=== PATIENT | male | born 1935 | race Caucasian/White ===

== ENCOUNTER → 2017-04-24 12:20 | Outpatient (CLI) | payer MEDICARE, OTHER, SELFPAY ==
[2016-09-25 13:26] VITALS: BMI 40.1
[2017-04-24 12:44] VITALS: PULSE 65; PULSE 66; PULSE 75; PULSE 78; PULSE 83; PULSE 86; PULSE 89; PULSE 90; O2SAT 89; O2SAT 90; O2SAT 91; O2SAT 93; O2SAT 95; O2SAT 97
--- NOTE | 2017-04-24 15:10 | WT_ITS ---
PSN 6 Minute Walk Test - 6 Minute Walk Test 6 Minute Walk Test: 6 Minute Walk Test PSN:6-Minute Walk Test Start: 04/24/17 12: 44 Freq: Status: Active Protocol: [id number] Document 04/24/17 12:44 GIOVANNA (Rec: 04/24/17 12:46 GIOVANNA [id number]) 6 Minute Walk Test Date Performed 04/24/17 Time Performed 12:30 Height 5 ft 11 in Weight: 124.738 kg Weight in Pounds 275.[address]: Wyatt Prakash Assistive device used: None Pre-test Oxygen Delivery Method Room Air Pulse Ox (%) 97 Pulse Rate (60-100 beats/min) 66 Dyspnea Jeanette Scale (0-10) 0 Exertion Jeanette Scale (6-20) 6 1st minute Oxygen Delivery Method Room Air Pulse Ox (%) 95 Pulse Rate (60-100 beats/min) 78 2nd minute Oxygen Delivery Method Room Air Pulse Ox (%) 93 Pulse Rate (60-100 beats/min) 90 Number of Rests Taken 1 3rd minute Oxygen Delivery Method Room Air Pulse Ox (%) 90 Pulse Rate (60-100 beats/min) 75 Number of Rests Taken 1 4th minute Oxygen Delivery Method Room Air Pulse Ox (%) 91 Pulse Rate (60-100 beats/min) 86 5th minute Oxygen Delivery Method Room Air Pulse Ox (%) 89 Pulse Rate (60-100 beats/min) 89 Number of Rests Taken 1 6th minute Oxygen Delivery Method Room Air Pulse Ox (%) 91 Pulse Rate (60-100 beats/min) 83 Dyspnea Jeanette Scale (0-10) 3 Exertion Jeanette Scale (6-20) 14 Post-test Oxygen Delivery Method Room Air Pulse Ox (%) 95 Pulse Rate (60-100 beats/min) 65 Full Laps Walked 4 Partial Lap, Number of Tiles Walked 45 Total Distance Walked (ft) 281 - Interpretation Interpretation: The patient was able to ambulate only 281 feet over the course of 6 minutes on room air with no assistive devices, but did require 3 breaks. The patient did have significant desaturation from a baseline of 97%, to as low as 89% throughout the testing. No significant tachycardia was noted. These findings are consistent with a respiratory limitation exercise tolerance. - Recommendations Recommendations: No supplemental oxygen is indicated at this time. However, sensitivity is greatly reduced secondary to minimal distance traveled.
== END ==
PROVIDERS: Family Provider Family Medicine; PCP Family Medicine; Visit Provider Internal Medicine Critical Care Medicine
DX: R93.8 Abnormal findings on diagnostic imaging of other specified body structures (principal)
CPT/HCPCS: 94618

== ENCOUNTER → 2017-06-10 09:40 | Outpatient (CLI) | payer MEDICARE, OTHER, SELFPAY ==
[2016-09-25 13:26] VITALS: BMI 40.1
--- NOTE | 2017-06-10 09:44 | RAD_ITS ---
STUDY: X-RAY CHEST REASON FOR EXAM: Male, 81 years old. CHF TECHNIQUE: PA and lateral views of the chest. COMPARISON: 03/28/2017 FINDINGS: There is mild interstitial edema. No focal consolidation. There is no demonstrated pleural abnormality. Sternal cerclage wires and vascular clips are present from a prior sternotomy and coronary artery bypass graft procedure (CABG). The heart is slightly enlarged. Normal mediastinum and nakia. Normal visualized pulmonary arteries. There is atherosclerotic calcification of the aortic arch with tortuosity. There are diffuse degenerative changes of the visualized thoracic spine. Normal visualized ribs, clavicles, and shoulders. There is no demonstrated abnormality of the visualized soft tissue structures of the upper abdomen. RAD/Chest PA and Lateral IMPRESSION: Mild interstitial edema. No focal pneumonia. Cardiomegaly, with postoperative changes of coronary artery bypass graft. Electronically Signed: Kingsley Mccollum DO at 10:15 EST Tel , Service support ,
== END ==
PROVIDERS: Family Provider Family Medicine; PCP Family Medicine; Visit Provider Family Medicine
DX: I50.9 Heart failure, unspecified (principal)
CPT/HCPCS: 71046

== ENCOUNTER 2017-06-14 15:10 | Inpatient (IN) | payer MEDICARE, OTHER, SELFPAY ==
[2016-09-25 13:26] VITALS: BMI 40.1
[2017-06-14] VITALS (11 sets, daily range): BP systolic 121–143; BP diastolic 58–72; PULSE 60–72; RESP 16–27; TEMP 36.6–37; O2SAT 89–93; BMI 38.3; BMI 37.3
--- NOTE | 2017-06-14 15:28 | EKG12_ITS ---
Test Reason : SOB Blood Pressure : / mmHG Vent. Rate : 064 BPM Atrial Rate : 064 BPM P-R Int : 178 ms QRS Dur : 118 ms QT Int : 434 ms P-R-T Axes : 022 034 -17 degrees QTc Int : 447 ms Normal sinus rhythm ST & T wave abnormality, consider anterior ischemia Abnormal ECG Confirmed by ZAIRA BENZ, JIMMIE ([id number]), sports editor VASHTI BARRAGAN ([id number]) on 06/17/2017 3:56:22 PM Referred By: ABHI Confirmed By:JIMMIE MENESES MD
--- NOTE | 2017-06-14 15:30 | ED.DCSUM_ITS ---
- ER Visit Summary Date of Service: 06/14/17 Chief Complaint: Shortness of breath History of Present Illness: The patient is a 81 M who has been short of breath for the past week. It is worse with exertion. He denies chest pain. He has a history of CHF and was admitted 3 months ago for the same. He saw his PCP on Friday who increased his Lasix to 80 mg in the morning and 40 mg in the evening. Later in the week he was not getting any better so they added another diuretic at noon. Chest x-ray on Friday did show fluid in the lungs. His legs have increased with swelling. Physical Examination: Vital signs reviewed. HEENT exam unremarkable. Heart is regular rate and rhythm without murmurs. Lungs have crackles in the bases bilaterally. Abdomen is soft and nontender. Extremities reveal 2 symmetric edema. Skin exam normal. Neurologic exam normal. Test Results: EKG is sinus rhythm with a rate of 64. There is nonspecific ST and T-wave changes. Chest x-ray per my dictation reveals CHF. There is also a left upper lobe infiltrate. Laboratory studies are normal except for chloride of 95. BNP 70 Emergency Department Course and Treatment: Patient was treated with IV Lasix and topical nitroglycerin. Due to the pneumonia we will treat with vancomycin 3 Nam due to a recent admission less than 3 months ago. I feel he requires admission due to the failure of his outpatient therapy for his CHF. I spoke with the hospitalist for admission Treatment Plan: [] Disposition: Admit Impression: CHF exacerbation, healthcare acquired pneumonia This note was generated with [employer] dictation software. It may contain incorrect words, spelling, and punctuation that were not noted in review of the chart prior to signing ED Disposition - Plan for ED Patient: Chief Complaint: Shortness of Breath Referrals: Joseph Tran MD [Primary Care Provider] -
--- NOTE | 2017-06-14 15:40 | RAD_ITS ---
STUDY: X-RAY CHEST REASON FOR EXAM: Male, 81 years old. Short of breath and cough. TECHNIQUE: Single AP portable view of the chest. COMPARISON: 06/10/2017. FINDINGS: Mild hyperexpansion. Diffuse bilateral pulmonary density, stable on the right and worsened on the left. Findings are probably combination of fibrosis, patchy atelectasis, and or inflammatory infiltrates. Cannot exclude small left pleural effusion. Mild cardiomegaly. Previous CABG. No acute abnormality of the bones or soft tissues. RAD/Chest 1 View (Portable) IMPRESSION: Probable combination of chronic pulmonary disease with fibrosis, and possible patchy atelectasis or infiltrates which have worsened on the left. Electronically Signed: Sreedhar Daniels MD at 16:17 EST , Service support ,
[2017-06-14 15:57] LABS: Absolute Lymphocyte Count 0.65 X10^3/ul (0.83-4.51); Absolute Neutrophil Count 7.2 X10^3/uL (2.0-7.7); Basophil# 0.03 X10^3/uL; Basophil% 0.3 % (0-1); Eosinophil# 0.31 X10^3/uL; Eosinophils% 3.5 % (0-5); Hemoglobin 13.4 g/dl (13.0-16.5); Lymphocyte # 0.65 X10^3/ul (4.0); Lymphocyte % 7.4 % (19-41); Mean Corp Hgb Conc 33.5 g/gl (32-36); Mean Corpuscular Hgb 29.8 pg (27.0-32.0); Mean Corpuscular Volume 88.9 fL (80-94); Mean Platelet Vol. 8.7 fl (6.2-12.0); Monocyte# 0.63 X10^3/uL; Monocyte% 7.1 % (0-10); Neutrophil % 81.5 % (47-70); POSITIVE COUNT NO; POSITIVE DIFFERENTIAL NO; POSITIVE MORPHOLOGY NO; Platelet Count 245 K/mm3 (150-450); RBC Distribution Width CV 12.9 % (11.6-14.6); RBC Distribution Width SD 41.2 fl (35.1-43.9); White Blood Count 8.8 K/mm3 (4.4-11.0)
[2017-06-14 16:11] LABS: Anion Gap 9 (5-15); BUN 18 mg/dL (7-18); BUN/Creat Ratio 15.9 RATIO (10-20); Calcium,Total 8.5 mg/dL (8.5-10.1); Chloride 95 mmol/L (98-107); Creatinine, Serum 1.13 mg/dL (0.70-1.30); EST Glomerular Filtration Rate 66 mL/min (>60); Est Glom Filt Rate - Afr Amer 80 mL/min (>60); Estimated Creatinine Clearance 54.61 ml/min; Glucose 241 mg/dL (74-106); Potassium 3.5 mmol/L (3.5-5.1); Sodium Level 139 mmol/L (136-145)
[2017-06-14 16:24] LABS: BNP,B-Type NATRIURETIC PEPTIDE 70.5 pg/mL (0-100)
--- NOTE | 2017-06-14 17:02 | HP.PCM_ITS ---
Problem List (1) Diastolic CHF, acute Status: Acute (2) Abnormal PFTs (pulmonary function tests) Status: Chronic (3) Abnormal chest CT Status: Chronic (4) Atherosclerotic heart disease of [place] coronary artery without angina pectoris Status: Chronic Qualifiers: Comment: PTCA of the RCA intracoronary stent November 1997; PTCA/TIN to prox Ramus, FFR neg of distal RCA 09/25/2016; CABG TUCKER to LAD; SVG to PDA (5) Atrial fibrillation and flutter Status: Chronic (6) Atrial flutter with rapid ventricular response Status: Chronic (7) CAD (coronary artery disease) Status: Chronic (8) CHF (congestive heart failure) Status: Chronic Qualifiers: Comment: Echocardiogram from March 2017 showed ejection fraction of 55% (9) Cardiomyopathy, secondary Status: Chronic (10) Cataract Status: Chronic (11) Coronary atherosclerosis of [place] coronary vessel Status: Chronic (12) Edema Status: Chronic (13) HLD (hyperlipidemia) Status: Chronic Qualifiers: (14) HTN (hypertension) Status: Chronic Qualifiers: Hypertension type: essential hypertension Qualified Code(s): I10 - Essential (primary) hypertension (15) Obesity Status: Chronic Qualifiers: Obesity classification: adult class 2 (BMI 35 - 39.9) (16) Paroxysmal atrial flutter Status: Chronic (17) Postsurgical aortocoronary bypass status Status: Chronic (18) Restrictive airway disease Status: Chronic (19) S/P CABG x 2 Status: Chronic Comment: TUCKER to LAD; SVG to PDA (20) S/P PTCA (percutaneous transluminal coronary angioplasty) Status: Chronic Comment: PTCA of the RCA inreacoronary stent November 1997; PTCA/TIN to prox Ramus, FFR neg of gistal RCA 09/25/2016 History of Present Illness Date of Admission: 06/14/17 Chief Complaint: Shortness of breath The patient is a 81 year old M with past medical history is enough for paroxysmal A. fib, chronic diastolic congestive heart failure morbid obesity with BMI greater than 35 who presented with shortness of breath. Patient symptoms have been ongoing for the past couple of weeks. He reports shortness of breath with minimal exertion. Patient has also experienced significant swelling involving both lower extremities as well as weight gain. His only Lasix dose what of which was recently adjusted however his condition continued to worsen. He did experience a productive cough but denied any fever no chills. He elected to present to the emergency department subsequently. Patient assessment was consistent with acute on chronic diastolic congestive heart failure. Patient checks x-ray was questionable for possible pneumonia however with the patient remained afebrile without leukocytosis was felt this was small bronchitis related. Patient was admitted to a monitored bed for further management Past Medical History Past Medical History (Chronic Problems): Chronic Problems (Last Updated 04/16/17 @ 09:02 by Christi Gonzalez) CHF (congestive heart failure) (Chronic) Echocardiogram from March 2017 showed ejection fraction of 55% Coronary atherosclerosis of [place] coronary vessel (Chronic) Edema (Chronic) 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, secondary (Chronic) Paroxysmal atrial flutter (Chronic) Atherosclerotic heart disease of [place] coronary artery without angina pectoris (Chronic) PTCA of the RCA intracoronary stent November 1997; PTCA/TIN to prox Ramus, FFR neg of distal RCA 09/25/2016; CABG TUCKER to LAD; SVG to PDA Obesity (Chronic) Abnormal chest CT (Chronic) Restrictive airway disease (Chronic) Abnormal PFTs (pulmonary function tests) (Chronic) S/P PTCA (percutaneous transluminal coronary angioplasty) (Chronic) PTCA of the RCA inreacoronary stent November 1997; PTCA/TIN to prox Ramus, FFR neg of gistal RCA 09/25/2016 Atrial fibrillation and flutter (Chronic) HLD (hyperlipidemia) (Chronic) S/P CABG x 2 (Chronic) TUCKER to LAD; SVG to PDA CAD (coronary artery disease) (Chronic) Cataract (Chronic) HTN (hypertension) (Chronic) Atrial flutter with rapid ventricular response (Chronic) Allergies amoxicillin trihydrate [From Augmentin] Allergy (Verified 06/14/17 15:10) Mucosal lesions lisinopril [From Prinivil] Allergy (Verified 06/14/17 15:10) Unknown meperidine HCl [From Demerol] Allergy (Verified 06/14/17 15:10) Other orlistat [From Xenical] Allergy (Verified 06/14/17 15:10) Unknown Penicillins Allergy (Verified 06/14/17 15:10) Unknown potassium clavulanate [From Augmentin] Allergy (Verified 06/14/17 15:10) Mucosal lesions rofecoxib [From Vioxx] Allergy (Verified 06/14/17 15:10) Unknown adhesive tape Adverse Reaction (Uncoded 06/14/17 15:10) Rash Home Medications: Ambulatory Orders Medication Instructions Recorded Finasteride [Proscar] 5 mg PO DAILY 01/21/13 Gabapentin [Neurontin] 300 mg PO BID 01/21/13 Multivitamins,Ther W-Minerals 1 tab PO DAILY 01/21/13 [Multivitamin With Minerals] Ascorbic Acid [Vitamin C] 500 mg PO DAILY@0800 05/29/15 Vitamin E 400 units PO DAILY 05/29/15 Calcium Carbonate 600 mg PO DAILY 09/02/16 Cholecalciferol (VIT D3) [Vitamin 1,000 unit PO DAILY 09/02/16 D3] Metoprolol Tartrate [Lopressor 25 mg PO BID 09/02/16 (beta stefani)] Tamsulosin HCl [Flomax] 0.4 mg PO QHS 09/02/16 Aspirin [Adult Low Dose Aspirin EC] 81 mg PO DAILY 09/24/16 Clopidogrel Bisulfate [Plavix] 75 mg PO DAILY 09/24/16 Amiodarone HCl [Cordarone] 200 mg PO DAILY 12/13/16 Potassium Chloride [K-Dur] 20 meq PO BID #60 tab 03/31/17 furosemide 80 mg tablet 40 mg PO BID@1000,1800 tab 04/16/17 pravastatin 40 mg tablet 40 mg PO QHS #90 tab 05/14/17 rivaroxaban 20 mg tablet 20 mg PO QDAY #90 tab 05/19/17 Spironolactone [Aldactone] 25 mg PO DAILY 06/14/17 Surgical History: angioplasty, coronary bypass surgery Smoking Status: Former smoker Review of Systems Constitutional: Reports: Weakness, Fatigue HEENT: Denies: Head Aches, Sinus Congestion, Sinus Drainage Cardiovascular: Reports: Orthopnea Respiratory: Reports: Cough, Shortness of Breath, Shortness of breath upon exertion VTE Information - Inpt Only VTE Present on Admission: No VTE Mechan Device Prophylaxis: None VTE Pharm Prophylaxis ordered?: Yes Objective: GENERAL: cooperative HEENT: Clear conjunctiva, NECK; supple, normal thyroid, CHEST: Diminished to auscultation bilaterally, HEART: Irregular S1 S2, no audible murmurs ABDOMEN: soft, non-tender, normoactive bowel sounds, RECTAL: deferred MUSCULOSKELETAL:No joint swelling EXTREMITIES: Bilateral stasis dermatitis with 2+ edema E BUSINESS PROJECT MANAGER: Awake, alert and oriented to time, place and person, SKIN: As described above - Physical Exam Vital Signs Temp Pulse Resp BP Pulse Ox 98.3 F 71 27 H 143/72 H 90 06/14/17 15:11 06/14/17 15:11 06/14/17 15:11 06/14/17 15:11 06/14/17 15:36 Oxygen Flow Rate 2 Oxygen Delivery Method Nasal Cannula Weight: 124.738 kg Body Mass Index (BMI) 38.3 Laboratory Tests Past 24 Hrs 06/14/17 06/14/17 06/14/17 15:40 15:40 15:40 WBC 8.8 RBC 4.50 L Hgb 13.4 Hct 40.0 MCV 88.9 MCH 29.8 MCHC 33.5 RDW 12.9 RDW Differential 41.2 Plt Count 245 MPV 8.7 Immature Gran % (Auto) 0.200 Neut % (Auto) 81.5 H Lymph % (Auto) 7.4 L [place] % (Auto) 7.1 Eos % (Auto) 3.5 Baso % (Auto) 0.3 Absolute Neuts (auto) 7.2 Absolute Lymphs (auto) 0.65 L Total Counted Not Reportable Sodium 139 Potassium 3.5 Chloride 95 L Carbon Dioxide 35.0 H Anion Gap 9 BUN 18 Creatinine 1.13 Estim Creat Clear Calc 54.61 Est GFR (MDRD) Af Amer 80 Est GFR (MDRD) Non-Af 66 BUN/Creatinine Ratio 15.9 Glucose 241 H Calcium 8.5 Troponin I < 0.02 B-Natriuretic Peptide 70.5 Assessment/Plan Patient is an 81-year-old gentleman admitted with progressive shortness of breath as an assessment of acute congestive heart failure made admitted to a monitored nursing floor for further management 1. Acute diastolic congestive heart failure. 2D echo obtained in March demonstrated ejection fraction of 55%. Patient has been admitted to monitored bed as stated above started on diuretics strict input and output daily weights as well as supplemental oxygen 2. Infectious bronchitis (patient clinical presentation not consistent with pneumonia~ruled out) 3. Paroxysmal A. fib patient rate controlled on amiodarone and Lopressor well or systemic anticoagulation with on Xarelto 4. Hypertension-blood pressure controlled, home medications continued with dose adjustment as needed 5. Dyslipidemia-patient is on statin therapy, continued at home dose 6. BPH patient is on both Proscar and Flomax did continue 7. Morbid obesity with BMI of 38.4 weight loss advised 8. DVT prophylaxis patient was on Xarelto Advanced planning had a discussion with patient and the regarding patient CODE STATUS in view of his multiple comorbidities. Patient elected to have this CODE STATUS to be DNR CCA. Time spent on discussion 17 minutes Code Visit Inpatient E&M: 29984 Subs Hosp L3 Procedures: 82134 Advncd Care Plan 30 Min
[2017-06-14] MEDS: Nitroglycerin Oint 1 INCH PACKET 0.5 INCH TRANSDERM. (17:09)
[2017-06-14] MEDS: Furosemide 40 MG/4 ML Vial IV ×2 (17:09→21:21)
[2017-06-14] MEDS: Ipratropium/Albuterol Sulfate 3 ML AMPUL.NEB INHALATION (19:56)
[2017-06-14] MEDS: Doxycycline 100 MG CAPSULE PO (21:21)
[2017-06-14] MEDS: Metoprolol Tartrate 25 MG Tablet PO (21:21)
[2017-06-14] MEDS: Tamsulosin HCl 0.4 MG Capsule PO (21:21)
[2017-06-14] MEDS: Pravastatin 40 MG Tablet PO (21:21)
[2017-06-15] VITALS (19 sets, daily range): BP systolic 112–127; BP diastolic 53–64; PULSE 60–76; RESP 18–20; TEMP 36.5–37.4; O2SAT 90–95
[2017-06-15] MEDS: Albuterol 2.5 MG/3 ML VIAL.NEB. INHALATION (04:10)
[2017-06-15] MEDS: Furosemide 40 MG/4 ML Vial IV ×3 (05:21→22:09)
[2017-06-15 07:04] LABS: Hematocrit 39.2 % (40-54); Hemoglobin 12.9 g/dl (13.0-16.5); Mean Corp Hgb Conc 32.9 g/gl (32-36); Mean Corpuscular Hgb 29.3 pg (27.0-32.0); Mean Corpuscular Volume 88.9 fL (80-94); Mean Platelet Vol. 9.1 fl (6.2-12.0); Platelet Count 237 K/mm3 (150-450); RBC Distribution Width CV 13.1 % (11.6-14.6); RBC Distribution Width SD 42.8 fl (35.1-43.9); Red Blood Count 4.41 M/mm3 (4.6-6.2)
[2017-06-15] MEDS: Ipratropium/Albuterol Sulfate 3 ML AMPUL.NEB INHALATION ×3 (07:13→22:55)
[2017-06-15 07:30] LABS: Scan Indicated on CBC? Y/N NO
[2017-06-15 08:38] LABS: Anion Gap 10 (5-15); BUN 17 mg/dL (7-18); BUN/Creat Ratio 17.7 RATIO (10-20); Calcium,Total 8.4 mg/dL (8.5-10.1); Chloride 96 mmol/L (98-107); Creatinine, Serum 0.96 mg/dL (0.70-1.30); EST Glomerular Filtration Rate 80 mL/min (>60); Est Glom Filt Rate - Afr Amer 96 mL/min (>60); Estimated Creatinine Clearance 64.28 ml/min; Glucose 175 mg/dL (74-106); Potassium 3.2 mmol/L (3.5-5.1); Sodium Level 138 mmol/L (136-145)
[2017-06-15] MEDS: Calcium Carbonate 500 MG Tablet PO (09:13)
[2017-06-15] MEDS: Finasteride 5 MG Tablet PO (09:13)
[2017-06-15] MEDS: Clopidogrel Bisulfate 75 MG Tablet PO (09:14)
[2017-06-15] MEDS: Amiodarone 200 MG Tablet PO (09:14)
[2017-06-15] MEDS: Ascorbic Acid 500 MG Tablet PO (09:14)
[2017-06-15] MEDS: Vitamin E 400 UNITS Capsule PO (09:14)
[2017-06-15] MEDS: Spironolactone 25 MG Tablet PO (09:14)
[2017-06-15] MEDS: Metoprolol Tartrate 25 MG Tablet PO ×2 (09:14→22:08)
[2017-06-15] MEDS: Gabapentin 300 MG Capsule PO ×2 (09:14→16:38)
[2017-06-15] MEDS: Doxycycline 100 MG CAPSULE PO ×2 (09:14→22:08)
[2017-06-15] MEDS: Rivaroxaban 20 MG Tablet PO (09:14)
[2017-06-15] MEDS: Aspirin E.C. 81 MG Tablet PO (09:15)
[2017-06-15] MEDS: Multivitamins,Ther W-Minerals Tablet 1 TABLET PO (09:15)
--- NOTE | 2017-06-15 11:17 | PCM.PN.HOSP ---
Subjective: Patient seen breathing still remains significantly dyspneic at rest and appears depressed. . Potassium 3.3 initiated correction Objective: GENERAL: cooperative HEENT: Clear conjunctiva, NECK; supple, normal thyroid, CHEST: Diminished to auscultation bilaterally, HEART: Irregular S1 S2, ABDOMEN: soft, non-tender, normoactive bowel sounds, RECTAL: deferred MUSCULOSKELETAL:No joint swelling EXTREMITIES: Bilateral stasis dermatitis with 2+ edema SUPERVISOR TESTING: Awake, alert and oriented to time, place and person, SKIN: As described above Vitals/I&O's: Vital Signs Temp Pulse Resp BP Pulse Ox 97.7 F L 68 20 H 112/53 L 92 06/15/17 09:06 06/15/17 09:14 06/15/17 09:06 06/15/17 09:14 06/15/17 09:06 Oxygen Flow Rate 4 Oxygen Delivery Method Nasal Cannula Weight: 120.9 kg Body Mass Index (BMI) 37.3 Intake and Output for Last 24 Hours 06/13/17 06/14/17 06/15/17 23:59 23:59 23:59 Intake Total 240 / 240 472 / 472 Output Total 125 / 125 725 / 725 Balance 115 / 115 -253 / -253 Laboratory Results 06/14/17 19:45: Troponin I < 0.02 06/14/17 23:56: Troponin I < 0.02 06/15/17 06:19: WBC 9.0, RBC 4.41 L, Hgb 12.9 L, Hct 39.2 L, MCV 88.9, MCH 29.3, MCHC 32.9, RDW 13.1, RDW Differential 42.8, Plt Count 237, MPV 9.1 06/15/17 06:19: Sodium Cancelled, Potassium Cancelled, Chloride Cancelled, Carbon Dioxide Cancelled, Anion Gap Cancelled, BUN Cancelled, Creatinine Cancelled, Estim Creat Clear Calc Cancelled, Est GFR (MDRD) Af Amer Cancelled, Est GFR (MDRD) Non-Af Cancelled, BUN/Creatinine Ratio Cancelled, Glucose Cancelled, Calcium Cancelled 06/15/17 06:19: Sodium 138, Potassium 3.2 L, Chloride 96 L, Carbon Dioxide 32.0, Anion Gap 10, BUN 17, Creatinine 0.96, Estim Creat Clear Calc 64.28, Est GFR (MDRD) Af Amer 96, Est GFR (MDRD) Non-Af 80, BUN/Creatinine Ratio 17.7, Glucose 175 H, Calcium 8.4 L, Troponin I < 0.02 Current Medications Acetaminophen (Tylenol) 650 mg PO Q6H PRN PRN PRN Reason: Mild Pain (scale 0-3)/T>100.7 Al Hydroxide/Mg Hydroxide (Mylanta Ii) 30 ml PO Q6H PRN PRN PRN Reason: Gastric burning Albuterol Sulfate (Ventolin Aerosols) 2.5 mg INHALATION Q2H PRN PRN PRN Reason: DYSPNEA/WHEEZING/SOB Last Admin: 06/15/17 04:10 Dose: 2.5 mg Albuterol/Ipratropium (Duoneb) 3 ml INHALATION Q6HWA.RT [facility] [place] Last Admin: 06/15/17 07:13 Dose: 3 ml Amiodarone HCl (Cordarone) 200 mg PO DAILY [facility] [place] Last Admin: 06/15/17 09:14 Dose: 200 mg Ascorbic Acid (Vitamin C) 500 mg PO DAILY@0800 [facility] [place] Last Admin: 06/15/17 09:14 Dose: 500 mg Aspirin (Ecotrin) 81 mg PO DAILY@0800 [facility] [place] Last Admin: 06/15/17 09:15 Dose: 81 mg [facility]cium [facility]) [facility] Admin: 06/15/17 09:13 Dose: 500 mg Cholecalciferol (Vitamin D) [facility] Last Admin: 06/15/17 09:14 Dose: 1,000 unit Clopidogrel Bisulfate (Plavix) 75 mg PO DAILY [facility] [place] Last Admin: 06/15/17 09:14 Dose: 75 mg Doxycycline Monohydrate (Doxycycline) 100 mg PO BID [facility] [place] Last Admin: 06/15/17 09:14 Dose: 100 mg Finasteride (Proscar) 5 mg PO DAILY [facility] [place] Last Admin: 06/15/17 09:13 Dose: 5 mg Furosemide (Lasix) 40 mg IV Q8 [facility] [place] Last Admin: 06/15/17 05:21 Dose: 40 mg Gabapentin ([facility]ontin) [facility] Last Admin: 06/15/17 09:14 Dose: 300 mg Magnesium Hydroxide (Milk Of Magnesia) 30 ml PO DAILY PRN PRN Reason: Constipation Metoprolol Tartrate (Lopressor (Beta Yelena)) 25 mg PO BID [facility] [place] Last Admin: 06/15/17 09:14 Dose: 25 mg Multivitamins/Minerals (Multivitamin With Minerals) [facility] Last Admin: 06/15/17 09:15 Dose: 1 tablet Nutritional Formula (Lactose Free) (Ensure Enlive) 120 ml PO 4X/DAY [facility] [place] Last Admin: 06/15/17 09:16 Dose: 120 ml Oxycodone HCl (Oxyir) 5 mg PO Q4H PRN PRN PRN Reason: Moderate Pain (pain scale 4-5) Potassium Chloride (K-Dur) [facility] Last Admin: 06/15/17 09:15 Dose: 20 meq Pravastatin Sodium (Pravachol) 40 mg PO QHS [facility] [place] Last Admin: 06/14/17 21:21 Dose: 40 mg Promethazine HCl (Phenergan (Ll)) 12.5 mg IV Q6H PRN PRN PRN Reason: NAUSEA/VOMITING Rivaroxaban (Xarelto) 20 mg PO DAILY [facility] [place] Last Admin: 06/15/17 09:14 Dose: 20 mg Spironolactone (Aldactone) 25 mg PO DAILY [facility] [place] Last Admin: 06/15/17 09:14 Dose: 25 mg Tamsulosin HCl (Flomax) 0.4 mg PO QHS [facility] [place] Last Admin: 06/14/17 21:21 Dose: 0.4 mg Vitamin E (Vitamin E) [facility] Last Admin: 06/15/17 09:14 Dose: 400 units Zolpidem Tartrate (Ambien (Generic)) 5 mg PO QHS PRN PRN PRN Reason: INSOMNIA Assessment/Plan Patient is an 81-year-old gentleman admitted with progressive shortness of breath as an assessment of acute congestive heart failure made admitted to a monitored nursing floor for further management 1. Acute diastolic congestive heart failure. 2D echo obtained in March demonstrated ejection fraction of 55%. Patient has been admitted to monitored bed as stated above started on diuretics strict input and output daily weights as well as supplemental oxygen 2. Infectious bronchitis (patient clinical presentation not consistent with pneumonia~ruled out) 3. Paroxysmal A. fib patient rate controlled on amiodarone and Lopressor well or systemic anticoagulation with on Xarelto 4. Hypertension-blood pressure controlled, home medications continued with dose adjustment as needed 5. Dyslipidemia-patient is on statin therapy, continued at home dose 6. BPH patient is on both Proscar and Flomax did continue 7. Morbid obesity with BMI of 38.4 weight loss advised 8. DVT prophylaxis patient was on Xarelto 9. Hypokalemia corrected per protocol Advanced planning had a discussion with patient and the regarding patient CODE STATUS in view of his multiple comorbidities. Patient elected to have this CODE STATUS to be DNR CCA. Time spent on discussion 17 minutes Code Visit Inpatient E&M: 82697 Subs Hosp L3
--- NOTE | 2017-06-15 11:20 | PN_ITS ---
Subjective: Patient seen breathing still remains significantly dyspneic at rest and appears depressed. . Potassium 3.3 initiated correction Objective: GENERAL: cooperative HEENT: Clear conjunctiva, NECK; supple, normal thyroid, CHEST: Diminished to auscultation bilaterally, HEART: Irregular S1 S2, ABDOMEN: soft, non-tender, normoactive bowel sounds, RECTAL: deferred MUSCULOSKELETAL:No joint swelling EXTREMITIES: Bilateral stasis dermatitis with 2+ edema NATIONAL SECRETARY: Awake, alert and oriented to time, place and person, SKIN: As described above Vitals/I&O's: Vital Signs Temp Pulse Resp BP Pulse Ox 97.7 F L 68 20 H 112/53 L 92 06/15/17 09:06 06/15/17 09:14 06/15/17 09:06 06/15/17 09:14 06/15/17 09:06 Oxygen Flow Rate 4 Oxygen Delivery Method Nasal Cannula Weight: 120.9 kg Body Mass Index (BMI) 37.3 Intake and Output for Last 24 Hours 06/13/17 06/14/17 06/15/17 23:59 23:59 23:59 Intake Total 240 / 240 472 / 472 Output Total 125 / 125 725 / 725 Balance 115 / 115 -253 / -253 Laboratory Results 06/14/17 19:45: Troponin I < 0.02 06/14/17 23:56: Troponin I < 0.02 06/15/17 06:19: WBC 9.0, RBC 4.41 L, Hgb 12.9 L, Hct 39.2 L, MCV 88.9, MCH 29.3 , MCHC 32.9, RDW 13.1, RDW Differential 42.8, Plt Count 237, MPV 9.1 06/15/17 06:19: Sodium Cancelled, Potassium Cancelled, Chloride Cancelled, Carbon Dioxide Cancelled, Anion Gap Cancelled, BUN Cancelled, Creatinine Cancelled, Estim Creat Clear Calc Cancelled, Est GFR (MDRD) Af Amer Cancelled, Est GFR (MDRD) Non-Af Cancelled, BUN/Creatinine Ratio Cancelled, Glucose Cancelled, Calcium Cancelled 06/15/17 06:19: Sodium 138, Potassium 3.2 L, Chloride 96 L, Carbon Dioxide 32.0 , Anion Gap 10, BUN 17, Creatinine 0.96, Estim Creat Clear Calc 64.28, Est GFR ( MDRD) Af Amer 96, Est GFR (MDRD) Non-Af 80, BUN/Creatinine Ratio 17.7, Glucose 175 H, Calcium 8.4 L, Troponin I < 0.02 Current Medications Acetaminophen (Tylenol) 650 mg PO Q6H PRN PRN PRN Reason: Mild Pain (scale 0-3)/T>100.7 Al Hydroxide/Mg Hydroxide (Mylanta Ii) 30 ml PO Q6H PRN PRN PRN Reason: Gastric burning Albuterol Sulfate (Ventolin Aerosols) 2.5 mg INHALATION Q2H PRN PRN PRN Reason: DYSPNEA/WHEEZING/SOB Last Admin: 06/15/17 04:10 Dose: 2.5 mg Albuterol/Ipratropium (Duoneb) 3 ml INHALATION Q6HWA.RT [facility] Last Admin: 06/15/17 07:13 Dose: 3 ml Amiodarone HCl (Cordarone) 200 mg PO DAILY [facility] Last Admin: 06/15/17 09:14 Dose: 200 mg Ascorbic Acid (Vitamin C) 500 mg PO DAILY@0800 [facility] Last Admin: 06/15/17 09:14 Dose: 500 mg Aspirin (Ecotrin) 81 mg PO DAILY@0800 [facility] Last Admin: 06/15/17 09:15 Dose: 81 mg [facility] Last Admin: 06/15/17 09:13 Dose: 500 mg Cholecalciferol (Vitamin D) [facility] Last Admin: 06/15/17 09:14 Dose: 1,000 unit Clopidogrel Bisulfate (Plavix) 75 mg PO DAILY [facility] Last Admin: 06/15/17 09:14 Dose: 75 mg Doxycycline Monohydrate (Doxycycline) 100 mg PO BID [facility] Last Admin: 06/15/17 09:14 Dose: 100 mg Finasteride (Proscar) 5 mg PO DAILY [facility] Last Admin: 06/15/17 09:13 Dose: 5 mg Furosemide (Lasix) 40 mg IV Q8 [facility] Last Admin: 06/15/17 05:21 Dose: 40 mg Gabapentin (Neurontin) [facility] Last Admin: 06/15/17 09:14 Dose: 300 mg Magnesium Hydroxide (Milk Of Magnesia) 30 ml PO DAILY PRN PRN Reason: Constipation Metoprolol Tartrate (Lopressor (Beta Yelena)) 25 mg PO BID [facility] Last Admin: 06/15/17 09:14 Dose: 25 mg Multivitamins/Minerals (Multivitamin With Minerals) [facility] Last Admin: 06/15/17 09:15 Dose: 1 tablet Nutritional Formula (Lactose Free) (Ensure Enlive) 120 ml PO 4X/DAY [facility] Last Admin: 06/15/17 09:16 Dose: 120 ml Oxycodone HCl (Oxyir) 5 mg PO Q4H PRN PRN PRN Reason: Moderate Pain (pain scale 4-5) Potassium Chloride (K-Dur) [facility]q [facility] Last Admin: 06/15/17 09:15 Dose: 20 meq Pravastatin Sodium (Pravachol) 40 mg PO QHS [facility] Last Admin: 06/14/17 21:21 Dose: 40 mg Promethazine HCl (Phenergan (Ll)) 12.5 mg IV Q6H PRN PRN PRN Reason: NAUSEA/VOMITING Rivaroxaban (Xarelto) 20 mg PO DAILY [facility] Last Admin: 06/15/17 09:14 Dose: 20 mg Spironolactone (Aldactone) 25 mg PO DAILY [facility] Last Admin: 06/15/17 09:14 Dose: 25 mg Tamsulosin HCl (Flomax) 0.4 mg PO QHS [facility] Last Admin: 06/14/17 21:21 Dose: 0.4 mg Vitamin E (Vitamin E) [facility] Last Admin: 06/15/17 09:14 Dose: 400 units Zolpidem Tartrate (Ambien (Generic)) 5 mg PO QHS PRN PRN PRN Reason: INSOMNIA Assessment/Plan Patient is an 81-year-old gentleman admitted with progressive shortness of breath as an assessment of acute congestive heart failure made admitted to a monitored nursing floor for further management 1. Acute diastolic congestive heart failure. 2D echo obtained in March demonstrated ejection fraction of 55%. Patient has been admitted to monitored bed as stated above started on diuretics strict input and output daily weights as well as supplemental oxygen 2. Infectious bronchitis (patient clinical presentation not consistent with pneumonia~ruled out) 3. Paroxysmal A. fib patient rate controlled on amiodarone and Lopressor well or systemic anticoagulation with on Xarelto 4. Hypertension-blood pressure controlled, home medications continued with dose adjustment as needed 5. Dyslipidemia-patient is on statin therapy, continued at home dose 6. BPH patient is on both Proscar and Flomax did continue 7. Morbid obesity with BMI of 38.4 weight loss advised 8. DVT prophylaxis patient was on Xarelto 9. Hypokalemia corrected per protocol Advanced planning had a discussion with patient and the regarding patient CODE STATUS in view of his multiple comorbidities. Patient elected to have this CODE STATUS to be DNR CCA. Time spent on discussion 17 minutes Code Visit Inpatient E&M: 28510 Subs Hosp L3
[2017-06-15] MEDS: Pravastatin 40 MG Tablet PO (22:09)
[2017-06-15] MEDS: Tamsulosin HCl 0.4 MG Capsule PO (22:09)
[2017-06-16] VITALS (17 sets, daily range): BP systolic 116–126; BP diastolic 59–64; PULSE 63–88; RESP 16–24; TEMP 36.6–37.1; O2SAT 87–97
[2017-06-16] MEDS: Furosemide 40 MG/4 ML Vial IV ×3 (05:34→22:02)
[2017-06-16 06:52] LABS: Hematocrit 40.4 % (40-54); Hemoglobin 13.4 g/dl (13.0-16.5); Mean Corp Hgb Conc 33.2 g/gl (32-36); Mean Corpuscular Hgb 29.8 pg (27.0-32.0); Mean Platelet Vol. 8.8 fl (6.2-12.0); Platelet Count 288 K/mm3 (150-450); RBC Distribution Width SD 42.5 fl (35.1-43.9); Red Blood Count 4.49 M/mm3 (4.6-6.2); White Blood Count 9.1 K/mm3 (4.4-11.0)
[2017-06-16 07:19] LABS: Anion Gap 9 (5-15); BUN 19 mg/dL (7-18); BUN/Creat Ratio 20.9 RATIO (10-20); Chloride 96 mmol/L (98-107); Creatinine, Serum 0.91 mg/dL (0.70-1.30); EST Glomerular Filtration Rate 85 mL/min (>60); Est Glom Filt Rate - Afr Amer 103 mL/min (>60); Estimated Creatinine Clearance 67.81 ml/min; Glucose 170 mg/dL (74-106); Potassium 3.8 mmol/L (3.5-5.1); Sodium Level 140 mmol/L (136-145)
[2017-06-16 07:35] LABS: Scan Indicated on CBC? Y/N NO
[2017-06-16] MEDS: Ipratropium/Albuterol Sulfate 3 ML AMPUL.NEB INHALATION ×3 (07:41→21:53)
[2017-06-16] MEDS: Calcium Carbonate 500 MG Tablet PO (08:33)
[2017-06-16] MEDS: Aspirin E.C. 81 MG Tablet PO (08:33)
[2017-06-16] MEDS: Gabapentin 300 MG Capsule PO ×2 (08:33→17:14)
[2017-06-16] MEDS: Doxycycline 100 MG CAPSULE PO ×2 (08:33→22:01)
[2017-06-16] MEDS: Ascorbic Acid 500 MG Tablet PO (08:33)
[2017-06-16] MEDS: Multivitamins,Ther W-Minerals Tablet 1 TABLET PO (08:33)
[2017-06-16] MEDS: Clopidogrel Bisulfate 75 MG Tablet PO (08:34)
[2017-06-16] MEDS: Metoprolol Tartrate 25 MG Tablet PO ×2 (08:34→22:01)
[2017-06-16] MEDS: Finasteride 5 MG Tablet PO (08:35)
[2017-06-16] MEDS: Amiodarone 200 MG Tablet PO (08:35)
[2017-06-16] MEDS: Spironolactone 25 MG Tablet PO (08:35)
[2017-06-16] MEDS: Vitamin E 400 UNITS Capsule PO (08:35)
[2017-06-16] MEDS: Rivaroxaban 20 MG Tablet PO (08:35)
[2017-06-16] MEDS: Acetaminophen 325 MG Tablet 650 MG PO (09:57)
--- NOTE | 2017-06-16 13:11 | PCM.PN.HOSP ---
Subjective: Shortness of breath. Still with dyspnea on exertion. Vitals/I&O's: Vital Signs Temp Pulse Resp BP Pulse Ox 36.6 C 65 20 H 126/59 H 87 06/16/17 09:58 06/16/17 11:29 06/16/17 09:58 06/16/17 09:58 06/16/17 10:02 Oxygen Flow Rate 4 Oxygen Delivery Method Nasal Cannula Weight: 119.4 kg Body Mass Index (BMI) 37.3 Intake and Output for Last 24 Hours 06/14/17 06/15/17 06/16/17 23:59 23:59 23:59 Intake Total 240 / 240 1172 / 1172 460 / 460 Output Total 125 / 125 1250 / 1250 1050 / 1050 Balance 115 / 115 -78 / -78 -590 / -590 General: Alert, Cooperative, No apparent distress HEENT: Atraumatic, Normocephalic Neck: No Nodes, Thyroid Normal Size and Texture Lungs: Clear to auscultation, Normal air movement, No rhonchi, No wheeze Cardiovascular: Regular rate, Regular Rhythm, Normal S1, Normal S2, No murmurs Abdomen: Bowel Sounds Present, Soft, Non Tender, Non-Distended, No Hepato-splenomegaly, Passing Flatus Extremities: No edema, No Calf Tenderness Psych/Mental Status: Normal Affect, Appropriate Laboratory Results 06/16/17 06:30: WBC 9.1, RBC 4.49 L, Hgb 13.4, Hct 40.4, MCV 90.0, MCH 29.8, MCHC 33.2, RDW 13.0, RDW Differential 42.5, Plt Count 288, MPV 8.8 06/16/17 06:30: Sodium 140, Potassium 3.8, Chloride 96 L, Carbon Dioxide 35.0 H, Anion Gap 9, BUN 19 H, Creatinine 0.91, Estim Creat Clear Calc 67.81, Est GFR (MDRD) Af Amer 103, Est GFR (MDRD) Non-Af 85, BUN/Creatinine Ratio 20.9 H, Glucose 170 H, Calcium 9.0 Current Medications Acetaminophen (Tylenol) 650 mg PO Q6H PRN PRN PRN Reason: Mild Pain (scale 0-3)/T>100.7 Last Admin: 06/16/17 09:57 Dose: 650 mg Al Hydroxide/Mg Hydroxide (Mylanta Ii) 30 ml PO Q6H PRN PRN PRN Reason: Gastric burning Albuterol Sulfate (Ventolin Aerosols) 2.5 mg INHALATION Q2H PRN PRN PRN Reason: DYSPNEA/WHEEZING/SOB Last Admin: 06/15/17 04:10 Dose: 2.5 mg Albuterol/Ipratropium (Duoneb) 3 ml INHALATION Q6HWA.RT [facility] Last Admin: 06/16/17 07:41 Dose: 3 ml Amiodarone HCl (Cordarone) 200 mg PO DAILY [facility] Last Admin: 06/16/17 08:35 Dose: 200 mg Ascorbic Acid (Vitamin C) 500 mg PO DAILY@0800 [facility] Last Admin: 06/16/17 08:33 Dose: 500 mg Aspirin (Ecotrin) 81 mg PO DAILY@0800 [facility] Last Admin: 06/16/17 08:33 Dose: 81 mg [facility] Last Admin: 06/16/17 08:33 Dose: 500 mg Cholecalciferol (Vitamin D) [facility] Last Admin: 06/16/17 08:34 Dose: 1,000 unit Clopidogrel Bisulfate (Plavix) 75 mg PO DAILY [facility] Last Admin: 06/16/17 08:34 Dose: 75 mg Doxycycline Monohydrate (Doxycycline) 100 mg PO BID [facility] Last Admin: 06/16/17 08:33 Dose: 100 mg Finasteride (Proscar) 5 mg PO DAILY [facility] Last Admin: 06/16/17 08:35 Dose: 5 mg Furosemide (Lasix) 40 mg IV Q8 [facility] Last Admin: 06/16/17 05:34 Dose: 40 mg [facility]apentin ([facility]urontin) [facility] Last Admin: 06/16/17 08:33 Dose: 300 mg Magnesium Hydroxide (Milk Of Magnesia) 30 ml PO DAILY PRN PRN Reason: Constipation Metoprolol Tartrate (Lopressor (Beta Yelena)) 25 mg PO BID [facility] Last Admin: 06/16/17 08:34 Dose: 25 mg Multivitamins/Minerals (Multivitamin With Minerals) [facility] Last Admin: 06/16/17 08:33 Dose: 1 tablet Nutritional Formula (Lactose Free) (Ensure Enlive) 60 ml PO 4X/DAY [facility] Oxycodone HCl (Oxyir) 5 mg PO Q4H PRN PRN PRN Reason: Moderate Pain (pain scale 4-5) Potassium Chloride (K-Dur) [facility] Last Admin: 06/16/17 08:32 Dose: 20 meq Pravastatin Sodium (Pravachol) 40 mg PO QHS [facility] Last Admin: 06/15/17 22:09 Dose: 40 mg Promethazine HCl (Phenergan (Ll)) 12.5 mg IV Q6H PRN PRN PRN Reason: NAUSEA/VOMITING Rivaroxaban (Xarelto) 20 mg PO DAILY [facility] Last Admin: 06/16/17 08:35 Dose: 20 mg Spironolactone (Aldactone) 25 mg PO DAILY [facility] Last Admin: 06/16/17 08:35 Dose: 25 mg Tamsulosin HCl (Flomax) 0.4 mg PO QHS [facility] Last Admin: 06/15/17 22:09 Dose: 0.4 mg Vitamin E (Vitamin E) [facility] Last Admin: 06/16/17 08:35 Dose: 400 units Zolpidem Tartrate (Ambien (Generic)) 5 mg PO QHS PRN PRN PRN Reason: INSOMNIA Assessment/Plan 1. Acute heart failure with preserved ejection fraction Ejection fraction of 50% from echocardiogram from May 2015. Continue with IV Lasix On metoprolol tartrate Noted allergy to lisinopril. Though consider angiotensin receptor yelena. 2. Coronary artery disease Stable Continue with medical management 3. Paroxysmal atrial fibrillation Continue amiodarone, metoprolol and Xarelto 4. DVT prophylaxis: Patient is currently anticoagulated. 5. CODE STATUS: Patient had expressed to the admitting physician that he wanted DNR Comfort Care arrest. Portion order was not placed so I asked the patient again what he would want to and patient stated that he would be okay with couple pounds on the chest. When I went in the detail asked as to what CPR actually entails, he was noncommittal to full code and all were DNR Comfort Care status at this time. I told him to think it over to talk it over with his family as well and to let us know at a later point. Therefore the meantime, patient will be full CODE STATUS. Code Visit Inpatient E&M: [id number] [facility] Hosp L2
--- NOTE | 2017-06-16 13:19 | PN_ITS ---
Subjective: Shortness of breath. Still with dyspnea on exertion. Vitals/I&O's: Vital Signs Temp Pulse Resp BP Pulse Ox 36.6 C 65 20 H 126/59 H 87 06/16/17 09:58 06/16/17 11:29 06/16/17 09:58 06/16/17 09:58 06/16/17 10:02 Oxygen Flow Rate 4 Oxygen Delivery Method Nasal Cannula Weight: 119.4 kg Body Mass Index (BMI) 37.3 Intake and Output for Last 24 Hours 06/14/17 06/15/17 06/16/17 23:59 23:59 23:59 Intake Total 240 / 240 1172 / 1172 460 / 460 Output Total 125 / 125 1250 / 1250 1050 / 1050 Balance 115 / 115 -78 / -78 -590 / -590 General: Alert, Cooperative, No apparent distress HEENT: Atraumatic, Normocephalic Neck: No Nodes, Thyroid Normal Size and Texture Lungs: Clear to auscultation, Normal air movement, No rhonchi, No wheeze Cardiovascular: Regular rate, Regular Rhythm, Normal S1, Normal S2, No murmurs Abdomen: Bowel Sounds Present, Soft, Non Tender, Non-Distended, No Hepato- splenomegaly, Passing Flatus Extremities: No edema, No Calf Tenderness Psych/Mental Status: Normal Affect, Appropriate Laboratory Results 06/16/17 06:30: WBC 9.1, RBC 4.49 L, Hgb 13.4, Hct 40.4, MCV 90.0, MCH 29.8, MCHC 33.2, RDW 13.0, RDW Differential 42.5, Plt Count 288, MPV 8.8 06/16/17 06:30: Sodium 140, Potassium 3.8, Chloride 96 L, Carbon Dioxide 35.0 H , Anion Gap 9, BUN 19 H, Creatinine 0.91, Estim Creat Clear Calc 67.81, Est GFR (MDRD) Af Amer 103, Est GFR (MDRD) Non-Af 85, BUN/Creatinine Ratio 20.9 H, Glucose 170 H, Calcium 9.0 Current Medications Acetaminophen (Tylenol) 650 mg PO Q6H PRN PRN PRN Reason: Mild Pain (scale 0-3)/T>100.7 Last Admin: 06/16/17 09:57 Dose: 650 mg Al Hydroxide/Mg Hydroxide (Mylanta Ii) 30 ml PO Q6H PRN PRN PRN Reason: Gastric burning Albuterol Sulfate (Ventolin Aerosols) 2.5 mg INHALATION Q2H PRN PRN PRN Reason: DYSPNEA/WHEEZING/SOB Last Admin: 06/15/17 04:10 Dose: 2.5 mg Albuterol/Ipratropium (Duoneb) 3 ml INHALATION Q6HWA.RT [facility] Last Admin: 06/16/17 07:41 Dose: 3 ml Amiodarone HCl (Cordarone) 200 mg PO DAILY [facility] Last Admin: 06/16/17 08:35 Dose: 200 mg Ascorbic Acid (Vitamin C) 500 mg PO DAILY@0800 [facility] Last Admin: 06/16/17 08:33 Dose: 500 mg Aspirin (Ecotrin) 81 mg PO DAILY@0800 [facility] Last Admin: 06/16/17 08:33 Dose: 81 mg [facility]cium Carbonate (T[facility]) [facility] Last Admin: 06/16/17 08:33 Dose: 500 mg Cholecalciferol (Vitamin D) 1,[facility] Last Admin: 06/16/17 08:34 Dose: 1,000 unit Clopidogrel Bisulfate (Plavix) 75 mg PO DAILY [facility] Last Admin: 06/16/17 08:34 Dose: 75 mg Doxycycline Monohydrate (Doxycycline) 100 mg PO BID [facility] Last Admin: 06/16/17 08:33 Dose: 100 mg Finasteride (Proscar) 5 mg PO DAILY [facility] Last Admin: 06/16/17 08:35 Dose: 5 mg Furosemide (Lasix) 40 mg IV Q8 [facility] Last Admin: 06/16/17 05:34 Dose: 40 mg Gabapentin (Neurontin) [facility] Last Admin: 06/16/17 08:33 Dose: 300 mg Magnesium Hydroxide (Milk Of Magnesia) 30 ml PO DAILY PRN PRN Reason: Constipation Metoprolol Tartrate (Lopressor (Beta Yelena)) 25 mg PO BID [facility] Last Admin: 06/16/17 08:34 Dose: 25 mg Multivitamins/Minerals (Multivitamin With Minerals) [facility] Last Admin: 06/16/17 08:33 Dose: 1 tablet Nutritional Formula (Lactose Free) (Ensure Enlive) 60 ml PO 4X/DAY [facility] Oxycodone HCl (Oxyir) 5 mg PO Q4H PRN PRN PRN Reason: Moderate Pain (pain scale 4-5) Potassium Chloride (K-Dur) 20 meq PO BIDCM [facility] Last Admin: 06/16/17 08:32 Dose: 20 meq Pravastatin Sodium (Pravachol) 40 mg PO QHS [facility] Last Admin: 06/15/17 22:09 Dose: 40 mg Promethazine HCl (Phenergan (Ll)) 12.5 mg IV Q6H PRN PRN PRN Reason: NAUSEA/VOMITING Rivaroxaban (Xarelto) 20 mg PO DAILY [facility] Last Admin: 06/16/17 08:35 Dose: 20 mg Spironolactone (Aldactone) 25 mg PO DAILY [facility] Last Admin: 06/16/17 08:35 Dose: 25 mg Tamsulosin HCl (Flomax) 0.4 mg PO QHS [facility] Last Admin: 06/15/17 22:09 Dose: 0.4 mg Vitamin E (Vitamin E) [facility] Last Admin: 06/16/17 08:35 Dose: 400 units Zolpidem Tartrate (Ambien (Generic)) 5 mg PO QHS PRN PRN PRN Reason: INSOMNIA Assessment/Plan 1. Acute heart failure with preserved ejection fraction * Ejection fraction of 50% from echocardiogram from May 2015. * Continue with IV Lasix * On metoprolol tartrate * Noted allergy to lisinopril. Though consider angiotensin receptor yelena. 2. Coronary artery disease * Stable * Continue with medical management 3. Paroxysmal atrial fibrillation * Continue amiodarone, metoprolol and Xarelto 4. DVT prophylaxis: Patient is currently anticoagulated. 5. CODE STATUS: Patient had expressed to the admitting physician that he wanted DNR Comfort Care arrest. Portion order was not placed so I asked the patient again what he would want to and patient stated that he would be okay with couple pounds on the chest. When I went in the detail asked as to what CPR actually entails, he was noncommittal to full code and all were DNR Comfort Care status at this time. I told him to think it over to talk it over with his family as well and to let us know at a later point. Therefore the meantime, patient will be full CODE STATUS. Code Visit Inpatient E&M: 35631 [facility] Hosp L2
[2017-06-16] MEDS: Pravastatin 40 MG Tablet PO (22:01)
[2017-06-16] MEDS: Tamsulosin HCl 0.4 MG Capsule PO (22:01)
[2017-06-17] VITALS (18 sets, daily range): BP systolic 114–150; BP diastolic 60–89; PULSE 65–87; RESP 16–20; TEMP 36.6–37.2; O2SAT 74–94
[2017-06-17] MEDS: Furosemide 40 MG/4 ML Vial IV ×3 (06:07→21:14)
[2017-06-17 06:13] LABS: Hematocrit 40.2 % (40-54); Hemoglobin 13.2 g/dl (13.0-16.5); Mean Corp Hgb Conc 32.8 g/gl (32-36); Mean Corpuscular Hgb 29.7 pg (27.0-32.0); Mean Corpuscular Volume 90.3 fL (80-94); Mean Platelet Vol. 8.7 fl (6.2-12.0); Platelet Count 307 K/mm3 (150-450); RBC Distribution Width SD 42.9 fl (35.1-43.9); Red Blood Count 4.45 M/mm3 (4.6-6.2); White Blood Count 9.1 K/mm3 (4.4-11.0)
[2017-06-17 06:21] LABS: Scan Indicated on CBC? Y/N NO
[2017-06-17 06:36] LABS: Anion Gap 4 (5-15); BUN 22 mg/dL (7-18); BUN/Creat Ratio 23.1 RATIO (10-20); Chloride 96 mmol/L (98-107); Creatinine, Serum 0.95 mg/dL (0.70-1.30); EST Glomerular Filtration Rate 80 mL/min (>60); Est Glom Filt Rate - Afr Amer 97 mL/min (>60); Estimated Creatinine Clearance 64.95 ml/min; Glucose 175 mg/dL (74-106); Potassium 4.2 mmol/L (3.5-5.1); Sodium Level 137 mmol/L (136-145)
[2017-06-17] MEDS: Ipratropium/Albuterol Sulfate 3 ML AMPUL.NEB INHALATION ×2 (07:18→15:25)
--- NOTE | 2017-06-17 09:17 | CASEMGMT ---
Face to Face with patient for initial transition planning/care coordination assessment. BOY SMITH introduced self and role at [facility], pt voices understanding and consents to assessment at this time. Pt is lying in bed in no distress at this time. Pt A/O x4 at this time and answers all questions appropriately at this time. Care providers, pharmacy, and demographics verified. See attached link. Pt voices no further concerns/needs at this time. Advised pt to ask for CM if any further questions/concerns/needs arise, voices understanding. PLAN: [place] BOY SM[place]
[2017-06-17] MEDS: Aspirin E.C. 81 MG Tablet PO (09:24)
[2017-06-17] MEDS: Multivitamins,Ther W-Minerals Tablet 1 TABLET PO (09:25)
[2017-06-17] MEDS: Calcium Carbonate 500 MG Tablet PO (09:26)
[2017-06-17] MEDS: Vitamin E 400 UNITS Capsule PO (09:26)
[2017-06-17] MEDS: Gabapentin 300 MG Capsule PO ×2 (09:26→17:53)
[2017-06-17] MEDS: Amiodarone 200 MG Tablet PO (09:27)
[2017-06-17] MEDS: Spironolactone 25 MG Tablet PO (09:27)
[2017-06-17] MEDS: Ascorbic Acid 500 MG Tablet PO (09:28)
[2017-06-17] MEDS: Doxycycline 100 MG CAPSULE PO (09:28)
[2017-06-17] MEDS: Metoprolol Tartrate 25 MG Tablet PO ×2 (09:28→21:16)
[2017-06-17] MEDS: Clopidogrel Bisulfate 75 MG Tablet PO (09:29)
[2017-06-17] MEDS: Rivaroxaban 20 MG Tablet PO (09:29)
[2017-06-17] MEDS: Finasteride 5 MG Tablet PO (09:29)
--- NOTE | 2017-06-17 12:10 | PCM.PN.HOSP ---
Patient Problems: Active and Suspected Problems (Last Updated 04/16/17 @ 09:02 by Christi Gonzalez) Diastolic CHF, acute (Acute) Subjective: Breathing better. Decreased dyspnea on exertion. No lower extremity edema. Vitals/I&O's: Vital Signs Temp Pulse Resp BP Pulse Ox 36.8 C 87 18 114/60 93 06/17/17 09:23 06/17/17 11:00 06/17/17 09:23 06/17/17 09:23 06/17/17 09:23 Oxygen Flow Rate (L/min) 4 Oxygen Delivery Method Nasal Cannula Weight: 119 kg Body Mass Index (BMI) 37.3 Intake and Output for Last 24 Hours 06/15/17 06/16/17 06/17/17 23:59 23:59 23:59 Intake Total 1172 / 1172 1120 / 1120 750 / 750 Output Total 1250 / 1250 2125 / 2125 825 / 825 Balance -78 / -78 -1005 / -1005 -75 / -75 General: Alert, Cooperative, No apparent distress HEENT: Atraumatic, Normocephalic Neck: No Nodes, Thyroid Normal Size and Texture, - - +JVD Lungs: Normal air movement, Wheezes Cardiovascular: Regular rate, Regular Rhythm, Normal S1, Normal S2, No murmurs Abdomen: Bowel Sounds Present, Soft, Non Tender, Non-Distended Extremities: No edema, No Calf Tenderness Skin: No rashes, No breakdown Psych/Mental Status: Normal Affect, Appropriate Laboratory Results 06/17/17 05:55: WBC 9.1, RBC 4.45 L, Hgb 13.2, Hct 40.2, MCV 90.3, MCH 29.7, MCHC 32.8, RDW 13.0, RDW Differential 42.9, Plt Count 307, MPV 8.7 06/17/17 05:55: Sodium 137, Potassium 4.2, Chloride 96 L, Carbon Dioxide 37.0 H, Anion Gap 4 L, BUN 22 H, Creatinine 0.95, Estim Creat Clear Calc 64.95, Est GFR (MDRD) Af Amer 97, Est GFR (MDRD) Non-Af 80, BUN/Creatinine Ratio 23.1 H, Glucose 175 H, Calcium 9.0 Current Medications Acetaminophen (Tylenol) 650 mg PO Q6H PRN PRN PRN Reason: Mild Pain (scale 0-3)/T>100.7 Last Admin: 06/16/17 09:57 Dose: 650 mg Al Hydroxide/Mg Hydroxide (Mylanta Ii) 30 ml PO Q6H PRN PRN PRN Reason: Gastric burning Albuterol Sulfate (Ventolin Aerosols) 2.5 mg INHALATION Q2H PRN PRN PRN Reason: DYSPNEA/WHEEZING/SOB Last Admin: 06/15/17 04:10 Dose: 2.5 mg Albuterol/Ipratropium (Duoneb) 3 ml INHALATION Q6HWA.RT [facility] Last Admin: 06/17/17 07:18 Dose: 3 ml Amiodarone HCl (Cordarone) 200 mg PO DAILY [facility] Last Admin: 06/17/17 09:27 Dose: 200 mg Ascorbic Acid (Vitamin C) 500 mg PO DAILY@0800 [facility] Last Admin: 06/17/17 09:28 Dose: 500 mg Aspirin (Ecotrin) 81 mg PO DAILY@0800 [facility] Last Admin: 06/17/17 09:24 Dose: 81 mg [facility] Last Admin: 06/17/17 09:26 Dose: 500 mg Cholecalciferol (Vitamin D) [facility] Last Admin: 06/17/17 09:32 Dose: 1,000 unit Clopidogrel Bisulfate (Plavix) 75 mg PO DAILY [facility] Last Admin: 06/17/17 09:29 Dose: 75 mg Doxycycline Monohydrate (Doxycycline) 100 mg PO BID [facility] Last Admin: 06/17/17 09:28 Dose: 100 mg Finasteride (Proscar) 5 mg PO DAILY [facility] Last Admin: 06/17/17 09:29 Dose: 5 mg Furosemide (Lasix) 40 mg IV Q8 [facility] Last Admin: 06/17/17 06:07 Dose: 40 mg Gabapentin (Neurontin) [facility] Last Admin: 06/17/17 09:26 Dose: 300 mg Magnesium Hydroxide (Milk Of Magnesia) 30 ml PO DAILY PRN PRN Reason: Constipation Metoprolol Tartrate (Lopressor (Beta Yelena)) 25 mg PO BID [facility] Last Admin: 06/17/17 09:28 Dose: 25 mg Multivitamins/Minerals (Multivitamin With Minerals) [facility] Last Admin: 06/17/17 09:25 Dose: 1 tablet Nutritional Formula (Lactose Free) (Ensure Enlive) 60 ml PO 4X/DAY [facility] Last Admin: 06/17/17 09:28 Dose: Not Given Oxycodone HCl (Oxyir) 5 mg PO Q4H PRN PRN PRN Reason: Moderate Pain (pain scale 4-5) Potassium Chloride (K-Dur) [facility] Last Admin: 06/17/17 09:25 Dose: 20 meq Pravastatin Sodium (Pravachol) 40 mg PO QHS [facility] Last Admin: 06/16/17 22:01 Dose: 40 mg Promethazine HCl (Phenergan (Ll)) 12.5 mg IV Q6H PRN PRN PRN Reason: NAUSEA/VOMITING Rivaroxaban (Xarelto) 20 mg PO DAILY [facility] Last Admin: 06/17/17 09:29 Dose: 20 mg Sodium Chloride ([place] Nasal [place]) 2 spray NASAL TID PRN PRN PRN Reason: NASAL DRYNESS Spironolactone (Aldactone) 25 mg PO DAILY [facility] Last Admin: 06/17/17 09:27 Dose: 25 mg Tamsulosin HCl (Flomax) 0.4 mg PO QHS [facility] Last Admin: 06/16/17 22:01 Dose: 0.4 mg Vitamin E (Vitamin E) [facility] Last Admin: 06/17/17 09:26 Dose: 400 units Zolpidem Tartrate (Ambien (Generic)) 5 mg PO QHS PRN PRN PRN Reason: INSOMNIA Assessment/Plan Active and Suspected Problems (Last Updated 04/16/17 @ 09:02 by Christi Gonzalez) Diastolic CHF, acute (Acute) 1. Acute heart failure with preserved ejection fraction Ejection fraction of 50% from echocardiogram from May 2015. Continue with IV Lasix On metoprolol tartrate Noted allergy to lisinopril. Though consider angiotensin receptor yelena. 2. Coronary artery disease Stable Continue with medical management 3. Paroxysmal atrial fibrillation Continue amiodarone, metoprolol and Xarelto 4. DVT prophylaxis: Patient is currently anticoagulated. 5. Chronic respiratory failure: multifactorial: OHS, ILD, CHF, PH pt requesting pulmonary consultation given his upcoming appointment Code Visit Inpatient E&M: 36414 Subs Hosp L2
--- NOTE | 2017-06-17 12:17 | PN_ITS ---
Patient Problems: Active and Suspected Problems (Last Updated 04/16/17 @ 09:02 by Christi Gonzalez) Diastolic CHF, acute (Acute) Subjective: Breathing better. Decreased dyspnea on exertion. No lower extremity edema. Vitals/I&O's: Vital Signs Temp Pulse Resp BP Pulse Ox 36.8 C 87 18 114/60 93 06/17/17 09:23 06/17/17 11:00 06/17/17 09:23 06/17/17 09:23 06/17/17 09:23 Oxygen Flow Rate (L/min) 4 Oxygen Delivery Method Nasal Cannula Weight: 119 kg Body Mass Index (BMI) 37.3 Intake and Output for Last 24 Hours 06/15/17 06/16/17 06/17/17 23:59 23:59 23:59 Intake Total 1172 / 1172 1120 / 1120 750 / 750 Output Total 1250 / 1250 2125 / 2125 825 / 825 Balance -78 / -78 -1005 / -1005 -75 / -75 General: Alert, Cooperative, No apparent distress HEENT: Atraumatic, Normocephalic Neck: No Nodes, Thyroid Normal Size and Texture, - - +JVD Lungs: Normal air movement, Wheezes Cardiovascular: Regular rate, Regular Rhythm, Normal S1, Normal S2, No murmurs Abdomen: Bowel Sounds Present, Soft, Non Tender, Non-Distended Extremities: No edema, No Calf Tenderness Skin: No rashes, No breakdown Psych/Mental Status: Normal Affect, Appropriate Laboratory Results 06/17/17 05:55: WBC 9.1, RBC 4.45 L, Hgb 13.2, Hct 40.2, MCV 90.3, MCH 29.7, MCHC 32.8, RDW 13.0, RDW Differential 42.9, Plt Count 307, MPV 8.7 06/17/17 05:55: Sodium 137, Potassium 4.2, Chloride 96 L, Carbon Dioxide 37.0 H , Anion Gap 4 L, BUN 22 H, Creatinine 0.95, Estim Creat Clear Calc 64.95, Est GFR (MDRD) Af Amer 97, Est GFR (MDRD) Non-Af 80, BUN/Creatinine Ratio 23.1 H, Glucose 175 H, Calcium 9.0 Current Medications Acetaminophen (Tylenol) 650 mg PO Q6H PRN PRN PRN Reason: Mild Pain (scale 0-3)/T>100.7 Last Admin: 06/16/17 09:57 Dose: 650 mg Al Hydroxide/Mg Hydroxide (Mylanta Ii) 30 ml PO Q6H PRN PRN PRN Reason: Gastric burning Albuterol Sulfate (Ventolin Aerosols) 2.5 mg INHALATION Q2H PRN PRN PRN Reason: DYSPNEA/WHEEZING/SOB Last Admin: 06/15/17 04:10 Dose: 2.5 mg Albuterol/Ipratropium (Duoneb) 3 ml INHALATION Q6HWA.RT [facility] Last Admin: 06/17/17 07:18 Dose: 3 ml Amiodarone HCl (Cordarone) 200 mg PO DAILY [facility] Last Admin: 06/17/17 09:27 Dose: 200 mg Ascorbic Acid (Vitamin C) 500 mg PO DAILY@0800 [facility] Last Admin: 06/17/17 09:28 Dose: 500 mg Aspirin (Ecotrin) 81 mg PO DAILY@0800 [facility] Last Admin: 06/17/17 09:24 Dose: 81 mg [facility] Admin: 06/17/17 09:26 Dose: 500 mg Cholecalciferol (Vitamin D) [facility] Last Admin: 06/17/17 09:32 Dose: 1,000 unit Clopidogrel Bisulfate (Plavix) 75 mg PO DAILY [facility] Last Admin: 06/17/17 09:29 Dose: 75 mg Doxycycline Monohydrate (Doxycycline) 100 mg PO BID [facility] Last Admin: 06/17/17 09:28 Dose: 100 mg Finasteride (Proscar) 5 mg PO DAILY [facility] Last Admin: 06/17/17 09:29 Dose: 5 mg Furosemide (Lasix) 40 mg IV Q8 [facility] Last Admin: 06/17/17 06:07 Dose: 40 mg Gabapentin ([facility]urontin) [facility] Last Admin: 06/17/17 09:26 Dose: 300 mg Magnesium Hydroxide (Milk Of Magnesia) 30 ml PO DAILY PRN PRN Reason: Constipation Metoprolol Tartrate (Lopressor (Beta Yelena)) 25 mg PO BID [facility] Last Admin: 06/17/17 09:28 Dose: 25 mg Multivitamins/Minerals (Multivitamin With Minerals) [facility] Last Admin: 06/17/17 09:25 Dose: 1 tablet Nutritional Formula (Lactose Free) (Ensure Enlive) 60 ml PO 4X/DAY [facility] Last Admin: 06/17/17 09:28 Dose: Not Given Oxycodone HCl (Oxyir) 5 mg PO Q4H PRN PRN PRN Reason: Moderate Pain (pain scale 4-5) Potassium Chloride (K-Dur) [facility] Last Admin: 06/17/17 09:25 Dose: 20 meq Pravastatin Sodium (Pravachol) 40 mg PO QHS [facility] Last Admin: 06/16/17 22:01 Dose: 40 mg Promethazine HCl (Phenergan (Ll)) 12.5 mg IV Q6H PRN PRN PRN Reason: NAUSEA/VOMITING Rivaroxaban (Xarelto) 20 mg PO DAILY [facility] Last Admin: 06/17/17 09:29 Dose: 20 mg Sodium Chloride (Culpeper Nasal [place]) 2 spray NASAL TID PRN PRN PRN Reason: NASAL DRYNESS Spironolactone (Aldactone) 25 mg PO DAILY [facility] Last Admin: 06/17/17 09:27 Dose: 25 mg Tamsulosin HCl (Flomax) 0.4 mg PO QHS [facility] Last Admin: 06/16/17 22:01 Dose: 0.4 mg Vitamin E (Vitamin E) [facility] Last Admin: 06/17/17 09:26 Dose: 400 units Zolpidem Tartrate (Ambien (Generic)) 5 mg PO QHS PRN PRN PRN Reason: INSOMNIA Assessment/Plan Active and Suspected Problems (Last Updated 04/16/17 @ 09:02 by Christi Gonzalez) Diastolic CHF, acute (Acute) 1. Acute heart failure with preserved ejection fraction * Ejection fraction of 50% from echocardiogram from May 2015. * Continue with IV Lasix * On metoprolol tartrate * Noted allergy to lisinopril. Though consider angiotensin receptor yelena. 2. Coronary artery disease * Stable * Continue with medical management 3. Paroxysmal atrial fibrillation * Continue amiodarone, metoprolol and Xarelto 4. DVT prophylaxis: Patient is currently anticoagulated. 5. Chronic respiratory failure: * multifactorial: OHS, ILD, CHF, PH * pt requesting pulmonary consultation given his upcoming appointment Code Visit Inpatient E&M: [id number] [facility] Hosp L2
--- NOTE | 2017-06-17 12:33 | PCM.CONS.GEN ---
Problem List (1) Acute on chronic respiratory failure with hypoxia and hypercapnia Status: Acute (2) Diastolic CHF, acute Status: Acute (3) Paroxysmal atrial flutter Status: Chronic (4) Atherosclerotic heart disease of hoopa coronary artery without angina pectoris Status: Chronic Qualifiers: Comment: PTCA of the RCA intracoronary stent November 1997; PTCA/TIN to prox Ramus, FFR neg of distal RCA 09/25/2016; CABG TUCKER to LAD; SVG to PDA (5) Obesity Status: Chronic Qualifiers: Obesity classification: adult class 2 (BMI 35 - 39.9) (6) Abnormal chest CT Status: Chronic (7) Restrictive airway disease Status: Chronic (8) Atrial fibrillation and flutter Status: Chronic (9) HLD (hyperlipidemia) Status: Chronic Qualifiers: (10) CAD (coronary artery disease) Status: Chronic (11) HTN (hypertension) Status: Chronic Qualifiers: Hypertension type: essential hypertension Qualified Code(s): I10 - Essential (primary) hypertension Reason for Consult Date of Consultation: 06/17/17 Reason for Consultation: chronic respiratory failure History of Present Illness: The patient is a 81 year old M who is known to the pulmonary clinic and follows with Dr. Prakash, presented to the ER 06/14/17 secondary to complaints of increased shortness of breath with worsening on exertion and increased lower extremity edema. Patient reports he cannot walk 5 steps without becoming significantly short of breath. The patient was admitted in March 2017 with similar complaints and has been wearing 2 L throughout the day and night for the last couple of weeks. Patient reports he has been compliant with his diet, except the preceding couple of days prior to his admission. He has not been weighing himself at all. Patient reports he has a pulse oximeter at home and notably drops into the 70s-80s routinely. Chest x-ray on 06/14/17 showed probable combination of chronic pulmonary disease with fibrosis, and possible patchy atelectasis or infiltrates which have worsened on the left. Lab work has revealed no leukocytosis. Chloride level has been low and glucose elevated. Cardiac enzymes were negative. BNP was 70. The patient was started on doxycycline and scheduled DuoNeb aerosols with PRN albuterol. He remains anticoagulated on Xarelto for chronic atrial fibrillation. The patient initially required 2 L and is currently requiring 3-4 L of oxygen supplementation. His dyspnea on exertion has somewhat improved. He had a low-grade temp of 99.4?F on 06/15, no further temps. Patient denies any fever or chills. States he had heaviness in his chest at home, this has resolved. Denies hemoptysis. He has remained hemodynamically stable. He has been diuresed and remains on IV Lasix. Renal function has remained stable. Serum bicarb has steadily increased and is now 37.0. Urine strep/Legionella antigens were negative as well as influenza screening. The patient requested a pulmonary consultation given his upcoming appointment with Christen Bernabe NP on 07/03/17. Patient voices concern that he is becoming depressed, he is no longer able to golf or participate in activities he once enjoyed. Pulmonary function tests were obtained on 02/11/17 and demonstrated a moderate restrictive ventilatory defect with symmetric reduction in diffusing capacity. There was concern for interstitial lung disease versus pleural effusion, given the patient's cardiac history. The patient was admitted 03/28/17 through 03/31/17 for CHF exacerbation and atrial fibrillation, and discharged on 2 L of supplemental oxygen. A chest CTA during that admission showed no PE, aneurysm, or atrial dissection, enlarged pulmonary arteries, mediastinal lymphadenopathy. There was evidence of nonspecific basilar fibrosis. A preliminary autoimmune/rheumatologic workup was sent. Serial longitudinal high resolution chest CT was recommended to monitor for progression. He had a follow-up visit with Dr. Prakash on 04/10/17 at which time testing was ordered. A 6 minute walking oximetry on 04/24/17 showed desaturations from 97% to 89, patient was able to walk a minimal distance of 281 feet requiring 3 breaks, consistent with exercise intolerance. No supplemental oxygen was ordered at that time. Echocardiogram from August 2016 revealed evidence of diastolic dysfunction with an estimated ejection fraction of 55%. RVSP was estimated at 37 mmHg. 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, secondary (Chronic) Paroxysmal atrial flutter (Chronic) Atherosclerotic heart disease of hoopa coronary artery without angina pectoris (Chronic) PTCA of the RCA intracoronary stent November 1997; PTCA/TIN to prox Ramus, FFR neg of distal RCA 09/25/2016; CABG TUCKER to LAD; SVG to PDA Obesity (Chronic) Abnormal chest CT (Chronic) Restrictive airway disease (Chronic) Abnormal PFTs (pulmonary function tests) (Chronic) S/P PTCA (percutaneous transluminal coronary angioplasty) (Chronic) PTCA of the RCA inreacoronary stent November 1997; PTCA/TIN to prox Ramus, FFR neg of gistal RCA 09/25/2016 Atrial fibrillation and flutter (Chronic) HLD (hyperlipidemia) (Chronic) S/P CABG x 2 (Chronic) TUCKER to LAD; SVG to PDA CAD (coronary artery disease) (Chronic) Cataract (Chronic) HTN (hypertension) (Chronic) Atrial flutter with rapid ventricular response (Chronic) Allergies amoxicillin trihydrate [From Augmentin] Allergy (Verified 06/14/17 15:10) Mucosal lesions lisinopril [From Prinivil] Allergy (Verified 06/14/17 15:10) Unknown meperidine HCl [From Demerol] Allergy (Verified 06/14/17 15:10) Other orlistat [From Xenical] Allergy (Verified 06/14/17 15:10) Unknown Penicillins Allergy (Verified 06/14/17 15:10) Unknown potassium clavulanate [From Augmentin] Allergy (Verified 06/14/17 15:10) Mucosal lesions rofecoxib [From Vioxx] Allergy (Verified 06/14/17 15:10) Unknown adhesive tape Adverse Reaction (Uncoded 06/14/17 15:10) Rash Home Medications: Ambulatory Orders Medication Instructions Recorded Finasteride [Proscar] 5 mg PO DAILY 01/21/13 Gabapentin [Neurontin] 300 mg PO BID 01/21/13 Multivitamins,Ther W-Minerals 1 tab PO DAILY 01/21/13 [Multivitamin With Minerals] Ascorbic Acid [Vitamin C] 500 mg PO DAILY@0800 05/29/15 Vitamin E 400 units PO DAILY 05/29/15 Calcium Carbonate 600 mg PO DAILY 09/02/16 Cholecalciferol (VIT D3) [Vitamin 1,000 unit PO DAILY 09/02/16 D3] Metoprolol Tartrate [Lopressor 25 mg PO BID 09/02/16 (beta stefani)] Tamsulosin HCl [Flomax] 0.4 mg PO QHS 09/02/16 Aspirin [Adult Low Dose Aspirin EC] 81 mg PO DAILY 09/24/16 Clopidogrel Bisulfate [Plavix] 75 mg PO DAILY 09/24/16 Amiodarone HCl [Cordarone] 200 mg PO DAILY 12/13/16 Potassium Chloride [K-Dur] 20 meq PO BID #60 tab 03/31/17 pravastatin 40 mg tablet 40 mg PO QHS #90 tab 05/14/17 rivaroxaban 20 mg tablet 20 mg PO QDAY #90 tab 05/19/17 Furosemide [Furosemide] 40 mg PO DINNER 06/14/17 Furosemide [Lasix] 80 mg PO BREAKFAST 06/14/17 Spironolactone [Aldactone] 25 mg PO DAILY 06/14/17 Surgical History: angioplasty, coronary bypass surgery Psychiatric History: Depression Lives: Spouse/ Significant Other Smoking Status: Former smoker Tobacco Use: Non-smoker Alcohol: None Drugs: None Review of Systems Constitutional: Reports: Weakness, Fatigue. Denies: Anorexia, Chills, Fever, Night Sweats, Weight Change Eyes: Denies: Vision Change HEENT: Reports: Hard of Hearing, Nasal bleeding - With oxygen use, minimal. Denies: Difficulty Swallowing, Post Nasal Drip, Sinus Drainage Cardiovascular: Reports: Chest Pressure, Edema - Improved, Light Headedness - Resolved, Orthopnea. Denies: Palpitations, Paroxysmal Noc. Dyspnea, Syncope Respiratory: Reports: Cough - Nonproductive, Shortness of breath upon exertion, Wheezing. Denies: Hemoptysis, Shortness of breath at rest, Sputum production Gastrointestinal: Denies: Abdominal Pain, Constipation, Diarrhea, Dyspepsia, Hematemesis, Hematochezia, Nausea, Melena, Vomiting Genitourinary: Reports: Frequency, Nocturia. Denies: Dysuria, Hematuria, Retention Musculoskeletal: Denies: Back Pain Skin: Reports: Dryness. Denies: Rash, Wounds Neurological: Denies: Balance problems, Change in Speech, Confusion, Difficulty swallowing, Focal weakness, Numbness, Tingling, Tremor, Seizures Psychiatric: Reports: Depression. Denies: Anxiety, Suicidal Ideations Endocrine: Denies: Change in Body Habitus, Polydipsia, Polyuria Hematologic/ Lymphatic: Reports: Easy Bruising, Easy Bleeding. Denies: Adenopathy, Anemia, Hx of blood clot Patient Problems: Active and Suspected Problems (Last Updated 06/17/17 @ 12:11 by Trenton Landin DO) Acute on chronic respiratory failure with hypoxia and hypercapnia (Acute) Diastolic CHF, acute (Acute) Subjective: Patient was seen and examined. He is sitting in the chair with legs elevated. His is at the bedside. Reports he is very depressed that his health has been declining. Patient states he is nearing his baseline activity level, which is poor. Objective: Clinical Impression(s) from Imaging Studies Chest X-Ray 06/14/17 15:40 IMPRESSION: Probable combination of chronic pulmonary disease with fibrosis, and possible patchy atelectasis or infiltrates which have worsened on the left. Electronically Signed: Sreedhar Daniels MD at 16:17 EST , Service support , - Physical Exam General: Alert, Oriented x3, Cooperative, No apparent distress, - - Depressed. Obese. HEENT: Atraumatic, PERRLA, Normocephalic Oral: Moist Mucosa, No Gingival or Mucosal Lesions/ Ulcerations Neck: Supple, No Nodes, Trachea Midline Lungs: Diminished, - - Bibasilar Rales, scattered rhonchi on the left. Minimal wheezing. Symmetric expansion, no accessory muscle use. Cardiovascular: Regular rate, Regular Rhythm, Normal S1, Normal S2, Murmur - KAVITA, No rub noted, No Gallop Abdomen: Bowel Sounds Present, Soft, Non Tender, Obese Extremities: No clubbing, No cyanosis, Edema - Trace LE, - - vascular changes to LEs Skin: No rashes, No breakdown Musculoskeletal: No Tenderness to Palpation of Joints or Extremities Lymphatic: No Cervical, Supraclavicular, or Inguinal Adenopathy Neurological: Cranial nerves II-XII grossly intact, Neuro grossly intact, Motor Exam 5/5 strength throughout Psych/Mental Status: Depressed, - - pleasant and cooperative. cognitively intact Vital Signs Temp Pulse Resp BP Pulse Ox 98.2 F 87 18 114/60 93 06/17/17 09:23 06/17/17 11:00 06/17/17 09:23 06/17/17 09:23 06/17/17 09:23 Oxygen Flow Rate (L/min) 4 Oxygen Delivery Method Nasal Cannula Weight: 262 lb 5.601 oz Body Mass Index (BMI) 37.3 Intake and Output for Last 24 Hours 06/15/17 06/16/17 06/17/17 23:59 23:59 23:59 Intake Total 1172 / 1172 1120 / 1120 750 / 750 Output Total 1250 / 1250 2125 / 2125 825 / 825 Balance -78 / -78 -1005 / -1005 -75 / -75 Laboratory Tests Past 24 Hrs 06/17/17 06/17/17 05:55 05:55 WBC 9.1 RBC 4.45 L Hgb 13.2 Hct 40.2 MCV 90.3 MCH 29.7 MCHC 32.8 RDW 13.0 RDW Differential 42.9 Plt Count 307 MPV 8.7 Sodium 137 Potassium 4.2 Chloride 96 L Carbon Dioxide 37.0 H Anion Gap 4 L BUN 22 H Creatinine 0.95 Estim Creat Clear Calc 64.95 Est GFR (MDRD) Af Amer 97 Est GFR (MDRD) Non-Af 80 BUN/Creatinine Ratio 23.1 H Glucose 175 H Calcium 9.0 Assessment/Plan Active and Suspected Problems (Last Updated 06/17/17 @ 12:11 by Trenton Landin DO) Acute on chronic respiratory failure with hypoxia and hypercapnia (Acute) Diastolic CHF, acute (Acute) RECOMMENDATIONS 1. Wean oxygen supplementation to keep saturations greater than 89% 2. Encourage incentive spirometer 3. Increase activity as tolerated, continue PT/OT 4. Continue aerosols as ordered 5. Likely okay to de-escalate Lasix therapy to oral in the next 24-48 hours 6. May discontinue antibiotics 7. Reinforce CHF teaching, fluid restriction 8. Ambulatory pulse ox prior to discharge 9. Follow-up as scheduled in the pulmonary clinic on July 03 with Christen Bernabe NP IMPRESSIONS 1. Acute on chronic respiratory failure with hypoxia and hypercarbia Likely secondary to CHF exacerbation. Has improved with diuresis. Has a negative fluid balance of 1043 mL. However, patient remains on higher oxygen requirement of 4L than he normally has at home (2L). Patient had 6 minute walking oximetry in April with no recommendations for oxygen supplementation, however was wearing 2 L at night and now 2L throughout the day for the last few weeks secondary to exercise intolerance and dyspnea at the recommendation of Dr. Tran. Compliant with oxygen at home, does have mild pulmonary hypertension per last echocardiogram. Remains afebrile with no leukocytosis. Influenza negative, urine strep/Legionella negative. Likely not infectious process. Likely okay to discontinue antibiotics. Patient should have ambulatory pulse ox prior to discharge to assess for increased oxygen requirements with exertion. He can follow-up as scheduled on July 03 in the pulmonary clinic. 2. Acute on chronic congestive heart failure Improved. Being managed with IV Lasix, beta blockers. PCP had increased his Lasix at home to 80 mg in the morning and 40 mg at night, then added spironolactone 2 days prior to presentation to the ER. Likely can be converted to oral Lasix in the next 24-48 hours. Continue I&O and fluid restriction, patient will need education with present for management of CHF as an outpatient. Education provided by myself during assessment. He can follow up with Dr. Kimball as an outpatient. 3. History of A. fib on Xarelto/hypertension/CAD s/p CABG/hyperlipidemia/restrictive airway disease/abnormal chest CT/obesity Complicates care, management, recovery, and prognosis. EKG showed sinus rhythm with a rate of 64 bpm, nonspecific ST and T-wave changes but nothing acute. Patient remains on antiarrhythmics. Thank you for the opportunity to participate in this patient's care, please not hesitate contact us with any further questions or concerns. This note was generated with [employer] software. It may contain incorrect words, spelling, and punctuation that were not noted in checking the note before signing.
--- NOTE | 2017-06-17 12:47 | CON.PCM_ITS ---
Problem List (1) Acute on chronic respiratory failure with hypoxia and hypercapnia Status: Acute (2) Diastolic CHF, acute Status: Acute (3) Paroxysmal atrial flutter Status: Chronic (4) Atherosclerotic heart disease of campo coronary artery without angina pectoris Status: Chronic Qualifiers: Comment: PTCA of the RCA intracoronary stent November 1997; PTCA/TIN to prox Ramus, FFR neg of distal RCA 09/25/2016; CABG TUCKER to LAD; SVG to PDA (5) Obesity Status: Chronic Qualifiers: Obesity classification: adult class 2 (BMI 35 - 39.9) (6) Abnormal chest CT Status: Chronic (7) Restrictive airway disease Status: Chronic (8) Atrial fibrillation and flutter Status: Chronic (9) HLD (hyperlipidemia) Status: Chronic Qualifiers: (10) CAD (coronary artery disease) Status: Chronic (11) HTN (hypertension) Status: Chronic Qualifiers: Hypertension type: essential hypertension Qualified Code(s): I10 - Essential (primary) hypertension Reason for Consult Date of Consultation: 06/17/17 Reason for Consultation: chronic respiratory failure History of Present Illness: The patient is a 81 year old M who is known to the pulmonary clinic and follows with Dr. Prakash, presented to the ER 06/14/17 secondary to complaints of increased shortness of breath with worsening on exertion and increased lower extremity edema. Patient reports he cannot walk 5 steps without becoming significantly short of breath. The patient was admitted in March 2017 with similar complaints and has been wearing 2 L throughout the day and night for the last couple of weeks. Patient reports he has been compliant with his diet, except the preceding couple of days prior to his admission. He has not been weighing himself at all. Patient reports he has a pulse oximeter at home and notably drops into the 70s-80s routinely. Chest x-ray on 06/14/17 showed probable combination of chronic pulmonary disease with fibrosis, and possible patchy atelectasis or infiltrates which have worsened on the left. Lab work has revealed no leukocytosis. Chloride level has been low and glucose elevated. Cardiac enzymes were negative. BNP was 70. The patient was started on doxycycline and scheduled DuoNeb aerosols with PRN albuterol. He remains anticoagulated on Xarelto for chronic atrial fibrillation. The patient initially required 2 L and is currently requiring 3-4 L of oxygen supplementation. His dyspnea on exertion has somewhat improved. He had a low- grade temp of 99.4?F on 06/15, no further temps. Patient denies any fever or chills. States he had heaviness in his chest at home, this has resolved. Denies hemoptysis. He has remained hemodynamically stable. He has been diuresed and remains on IV Lasix. Renal function has remained stable. Serum bicarb has steadily increased and is now 37.0. Urine strep/Legionella antigens were negative as well as influenza screening. The patient requested a pulmonary consultation given his upcoming appointment with Christen Bernabe NP on 07/03/17. Patient voices concern that he is becoming depressed, he is no longer able to golf or participate in activities he once enjoyed. Pulmonary function tests were obtained on 02/11/17 and demonstrated a moderate restrictive ventilatory defect with symmetric reduction in diffusing capacity. There was concern for interstitial lung disease versus pleural effusion, given the patient's cardiac history. The patient was admitted 03/28/17 through for CHF exacerbation and atrial fibrillation, and discharged on 2 L of supplemental oxygen. A chest CTA during that admission showed no PE, aneurysm, or atrial dissection, enlarged pulmonary arteries, mediastinal lymphadenopathy. There was evidence of nonspecific basilar fibrosis. A preliminary autoimmune/ rheumatologic workup was sent. Serial longitudinal high resolution chest CT was recommended to monitor for progression. He had a follow-up visit with Dr. Prakash on 04/10/17 at which time testing was ordered. A 6 minute walking oximetry on 04/24/17 showed desaturations from 97% to 89, patient was able to walk a minimal distance of 281 feet requiring 3 breaks, consistent with exercise intolerance. No supplemental oxygen was ordered at that time. Echocardiogram from August 2016 revealed evidence of diastolic dysfunction with an estimated ejection fraction of 55%. RVSP was estimated at 37 mmHg. Past Medical History Past Medical History (Chronic Problems): Chronic Problems (Last Updated 06/17/17 @ 12:11 by Trenton Landin DO) CHF (congestive heart failure) (Chronic) Echocardiogram from March 2017 showed ejection fraction of 55% Coronary atherosclerosis of campo coronary vessel (Chronic) Edema (Chronic) 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, secondary (Chronic) Paroxysmal atrial flutter (Chronic) Atherosclerotic heart disease of campo coronary artery without angina pectoris (Chronic) PTCA of the RCA intracoronary stent November 1997; PTCA/TIN to prox Ramus, FFR neg of distal RCA 09/25/2016; CABG TUCKER to LAD; SVG to PDA Obesity (Chronic) Abnormal chest CT (Chronic) Restrictive airway disease (Chronic) Abnormal PFTs (pulmonary function tests) (Chronic) S/P PTCA (percutaneous transluminal coronary angioplasty) (Chronic) PTCA of the RCA inreacoronary stent November 1997; PTCA/TIN to prox Ramus, FFR neg of gistal RCA 09/25/2016 Atrial fibrillation and flutter (Chronic) HLD (hyperlipidemia) (Chronic) S/P CABG x 2 (Chronic) TUCKER to LAD; SVG to PDA CAD (coronary artery disease) (Chronic) Cataract (Chronic) HTN (hypertension) (Chronic) Atrial flutter with rapid ventricular response (Chronic) Allergies amoxicillin trihydrate [From Augmentin] Allergy (Verified 06/14/17 15:10) Mucosal lesions lisinopril [From Prinivil] Allergy (Verified 06/14/17 15:10) Unknown meperidine HCl [From Demerol] Allergy (Verified 06/14/17 15:10) Other orlistat [From Xenical] Allergy (Verified 06/14/17 15:10) Unknown Penicillins Allergy (Verified 06/14/17 15:10) Unknown potassium clavulanate [From Augmentin] Allergy (Verified 06/14/17 15:10) Mucosal lesions rofecoxib [From Vioxx] Allergy (Verified 06/14/17 15:10) Unknown adhesive tape Adverse Reaction (Uncoded 06/14/17 15:10) Rash Home Medications: Ambulatory Orders Medication Instructions Recorded Finasteride [Proscar] 5 mg PO DAILY 01/21/13 Gabapentin [Neurontin] 300 mg PO BID 01/21/13 Multivitamins,Ther W-Minerals 1 tab PO DAILY 01/21/13 [Multivitamin With Minerals] Ascorbic Acid [Vitamin C] 500 mg PO DAILY@0800 05/29/15 Vitamin E 400 units PO DAILY 05/29/15 Calcium Carbonate 600 mg PO DAILY 09/02/16 Cholecalciferol (VIT D3) [Vitamin 1,000 unit PO DAILY 09/02/16 D3] Metoprolol Tartrate [Lopressor 25 mg PO BID 09/02/16 (beta stefani)] Tamsulosin HCl [Flomax] 0.4 mg PO QHS 09/02/16 Aspirin [Adult Low Dose Aspirin EC] 81 mg PO DAILY 09/24/16 Clopidogrel Bisulfate [Plavix] 75 mg PO DAILY 09/24/16 Amiodarone HCl [Cordarone] 200 mg PO DAILY 12/13/16 Potassium Chloride [K-Dur] 20 meq PO BID #60 tab 03/31/17 pravastatin 40 mg tablet 40 mg PO QHS #90 tab 05/14/17 rivaroxaban 20 mg tablet 20 mg PO QDAY #90 tab 05/19/17 Furosemide [Furosemide] 40 mg PO DINNER 06/14/17 Furosemide [Lasix] 80 mg PO BREAKFAST 06/14/17 Spironolactone [Aldactone] 25 mg PO DAILY 06/14/17 Surgical History: angioplasty, coronary bypass surgery Psychiatric History: Depression Lives: Spouse/ Significant Other Smoking Status: Former smoker Tobacco Use: Non-smoker Alcohol: None Drugs: None Review of Systems Constitutional: Reports: Weakness, Fatigue. Denies: Anorexia, Chills, Fever, Night Sweats, Weight Change Eyes: Denies: Vision Change HEENT: Reports: Hard of Hearing, Nasal bleeding - With oxygen use, minimal. Denies: Difficulty Swallowing, Post Nasal Drip, Sinus Drainage Cardiovascular: Reports: Chest Pressure, Edema - Improved, Light Headedness - Resolved, Orthopnea. Denies: Palpitations, Paroxysmal Noc. Dyspnea, Syncope Respiratory: Reports: Cough - Nonproductive, Shortness of breath upon exertion, Wheezing. Denies: Hemoptysis, Shortness of breath at rest, Sputum production Gastrointestinal: Denies: Abdominal Pain, Constipation, Diarrhea, Dyspepsia, Hematemesis, Hematochezia, Nausea, Melena, Vomiting Genitourinary: Reports: Frequency, Nocturia. Denies: Dysuria, Hematuria, Retention Musculoskeletal: Denies: Back Pain Skin: Reports: Dryness. Denies: Rash, Wounds Neurological: Denies: Balance problems, Change in Speech, Confusion, Difficulty swallowing, Focal weakness, Numbness, Tingling, Tremor, Seizures Psychiatric: Reports: Depression. Denies: Anxiety, Suicidal Ideations Endocrine: Denies: Change in Body Habitus, Polydipsia, Polyuria Hematologic/ Lymphatic: Reports: Easy Bruising, Easy Bleeding. Denies: Adenopathy, Anemia, Hx of blood clot Patient Problems: Active and Suspected Problems (Last Updated 06/17/17 @ 12:11 by Trenton Landin DO ) Acute on chronic respiratory failure with hypoxia and hypercapnia (Acute) Diastolic CHF, acute (Acute) Subjective: Patient was seen and examined. He is sitting in the chair with legs elevated. His is at the bedside. Reports he is very depressed that his health has been declining. Patient states he is nearing his baseline activity level, which is poor. Objective: Clinical Impression(s) from Imaging Studies Chest X-Ray 06/14/17 15:40 IMPRESSION: Probable combination of chronic pulmonary disease with fibrosis, and possible patchy atelectasis or infiltrates which have worsened on the left. Electronically Signed: Sreedhar Daniels MD at 16:17 EST , Service support , - Physical Exam General: Alert, Oriented x3, Cooperative, No apparent distress, - - Depressed. Obese. HEENT: Atraumatic, PERRLA, Normocephalic Oral: Moist Mucosa, No Gingival or Mucosal Lesions/ Ulcerations Neck: Supple, No Nodes, Trachea Midline Lungs: Diminished, - - Bibasilar Rales, scattered rhonchi on the left. Minimal wheezing. Symmetric expansion, no accessory muscle use. Cardiovascular: Regular rate, Regular Rhythm, Normal S1, Normal S2, Murmur - KAVITA , No rub noted, No Gallop Abdomen: Bowel Sounds Present, Soft, Non Tender, Obese Extremities: No clubbing, No cyanosis, Edema - Trace LE, - - vascular changes to LEs Skin: No rashes, No breakdown Musculoskeletal: No Tenderness to Palpation of Joints or Extremities Lymphatic: No Cervical, Supraclavicular, or Inguinal Adenopathy Neurological: Cranial nerves II-XII grossly intact, Neuro grossly intact, Motor Exam 5/5 strength throughout Psych/Mental Status: Depressed, - - pleasant and cooperative. cognitively intact Vital Signs Temp Pulse Resp BP Pulse Ox 98.2 F 87 18 114/60 93 06/17/17 09:23 06/17/17 11:00 06/17/17 09:23 06/17/17 09:23 06/17/17 09:23 Oxygen Flow Rate (L/min) 4 Oxygen Delivery Method Nasal Cannula Weight: 262 lb 5.601 oz Body Mass Index (BMI) 37.3 Intake and Output for Last 24 Hours 06/15/17 06/16/17 06/17/17 23:59 23:59 23:59 Intake Total 1172 / 1172 1120 / 1120 750 / 750 Output Total 1250 / 1250 2125 / 2125 825 / 825 Balance -78 / -78 -1005 / -1005 -75 / -75 Laboratory Tests Past 24 Hrs 06/17/17 06/17/17 05:55 05:55 WBC 9.1 RBC 4.45 L Hgb 13.2 Hct 40.2 MCV 90.3 MCH 29.7 MCHC 32.8 RDW 13.0 RDW Differential 42.9 Plt Count 307 MPV 8.7 Sodium 137 Potassium 4.2 Chloride 96 L Carbon Dioxide 37.0 H Anion Gap 4 L BUN 22 H Creatinine 0.95 Estim Creat Clear Calc 64.95 Est GFR (MDRD) Af Amer 97 Est GFR (MDRD) Non-Af 80 BUN/Creatinine Ratio 23.1 H Glucose 175 H Calcium 9.0 Assessment/Plan Active and Suspected Problems (Last Updated 06/17/17 @ 12:11 by Trenton Landin DO ) Acute on chronic respiratory failure with hypoxia and hypercapnia (Acute) Diastolic CHF, acute (Acute) RECOMMENDATIONS 1. Wean oxygen supplementation to keep saturations greater than 89% 2. Encourage incentive spirometer 3. Increase activity as tolerated, continue PT/OT 4. Continue aerosols as ordered 5. Likely okay to de-escalate Lasix therapy to oral in the next 24-48 hours 6. May discontinue antibiotics 7. Reinforce CHF teaching, fluid restriction 8. Ambulatory pulse ox prior to discharge 9. Follow-up as scheduled in the pulmonary clinic on July 03 with Christen Bernabe NP IMPRESSIONS 1. Acute on chronic respiratory failure with hypoxia and hypercarbia Likely secondary to CHF exacerbation. Has improved with diuresis. Has a negative fluid balance of 1043 mL. However, patient remains on higher oxygen requirement of 4L than he normally has at home (2L). Patient had 6 minute walking oximetry in April with no recommendations for oxygen supplementation, however was wearing 2 L at night and now 2L throughout the day for the last few weeks secondary to exercise intolerance and dyspnea at the recommendation of Dr. Tran. Compliant with oxygen at home, does have mild pulmonary hypertension per last echocardiogram. Remains afebrile with no leukocytosis. Influenza negative, urine strep/Legionella negative. Likely not infectious process. Likely okay to discontinue antibiotics. Patient should have ambulatory pulse ox prior to discharge to assess for increased oxygen requirements with exertion. He can follow-up as scheduled on July 03 in the pulmonary clinic. 2. Acute on chronic congestive heart failure Improved. Being managed with IV Lasix, beta blockers. PCP had increased his Lasix at home to 80 mg in the morning and 40 mg at night, then added spironolactone 2 days prior to presentation to the ER. Likely can be converted to oral Lasix in the next 24-48 hours. Continue I&O and fluid restriction, patient will need education with present for management of CHF as an outpatient. Education provided by myself during assessment. He can follow up with Dr. Kimball as an outpatient. 3. History of A. fib on Xarelto/hypertension/CAD s/p CABG/hyperlipidemia/ restrictive airway disease/abnormal chest CT/obesity Complicates care, management, recovery, and prognosis. EKG showed sinus rhythm with a rate of 64 bpm, nonspecific ST and T-wave changes but nothing acute. Patient remains on antiarrhythmics. Thank you for the opportunity to participate in this patient's care, please not hesitate contact us with any further questions or concerns. This note was generated with [employer] software. It may contain incorrect words, spelling, and punctuation that were not noted in checking the note before signing.
--- NOTE | 2017-06-17 14:19 | CASEMGMT ---
Per therapy notes, they are recommending C for pt at discharge. This RN CM to bedside to discuss with pt and he agrees to [facility] at this time and states would like [facility]. Referral to Melania at [facility] at this time, voices understanding. Karis BRUNSON CM
[2017-06-17] MEDS: Albuterol 2.5 MG/3 ML VIAL.NEB. INHALATION (20:36)
[2017-06-17] MEDS: Tamsulosin HCl 0.4 MG Capsule PO (21:15)
[2017-06-17] MEDS: Pravastatin 40 MG Tablet PO (21:15)
[2017-06-18] VITALS (18 sets, daily range): BP systolic 118–158; BP diastolic 58–83; PULSE 67–92; RESP 18–20; TEMP 36.4–37.3; O2SAT 90–96
[2017-06-18] MEDS: 0.9% NaCl Peripheral Flush Adult/Peds IV ×2 (05:04→17:49)
[2017-06-18] MEDS: Furosemide 40 MG/4 ML Vial IV (05:05)
[2017-06-18 06:59] LABS: Anion Gap 7 (5-15); BUN 27 mg/dL (7-18); BUN/Creat Ratio 24.1 RATIO (10-20); Chloride 95 mmol/L (98-107); Creatinine, Serum 1.12 mg/dL (0.70-1.30); EST Glomerular Filtration Rate 67 mL/min (>60); Est Glom Filt Rate - Afr Amer 81 mL/min (>60); Estimated Creatinine Clearance 55.09 ml/min; Glucose 200 mg/dL (74-106); Potassium 4.3 mmol/L (3.5-5.1); Sodium Level 138 mmol/L (136-145)
[2017-06-18] MEDS: Ipratropium/Albuterol Sulfate 3 ML AMPUL.NEB INHALATION ×3 (07:11→19:17)
--- NOTE | 2017-06-18 08:22 | PCM.PROGNOTE ---
Patient Problems: Active and Suspected Problems (Last Updated 06/17/17 @ 12:11 by Trenton Landin DO) Acute on chronic respiratory failure with hypoxia and hypercapnia (Acute) Subjective: Patient did well overnight. No acute issues were reported. Patient feels subjectively improved compared to yesterday, but is still requiring increased nasal cannula oxygen to maintain saturations. Patient feels his lower extremities are back to their baseline. Patient denies any chest pain, productive cough, nausea or vomiting. - Physical Exam General: Alert, Oriented x3, Cooperative, No apparent distress, - - Obese. Speaking in full sentences. HEENT: Atraumatic, PERRLA, EOMI, Normocephalic, - - No scleral icterus or injection noted. Oral: Moist Mucosa, No Gingival or Mucosal Lesions/ Ulcerations Neck: Supple, No JVD, No Nodes, Trachea Midline Lungs: Diminished, Rales - Bilateral, Wheezes - Improves with cough, - - Symmetric expansion. No dullness to percussion. Cardiovascular: Regular rate, Regular Rhythm, Normal S1, Normal S2, Murmur - Grade 3 out of 6 systolic ejection murmur, No rub noted, No Gallop Abdomen: Bowel Sounds Present, Soft, Non Tender, Non-Distended, Obese Extremities: No cyanosis, Capillary Refill Less than 3 Seconds, Clubbing, Edema - Trace lower extremity Skin: - - Venous stasis changes of bilateral lower extremities. Bilateral, well-healed knee scars Musculoskeletal: No Tenderness to Palpation of Joints or Extremities Lymphatic: No Cervical, Supraclavicular, or Inguinal Adenopathy Neurological: Cranial nerves II-XII grossly intact, Neuro grossly intact, Motor Exam 5/5 strength throughout Psych/Mental Status: Alert and oriented to time, place, person, mood and affect Vital Signs Temp Pulse Resp BP Pulse Ox 37.1 C 73 18 118/58 L 92 06/18/17 08:11 06/18/17 08:11 06/18/17 08:11 06/18/17 08:11 06/18/17 08:16 Oxygen Flow Rate (L/min) 4 Oxygen Delivery Method Nasal Cannula Weight: 118.2 kg Body Mass Index (BMI) 37.3 Intake and Output for Last 24 Hours 06/16/17 06/17/17 06/18/17 23:59 23:59 23:59 Intake Total 1120 / 1120 950 / 950 300 / 300 Output Total 2125 / 2125 1200 / 1200 850 / 850 Balance -1005 / -1005 -250 / -250 -550 / -550 Laboratory Tests Past 24 Hrs 06/18/17 06:20 Sodium 138 Potassium 4.3 Chloride 95 L Carbon Dioxide 36.0 H Anion Gap 7 BUN 27 H Creatinine 1.12 Estim Creat Clear Calc 55.09 Est GFR (MDRD) Af Amer 81 Est GFR (MDRD) Non-Af 67 BUN/Creatinine Ratio 24.1 H Glucose 200 H Calcium 9.0 Assessment/Plan Active and Suspected Problems (Last Updated 06/17/17 @ 12:11 by Trenton Landin DO) Acute on chronic respiratory failure with hypoxia and hypercapnia (Acute) RECOMMENDATIONS 1. Wean oxygen supplementation to keep saturations greater than 89% 2. Walking oximetry prior to discharge 3. Increase activity as tolerated, continue PT/OT 4. Continue aerosols as ordered 5. Likely okay to transition to baseline Lasix therapy 6. Reinforce CHF teaching, fluid restriction 7. Follow-up as scheduled in the pulmonary clinic on July 03 with Christen Bernabe NP IMPRESSIONS 1. Acute on chronic respiratory failure with hypoxia and hypercarbia Patient appears to have responded to diuretic therapy. Patient does have a baseline of pulmonary fibrosis in the bases that is being worked up as an outpatient. Initial workup with autoimmune evaluation was negative to this point. Did stress to the patient that this increases his risk of decompensation moving forward, but given the scarring nature, this is a more insidious process. Did stress the importance of keeping saturations greater than 89% at all times. Patient voiced understanding. Patient does already have a follow-up at the end of the month with nurse practitioner and this can likely be kept following discharge from the hospital. 2. Acute on chronic congestive heart failure Patient is typically followed by Dr. Kimball as an outpatient. Patient does appear to be improved compared to previous. Patient is on optimal medical therapy. Patient's lower extremity edema is much improved compared to previous. 3. History of A. fib on Xarelto/hypertension/CAD s/p CABG/hyperlipidemia/restrictive airway disease/abnormal chest CT/obesity Complicates care, management, recovery, and prognosis. EKG showed sinus rhythm with a rate of 64 bpm, nonspecific ST and T-wave changes but nothing acute. Patient remains on antiarrhythmics. Thank you for the opportunity to participate in this patient's care, please not hesitate contact us with any further questions or concerns. This note was generated with [employer] software. It may contain incorrect words, spelling, and punctuation that were not noted in checking the note before signing. Code Visit Inpatient E&M: 96353 Subs Hosp L2
[2017-06-18] MEDS: Multivitamins,Ther W-Minerals Tablet 1 TABLET PO (08:24)
[2017-06-18] MEDS: Vitamin E 400 UNITS Capsule PO (08:24)
[2017-06-18] MEDS: Gabapentin 300 MG Capsule PO ×2 (08:24→17:49)
[2017-06-18] MEDS: Aspirin E.C. 81 MG Tablet PO (08:24)
[2017-06-18] MEDS: Calcium Carbonate 500 MG Tablet PO (08:25)
[2017-06-18] MEDS: Ascorbic Acid 500 MG Tablet PO (08:25)
[2017-06-18] MEDS: Sodium Chloride 0.65% 1 SPRAY SPRAY.BTL 2 SPRAY NASAL (08:27)
--- NOTE | 2017-06-18 08:33 | PN_ITS ---
Patient Problems: Active and Suspected Problems (Last Updated 06/17/17 @ 12:11 by Trenton Landin DO ) Acute on chronic respiratory failure with hypoxia and hypercapnia (Acute) Subjective: Patient did well overnight. No acute issues were reported. Patient feels subjectively improved compared to yesterday, but is still requiring increased nasal cannula oxygen to maintain saturations. Patient feels his lower extremities are back to their baseline. Patient denies any chest pain, productive cough, nausea or vomiting. - Physical Exam General: Alert, Oriented x3, Cooperative, No apparent distress, - - Obese. Speaking in full sentences. HEENT: Atraumatic, PERRLA, EOMI, Normocephalic, - - No scleral icterus or injection noted. Oral: Moist Mucosa, No Gingival or Mucosal Lesions/ Ulcerations Neck: Supple, No JVD, No Nodes, Trachea Midline Lungs: Diminished, Rales - Bilateral, Wheezes - Improves with cough, - - Symmetric expansion. No dullness to percussion. Cardiovascular: Regular rate, Regular Rhythm, Normal S1, Normal S2, Murmur - Grade 3 out of 6 systolic ejection murmur, No rub noted, No Gallop Abdomen: Bowel Sounds Present, Soft, Non Tender, Non-Distended, Obese Extremities: No cyanosis, Capillary Refill Less than 3 Seconds, Clubbing, Edema - Trace lower extremity Skin: - - Venous stasis changes of bilateral lower extremities. Bilateral, well -healed knee scars Musculoskeletal: No Tenderness to Palpation of Joints or Extremities Lymphatic: No Cervical, Supraclavicular, or Inguinal Adenopathy Neurological: Cranial nerves II-XII grossly intact, Neuro grossly intact, Motor Exam 5/5 strength throughout Psych/Mental Status: Alert and oriented to time, place, person, mood and affect Vital Signs Temp Pulse Resp BP Pulse Ox 37.1 C 73 18 118/58 L 92 06/18/17 08:11 06/18/17 08:11 06/18/17 08:11 06/18/17 08:11 06/18/17 08:16 Oxygen Flow Rate (L/min) 4 Oxygen Delivery Method Nasal Cannula Weight: 118.2 kg Body Mass Index (BMI) 37.3 Intake and Output for Last 24 Hours 06/16/17 06/17/17 06/18/17 23:59 23:59 23:59 Intake Total 1120 / 1120 950 / 950 300 / 300 Output Total 2125 / 2125 1200 / 1200 850 / 850 Balance -1005 / -1005 -250 / -250 -550 / -550 Laboratory Tests Past 24 Hrs 06/18/17 06:20 Sodium 138 Potassium 4.3 Chloride 95 L Carbon Dioxide 36.0 H Anion Gap 7 BUN 27 H Creatinine 1.12 Estim Creat Clear Calc 55.09 Est GFR (MDRD) Af Amer 81 Est GFR (MDRD) Non-Af 67 BUN/Creatinine Ratio 24.1 H Glucose 200 H Calcium 9.0 Assessment/Plan Active and Suspected Problems (Last Updated 06/17/17 @ 12:11 by Trenton Landin DO ) Acute on chronic respiratory failure with hypoxia and hypercapnia (Acute) RECOMMENDATIONS 1. Wean oxygen supplementation to keep saturations greater than 89% 2. Walking oximetry prior to discharge 3. Increase activity as tolerated, continue PT/OT 4. Continue aerosols as ordered 5. Likely okay to transition to baseline Lasix therapy 6. Reinforce CHF teaching, fluid restriction 7. Follow-up as scheduled in the pulmonary clinic on July 03 with Christen Bernabe NP IMPRESSIONS 1. Acute on chronic respiratory failure with hypoxia and hypercarbia Patient appears to have responded to diuretic therapy. Patient does have a baseline of pulmonary fibrosis in the bases that is being worked up as an outpatient. Initial workup with autoimmune evaluation was negative to this point. Did stress to the patient that this increases his risk of decompensation moving forward, but given the scarring nature, this is a more insidious process. Did stress the importance of keeping saturations greater than 89% at all times. Patient voiced understanding. Patient does already have a follow-up at the end of the month with nurse practitioner and this can likely be kept following discharge from the hospital. 2. Acute on chronic congestive heart failure Patient is typically followed by Dr. Kimball as an outpatient. Patient does appear to be improved compared to previous. Patient is on optimal medical therapy. Patient's lower extremity edema is much improved compared to previous. 3. History of A. fib on Xarelto/hypertension/CAD s/p CABG/hyperlipidemia/ restrictive airway disease/abnormal chest CT/obesity Complicates care, management, recovery, and prognosis. EKG showed sinus rhythm with a rate of 64 bpm, nonspecific ST and T-wave changes but nothing acute. Patient remains on antiarrhythmics. Thank you for the opportunity to participate in this patient's care, please not hesitate contact us with any further questions or concerns. This note was generated with [employer]ation software. It may contain incorrect words, spelling, and punctuation that were not noted in checking the note before signing. Code Visit Inpatient E&M: 05870 Subs Hosp L2
[2017-06-18] MEDS: Finasteride 5 MG Tablet PO (09:31)
[2017-06-18] MEDS: Spironolactone 25 MG Tablet PO (09:31)
[2017-06-18] MEDS: Clopidogrel Bisulfate 75 MG Tablet PO (09:31)
[2017-06-18] MEDS: Amiodarone 200 MG Tablet PO (09:31)
[2017-06-18] MEDS: Metoprolol Tartrate 25 MG Tablet PO ×2 (09:31→21:22)
[2017-06-18] MEDS: Rivaroxaban 20 MG Tablet PO (09:32)
--- NOTE | 2017-06-18 16:33 | PCM.PN.HOSP ---
Patient Problems: Active and Suspected Problems (Last Updated 06/17/17 @ 12:11 by Trenton Landin DO) Acute on chronic respiratory failure with hypoxia and hypercapnia (Acute) Subjective: still with CELIS, but improving. Vitals/I&O's: Vital Signs Temp Pulse Resp BP Pulse Ox 36.6 C 74 18 154/77 H 92 06/18/17 13:00 06/18/17 16:15 06/18/17 13:08 06/18/17 13:00 06/18/17 13:46 Oxygen Flow Rate (L/min) 4 Oxygen Delivery Method Nasal Cannula Weight: 118.2 kg Body Mass Index (BMI) 37.3 Intake and Output for Last 24 Hours 06/16/17 06/17/17 06/18/17 23:59 23:59 23:59 Intake Total 1120 / 1120 950 / 950 1100 / 1100 Output Total 2125 / 2125 1200 / 1200 1300 / 1300 Balance -1005 / -1005 -250 / -250 -200 / -200 General: Alert, Cooperative, No apparent distress HEENT: Atraumatic, Normocephalic Neck: No Nodes, Thyroid Normal Size and Texture Lungs: Diminished, - - bilateral crackles Cardiovascular: Regular rate, Regular Rhythm, Normal S1, Normal S2, No murmurs Abdomen: Bowel Sounds Present, Soft, Non Tender, Non-Distended, No Hepato-splenomegaly Extremities: No edema, No Calf Tenderness Musculoskeletal: No Tenderness to Palpation of Joints or Extremities, No Muscle Wasting Psych/Mental Status: Normal Affect, Appropriate Laboratory Results 06/18/17 06:20: Sodium 138, Potassium 4.3, Chloride 95 L, Carbon Dioxide 36.0 H, Anion Gap 7, BUN 27 H, Creatinine 1.12, Estim Creat Clear Calc 55.09, Est GFR (MDRD) Af Amer 81, Est GFR (MDRD) Non-Af 67, BUN/Creatinine Ratio 24.1 H, Glucose 200 H, Calcium 9.0 Current Medications Acetaminophen (Tylenol) 650 mg PO Q6H PRN PRN PRN Reason: Mild Pain (scale 0-3)/T>100.7 Last Admin: 06/16/17 09:57 Dose: 650 mg Al Hydroxide/Mg Hydroxide (Mylanta Ii) 30 ml PO Q6H PRN PRN PRN Reason: Gastric burning Albuterol Sulfate (Ventolin Aerosols) 2.5 mg INHALATION Q2H PRN PRN PRN Reason: DYSPNEA/WHEEZING/SOB Last Admin: 06/17/17 20:36 Dose: 2.5 mg Albuterol/Ipratropium (Duoneb) 3 ml INHALATION Q6HWA.RT [facility] Last Admin: 06/18/17 13:08 Dose: 3 ml Amiodarone HCl (Cordarone) 200 mg PO DAILY [facility] Last Admin: 06/18/17 09:31 Dose: 200 mg Ascorbic Acid (Vitamin C) 500 mg PO DAILY@0800 [facility] Last Admin: 06/18/17 08:25 Dose: 500 mg Aspirin (Ecotrin) 81 mg PO DAILY@0800 [facility] Last Admin: 06/18/17 08:24 Dose: 81 mg [facility] Last Admin: 06/18/17 08:25 Dose: 500 mg Cholecalciferol (Vitamin D) [facility] Last Admin: 06/18/17 08:24 Dose: 1,000 unit Clopidogrel Bisulfate (Plavix) 75 mg PO DAILY [facility] Last Admin: 06/18/17 09:31 Dose: 75 mg Finasteride (Proscar) 5 mg PO DAILY [facility] Last Admin: 06/18/17 09:31 Dose: 5 mg Furosemide (Lasix) 40 mg PO DINNER [facility] Furosemide (Lasix) 80 mg PO BREAKFAST [facility] Gabap[facility] ([facility]ontin) [facility] Last Admin: 06/18/17 08:24 Dose: 300 mg Magnesium Hydroxide (Milk Of Magnesia) 30 ml PO DAILY PRN PRN Reason: Constipation Metoprolol Tartrate (Lopressor (Beta Yelena)) 25 mg PO BID [facility] Last Admin: 06/18/17 09:31 Dose: 25 mg Multivitamins/Minerals (Multivitamin With Minerals) [facility] Last Admin: 06/18/17 08:24 Dose: 1 tablet Nutritional Formula (Lactose Free) (Ensure Enlive) 60 ml PO 4X/DAY [facility] Last Admin: 06/18/17 13:50 Dose: 60 ml Oxycodone HCl (Oxyir) 5 mg PO Q4H PRN PRN PRN Reason: Moderate Pain (pain scale 4-5) Potassium Chloride (K-Dur) [facility] Last Admin: 06/18/17 08:24 Dose: 20 meq Pravastatin Sodium (Pravachol) 40 mg PO QHS [facility] Last Admin: 06/17/17 21:15 Dose: 40 mg Promethazine HCl (Phenergan (Ll)) 12.5 mg IV Q6H PRN PRN PRN Reason: NAUSEA/VOMITING Rivaroxaban (Xarelto) 20 mg PO DAILY [facility] Last Admin: 06/18/17 09:32 Dose: 20 mg Sodium Chloride ([place] Nasal [place]) 2 spray NASAL TID PRN PRN PRN Reason: NASAL DRYNESS Last Admin: 06/18/17 08:27 Dose: 2 spray Sodium Chloride () 5 - 30 ml IV UD PRN PRN Reason: SALINE FLUSH Last Admin: 06/18/17 05:04 Dose: 10 ml Spironolactone (Aldactone) 25 mg PO DAILY [facility] Last Admin: 06/18/17 09:31 Dose: 25 mg Tamsulosin HCl (Flomax) 0.4 mg PO QHS [facility] Last Admin: 06/17/17 21:15 Dose: 0.4 mg Vitamin E (Vitamin E) [facility] Last Admin: 06/18/17 08:24 Dose: 400 units Zolpidem Tartrate (Ambien (Generic)) 5 mg PO QHS PRN PRN PRN Reason: INSOMNIA Assessment/Plan Active and Suspected Problems (Last Updated 06/17/17 @ 12:11 by Trenton Landin DO) Acute on chronic respiratory failure with hypoxia and hypercapnia (Acute) 1. Acute heart failure with preserved ejection fraction Ejection fraction of 50% from echocardiogram from May 2015. converted back to home dose of lasix. On metoprolol tartrate Noted allergy to lisinopril. Though consider angiotensin receptor yelena. 2. Coronary artery disease Stable Continue with medical management 3. Paroxysmal atrial fibrillation Continue amiodarone, metoprolol and Xarelto 4. DVT prophylaxis: Patient is currently anticoagulated. 5. Chronic respiratory failure: multifactorial: OHS, ILD, CHF, PH pt stable discussed with patient and family that his condition could deteriorate more easily given his chronic resp failure 6. Disposition: plan to watch pt overnight, if stable or improved then he will be discharged to home with HHC Greater than 35 minutes, of which greater than 50% time counseling patient about CHF, chronic resp failure, possible IPF. Code Visit Inpatient E&M: 43596 Subs Hosp L3
--- NOTE | 2017-06-18 16:37 | PN_ITS ---
Patient Problems: Active and Suspected Problems (Last Updated 06/17/17 @ 12:11 by Trenton Landin DO ) Acute on chronic respiratory failure with hypoxia and hypercapnia (Acute) Subjective: still with CELIS, but improving. Vitals/I&O's: Vital Signs Temp Pulse Resp BP Pulse Ox 36.6 C 74 18 154/77 H 92 06/18/17 13:00 06/18/17 16:15 06/18/17 13:08 06/18/17 13:00 06/18/17 13:46 Oxygen Flow Rate (L/min) 4 Oxygen Delivery Method Nasal Cannula Weight: 118.2 kg Body Mass Index (BMI) 37.3 Intake and Output for Last 24 Hours 06/16/17 06/17/17 06/18/17 23:59 23:59 23:59 Intake Total 1120 / 1120 950 / 950 1100 / 1100 Output Total 2125 / 2125 1200 / 1200 1300 / 1300 Balance -1005 / -1005 -250 / -250 -200 / -200 General: Alert, Cooperative, No apparent distress HEENT: Atraumatic, Normocephalic Neck: No Nodes, Thyroid Normal Size and Texture Lungs: Diminished, - - bilateral crackles Cardiovascular: Regular rate, Regular Rhythm, Normal S1, Normal S2, No murmurs Abdomen: Bowel Sounds Present, Soft, Non Tender, Non-Distended, No Hepato- splenomegaly Extremities: No edema, No Calf Tenderness Musculoskeletal: No Tenderness to Palpation of Joints or Extremities, No Muscle Wasting Psych/Mental Status: Normal Affect, Appropriate Laboratory Results 06/18/17 06:20: Sodium 138, Potassium 4.3, Chloride 95 L, Carbon Dioxide 36.0 H , Anion Gap 7, BUN 27 H, Creatinine 1.12, Estim Creat Clear Calc 55.09, Est GFR (MDRD) Af Amer 81, Est GFR (MDRD) Non-Af 67, BUN/Creatinine Ratio 24.1 H, Glucose 200 H, Calcium 9.0 Current Medications Acetaminophen (Tylenol) 650 mg PO Q6H PRN PRN PRN Reason: Mild Pain (scale 0-3)/T>100.7 Last Admin: 06/16/17 09:57 Dose: 650 mg Al Hydroxide/Mg Hydroxide (Mylanta Ii) 30 ml PO Q6H PRN PRN PRN Reason: Gastric burning Albuterol Sulfate (Ventolin Aerosols) 2.5 mg INHALATION Q2H PRN PRN PRN Reason: DYSPNEA/WHEEZING/SOB Last Admin: 06/17/17 20:36 Dose: 2.5 mg Albuterol/Ipratropium (Duoneb) 3 ml INHALATION Q6HWA.RT [facility] Last Admin: 06/18/17 13:08 Dose: 3 ml Amiodarone HCl (Cordarone) 200 mg PO DAILY [facility] Last Admin: 06/18/17 09:31 Dose: 200 mg Ascorbic Acid (Vitamin C) 500 mg PO DAILY@0800 [facility] Last Admin: 06/18/17 08:25 Dose: 500 mg Aspirin (Ecotrin) 81 mg PO DAILY@0800 [facility] Last Admin: 06/18/17 08:24 Dose: 81 mg Calcium Carbonate (Tums) [facility] Last Admin: 06/18/17 08:25 Dose: 500 mg Cholecalciferol (Vitamin D) 1,000 unit [facility] Last Admin: 06/18/17 08:24 Dose: 1,000 unit Clopidogrel Bisulfate (Plavix) 75 mg PO DAILY [facility] Last Admin: 06/18/17 09:31 Dose: 75 mg Finasteride (Proscar) 5 mg PO DAILY [facility] Last Admin: 06/18/17 09:31 Dose: 5 mg Furosemide (Lasix) 40 mg PO DINNER [facility] Furosemide (Lasix) 80 mg PO BREAKFAST [facility] Gabapentin (Neurontin) [facility] Last Admin: 06/18/17 08:24 Dose: 300 mg Magnesium Hydroxide (Milk Of Magnesia) 30 ml PO DAILY PRN PRN Reason: Constipation Metoprolol Tartrate (Lopressor (Beta Yelena)) 25 mg PO BID [facility] Last Admin: 06/18/17 09:31 Dose: 25 mg Multivitamins/Minerals (Multivitamin With Minerals) 1 tablet [facility] Last Admin: 06/18/17 08:24 Dose: 1 tablet Nutritional Formula (Lactose Free) (Ensure Enlive) 60 ml PO 4X/DAY [facility] Last Admin: 06/18/17 13:50 Dose: 60 ml Oxycodone HCl (Oxyir) 5 mg PO Q4H PRN PRN PRN Reason: Moderate Pain (pain scale 4-5) Potassium Chloride (K-Dur) [facility] Last Admin: 06/18/17 08:24 Dose: 20 meq Pravastatin Sodium (Pravachol) 40 mg PO QHS [facility] Last Admin: 06/17/17 21:15 Dose: 40 mg Promethazine HCl (Phenergan (Ll)) 12.5 mg IV Q6H PRN PRN PRN Reason: NAUSEA/VOMITING Rivaroxaban (Xarelto) 20 mg PO DAILY [facility] Last Admin: 06/18/17 09:32 Dose: 20 mg Sodium Chloride ([place] Nasal [place]) 2 spray NASAL TID PRN PRN PRN Reason: NASAL DRYNESS Last Admin: 06/18/17 08:27 Dose: 2 spray Sodium Chloride () 5 - 30 ml IV UD PRN PRN Reason: SALINE FLUSH Last Admin: 06/18/17 05:04 Dose: 10 ml Spironolactone (Aldactone) 25 mg PO DAILY [facility] Last Admin: 06/18/17 09:31 Dose: 25 mg Tamsulosin HCl (Flomax) 0.4 mg PO QHS [facility] Last Admin: 06/17/17 21:15 Dose: 0.4 mg Vitamin E (Vitamin E) [facility] Last Admin: 06/18/17 08:24 Dose: 400 units Zolpidem Tartrate (Ambien (Generic)) 5 mg PO QHS PRN PRN PRN Reason: INSOMNIA Assessment/Plan Active and Suspected Problems (Last Updated 06/17/17 @ 12:11 by Trenton Landin DO ) Acute on chronic respiratory failure with hypoxia and hypercapnia (Acute) 1. Acute heart failure with preserved ejection fraction * Ejection fraction of 50% from echocardiogram from May 2015. * converted back to home dose of lasix. * On metoprolol tartrate * Noted allergy to lisinopril. Though consider angiotensin receptor yelena. 2. Coronary artery disease * Stable * Continue with medical management 3. Paroxysmal atrial fibrillation * Continue amiodarone, metoprolol and Xarelto 4. DVT prophylaxis: Patient is currently anticoagulated. 5. Chronic respiratory failure: * multifactorial: OHS, ILD, CHF, PH * pt stable * discussed with patient and family that his condition could deteriorate more easily given his chronic resp failure 6. Disposition: * plan to watch pt overnight, if stable or improved then he will be discharged to home with HHC Greater than 35 minutes, of which greater than 50% time counseling patient about CHF, chronic resp failure, possible IPF. Code Visit Inpatient E&M: 89119 Subs Hosp L3
[2017-06-18] MEDS: Furosemide 40 MG Tablet PO (17:49)
[2017-06-18] MEDS: Tamsulosin HCl 0.4 MG Capsule PO (21:22)
[2017-06-18] MEDS: Pravastatin 40 MG Tablet PO (21:22)
[2017-06-19] VITALS (11 sets, daily range): BP systolic 120–154; BP diastolic 59–79; PULSE 66–76; RESP 16–22; TEMP 36.6–36.8; O2SAT 82–95
[2017-06-19 06:56] LABS: Anion Gap 6 (5-15); BUN 31 mg/dL (7-18); BUN/Creat Ratio 29.8 RATIO (10-20); Calcium,Total 9.3 mg/dL (8.5-10.1); Chloride 97 mmol/L (98-107); Creatinine, Serum 1.04 mg/dL (0.70-1.30); EST Glomerular Filtration Rate 73 mL/min (>60); Est Glom Filt Rate - Afr Amer 88 mL/min (>60); Estimated Creatinine Clearance 59.33 ml/min; Glucose 190 mg/dL (74-106); Potassium 4.6 mmol/L (3.5-5.1); Sodium Level 140 mmol/L (136-145)
[2017-06-19] MEDS: Ipratropium/Albuterol Sulfate 3 ML AMPUL.NEB INHALATION ×2 (07:27→13:26)
--- NOTE | 2017-06-19 08:06 | PCM.PROGNOTE ---
Patient Problems: Active and Suspected Problems (Last Updated 06/17/17 @ 12:11 by Trenton Landin DO) Acute on chronic respiratory failure with hypoxia and hypercapnia (Acute) Subjective: Patient did well overnight. No acute issues were reported. Patient feels subjectively improved compared to previous. Patient denies any complications with supplemental oxygen therapy. Patient has been working with nursing and therapy to increase ambulation. - Physical Exam General: Alert, Oriented x3, Cooperative, No apparent distress, - - Speaking in full sentences. HEENT: Atraumatic, PERRLA, EOMI, Normocephalic, - - Scleral icterus or injection noted. Glasses in place. Oral: Moist Mucosa, No Gingival or Mucosal Lesions/ Ulcerations Neck: Supple, No JVD, No Nodes, Trachea Midline Lungs: No rhonchi, No wheeze, Diminished, Rales, - - Symmetric expansion. No dullness to percussion. Cardiovascular: Regular rate, Regular Rhythm, Normal S1, Normal S2, Murmur, No rub noted, No Gallop Abdomen: Bowel Sounds Present, Soft, Non Tender, Non-Distended, Obese Extremities: No cyanosis, No edema, Capillary Refill Less than 3 Seconds, Clubbing Skin: - - No significant change compared to previous. Still with venous stasis changes of lower extremities. Musculoskeletal: No Tenderness to Palpation of Joints or Extremities, No Muscle Wasting Lymphatic: No Cervical, Supraclavicular, or Inguinal Adenopathy Neurological: Cranial nerves II-XII grossly intact, Neuro grossly intact, Motor Exam 5/5 strength throughout Psych/Mental Status: Alert and oriented to time, place, person, mood and affect Vital Signs Temp Pulse Resp BP Pulse Ox 36.8 C 67 16 154/79 H 95 06/19/17 03:00 06/19/17 07:27 06/19/17 07:27 06/19/17 03:00 06/19/17 07:27 Oxygen Flow Rate (L/min) 4 Oxygen Delivery Method Nasal Cannula Weight: 117.6 kg Body Mass Index (BMI) 37.3 Intake and Output for Last 24 Hours 06/17/17 06/18/17 06/19/17 23:59 23:59 23:59 Intake Total 950 / 950 1300 / 1300 140 / 140 Output Total 1200 / 1200 1400 / 1400 525 / 525 Balance -250 / -250 -100 / -100 -385 / -385 Laboratory Tests Past 24 Hrs 06/19/17 06:20 Sodium 140 Potassium 4.6 Chloride 97 L Carbon Dioxide 37.0 H Anion Gap 6 BUN 31 H Creatinine 1.04 Estim Creat Clear Calc 59.33 Est GFR (MDRD) Af Amer 88 Est GFR (MDRD) Non-Af 73 BUN/Creatinine Ratio 29.8 H Glucose 190 H Calcium 9.3 Assessment/Plan Active and Suspected Problems (Last Updated 06/17/17 @ 12:11 by Trenton Landin DO) Acute on chronic respiratory failure with hypoxia and hypercapnia (Acute) RECOMMENDATIONS 1. Wean oxygen supplementation to keep saturations greater than 89% 2. Will order walking oximetry 3. Increase activity as tolerated, continue PT/OT 4. Continue aerosols as ordered 5. If patient is able to ambulate on 6 L/min or less, okay to discharge from a pulmonary perspective 6. Reinforce CHF teaching, fluid restriction 7. Follow-up as scheduled in the pulmonary clinic on July 03 with Christen Bernabe NP IMPRESSIONS 1. Acute on chronic respiratory failure with hypoxia and hypercarbia Patient appears to have responded to diuretic therapy. Patient does have a baseline of pulmonary fibrosis in the bases that is being worked up as an outpatient. Initial workup with autoimmune evaluation was negative to this point. Did stress to the patient that this increases his risk of decompensation moving forward, but given the scarring nature, this is a more insidious process. Did stress the importance of keeping saturations greater than 89% at all times. Patient voiced understanding. Patient does already have a follow-up at the end of the month with nurse practitioner and this can likely be kept following discharge from the hospital. 2. Acute on chronic congestive heart failure Patient is typically followed by Dr. Kimball as an outpatient. Patient does appear to be improved compared to previous. Patient is on optimal medical therapy. Patient's lower extremity edema is much improved compared to previous. She is reported to have only 2 L negative over the course of the hospitalization. However, patient's weight is down 7 kg indicating further diuresis. 3. History of A. fib on Xarelto/hypertension/CAD s/p CABG/hyperlipidemia/restrictive airway disease/abnormal chest CT/obesity Complicates care, management, recovery, and prognosis. EKG showed sinus rhythm with a rate of 64 bpm, nonspecific ST and T-wave changes but nothing acute. Patient remains on antiarrhythmics. Thank you for the opportunity to participate in this patient's care, please not hesitate contact us with any further questions or concerns. This note was generated with [employer] software. It may contain incorrect words, spelling, and punctuation that were not noted in checking the note before signing. Code Visit Inpatient E&M: 94809 Subs Hosp L2
[2017-06-19] MEDS: Spironolactone 25 MG Tablet PO (09:27)
[2017-06-19] MEDS: Vitamin E 400 UNITS Capsule PO (09:27)
[2017-06-19] MEDS: Metoprolol Tartrate 25 MG Tablet PO (09:27)
[2017-06-19] MEDS: Amiodarone 200 MG Tablet PO (09:27)
[2017-06-19] MEDS: Furosemide 80 MG Tablet PO (09:27)
[2017-06-19] MEDS: Finasteride 5 MG Tablet PO (09:27)
[2017-06-19] MEDS: Rivaroxaban 20 MG Tablet PO (09:27)
[2017-06-19] MEDS: Clopidogrel Bisulfate 75 MG Tablet PO (09:27)
[2017-06-19] MEDS: Gabapentin 300 MG Capsule PO (09:27)
[2017-06-19] MEDS: Aspirin E.C. 81 MG Tablet PO (09:27)
[2017-06-19] MEDS: Ascorbic Acid 500 MG Tablet PO (09:27)
[2017-06-19] MEDS: Calcium Carbonate 500 MG Tablet PO (09:28)
[2017-06-19] MEDS: Multivitamins,Ther W-Minerals Tablet 1 TABLET PO (09:28)
--- NOTE | 2017-06-19 09:48 | NURSING ---
unable to check pulse ox on RA with ambulation. Patient desats to 82% when turned down to 2L at rest.
[2017-06-19] MEDS: Albuterol 2.5 MG/3 ML VIAL.NEB. INHALATION (09:50)
--- NOTE | 2017-06-19 10:00 | CPS ---
PRN RX GIVEN FOR S.O.B. PT INCREASED TO 5 LPM SATURATION UP TO 94% ON 5 LPM. NURSE AWARE
--- NOTE | 2017-06-19 12:55 | PCM.PN.HOSP ---
Patient Problems: Active and Suspected Problems (Last Updated 06/17/17 @ 12:11 by Trenton Landin DO) Acute on chronic respiratory failure with hypoxia and hypercapnia (Acute) Subjective: No worsening shortness of breath. No new events. Sets of ventured into 82-87%. Patient endorses that his oxygen his gait is occasionally out of his nares at times. Unclear if the action not being in his the appropriate spot is contributing to his noted hypoxia or not. Vitals/I&O's: Vital Signs Temp Pulse Resp BP Pulse Ox 36.6 C 74 18 125/59 H 87 06/19/17 09:36 06/19/17 11:33 06/19/17 09:50 06/19/17 09:36 06/19/17 09:50 Oxygen Flow Rate (L/min) 5 Oxygen Delivery Method Nasal Cannula Weight: 117.6 kg Body Mass Index (BMI) 37.3 Intake and Output for Last 24 Hours 06/17/17 06/18/17 06/19/17 23:59 23:59 23:59 Intake Total 950 / 950 1300 / 1300 750 / 750 Output Total 1200 / 1200 1400 / 1400 625 / 625 Balance -250 / -250 -100 / -100 125 / 125 General: Alert, Cooperative, No apparent distress HEENT: Atraumatic, Normocephalic Neck: No Nodes, Thyroid Normal Size and Texture Lungs: - - Bibasilar crackles Cardiovascular: Regular rate, Regular Rhythm, Normal S1, Normal S2 Abdomen: Bowel Sounds Present, Soft, Non Tender, Non-Distended Extremities: No edema, No Calf Tenderness Skin: No rashes, No breakdown Laboratory Results 06/19/17 06:20: Sodium 140, Potassium 4.6, Chloride 97 L, Carbon Dioxide 37.0 H, Anion Gap 6, BUN 31 H, Creatinine 1.04, Estim Creat Clear Calc 59.33, Est GFR (MDRD) Af Amer 88, Est GFR (MDRD) Non-Af 73, BUN/Creatinine Ratio 29.8 H, Glucose 190 H, Calcium 9.3 Current Medications Acetaminophen (Tylenol) 650 mg PO Q6H PRN PRN PRN Reason: Mild Pain (scale 0-3)/T>100.7 Last Admin: 06/16/17 09:57 Dose: 650 mg Al Hydroxide/Mg Hydroxide (Mylanta Ii) 30 ml PO Q6H PRN PRN PRN Reason: Gastric burning Albuterol Sulfate (Ventolin Aerosols) 2.5 mg INHALATION Q2H PRN PRN PRN Reason: DYSPNEA/WHEEZING/SOB Last Admin: 06/19/17 09:50 Dose: 2.5 mg Albuterol/Ipratropium (Duoneb) 3 ml INHALATION Q6HWA.RT [facility] Last Admin: 06/19/17 07:27 Dose: 3 ml Amiodarone HCl (Cordarone) 200 mg PO DAILY [facility] Last Admin: 06/19/17 09:27 Dose: 200 mg Ascorbic Acid (Vitamin C) 500 mg PO DAILY@0800 [facility] Last Admin: 06/19/17 09:27 Dose: 500 mg Aspirin (Ecotrin) 81 mg PO DAILY@0800 [facility] Last Admin: 06/19/17 09:27 Dose: 81 mg [facility]cium Carbonate (Tums) [facility] Last Admin: 06/19/17 09:28 Dose: 500 mg Cholecalciferol (Vitamin D) 1,000 unit [facility] Last Admin: 06/19/17 09:27 Dose: 1,000 unit Clopidogrel Bisulfate (Plavix) 75 mg PO DAILY [facility] Last Admin: 06/19/17 09:27 Dose: 75 mg Finasteride (Proscar) 5 mg PO DAILY [facility] Last Admin: 06/19/17 09:27 Dose: 5 mg Furosemide (Lasix) 40 mg PO DINNER [facility] Last Admin: 06/18/17 17:49 Dose: 40 mg Furosemide (Lasix) 80 mg PO BREAKFAST [facility] Last Admin: 06/19/17 09:27 Dose: 80 mg Gabapentin (Neurontin) 300 [facility] Last Admin: 06/19/17 09:27 Dose: 300 mg Magnesium Hydroxide (Milk Of Magnesia) 30 ml PO DAILY PRN PRN Reason: Constipation Metoprolol Tartrate (Lopressor (Beta Yelena)) 25 mg PO BID [facility] Last Admin: 06/19/17 09:27 Dose: 25 mg Multivitamins/Minerals (Multivitamin With Minerals) 1 tablet [facility] Last Admin: 06/19/17 09:28 Dose: 1 tablet Nutritional Formula (Lactose Free) (Ensure Enlive) 60 ml PO 4X/DAY [facility] Last Admin: 06/19/17 09:28 Dose: 60 ml Oxycodone HCl (Oxyir) 5 mg PO Q4H PRN PRN PRN Reason: Moderate Pain (pain scale 4-5) Potassium Chloride (K-Dur) 20 meq [facility] Last Admin: 06/19/17 09:27 Dose: 20 meq Pravastatin Sodium (Pravachol) 40 mg PO QHS [facility] Last Admin: 06/18/17 21:22 Dose: 40 mg Promethazine HCl (Phenergan (Ll)) 12.5 mg IV Q6H PRN PRN PRN Reason: NAUSEA/VOMITING Rivaroxaban (Xarelto) 20 mg PO DAILY [facility] Last Admin: 06/19/17 09:27 Dose: 20 mg Sodium Chloride (Waller Nasal [place]) 2 spray NASAL TID PRN PRN PRN Reason: NASAL DRYNESS Last Admin: 06/18/17 08:27 Dose: 2 spray Sodium Chloride () 5 - 30 ml IV UD PRN PRN Reason: SALINE FLUSH Last Admin: 06/18/17 17:49 Dose: 10 ml Spironolactone (Aldactone) 25 mg PO DAILY [facility] Last Admin: 06/19/17 09:27 Dose: 25 mg Tamsulosin HCl (Flomax) 0.4 mg PO QHS [facility] Last Admin: 06/18/17 21:22 Dose: 0.4 mg Vitamin E (Vitamin E) 400 units [facility] Last Admin: 06/19/17 09:27 Dose: 400 units Zolpidem Tartrate (Ambien (Generic)) 5 mg PO QHS PRN PRN PRN Reason: INSOMNIA Assessment/Plan Active and Suspected Problems (Last Updated 06/17/17 @ 12:11 by Trenton Landin DO) Acute on chronic respiratory failure with hypoxia and hypercapnia (Acute) 1. Acute heart failure with preserved ejection fraction Ejection fraction of 50% from echocardiogram from May 2015. converted back to home dose of lasix. On metoprolol tartrate Noted allergy to lisinopril. Though consider angiotensin receptor yelena. 2. Coronary artery disease Stable Continue with medical management 3. Paroxysmal atrial fibrillation Continue amiodarone, metoprolol and Xarelto 4. DVT prophylaxis: Patient is currently anticoagulated. 5. Chronic respiratory failure: multifactorial: OHS, ILD, CHF, PH pt stable discussed with patient and family that his condition could deteriorate more easily given his chronic resp failure Had some hypoxia today but is unclear if the patient's oxygen was out of his nares at that time. If patient's oxygenation remains above 89% patient can be discharged with the home with home care. 6. Disposition: plan to watch pt overnight, if stable or improved then he will be discharged to home with HHC Discussed with the patient's who entered when I was in the room. When she entered the smell of smoke waft in with her. I asked her if she smoked and she says she does. She states that she smokes outside. I recommend that she quit smoking.
--- NOTE | 2017-06-19 13:06 | PCM.DC ---
- Discharge Diagnoses Current Active Problems: Current Active and Chronic Problems (Last Updated 06/17/17 @ 12:11 by Trenton Landin DO) Acute on chronic respiratory failure with hypoxia and hypercapnia (Acute) You will use the following diet at home:: Cardiac, Fluid restricted (specify 2000 mls, 1500 mls) - 1500 cc/day Your food should be the consistency of: Regular Your liquids should be the consistency of: Regular/Thin Discharge Activity: Return to Normal Activity Instructions: What Is Heart Failure?, Taking Medication to Control Heart Failure, Heart Failure: Tracking Your Weight Allergies/Adverse Reactions: Allergies amoxicillin trihydrate [From Augmentin] Allergy (Verified 06/14/17 15:10) Mucosal lesions lisinopril [From Prinivil] Allergy (Verified 06/14/17 15:10) Unknown meperidine HCl [From Demerol] Allergy (Verified 06/14/17 15:10) Other orlistat [From Xenical] Allergy (Verified 06/14/17 15:10) Unknown Penicillins Allergy (Verified 06/14/17 15:10) Unknown potassium clavulanate [From Augmentin] Allergy (Verified 06/14/17 15:10) Mucosal lesions rofecoxib [From Vioxx] Allergy (Verified 06/14/17 15:10) Unknown adhesive tape Adverse Reaction (Uncoded 06/14/17 15:10) Rash Medications to take at Discharge Finasteride [Proscar] 5 mg PO DAILY 01/21/13 Gabapentin [Neurontin] 300 mg PO BID 01/21/13 Multivitamins,Ther W-Minerals [Multivitamin With Minerals] 1 tab PO DAILY 01/21/13 Ascorbic Acid [Vitamin C] 500 mg PO DAILY@0800 05/29/15 Vitamin E 400 units PO DAILY 05/29/15 Calcium Carbonate [Calcium] 600 mg PO DAILY 09/02/16 Cholecalciferol (VIT D3) [Vitamin D3] 1,000 unit PO DAILY 09/02/16 Metoprolol Tartrate [Lopressor (beta stefani)] 25 mg PO BID 09/02/16 Tamsulosin HCl [Flomax] 0.4 mg PO QHS 09/02/16 Aspirin [Adult Low Dose Aspirin EC] 81 mg PO DAILY 09/24/16 Clopidogrel Bisulfate [Plavix] 75 mg PO DAILY 09/24/16 Amiodarone HCl [Cordarone] 200 mg PO DAILY 12/13/16 Potassium Chloride [K-Dur] 20 meq PO BID #60 tab 03/31/17 pravastatin 40 mg tablet 40 mg PO QHS #90 tab 05/14/17 rivaroxaban 20 mg tablet 20 mg PO QDAY #90 tab 05/19/17 Furosemide 40 mg PO DINNER 06/14/17 Furosemide [Lasix] 80 mg PO BREAKFAST 06/14/17 Spironolactone [Aldactone] 25 mg PO DAILY 06/14/17 Primary Care Physician: Joseph Tran MD [Primary Care Provider] - In 1 Week Please Follow Up With: Wyatt Prakash DO When: 2-4 weeks Proposed Discharge Date: 06/19/17
--- NOTE | 2017-06-19 13:13 | PCM.DC.SUM ---
Discharge Date and Diagnosis - Problem List Patient Problems: Active and Suspected Problems (Last Updated 06/17/17 @ 12:11 by Trenton Landin DO) Acute on chronic respiratory failure with hypoxia and hypercapnia (Acute) Date of Admission: 06/14/17 Date of Discharge: 06/19/17 - Primary Discharge Diagnosis Active and Suspected Problems (Last Updated 06/17/17 @ 12:11 by Trenton Landin DO) Acute on chronic respiratory failure with hypoxia and hypercapnia (Acute) - Secondary Discharge Diagnosis Chronic Problems (Last Updated 06/17/17 @ 12:11 by Trenton Landin DO) CHF (congestive heart failure) (Chronic) Echocardiogram from March 2017 showed ejection fraction of 55% Coronary atherosclerosis of [place] coronary vessel (Chronic) Edema (Chronic) 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, secondary (Chronic) Paroxysmal atrial flutter (Chronic) Atherosclerotic heart disease of [place] coronary artery without angina pectoris (Chronic) PTCA of the RCA intracoronary stent November 1997; PTCA/TIN to prox Ramus, FFR neg of distal RCA 09/25/2016; CABG TUCKER to LAD; SVG to PDA Obesity (Chronic) Abnormal chest CT (Chronic) Restrictive airway disease (Chronic) Abnormal PFTs (pulmonary function tests) (Chronic) S/P PTCA (percutaneous transluminal coronary angioplasty) (Chronic) PTCA of the RCA inreacoronary stent November 1997; PTCA/TIN to prox Ramus, FFR neg of gistal RCA 09/25/2016 Atrial fibrillation and flutter (Chronic) HLD (hyperlipidemia) (Chronic) S/P CABG x 2 (Chronic) TUCKER to LAD; SVG to PDA CAD (coronary artery disease) (Chronic) Cataract (Chronic) HTN (hypertension) (Chronic) Atrial flutter with rapid ventricular response (Chronic) Hospital Course and Treatment Imaging Results: Clinical Impression(s) from Imaging Studies Chest X-Ray 06/14/17 15:40 IMPRESSION: Probable combination of chronic pulmonary disease with fibrosis, and possible patchy atelectasis or infiltrates which have worsened on the left. Electronically Signed: Sreedhar Daniels MD at 16:17 EST , Service support , [place] Operations: None Procedures: None Summary of Care Provided: The patient is a 81 year old M with chronic respiratory failure presents with increasing hypoxia. Patient appear to be in acute CHF exacerbation. Patient was started on diuretics and improved from that standpoint. Patient's weight is down overall. Comp getting his respiratory failure is suspected pulmonary fibrosis. Patient today saturations of dropped into the 80s but overall he feels well. Patient be monitored today to see twice daily further defervesced since if not then plan is for the patient to be discharged to home with home care. Explained to the patient and his family on several occasions that his situation is dire a chronic basis given his chronic lung disease and that it certainly would not take much to get him worse. 1. Acute heart failure with preserved ejection fraction Ejection fraction of 50% from echocardiogram from May 2015. converted back to home dose of lasix. On metoprolol tartrate Noted allergy to lisinopril. Though consider angiotensin receptor stefani. 2. Coronary artery disease Stable Continue with medical management 3. Paroxysmal atrial fibrillation Continue amiodarone, metoprolol and Xarelto 4. Chronic respiratory failure: multifactorial: OHS, ILD, CHF, PH pt stable discussed with patient and family that his condition could deteriorate more easily given his chronic resp failure Had some hypoxia today but is unclear if the patient's oxygen was out of his nares at that time. If patient's oxygenation remains above 89% patient can be discharged with the home with home care. [] Discharge Diet: Low fat/ Low Cholesterol, 6 Cup Fluid Restriction, 2000 mg Sodium Diet, - Discharge Activity: Return to Normal Activity Call your doctor if you observe: Fever of 101 or Higher Home Medications: Medications to take at Discharge Finasteride [Proscar] 5 mg PO DAILY 01/21/13 Gabapentin [Neurontin] 300 mg PO BID 01/21/13 Multivitamins,Ther W-Minerals [Multivitamin With Minerals] 1 tab PO DAILY 01/21/13 Ascorbic Acid [Vitamin C] 500 mg PO DAILY@0800 05/29/15 Vitamin E 400 units PO DAILY 05/29/15 Calcium Carbonate [Calcium] 600 mg PO DAILY 09/02/16 Cholecalciferol (VIT D3) [Vitamin D3] 1,000 unit PO DAILY 09/02/16 Metoprolol Tartrate [Lopressor (beta stefani)] 25 mg PO BID 09/02/16 Tamsulosin HCl [Flomax] 0.4 mg PO QHS 09/02/16 Aspirin [Adult Low Dose Aspirin EC] 81 mg PO DAILY 09/24/16 Clopidogrel Bisulfate [Plavix] 75 mg PO DAILY 09/24/16 Amiodarone HCl [Cordarone] 200 mg PO DAILY 12/13/16 Potassium Chloride [K-Dur] 20 meq PO BID #60 tab 03/31/17 pravastatin 40 mg tablet 40 mg PO QHS #90 tab 05/14/17 rivaroxaban 20 mg tablet 20 mg PO QDAY #90 tab 05/19/17 Furosemide 40 mg PO DINNER 06/14/17 Furosemide [Lasix] 80 mg PO BREAKFAST 06/14/17 Spironolactone [Aldactone] 25 mg PO DAILY 06/14/17 Primary Care Physician: Joseph Tran MD [Primary Care Provider] - In 1 Week Please Follow Up With: Wyatt Prakash, When: 2-4 weeks Patient Instructions: Taking Medication to Control Heart Failure, What Is Heart Failure?, Heart Failure: Tracking Your Weight Disposition: Home with Home Health Minutes spent on discharge:: 35 Patient Condition:: Stable Meaningful Use Info Meaningful Use Diagnoses (Choose all that apply): CHF - CHF BRANDI/ARB ordered at discharge?: No Reason BRANDI/ARB not ordered?: Allergy Documented LVEF (%): 50 Code Visit Inpatient E&M: 99753 Disch Hosp - if not discharged 06/19, [place] [id number]
--- NOTE | 2017-06-19 13:17 | DS.PCM_ITS ---
Discharge Date and Diagnosis - Problem List Patient Problems: Active and Suspected Problems (Last Updated 06/17/17 @ 12:11 by Trenton Landin DO ) Acute on chronic respiratory failure with hypoxia and hypercapnia (Acute) Date of Admission: 06/14/17 Date of Discharge: 06/19/17 - Primary Discharge Diagnosis Active and Suspected Problems (Last Updated 06/17/17 @ 12:11 by Trenton Landin DO ) Acute on chronic respiratory failure with hypoxia and hypercapnia (Acute) - Secondary Discharge Diagnosis Chronic Problems (Last Updated 06/17/17 @ 12:11 by Trenton Landin DO) CHF (congestive heart failure) (Chronic) Echocardiogram from March 2017 showed ejection fraction of 55% Coronary atherosclerosis of [place] coronary vessel (Chronic) Edema (Chronic) 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, secondary (Chronic) Paroxysmal atrial flutter (Chronic) Atherosclerotic heart disease of [place] coronary artery without angina pectoris (Chronic) PTCA of the RCA intracoronary stent November 1997; PTCA/TIN to prox Ramus, FFR neg of distal RCA 09/25/2016; CABG TUCKER to LAD; SVG to PDA Obesity (Chronic) Abnormal chest CT (Chronic) Restrictive airway disease (Chronic) Abnormal PFTs (pulmonary function tests) (Chronic) S/P PTCA (percutaneous transluminal coronary angioplasty) (Chronic) PTCA of the RCA inreacoronary stent November 1997; PTCA/TIN to prox Ramus, FFR neg of gistal RCA 09/25/2016 Atrial fibrillation and flutter (Chronic) HLD (hyperlipidemia) (Chronic) S/P CABG x 2 (Chronic) TUCKER to LAD; SVG to PDA CAD (coronary artery disease) (Chronic) Cataract (Chronic) HTN (hypertension) (Chronic) Atrial flutter with rapid ventricular response (Chronic) Hospital Course and Treatment Imaging Results: Clinical Impression(s) from Imaging Studies Chest X-Ray 06/14/17 15:40 IMPRESSION: Probable combination of chronic pulmonary disease with fibrosis, and possible patchy atelectasis or infiltrates which have worsened on the left. Electronically Signed: Sreedhar Daniels MD at 16:17 EST , Service support , [place] Operations: None Procedures: None Summary of Care Provided: The patient is a 81 year old M with chronic respiratory failure presents with increasing hypoxia. Patient appear to be in acute CHF exacerbation. Patient was started on diuretics and improved from that standpoint. Patient's weight is down overall. Comp getting his respiratory failure is suspected pulmonary fibrosis. Patient today saturations of dropped into the 80s but overall he feels well. Patient be monitored today to see twice daily further defervesced since if not then plan is for the patient to be discharged to home with home care. Explained to the patient and his family on several occasions that his situation is dire a chronic basis given his chronic lung disease and that it certainly would not take much to get him worse. 1. Acute heart failure with preserved ejection fraction * Ejection fraction of 50% from echocardiogram from May 2015. * converted back to home dose of lasix. * On metoprolol tartrate * Noted allergy to lisinopril. Though consider angiotensin receptor stefani. 2. Coronary artery disease * Stable * Continue with medical management 3. Paroxysmal atrial fibrillation * Continue amiodarone, metoprolol and Xarelto 4. Chronic respiratory failure: * multifactorial: OHS, ILD, CHF, PH * pt stable * discussed with patient and family that his condition could deteriorate more easily given his chronic resp failure * Had some hypoxia today but is unclear if the patient's oxygen was out of his nares at that time. * If patient's oxygenation remains above 89% patient can be discharged with the home with home care. [] Discharge Diet: Low fat/ Low Cholesterol, 6 Cup Fluid Restriction, 2000 mg Sodium Diet, - Discharge Activity: Return to Normal Activity Call your doctor if you observe: Fever of 101 or Higher Home Medications: Medications to take at Discharge Finasteride [Proscar] 5 mg PO DAILY 01/21/13 Gabapentin [Neurontin] 300 mg PO BID 01/21/13 Multivitamins,Ther W-Minerals [Multivitamin With Minerals] 1 tab PO DAILY Ascorbic Acid [Vitamin C] 500 mg PO DAILY@0800 05/29/15 Vitamin E 400 units PO DAILY 05/29/15 Calcium Carbonate [Calcium] 600 mg PO DAILY 09/02/16 Cholecalciferol (VIT D3) [Vitamin D3] 1,000 unit PO DAILY 09/02/16 Metoprolol Tartrate [Lopressor (beta stefani)] 25 mg PO BID 09/02/16 Tamsulosin HCl [Flomax] 0.4 mg PO QHS 09/02/16 Aspirin [Adult Low Dose Aspirin EC] 81 mg PO DAILY 09/24/16 Clopidogrel Bisulfate [Plavix] 75 mg PO DAILY 09/24/16 Amiodarone HCl [Cordarone] 200 mg PO DAILY 12/13/16 Potassium Chloride [K-Dur] 20 meq PO BID #60 tab 03/31/17 pravastatin 40 mg tablet 40 mg PO QHS #90 tab 05/14/17 rivaroxaban 20 mg tablet 20 mg PO QDAY #90 tab 05/19/17 Furosemide 40 mg PO DINNER 06/14/17 Furosemide [Lasix] 80 mg PO BREAKFAST 06/14/17 Spironolactone [Aldactone] 25 mg PO DAILY 06/14/17 Primary Care Physician: Joseph Tran MD [Primary Care Provider] - In 1 Week Please Follow Up With: Wyatt Prakash, DO When: 2-4 weeks Patient Instructions: Taking Medication to Control Heart Failure, What Is Heart Failure?, Heart Failure: Tracking Your Weight Disposition: Home with Home Health Minutes spent on discharge:: 35 Patient Condition:: Stable Meaningful Use Info Meaningful Use Diagnoses (Choose all that apply): CHF - CHF BRANDI/ARB ordered at discharge?: No Reason BRANDI/ARB not ordered?: Allergy Documented LVEF (%): 50 Code Visit Inpatient E&M: 05968 Disch Hosp - if not discharged 06/19[place] [id number]
== END 2017-06-19 15:27 | disposition home health service (06) | DRG 291 ==
LOC: ED 15:51 → PCU 17:01
PROVIDERS: Admitting Provider Internal Medicine; Emergency Provider Emergency Medicine; Family Provider Family Medicine; PCP Family Medicine
DX: I11.0 Hypertensive heart disease with heart failure (principal); J96.21 Acute and chronic respiratory failure with hypoxia; I42.9 Cardiomyopathy, unspecified; J96.22 Acute and chronic respiratory failure with hypercapnia; I48.0 Paroxysmal atrial fibrillation; E66.01 Morbid (severe) obesity due to excess calories; I50.33 Acute on chronic diastolic (congestive) heart failure; E78.5 Hyperlipidemia, unspecified; N40.0 Benign prostatic hyperplasia without lower urinary tract symptoms; Z68.37 Body mass index [BMI] 37.0-37.9, adult; I25.10 Atherosclerotic heart disease of native coronary artery without angina pectoris; Z95.1 Presence of aortocoronary bypass graft; Z95.5 Presence of coronary angioplasty implant and graft; Z99.81 Dependence on supplemental oxygen; Z79.899 Other long term (current) drug therapy; Z79.02 Long term (current) use of antithrombotics/antiplatelets; F17.200 Nicotine dependence, unspecified, uncomplicated; J40 Bronchitis, not specified as acute or chronic; Z66 Do not resuscitate
CPT/HCPCS: 36415; 71045; 80048; 83880; 84484; 85025; 85027; 93005; 94640; 97110; 97116; 97162; 97166; 97530; 97802; 99285; J7040; J7050; A4216; J1940

== ENCOUNTER 2017-06-21 15:01 | Inpatient (IN) | payer MEDICARE, OTHER, SELFPAY ==
[2016-09-25 13:26] VITALS: BMI 40.1
[2017-06-21] VITALS (23 sets, daily range): BP systolic 104–149; BP diastolic 61–81; PULSE 63–76; RESP 14–33; TEMP 35.9–36.9; O2SAT 83–98; BMI 36.9; BMI 36.1; BMI 36.2
--- NOTE | 2017-06-21 15:15 | RAD_ITS ---
STUDY: X-RAY CHEST REASON FOR EXAM: Male, 81 years old. Shortness of breath TECHNIQUE: Single view of the chest was obtained COMPARISON: June 14, 2017 FINDINGS: Increased reticular markings are again noted bilaterally. Small left-sided pleural effusion is not excluded. Midline sternotomy wires. Subsegmental atelectasis in the lung bases. Overall appearance is not significant change since previous study. Small lung nodule cannot be excluded from this exam. Cardiac size appears prominent. IMPRESSION: Redemonstration of increased reticular bilaterally similar to previous examination with patchy atelectasis and/or infiltrates in the left lower lobe retrocardiac region similar to previous examination. Superimposed pneumonia is not excluded. Please note small nodules cannot be excluded from this examination Electronically Signed: Mynor Almanzar, at 15:49 EST Tel , Service support , RAD/Chest 1 View (Portable)
--- NOTE | 2017-06-21 15:15 | EKG12_ITS ---
Test Reason : SOB Blood Pressure : / mmHG Vent. Rate : 065 BPM Atrial Rate : 065 BPM P-R Int : 172 ms QRS Dur : 108 ms QT Int : 424 ms P-R-T Axes : 013 033 -45 degrees QTc Int : 440 ms Normal sinus rhythm ST & T wave abnormality, consider anterior ischemia Abnormal ECG Confirmed by ZAIRA BENZ, JIMMIE ([id number]), news copy editor VASHTI BARRAGAN ([id number]) on 06/23/2017 3:05:45 PM Referred By: Confirmed By:JIMMIE MENESES MD
--- NOTE | 2017-06-21 15:15 | NURSING ---
NO LW OR POA
--- NOTE | 2017-06-21 15:23 | ED.DCSUM_ITS ---
- ER Visit Summary Date of Service: 06/21/17 Chief Complaint: Shortness of breath History of Present Illness: The patient is a 81 M presenting with shortness of breath. He was discharged from the hospital on for same complaint. Patient was sent home with home health. states the home health nurse advised them to come to the ED today. His home oxygen saturations have been in the low 80s. He has been increased from his normal 2 L to 5 L at home. They are unable to get his pulse oxygenations above the low 80s. Patient denies chest pain. He has not had a fever. He complains of chronic cough. Physical Examination: Blood pressure 134/81, temperature 96.6, heart rate 69, respiratory rate 30. Pulse ox 83% on 4 L, 98% on nonrebreather mask. HEENT exam is unremarkable. Neck is supple. Lungs are diminished bilaterally. Heart is regular rate and rhythm. Abdomen is soft nontender nondistended. Extremities are unremarkable. Skin is warm and dry. No focal neurologic deficit. Remainder of exam is unremarkable. Emergency Department Course and Treatment: Patient had increased work of breathing and was started on noninvasive ventilation on arrival. EKG is sinus rate of 65 unchanged from previous EKG. ABG shows pH 7.5, PCO2 53.7, PO2 75. CBC unremarkable. Chemistries unremarkable other than glucose 171, BUN 33. INR 2.6. Troponin is negative. BNP is 41.5. Chest x-ray was read by radiology as increased reticular markings, left pleural effusion, similar to previous, unable to rule out underlying pneumonia. Family states during his previous admission antibiotics were discussed and it was decided not to start him on antibiotics. Discussed with Dr. Severino who will evaluate the patient in the ED. Patient was given Lasix IV. Patient will be admitted. Disposition: Admission Impression: Acute on chronic respiratory failure, CHF exacerbation This note was generated with [employer] dictation software. It may contain incorrect words, spelling, and punctuation that were not noted in review of the chart prior to signing ED Disposition - Plan for ED Patient: Chief Complaint: Shortness of Breath Referrals: Joseph Tran MD [Primary Care Provider] -
[2017-06-21 15:34] LABS: Absolute Lymphocyte Count 1.06 X10^3/ul (0.83-4.51); Basophil# 0.03 X10^3/uL; Basophil% 0.3 % (0-1); Eosinophil# 0.33 X10^3/uL; Eosinophils% 3.2 % (0-5); Hemoglobin 14.7 g/dl (13.0-16.5); Lymphocyte # 1.06 X10^3/ul (4.0); Lymphocyte % 10.4 % (19-41); Mean Corp Hgb Conc 32.7 g/gl (32-36); Mean Corpuscular Hgb 29.6 pg (27.0-32.0); Mean Corpuscular Volume 90.7 fL (80-94); Mean Platelet Vol. 9.1 fl (6.2-12.0); Monocyte# 0.66 X10^3/uL; Monocyte% 6.5 % (0-10); Neutrophil # 8.04 X10^3/uL (2.7-7.7); Platelet Count 374 K/mm3 (150-450); RBC Distribution Width SD 42.8 fl (35.1-43.9); Red Blood Count 4.96 M/mm3 (4.6-6.2); White Blood Count 10.2 K/mm3 (4.4-11.0)
[2017-06-21 15:39] LABS: POSITIVE COUNT NO; POSITIVE DIFFERENTIAL NO; POSITIVE MORPHOLOGY NO
[2017-06-21 15:47] LABS: International Normalized Ratio 2.6; Prothrombin Time (Protime)PT. 27.7 SECONDS (11.7-14.9)
[2017-06-21 15:51] LABS: Allen Test POS; Base Excess 19 mmol/L (-2 to +2); Bicarbonate 41.9 mmol/L (22-26); Blood Gas Specimen Type ART; EPAP 6; FI02 35; IPAP 12; PO2 75 mmHG (75-100); RR 14; SITE L Radial; SO2 96 % (95-99); Time Given 1542; Total Carbon Dioxide 44 mmol/L; pCO2 53.7 mmHg (35-45)
[2017-06-21 15:51] LABS: Anion Gap 3 (5-15); BUN 33 mg/dL (7-18); BUN/Creat Ratio 28.2 RATIO (10-20); Calcium,Total 9.1 mg/dL (8.5-10.1); Chloride 95 mmol/L (98-107); Creatinine, Serum 1.17 mg/dL (0.70-1.30); EST Glomerular Filtration Rate 64 mL/min (>60); Est Glom Filt Rate - Afr Amer 77 mL/min (>60); Estimated Creatinine Clearance 52.74 ml/min; Glucose 171 mg/dL (74-106); Potassium 4.2 mmol/L (3.5-5.1); Sodium Level 137 mmol/L (136-145)
[2017-06-21 16:01] LABS: BNP,B-Type NATRIURETIC PEPTIDE 41.5 pg/mL (0-100)
[2017-06-21] MEDS: Furosemide 40 MG/4 ML Vial IV ×2 (16:49→21:43)
--- NOTE | 2017-06-21 17:07 | NURSING ---
DR ALLAN IN ER
--- NOTE | 2017-06-21 17:29 | PCM.HP.STD ---
Problem List (1) Heart failure with preserved ejection fraction Status: Acute (2) Acute on chronic respiratory failure with hypoxia and hypercapnia Status: Acute (3) CHF (congestive heart failure) Status: Chronic Qualifiers: Comment: Echocardiogram from March 2017 showed ejection fraction of 55% (4) Paroxysmal atrial flutter Status: Chronic (5) Obesity Status: Chronic (6) Restrictive airway disease Status: Chronic (7) Atrial fibrillation and flutter Status: Chronic (8) HLD (hyperlipidemia) Status: Chronic Qualifiers: (9) CAD (coronary artery disease) Status: Chronic (10) Cataract Status: Chronic (11) HTN (hypertension) Status: Chronic Qualifiers: History of Present Illness Date of Admission: 06/21/17 Chief Complaint: shortness of breath. The patient is a 81 year old M who was discharge 06/19 with acute hypoxic resp failure on chronic resp failure and CHF exacerbation. Was at home and had CELIS. Today, felt worse, sats dropped into low 80s with oxygen that was increased to 5l/min. Pt presented to ED with hypoxic resp failure. Put on BiPAP. Received IV lasix. Currently, feeling better. Similiar to prior episodes of CHF. No fever/chills. + cough w minimal production. At home, patient has been watching his fluid intake and not exceeding 1500cc/day. 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, secondary (Chronic) Paroxysmal atrial flutter (Chronic) Atherosclerotic heart disease of [place] coronary artery without angina pectoris (Chronic) PTCA of the RCA intracoronary stent November 1997; PTCA/TIN to prox Ramus, FFR neg of distal RCA 09/25/2016; CABG TUCKER to LAD; SVG to PDA Obesity (Chronic) Abnormal chest CT (Chronic) Restrictive airway disease (Chronic) Abnormal PFTs (pulmonary function tests) (Chronic) S/P PTCA (percutaneous transluminal coronary angioplasty) (Chronic) PTCA of the RCA inreacoronary stent November 1997; PTCA/TIN to prox Ramus, FFR neg of gistal RCA 09/25/2016 Atrial fibrillation and flutter (Chronic) HLD (hyperlipidemia) (Chronic) S/P CABG x 2 (Chronic) TUCKER to LAD; SVG to PDA CAD (coronary artery disease) (Chronic) Cataract (Chronic) HTN (hypertension) (Chronic) Atrial flutter with rapid ventricular response (Chronic) Allergies amoxicillin trihydrate [From Augmentin] Allergy (Verified 06/14/17 15:10) Mucosal lesions lisinopril [From Prinivil] Allergy (Verified 06/14/17 15:10) Unknown meperidine HCl [From Demerol] Allergy (Verified 06/14/17 15:10) Other orlistat [From Xenical] Allergy (Verified 06/14/17 15:10) Unknown Penicillins Allergy (Verified 06/14/17 15:10) Unknown potassium clavulanate [From Augmentin] Allergy (Verified 06/14/17 15:10) Mucosal lesions rofecoxib [From Vioxx] Allergy (Verified 06/14/17 15:10) Unknown adhesive tape Adverse Reaction (Uncoded 06/14/17 15:10) Rash Home Medications: Ambulatory Orders Medication Instructions Recorded Finasteride [Proscar] 5 mg PO DAILY 01/21/13 Gabapentin [Neurontin] 300 mg PO BID 01/21/13 Multivitamins,Ther W-Minerals 1 tab PO DAILY 01/21/13 [Multivitamin With Minerals] Ascorbic Acid [Vitamin C] 500 mg PO DAILY@0800 05/29/15 Vitamin E 400 units PO DAILY 05/29/15 Calcium Carbonate [Calcium] 600 mg PO DAILY 09/02/16 Cholecalciferol (VIT D3) [Vitamin 1,000 unit PO DAILY 09/02/16 D3] Metoprolol Tartrate [Lopressor 25 mg PO BID 09/02/16 (beta stefani)] Tamsulosin HCl [Flomax] 0.4 mg PO QHS 09/02/16 Aspirin [Adult Low Dose Aspirin EC] 81 mg PO DAILY 09/24/16 Clopidogrel Bisulfate [Plavix] 75 mg PO DAILY 09/24/16 Amiodarone HCl [Cordarone] 200 mg PO DAILY 12/13/16 Potassium Chloride [K-Dur] 20 meq PO BID #60 tab 03/31/17 pravastatin 40 mg tablet 40 mg PO QHS #90 tab 05/14/17 rivaroxaban 20 mg tablet 20 mg PO QDAY #90 tab 05/19/17 Furosemide 40 mg PO DINNER 06/14/17 Furosemide [Lasix] 80 mg PO BREAKFAST 06/14/17 Spironolactone [Aldactone] 25 mg PO DAILY 06/14/17 Surgical History: angioplasty, coronary bypass surgery Psychiatric History: Depression Lives: Spouse/ Significant Other Smoking Status: Former smoker Tobacco Use: Non-smoker Alcohol: None Drugs: None - *Family History Maternal History Items: - - no pulmonary fibrosis. Review of Systems Constitutional: Denies: Chills, Fever Eyes: Denies: Blurred vision, Double vision HEENT: Reports: Difficulty Hearing. Denies: Nasal Congestion, Post Nasal Drip Cardiovascular: Denies: Chest Pain, Edema, Palpitations Respiratory: Reports: Cough, Shortness of Breath, Shortness of breath upon exertion, Sputum production Gastrointestinal: Denies: Abdominal Pain, Nausea, Vomiting Genitourinary: Denies: Dysuria, Frequency Musculoskeletal: Denies: Joint Pain, Joint Tenderness Skin: Denies: Rash, Wounds Neurological: Denies: Numbness, Tingling, Focal weakness Psychiatric: Denies: Anxiety, Depression Endocrine: Denies: Change in Body Habitus, Heat/ Cold Intolerance Hematologic/ Lymphatic: Denies: Easy Bruising, Easy Bleeding, Hx of blood clot VTE Information - Inpt Only VTE Present on Admission: No VTE Pharm Prophylaxis ordered?: Yes Patient Problems: Active and Suspected Problems (Last Updated 06/17/17 @ 12:11 by Trenton Landin DO) Heart failure with preserved ejection fraction (Acute) - Physical Exam General: Alert, Cooperative, No apparent distress, - - on BiPAP HEENT: Atraumatic, Normocephalic Neck: No Nodes, Thyroid Normal Size and Texture Lungs: Diminished, - - crackles more prominent on left. Cardiovascular: Regular rate, Regular Rhythm, Normal S1, Normal S2, - - distant heart sounds Abdomen: Bowel Sounds Present, Soft, Non Tender, Non-Distended, No Hepato-splenomegaly, Obese Extremities: No Calf Tenderness, - - trace LE edema Skin: No rashes, No breakdown Musculoskeletal: No Tenderness to Palpation of Joints or Extremities, No Muscle Wasting Neurological: Neuro grossly intact, Motor Exam 5/5 strength throughout, Sensory exam intact to light touch and pain Psych/Mental Status: Normal Affect, Appropriate Vital Signs Temp Pulse Resp BP Pulse Ox 36.9 C 64 32 H 131/75 H 93 06/21/17 16:47 06/21/17 16:51 06/21/17 16:51 06/21/17 16:51 06/21/17 16:51 Oxygen Flow Rate (L/min) 15 Oxygen Delivery Method Bi-pap Weight: 120.1 kg Body Mass Index (BMI) 36.9 Laboratory Tests Past 24 Hrs 06/21/17 06/21/17 06/21/17 15:15 15:15 15:15 WBC 10.2 RBC 4.96 Hgb 14.7 Hct 45.0 MCV 90.7 MCH 29.6 MCHC 32.7 RDW 13.0 RDW Differential 42.8 Plt Count 374 MPV 9.1 Immature Gran % (Auto) 0.600 Neut % (Auto) 79.0 H Lymph % (Auto) 10.4 L Robertson % (Auto) 6.5 Eos % (Auto) 3.2 Baso % (Auto) 0.3 Absolute Neuts (auto) 8.0 H Absolute Lymphs (auto) 1.06 Total Counted Not Reportable PT 27.7 H INR 2.6 Specimen Type Sample Site pH Bicarbonate Actual POC Total CO2 Base Excess O2 Saturation O2 % ABG pCO2 ABG pO2 Srinivasa Test Respiration Rate O2 Delivery Device EPAP IPAP Blood Gas Notified Whom Blood Gas Notified Time Sodium 137 Potassium 4.2 Chloride 95 L Carbon Dioxide 39.0 H Anion Gap 3 L BUN 33 H Creatinine 1.17 Estim Creat Clear Calc 52.74 Est GFR (MDRD) Af Amer 77 Est GFR (MDRD) Non-Af 64 BUN/Creatinine Ratio 28.2 H Glucose 171 H Calcium 9.1 Troponin I < 0.02 B-Natriuretic Peptide 06/21/17 06/21/17 15:15 15:43 WBC RBC Hgb Hct MCV MCH MCHC RDW RDW Differential Plt Count MPV Immature Gran % (Auto) Neut % (Auto) Lymph % (Auto) Robertson % (Auto) Eos % (Auto) Baso % (Auto) Absolute Neuts (auto) Absolute Lymphs (auto) Total Counted PT INR Specimen Type ART Sample Site L Radial pH 7.50 H Bicarbonate Actual 41.9 H POC Total CO2 44 Base Excess 19 H O2 Saturation 96 O2 % 35 ABG pCO2 53.7 H ABG pO2 75 Srinivasa Test POS Respiration Rate 14 O2 Delivery Device Bi / C PAP EPAP 6 IPAP 12 Blood Gas Notified Whom ED MD Blood Gas Notified Time 1542 Sodium Potassium Chloride Carbon Dioxide Anion Gap BUN Creatinine Estim Creat Clear Calc Est GFR (MDRD) Af Amer Est GFR (MDRD) Non-Af BUN/Creatinine Ratio Glucose Calcium Troponin I B-Natriuretic Peptide 41.5 CXR reviewed and shows chronic changes, actually improved from 06/14, but worse from 06/10. EKG reviewed and shows NSR w incomplete RBBB. No new changes. Assessment/Plan Active and Suspected Problems (Last Updated 06/17/17 @ 12:11 by Trenton Landin DO) Heart failure with preserved ejection fraction (Acute) 1. Acute on chronic hypoxic resp failure secondary to CHF + OSH, ILD, PH BDs BiPAP, wean as tolerated CCM consult 2. Acute HFpEF EF 55% from echo on 03/28/17 IV lasix 40 TID start losartan 25 daily, known allergy to BRANDI-inhibitor 3. pAfib currently NSR on metop tartrate, amiodarone on xarelto 4. CAD stable 5. DVT proph: anticoagulated 6. Advanced Care Planning: asked pt is he wanted CPR in event of CPA, intubation for worsening resp failure, and PEG tube if he couldn't swallow properly Pt stated he did not want any of that, therefore, pt is DNRCCA, no intubation, no PEG tube. Code Visit Inpatient E&M: 84214 Init Hosp L3
--- NOTE | 2017-06-21 17:30 | NURSING ---
ICU RESPFAILURE, CHF JERRELL
--- NOTE | 2017-06-21 17:37 | NURSING ---
ICU 4
--- NOTE | 2017-06-21 17:43 | HP.PCM_ITS ---
Problem List (1) Heart failure with preserved ejection fraction Status: Acute (2) Acute on chronic respiratory failure with hypoxia and hypercapnia Status: Acute (3) CHF (congestive heart failure) Status: Chronic Qualifiers: Comment: Echocardiogram from March 2017 showed ejection fraction of 55% (4) Paroxysmal atrial flutter Status: Chronic (5) Obesity Status: Chronic (6) Restrictive airway disease Status: Chronic (7) Atrial fibrillation and flutter Status: Chronic (8) HLD (hyperlipidemia) Status: Chronic Qualifiers: (9) CAD (coronary artery disease) Status: Chronic (10) Cataract Status: Chronic (11) HTN (hypertension) Status: Chronic Qualifiers: History of Present Illness Date of Admission: 06/21/17 Chief Complaint: shortness of breath. The patient is a 81 year old M who was discharge 06/19 with acute hypoxic resp failure on chronic resp failure and CHF exacerbation. Was at home and had CELIS. Today, felt worse, sats dropped into low 80s with oxygen that was increased to 5l/min. Pt presented to ED with hypoxic resp failure. Put on BiPAP. Received IV lasix. Currently, feeling better. Similiar to prior episodes of CHF. No fever/ chills. + cough w minimal production. At home, patient has been watching his fluid intake and not exceeding 1500cc/ day. 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, secondary (Chronic) Paroxysmal atrial flutter (Chronic) Atherosclerotic heart disease of [place] coronary artery without angina pectoris (Chronic) PTCA of the RCA intracoronary stent November 1997; PTCA/TIN to prox Ramus, FFR neg of distal RCA 09/25/2016; CABG TUCKER to LAD; SVG to PDA Obesity (Chronic) Abnormal chest CT (Chronic) Restrictive airway disease (Chronic) Abnormal PFTs (pulmonary function tests) (Chronic) S/P PTCA (percutaneous transluminal coronary angioplasty) (Chronic) PTCA of the RCA inreacoronary stent November 1997; PTCA/TIN to prox Ramus, FFR neg of gistal RCA 09/25/2016 Atrial fibrillation and flutter (Chronic) HLD (hyperlipidemia) (Chronic) S/P CABG x 2 (Chronic) TUCKER to LAD; SVG to PDA CAD (coronary artery disease) (Chronic) Cataract (Chronic) HTN (hypertension) (Chronic) Atrial flutter with rapid ventricular response (Chronic) Allergies amoxicillin trihydrate [From Augmentin] Allergy (Verified 06/14/17 15:10) Mucosal lesions lisinopril [From Prinivil] Allergy (Verified 06/14/17 15:10) Unknown meperidine HCl [From Demerol] Allergy (Verified 06/14/17 15:10) Other orlistat [From Xenical] Allergy (Verified 06/14/17 15:10) Unknown Penicillins Allergy (Verified 06/14/17 15:10) Unknown potassium clavulanate [From Augmentin] Allergy (Verified 06/14/17 15:10) Mucosal lesions rofecoxib [From Vioxx] Allergy (Verified 06/14/17 15:10) Unknown adhesive tape Adverse Reaction (Uncoded 06/14/17 15:10) Rash Home Medications: Ambulatory Orders Medication Instructions Recorded Finasteride [Proscar] 5 mg PO DAILY 01/21/13 Gabapentin [Neurontin] 300 mg PO BID 01/21/13 Multivitamins,Ther W-Minerals 1 tab PO DAILY 01/21/13 [Multivitamin With Minerals] Ascorbic Acid [Vitamin C] 500 mg PO DAILY@0800 05/29/15 Vitamin E 400 units PO DAILY 05/29/15 Calcium Carbonate [Calcium] 600 mg PO DAILY 09/02/16 Cholecalciferol (VIT D3) [Vitamin 1,000 unit PO DAILY 09/02/16 D3] Metoprolol Tartrate [Lopressor 25 mg PO BID 09/02/16 (beta stefani)] Tamsulosin HCl [Flomax] 0.4 mg PO QHS 09/02/16 Aspirin [Adult Low Dose Aspirin EC] 81 mg PO DAILY 09/24/16 Clopidogrel Bisulfate [Plavix] 75 mg PO DAILY 09/24/16 Amiodarone HCl [Cordarone] 200 mg PO DAILY 12/13/16 Potassium Chloride [K-Dur] 20 meq PO BID #60 tab 03/31/17 pravastatin 40 mg tablet 40 mg PO QHS #90 tab 05/14/17 rivaroxaban 20 mg tablet 20 mg PO QDAY #90 tab 05/19/17 Furosemide 40 mg PO DINNER 06/14/17 Furosemide [Lasix] 80 mg PO BREAKFAST 06/14/17 Spironolactone [Aldactone] 25 mg PO DAILY 06/14/17 Surgical History: angioplasty, coronary bypass surgery Psychiatric History: Depression Lives: Spouse/ Significant Other Smoking Status: Former smoker Tobacco Use: Non-smoker Alcohol: None Drugs: None - *Family History Maternal History Items: - - no pulmonary fibrosis. Review of Systems Constitutional: Denies: Chills, Fever Eyes: Denies: Blurred vision, Double vision HEENT: Reports: Difficulty Hearing. Denies: Nasal Congestion, Post Nasal Drip Cardiovascular: Denies: Chest Pain, Edema, Palpitations Respiratory: Reports: Cough, Shortness of Breath, Shortness of breath upon exertion, Sputum production Gastrointestinal: Denies: Abdominal Pain, Nausea, Vomiting Genitourinary: Denies: Dysuria, Frequency Musculoskeletal: Denies: Joint Pain, Joint Tenderness Skin: Denies: Rash, Wounds Neurological: Denies: Numbness, Tingling, Focal weakness Psychiatric: Denies: Anxiety, Depression Endocrine: Denies: Change in Body Habitus, Heat/ Cold Intolerance Hematologic/ Lymphatic: Denies: Easy Bruising, Easy Bleeding, Hx of blood clot VTE Information - Inpt Only VTE Present on Admission: No VTE Pharm Prophylaxis ordered?: Yes Patient Problems: Active and Suspected Problems (Last Updated 06/17/17 @ 12:11 by Trenton Landin DO ) Heart failure with preserved ejection fraction (Acute) - Physical Exam General: Alert, Cooperative, No apparent distress, - - on BiPAP HEENT: Atraumatic, Normocephalic Neck: No Nodes, Thyroid Normal Size and Texture Lungs: Diminished, - - crackles more prominent on left. Cardiovascular: Regular rate, Regular Rhythm, Normal S1, Normal S2, - - distant heart sounds Abdomen: Bowel Sounds Present, Soft, Non Tender, Non-Distended, No Hepato- splenomegaly, Obese Extremities: No Calf Tenderness, - - trace LE edema Skin: No rashes, No breakdown Musculoskeletal: No Tenderness to Palpation of Joints or Extremities, No Muscle Wasting Neurological: Neuro grossly intact, Motor Exam 5/5 strength throughout, Sensory exam intact to light touch and pain Psych/Mental Status: Normal Affect, Appropriate Vital Signs Temp Pulse Resp BP Pulse Ox 36.9 C 64 32 H 131/75 H 93 06/21/17 16:47 06/21/17 16:51 06/21/17 16:51 06/21/17 16:51 06/21/17 16:51 Oxygen Flow Rate (L/min) 15 Oxygen Delivery Method Bi-pap Weight: 120.1 kg Body Mass Index (BMI) 36.9 Laboratory Tests Past 24 Hrs 06/21/17 06/21/17 06/21/17 15:15 15:15 15:15 WBC 10.2 RBC 4.96 Hgb 14.7 Hct 45.0 MCV 90.7 MCH 29.6 MCHC 32.7 RDW 13.0 RDW Differential 42.8 Plt Count 374 MPV 9.1 Immature Gran % (Auto) 0.600 Neut % (Auto) 79.0 H Lymph % (Auto) 10.4 L Hartley % (Auto) 6.5 Eos % (Auto) 3.2 Baso % (Auto) 0.3 Absolute Neuts (auto) 8.0 H Absolute Lymphs (auto) 1.06 Total Counted Not Reportable PT 27.7 H INR 2.6 Specimen Type Sample Site pH Bicarbonate Actual POC Total CO2 Base Excess O2 Saturation O2 % ABG pCO2 ABG pO2 Srinivasa Test Respiration Rate O2 Delivery Device EPAP IPAP Blood Gas Notified Whom Blood Gas Notified Time Sodium 137 Potassium 4.2 Chloride 95 L Carbon Dioxide 39.0 H Anion Gap 3 L BUN 33 H Creatinine 1.17 Estim Creat Clear Calc 52.74 Est GFR (MDRD) Af Amer 77 Est GFR (MDRD) Non-Af 64 BUN/Creatinine Ratio 28.2 H Glucose 171 H Calcium 9.1 Troponin I < 0.02 B-Natriuretic Peptide 06/21/17 06/21/17 15:15 15:43 WBC RBC Hgb Hct MCV MCH MCHC RDW RDW Differential Plt Count MPV Immature Gran % (Auto) Neut % (Auto) Lymph % (Auto) Hartley % (Auto) Eos % (Auto) Baso % (Auto) Absolute Neuts (auto) Absolute Lymphs (auto) Total Counted PT INR Specimen Type ART Sample Site L Radial pH 7.50 H Bicarbonate Actual 41.9 H POC Total CO2 44 Base Excess 19 H O2 Saturation 96 O2 % 35 ABG pCO2 53.7 H ABG pO2 75 Srinivasa Test POS Respiration Rate 14 O2 Delivery Device Bi / C PAP EPAP 6 IPAP 12 Blood Gas Notified Whom ED MD Blood Gas Notified Time 1542 Sodium Potassium Chloride Carbon Dioxide Anion Gap BUN Creatinine Estim Creat Clear Calc Est GFR (MDRD) Af Amer Est GFR (MDRD) Non-Af BUN/Creatinine Ratio Glucose Calcium Troponin I B-Natriuretic Peptide 41.5 CXR reviewed and shows chronic changes, actually improved from 06/14, but worse from 06/10. EKG reviewed and shows NSR w incomplete RBBB. No new changes. Assessment/Plan Active and Suspected Problems (Last Updated 06/17/17 @ 12:11 by Trenton Landin DO ) Heart failure with preserved ejection fraction (Acute) 1. Acute on chronic hypoxic resp failure * secondary to CHF + OSH, ILD, PH * BDs * BiPAP, wean as tolerated * CCM consult 2. Acute HFpEF * EF 55% from echo on 03/28/17 * IV lasix 40 TID * start losartan 25 daily, known allergy to BRANDI-inhibitor 3. pAfib * currently NSR * on metop tartrate, amiodarone * on xarelto 4. CAD stable 5. DVT proph: anticoagulated 6. Advanced Care Planning: * asked pt is he wanted CPR in event of CPA, intubation for worsening resp failure, and PEG tube if he couldn't swallow properly * Pt stated he did not want any of that, therefore, pt is DNRCCA, no intubation , no PEG tube. Code Visit Inpatient E&M: 58286 Init Hosp L3
[2017-06-21] MEDS: Ipratropium/Albuterol Sulfate 3 ML AMPUL.NEB INHALATION ×2 (19:58→23:18)
[2017-06-21 20:14] LABS: M R Staph aureus DNA By PCR Negative (Negative); Probe Check PASS; Specimen Processing Control PASS
[2017-06-21] MEDS: Metoprolol Tartrate 25 MG Tablet PO (21:43)
[2017-06-21] MEDS: Tamsulosin HCl 0.4 MG Capsule PO (21:43)
[2017-06-21] MEDS: 0.9% NaCl Peripheral Flush Adult/Peds IV (21:43)
[2017-06-21] MEDS: Pravastatin 40 MG Tablet PO (21:43)
[2017-06-22] VITALS (30 sets, daily range): BP systolic 110–131; BP diastolic 54–94; PULSE 57–73; RESP 14–37; TEMP 36.2–36.6; O2SAT 81–98
[2017-06-22 04:39] LABS: Hematocrit 43.1 % (40-54); Hemoglobin 14.2 g/dl (13.0-16.5); Mean Corp Hgb Conc 32.9 g/gl (32-36); Mean Corpuscular Hgb 29.6 pg (27.0-32.0); Mean Corpuscular Volume 89.8 fL (80-94); Mean Platelet Vol. 8.6 fl (6.2-12.0); Platelet Count 417 K/mm3 (150-450); RBC Distribution Width SD 42.6 fl (35.1-43.9); White Blood Count 9.8 K/mm3 (4.4-11.0)
[2017-06-22 04:40] LABS: Scan Indicated on CBC? Y/N NO
[2017-06-22 04:54] LABS: Anion Gap 6 (5-15); BUN 34 mg/dL (7-18); BUN/Creat Ratio 29.1 RATIO (10-20); Chloride 93 mmol/L (98-107); Creatinine, Serum 1.17 mg/dL (0.70-1.30); EST Glomerular Filtration Rate 64 mL/min (>60); Est Glom Filt Rate - Afr Amer 77 mL/min (>60); Estimated Creatinine Clearance 52.74 ml/min; Glucose 194 mg/dL (74-106); Potassium 4.3 mmol/L (3.5-5.1); Sodium Level 139 mmol/L (136-145)
[2017-06-22] MEDS: Furosemide 40 MG/4 ML Vial IV ×3 (05:10→21:19)
[2017-06-22] MEDS: 0.9% NaCl Peripheral Flush Adult/Peds IV ×2 (05:10→21:18)
--- NOTE | 2017-06-22 06:23 | PCM.CON.CC ---
Reason for Consult Date of Consultation: 06/22/17 Reason for Consultation: Acute on chronic respiratory failure History of Present Illness: The patient is an 81-year-old male, with a history as outlined below, who presented to the emergency department on June 21 with complaints of shortness of breath. The patient was recently admitted to the hospital June 14- with acute on chronic respiratory failure felt to be secondary to underlying pulmonary fibrosis and acute on chronic CHF. The patient reports that upon discharge from the hospital, he did not feel that his breathing quality had returned back to baseline. He states that despite being discharged, he remained short of breath in his home environment. He states that he is currently utilizing 2-4 L of supplemental oxygen at his baseline. He denies the presence of a cough, chest tightness or wheezing. The patient is known to me from the pulmonary medicine clinic. I last saw him in March 2017. He has a history of restrictive airway disease felt to be secondary to his body habitus in conjunction with basilar pulmonary fibrosis and traction bronchiectasis. The patient currently follows with Dr. Kimball on an outpatient basis. The patient underwent pulmonary function testing in January 2017, which showed evidence of a moderate restrictive ventilatory defect with a symmetric reduction in diffusing capacity. The patient does have a known history of coronary artery disease for which he is status post CABG in 1989 and PCI with TIN in 2016. CTA chest from March 2017 revealed borderline paratracheal and mediastinal lymphadenopathy and basilar predominant pulmonary fibrosis. Surface echocardiogram from August 2016 revealed evidence of diastolic dysfunction function with an ejection fraction is 55%. Right ventricular systolic pressure was estimated to be 37 mmHg. The patient does have a smoking history of one pack per day ?15 years, having quit completely 40 years ago. 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 On presentation to the emergency department, the patient was noted to be afebrile and hemodynamically stable. He was tachypneic and initially saturating 83% on 4 L by nasal cannula. Initial laboratory evaluation revealed no evidence of a leukocytosis. INR was 2.6. Chemistry profile revealed an elevated serum bicarbonate to 39. Troponin and BNP were both negative. Past Medical History Past Medical History (Chronic Problems): Chronic Problems (Last Updated 06/17/17 @ 12:11 by Trenton Landin DO) CHF (congestive heart failure) (Chronic) Echocardiogram from March 2017 showed ejection fraction of 55% Coronary atherosclerosis of [place] coronary vessel (Chronic) Edema (Chronic) 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, secondary (Chronic) Paroxysmal atrial flutter (Chronic) Atherosclerotic heart disease of [place] coronary artery without angina pectoris (Chronic) PTCA of the RCA intracoronary stent November 1997; PTCA/TIN to prox Ramus, FFR neg of distal RCA 09/25/2016; CABG TUCKER to LAD; SVG to PDA Obesity (Chronic) Abnormal chest CT (Chronic) Restrictive airway disease (Chronic) Abnormal PFTs (pulmonary function tests) (Chronic) S/P PTCA (percutaneous transluminal coronary angioplasty) (Chronic) PTCA of the RCA inreacoronary stent November 1997; PTCA/TIN to prox Ramus, FFR neg of gistal RCA 09/25/2016 Atrial fibrillation and flutter (Chronic) HLD (hyperlipidemia) (Chronic) S/P CABG x 2 (Chronic) TUCKER to LAD; SVG to PDA CAD (coronary artery disease) (Chronic) Cataract (Chronic) HTN (hypertension) (Chronic) Atrial flutter with rapid ventricular response (Chronic) Allergies amoxicillin trihydrate [From Augmentin] Allergy (Verified 06/14/17 15:10) Mucosal lesions lisinopril [From Prinivil] Allergy (Verified 06/14/17 15:10) Unknown meperidine HCl [From Demerol] Allergy (Verified 06/14/17 15:10) Other orlistat [From Xenical] Allergy (Verified 06/14/17 15:10) Unknown Penicillins Allergy (Verified 06/14/17 15:10) Unknown potassium clavulanate [From Augmentin] Allergy (Verified 06/14/17 15:10) Mucosal lesions rofecoxib [From Vioxx] Allergy (Verified 06/14/17 15:10) Unknown adhesive tape Adverse Reaction (Uncoded 06/14/17 15:10) Rash Home Medications: Ambulatory Orders Medication Instructions Recorded Finasteride [Proscar] 5 mg PO DAILY 01/21/13 Gabapentin [Neurontin] 300 mg PO BID 01/21/13 Multivitamins,Ther W-Minerals 1 tab PO DAILY 01/21/13 [Multivitamin With Minerals] Ascorbic Acid [Vitamin C] 500 mg PO DAILY@0800 05/29/15 Vitamin E 400 units PO DAILY 05/29/15 Calcium Carbonate [Calcium] 600 mg PO DAILY 09/02/16 Cholecalciferol (VIT D3) [Vitamin 1,000 unit PO DAILY 09/02/16 D3] Metoprolol Tartrate [Lopressor 25 mg PO BID 09/02/16 (beta stefani)] Tamsulosin HCl [Flomax] 0.4 mg PO QHS 09/02/16 Aspirin [Adult Low Dose Aspirin EC] 81 mg PO DAILY 09/24/16 Clopidogrel Bisulfate [Plavix] 75 mg PO DAILY 09/24/16 Amiodarone HCl [Cordarone] 200 mg PO DAILY 12/13/16 Potassium Chloride [K-Dur] 20 meq PO BID #60 tab 03/31/17 pravastatin 40 mg tablet 40 mg PO QHS #90 tab 05/14/17 rivaroxaban 20 mg tablet 20 mg PO QDAY #90 tab 05/19/17 Furosemide 40 mg PO DINNER 06/14/17 Furosemide [Lasix] 80 mg PO BREAKFAST 06/14/17 Spironolactone [Aldactone] 25 mg PO DAILY 06/14/17 Surgical History: angioplasty, coronary bypass surgery Psychiatric History: Depression Lives: Spouse/ Significant Other Smoking Status: Former smoker Tobacco Use: Non-smoker Alcohol: None Drugs: None - *Family History Maternal History Items: - - no pulmonary fibrosis. Review of Systems Constitutional: Denies: Chills, Fever, Night Sweats Eyes: Denies: Blurred vision, Double vision HEENT: Denies: Head Aches, Sinus Congestion, Sinus Drainage Cardiovascular: Denies: Chest Pain, Palpitations Respiratory: Reports: Shortness of Breath. Denies: Pleuritic Pain, Sputum production, Wheezing Gastrointestinal: Denies: Abdominal Pain, Nausea, Vomiting Genitourinary: Denies: Dysuria Musculoskeletal: Denies: Joint Pain, Joint Tenderness Skin: Denies: Rash, Wounds Neurological: Denies: Numbness, Tingling, Focal weakness Psychiatric: Denies: Anxiety, Depression, Homicidal Ideations, Suicidal Ideations Hematologic/ Lymphatic: Denies: Easy Bruising, Easy Bleeding Patient Problems: Active and Suspected Problems (Last Updated 06/17/17 @ 12:11 by Trenton Landin DO) Heart failure with preserved ejection fraction (Acute) Objective: The patient's most recent lab work, culture data and imaging studies have all been personally reviewed. - Physical Exam General: Alert, Oriented x3, Cooperative, No apparent distress, - - Currently resting in bed with nasal cannula in place. HEENT: Atraumatic, PERRLA, Normocephalic Oral: Moist Mucosa, No Gingival or Mucosal Lesions/ Ulcerations Neck: Supple, No Nodes, Trachea Midline Lungs: No rhonchi, No wheeze, No rales, Diminished, Tachypneic Cardiovascular: Regular rate, Regular Rhythm, Normal S1, Normal S2, No murmurs Abdomen: Bowel Sounds Present, Soft, Non Tender, Non-Distended, Obese Extremities: No clubbing, No cyanosis, No edema Skin: No rashes, No breakdown Musculoskeletal: No Muscle Wasting Lymphatic: No Cervical, Supraclavicular, or Inguinal Adenopathy Neurological: Neuro grossly intact Psych/Mental Status: Normal Affect, Appropriate Vital Signs Temp Pulse Resp BP Pulse Ox 97.9 F 61 23 H 119/64 97 06/22/17 00:00 06/22/17 06:00 06/22/17 06:00 06/22/17 06:00 06/22/17 06:00 Oxygen Flow Rate (L/min) 4 Oxygen Delivery Method Nasal Cannula Weight: 259 lb 7.745 oz Body Mass Index (BMI) 36.1 Intake and Output for Last 24 Hours 06/20/17 06/21/17 06/23/17 23:59 23:59 00:59 Intake Total 340 / 340 Output Total 550 / 550 200 / 200 Balance -210 / -210 -200 / -200 Laboratory Tests Past 24 Hrs 06/21/17 06/22/17 06/22/17 18:15 04:35 04:35 WBC 9.8 RBC 4.80 Hgb 14.2 Hct 43.1 MCV 89.8 MCH 29.6 MCHC 32.9 RDW 13.0 RDW Differential 42.6 Plt Count 417 MPV 8.6 Sodium 139 Potassium 4.3 Chloride 93 L Carbon Dioxide 40.0 H Anion Gap 6 BUN 34 H Creatinine 1.17 Estim Creat Clear Calc 52.74 Est GFR (MDRD) Af Amer 77 Est GFR (MDRD) Non-Af 64 BUN/Creatinine Ratio 29.1 H Glucose 194 H Calcium 9.0 MRSA (PCR) Negative Clinical Impression(s) from Imaging Studies Chest X-Ray 06/21/17 15:15 Assessment/Plan Active and Suspected Problems (Last Updated 06/17/17 @ 12:11 by Trenton Landin DO) Heart failure with preserved ejection fraction (Acute) RECOMMENDATIONS: 1. Obtain high resolution chest CT 2. Repeat surface echocardiogram 3. Continue empiric BiPAP therapy 12/6 cm of water with naps and nightly 4. Complete overnight trending pulse oximetry, ideally on room air x 1. 5. Discontinue aerosol treatments, as the patient has a restrictive ventilatory defect. 6. Continue Xarelto IMPRESSIONS: 1. Acute on chronic hypoxemic and hypercarbic respiratory failure/baseline restrictive lung disease The patient initially presented to the hospital with shortness of breath, for which she was started empirically on BiPAP. Recommend repeating arterial blood gas with the patient resting on nasal cannula. The patient does not appear to be in an acute exacerbation of his underlying diastolic heart failure. However, will obtain repeat echocardiogram. In addition, given the fibrotic changes noted on CT previously, will obtain high resolution chest CT this morning. The patient is on amiodarone therapy and per report has been so for quite some time. Would need to consider the possibility of amiodarone related lung toxicity. However, would first need to clarify how long he has been on the medication and if he was previously on a higher dose. At the current time, he is only prescribed 200 mg daily. The patient does appear to have CO2 retention and a climbing serum bicarbonate, with concern for overdiuresis. I recommended that the patient obtain an outpatient polysomnogram, as he would likely benefit from the initiation of BiPAP therapy in his home environment. 2. Pulmonary fibrosis We will obtain repeat high resolution chest CT to evaluate for progressive lung disease. Outpatient workup was initiated in March for interstitial lung disease. The patient's autoimmune workup was negative. Further recommendations will be forthcoming, depending on the results of his CT chest. 3. Heart failure with preserved ejection fraction/paroxysmal atrial fibrillation/coronary artery disease status post CABG and PCI The patient does not appear to be clinically in heart failure. Would recommend continuing baseline diuretic regimen. Concerned that he may develop contraction alkalosis with scheduled IV Lasix every 8 hours. 4. Morbid obesity/hypertension/hyperlipidemia Complicates care, management, recovery and prognosis. Continue home medications as indicated. Weight loss is recommended. Recommend physical therapy evaluation. This note was generated with [employer] software. It may contain incorrect words, spelling, and punctuation that were not noted in checking the note before signing. Code Visit Inpatient E&M: 19765 Init Hosp L3
--- NOTE | 2017-06-22 07:07 | CT_ITS ---
STUDY: CT CHEST WITHOUT CONTRAST REASON FOR EXAM: Male, 81 years old. Pulmonary fibrosis, CHF RADIATION DOSAGE (If Supplied By Facility): CTDIvol = ( 23.89 ) mGy, DLP = ( 736.10 ) mGycm TECHNIQUE: Transaxial imaging was performed without the administration of intravenous contrast material. Individualized dose optimization techniques were used for this CT. COMPARISON: None. FINDINGS: No supraclavicular adenopathy seen. Scattered borderline enlarged mediastinal lymph nodes Cardiomegaly Coronary vascular calcifications Prior CABG is noted. Midline sternotomy wires. Bilateral patchy airspace and groundglass opacities noted. Increased reticular markings also seen bilaterally predominant in the upper lobe. Differential considerations include infectious or inflammatory process or pulmonary edema. Underlying interstitial lung disease is a diagnostic consideration. No evidence for honeycombing or traction bronchiectasis seen. Degenerative changes in the lumbar spine. Osteopenia noted Vascular calcifications of the thoracic aorta. Coronary vascular calcifications also seen. IMPRESSION:Bilateral patchy airspace and groundglass opacities noted. Increased reticular markings also seen bilaterally predominant in the upper lobe. Differential considerations include infectious or inflammatory process or pulmonary edema. Underlying interstitial lung disease is a diagnostic consideration. No evidence for honeycombing or traction bronchiectasis seen, however. Electronically Signed: Mynor Almanzar, at 11:14 EDT Tel , Service support , CT/Chest without Contrast
--- NOTE | 2017-06-22 07:13 | ECHOCS_ITS ---
Version 2 Reason For Study: dysnpnea, SOB Procedure This was a 2D Doppler, Color Flow transthoracic echocardiogram. The study was technically difficult. PT unable to lie in left lateral decubitus position. Contrast injection was performed. Exam performed portable in ICU/CCU. Left Ventricle Normal LV size. Left ventricular systolic function is normal. The estimated ejection fraction is 60 %. No evidence for diastolic dysfunction. No regional wall motion abnormalities noted. Right Ventricle Normal RV size. Normal systolic function. Atria Normal left atrium. Normal right atrium. Mitral Valve Normal mitral valve. Tricuspid Valve Normal tricuspid valve. Mild to moderate (1-2+) tricuspid valve insufficiency. Pulmonary artery systolic pressure is 45 mmHg. Mild pulmonary hypertension. Aortic Valve Trisinus/trileaflet aortic valve. Mild focal aortic valve calcification. Pulmonic Valve The pulmonic valve is not well visualized. Great Vessels Normal aortic root. The pulmonary artery is normal size. Normal inferior vena cava. Pericardium/Pleural No pericardial effusion. Medication Diluted definity 2.0ml given slow IV push to enhance endocardial definition. MMode/2D Measurements & Calculations LVIDd: 4.9 cm IVSd: 1.1 cm Ao root diam: 3.1 cm LVIDs: 3.2 cm LVPWd: 1.0 cm LA dimension: 4.0 cm FS: 35.2 % LAV(MOD-bp): 63.1 ml LAV(MOD-bp) Indexed: 26.8 ml/m2 LA A4 area: 19.9 cm2 RA A4 area: 14.4 cm2 LAV(MOD-sp2): 63.4 ml LAV(MOD-sp4): 50.9 ml Doppler Measurements & Calculations MV E max laith: 50.2 cm/sec Lat Peak E' Laith: 8.9 cm/sec Med Peak E' Laith: 6.2 cm/sec MV A max laith: 69.5 cm/sec E/E' lat: 5.6 E/E' med: 8.1 MV E/A: 0.72 Ao V2 max: 131.9 cm/sec LV V1 max: 91.1 cm/sec PA V2 max: 198.6 cm/sec Ao max P.0 mmHg LV V1 max P.3 mmHg PA V2 mean: 129.8 cm/sec PA V2 VTI: 36.2 cm TR max laith: 319.3 cm/sec TR max P.8 mmHg Interpretation Summary Normal LV size. Left ventricular systolic function is normal. The estimated ejection fraction is 60 %. No evidence for diastolic dysfunction. Pulmonary artery systolic pressure is 45 mmHg. Mild pulmonary hypertension. Contrast injection was performed. Ordering Physician: Wyatt Prakash D.O. Referring Physician: Joseph Tran Performed By: Randi Hernández RDCS, RVT
[2017-06-22] MEDS: Ipratropium/Albuterol Sulfate 3 ML AMPUL.NEB INHALATION (07:21)
[2017-06-22] MEDS: Aspirin E.C. 81 MG Tablet PO (08:04)
[2017-06-22] MEDS: Multivitamins,Ther W-Minerals Tablet 1 TABLET PO (08:05)
[2017-06-22] MEDS: Calcium (Elemental) 500 MG Tablet PO (08:05)
[2017-06-22] MEDS: Gabapentin 300 MG Capsule PO ×2 (08:05→17:35)
[2017-06-22] MEDS: Ascorbic Acid 500 MG Tablet PO (08:06)
[2017-06-22] MEDS: Rivaroxaban 20 MG Tablet PO (08:06)
--- NOTE | 2017-06-22 09:03 | PCM.PN.HOSP ---
Patient Problems: Active and Suspected Problems (Last Updated 06/17/17 @ 12:11 by Trenton Landin DO) Acute on chronic respiratory failure with hypoxia and hypercapnia (Acute) Heart failure with preserved ejection fraction (Acute) Subjective: Breathing better. Taking off of BiPAP and doing well on nasal cannula though still tachypneic. Vitals/I&O's: Vital Signs Temp Pulse Resp BP Pulse Ox 36.6 C 61 23 H 119/64 97 06/22/17 00:00 06/22/17 06:00 06/22/17 06:00 06/22/17 06:00 06/22/17 06:00 Oxygen Flow Rate (L/min) 5 Oxygen Delivery Method Nasal Cannula Weight: 117 kg Body Mass Index (BMI) 36.1 Intake and Output for Last 24 Hours 06/20/17 06/21/17 06/23/17 23:59 23:59 00:59 Intake Total 340 / 340 Output Total 550 / 550 200 / 200 Balance -210 / -210 -200 / -200 General: Alert, Cooperative, No apparent distress HEENT: Atraumatic, Normocephalic Neck: No Nodes, Thyroid Normal Size and Texture Lungs: Diminished, Tachypneic, Wheezes, - - conversational dyspnea Cardiovascular: Regular rate, Regular Rhythm, Normal S1, Normal S2, No murmurs Abdomen: Bowel Sounds Present, Soft, Non Tender, Non-Distended, No Hepato-splenomegaly, Obese Extremities: No edema, No Calf Tenderness Skin: No rashes, No breakdown Musculoskeletal: No Tenderness to Palpation of Joints or Extremities, No Muscle Wasting Psych/Mental Status: Normal Affect, Appropriate Laboratory Results 06/21/17 18:15: MRSA (PCR) Negative 06/22/17 04:35: WBC 9.8, RBC 4.80, Hgb 14.2, Hct 43.1, MCV 89.8, MCH 29.6, MCHC 32.9, RDW 13.0, RDW Differential 42.6, Plt Count 417, MPV 8.6 06/22/17 04:35: Sodium 139, Potassium 4.3, Chloride 93 L, Carbon Dioxide 40.0 H, Anion Gap 6, BUN 34 H, Creatinine 1.17, Estim Creat Clear Calc 52.74, Est GFR (MDRD) Af Amer 77, Est GFR (MDRD) Non-Af 64, BUN/Creatinine Ratio 29.1 H, Glucose 194 H, Calcium 9.0 Current Medications Acetaminophen (Tylenol) 650 mg PO Q6H PRN PRN PRN Reason: Mild Pain (scale 0-3)/T>100.7 Amiodarone HCl (Cordarone) 200 mg PO DAILY [facility] Ascorbic Acid (Vitamin C) 500 mg PO DAILY@0800 [facility] Last Admin: 06/22/17 08:06 Dose: 500 mg [facility]) [facility] Admin: 06/22/17 08:04 Dose: 81 mg Calcium Carbonate (Os-Tolu 500) [facility] Last Admin: 06/22/17 08:05 Dose: 500 mg Chlorhexidine Gluconate () 1 each TOPICAL DAILY [facility] Cholecalciferol (Vitamin D) 1,000 unit PO DAILY [facility] Clopidogrel Bisulfate (Plavix) 75 mg PO DAILY [facility] Finasteride (Proscar) 5 mg PO DAILY [facility] Furosemide (Lasix) 40 mg IV Q8 [facility] Last Admin: 06/22/17 05:10 Dose: 40 mg Gabapentin (Neurontin) [facility] Last Admin: 06/22/17 08:05 Dose: 300 mg Sodium Chloride () 250 mls @ 15 mls/hr IV .[id number] PRN PRN Reason: SALINE FLUSH Losartan Potassium (Cozaar) 25 mg PO DAILY [facility] Magnesium Hydroxide (Milk Of Magnesia) 30 ml PO DAILY PRN PRN PRN Reason: Constipation Metoprolol Tartrate (Lopressor (Beta Yelena)) 25 mg PO BID [facility] Last Admin: 06/21/17 21:43 Dose: 25 mg Multivitamins/Minerals (Multivitamin With Minerals) [facility] Last Admin: 06/22/17 08:05 Dose: 1 tablet Nutritional Formula (Lactose Free) (Ensure Enlive) 120 ml PO 4X/DAY [facility] Last Admin: 06/21/17 21:43 Dose: 120 ml Ondansetron HCl (Zofran) 4 mg IV Q8H PRN PRN PRN Reason: Nausea Oxycodone HCl (Oxyir) 5 mg PO Q4H PRN PRN PRN Reason: Moderate Pain (pain scale 4-5) Potassium Chloride (K-Dur) 20 meq PO BID [facility] Last Admin: 06/21/17 21:43 Dose: 20 meq Pravastatin Sodium (Pravachol) 40 mg PO QHS [facility] Last Admin: 06/21/17 21:43 Dose: 40 mg Rivaroxaban (Xarelto) [facility] Last Admin: 06/22/17 08:06 Dose: 20 mg Sodium Chloride () 5 - 30 ml IV UD PRN PRN Reason: SALINE FLUSH Last Admin: 06/22/17 05:10 Dose: 10 ml Spironolactone (Aldactone) 25 mg PO DAILY [facility] Tamsulosin HCl (Flomax) 0.4 mg PO QHS [facility] Last Admin: 06/21/17 21:43 Dose: 0.4 mg Vitamin E (Vitamin E) 400 units PO DAILY [facility] Assessment/Plan Active and Suspected Problems (Last Updated 06/17/17 @ 12:11 by Trenton Landin DO) Acute on chronic respiratory failure with hypoxia and hypercapnia (Acute) Heart failure with preserved ejection fraction (Acute) 81-year-old white male who was discharged on the with respiratory failure and CHF presents again within 48 hours with hypoxia at home and worsening respiratory distress. Chest x-ray that showed chronic changes but also CHF but was actually improved from June 14 but overall worse from June 10. Patient was put on BiPAP which is subsequent been removed. Patient is continuing with IV Lasix for his heart failure. 1. Acute on chronic hypoxic resp failure secondary to CHF + OSH, ILD, PH BDs BiPAP, wean as tolerated D/W Dr. Prakash. Plan for HRCT of chest. Given ongoing tachypnea, will keep in ICU for at least 1 more day. 2. Acute HFpEF EF 55% from echo on 03/28/17 IV lasix 40 TID start losartan 25 daily, known allergy to BRANDI-inhibitor weight down to 117 kg repeat echo ordered. 3. pAfib currently NSR on metop tartrate, amiodarone on xarelto 4. CAD stable 5. DVT proph: anticoagulated 6. Advanced Care Planning: asked pt is he wanted CPR in event of CPA, intubation for worsening resp failure, and PEG tube if he couldn't swallow properly Pt stated he did not want any of that, therefore, pt is DNRCCA, no intubation, no PEG tube. Code Visit Inpatient E&M: 58346 Subs Hosp L2
--- NOTE | 2017-06-22 09:09 | PN_ITS ---
Patient Problems: Active and Suspected Problems (Last Updated 06/17/17 @ 12:11 by Trenton Landin DO ) Acute on chronic respiratory failure with hypoxia and hypercapnia (Acute) Heart failure with preserved ejection fraction (Acute) Subjective: Breathing better. Taking off of BiPAP and doing well on nasal cannula though still tachypneic. Vitals/I&O's: Vital Signs Temp Pulse Resp BP Pulse Ox 36.6 C 61 23 H 119/64 97 06/22/17 00:00 06/22/17 06:00 06/22/17 06:00 06/22/17 06:00 06/22/17 06:00 Oxygen Flow Rate (L/min) 5 Oxygen Delivery Method Nasal Cannula Weight: 117 kg Body Mass Index (BMI) 36.1 Intake and Output for Last 24 Hours 06/20/17 06/21/17 06/23/17 23:59 23:59 00:59 Intake Total 340 / 340 Output Total 550 / 550 200 / 200 Balance -210 / -210 -200 / -200 General: Alert, Cooperative, No apparent distress HEENT: Atraumatic, Normocephalic Neck: No Nodes, Thyroid Normal Size and Texture Lungs: Diminished, Tachypneic, Wheezes, - - conversational dyspnea Cardiovascular: Regular rate, Regular Rhythm, Normal S1, Normal S2, No murmurs Abdomen: Bowel Sounds Present, Soft, Non Tender, Non-Distended, No Hepato- splenomegaly, Obese Extremities: No edema, No Calf Tenderness Skin: No rashes, No breakdown Musculoskeletal: No Tenderness to Palpation of Joints or Extremities, No Muscle Wasting Psych/Mental Status: Normal Affect, Appropriate Laboratory Results 06/21/17 18:15: MRSA (PCR) Negative 06/22/17 04:35: WBC 9.8, RBC 4.80, Hgb 14.2, Hct 43.1, MCV 89.8, MCH 29.6, MCHC 32.9, RDW 13.0, RDW Differential 42.6, Plt Count 417, MPV 8.6 06/22/17 04:35: Sodium 139, Potassium 4.3, Chloride 93 L, Carbon Dioxide 40.0 H , Anion Gap 6, BUN 34 H, Creatinine 1.17, Estim Creat Clear Calc 52.74, Est GFR (MDRD) Af Amer 77, Est GFR (MDRD) Non-Af 64, BUN/Creatinine Ratio 29.1 H, Glucose 194 H, Calcium 9.0 Current Medications Acetaminophen (Tylenol) 650 mg PO Q6H PRN PRN PRN Reason: Mild Pain (scale 0-3)/T>100.7 Amiodarone HCl (Cordarone) 200 mg PO DAILY [facility] Ascorbic Acid (Vitamin C) 500 mg PO DAILY@0800 [facility] Last Admin: 06/22/17 08:06 Dose: 500 mg Aspirin (Ecotrin) [facility] Last Admin: 06/22/17 08:04 Dose: 81 mg Calcium Carbonate (Os-Tolu 500) [facility] Last Admin: 06/22/17 08:05 Dose: 500 mg Chlorhexidine Gluconate () 1 each TOPICAL DAILY [facility] Cholecalciferol (Vitamin D) 1,000 unit PO DAILY [facility] Clopidogrel Bisulfate (Plavix) 75 mg PO DAILY [facility] Finasteride (Proscar) 5 mg PO DAILY [facility] Furosemide (Lasix) 40 mg IV Q8 [facility] Last Admin: 06/22/17 05:10 Dose: 40 mg Gabapentin (Neurontin) [facility] Last Admin: 06/22/17 08:05 Dose: 300 mg Sodium Chloride () 250 mls @ 15 mls/hr IV .[id number] PRN PRN Reason: SALINE FLUSH Losartan Potassium (Cozaar) 25 mg PO DAILY [facility] Magnesium Hydroxide (Milk Of Magnesia) 30 ml PO DAILY PRN PRN PRN Reason: Constipation Metoprolol Tartrate (Lopressor (Beta Yelena)) 25 mg PO BID [facility] Last Admin: 06/21/17 21:43 Dose: 25 mg Multivitamins/Minerals (Multivitamin With Minerals) [facility] Last Admin: 06/22/17 08:05 Dose: 1 tablet Nutritional Formula (Lactose Free) (Ensure Enlive) 120 ml PO 4X/DAY [facility] Last Admin: 06/21/17 21:43 Dose: 120 ml Ondansetron HCl (Zofran) 4 mg IV Q8H PRN PRN PRN Reason: Nausea Oxycodone HCl (Oxyir) 5 mg PO Q4H PRN PRN PRN Reason: Moderate Pain (pain scale 4-5) Potassium Chloride (K-Dur) 20 meq PO BID [facility] Last Admin: 06/21/17 21:43 Dose: 20 meq Pravastatin Sodium (Pravachol) 40 mg PO QHS [facility] Last Admin: 06/21/17 21:43 Dose: 40 mg Rivaroxaban (Xarelto) [facility] Last Admin: 06/22/17 08:06 Dose: 20 mg Sodium Chloride () 5 - 30 ml IV UD PRN PRN Reason: SALINE FLUSH Last Admin: 06/22/17 05:10 Dose: 10 ml Spironolactone (Aldactone) 25 mg PO DAILY [facility] Tamsulosin HCl (Flomax) 0.4 mg PO QHS [facility] Last Admin: 06/21/17 21:43 Dose: 0.4 mg Vitamin E (Vitamin E) 400 units PO DAILY [facility] Assessment/Plan Active and Suspected Problems (Last Updated 06/17/17 @ 12:11 by Trenton Landin DO ) Acute on chronic respiratory failure with hypoxia and hypercapnia (Acute) Heart failure with preserved ejection fraction (Acute) 81-year-old white male who was discharged on the with respiratory failure and CHF presents again within 48 hours with hypoxia at home and worsening respiratory distress. Chest x-ray that showed chronic changes but also CHF but was actually improved from June 14 but overall worse from June 10. Patient was put on BiPAP which is subsequent been removed. Patient is continuing with IV Lasix for his heart failure. 1. Acute on chronic hypoxic resp failure * secondary to CHF + OSH, ILD, PH * BDs * BiPAP, wean as tolerated * D/W Dr. Prakash. Plan for HRCT of chest. Given ongoing tachypnea, will keep in ICU for at least 1 more day. 2. Acute HFpEF * EF 55% from echo on 03/28/17 * IV lasix 40 TID * start losartan 25 daily, known allergy to BRANDI-inhibitor * weight down to 117 kg * repeat echo ordered. 3. pAfib * currently NSR * on metop tartrate, amiodarone * on xarelto 4. CAD stable 5. DVT proph: anticoagulated 6. Advanced Care Planning: * asked pt is he wanted CPR in event of CPA, intubation for worsening resp failure, and PEG tube if he couldn't swallow properly * Pt stated he did not want any of that, therefore, pt is DNRCCA, no intubation , no PEG tube. Code Visit Inpatient E&M: 36257 Subs Hosp L2
[2017-06-22] MEDS: Clopidogrel Bisulfate 75 MG Tablet PO (10:02)
[2017-06-22] MEDS: Metoprolol Tartrate 25 MG Tablet PO ×2 (10:03→21:18)
[2017-06-22] MEDS: Amiodarone 200 MG Tablet PO (10:04)
[2017-06-22] MEDS: Spironolactone 25 MG Tablet PO (10:07)
[2017-06-22] MEDS: Finasteride 5 MG Tablet PO (10:08)
[2017-06-22] MEDS: Losartan Potassium 25 MG Tablet PO (10:10)
[2017-06-22] MEDS: CHLORHEXIDINE GLUC 2% CLOTH 1 EACH TOWELETTE TOPICAL (10:14)
[2017-06-22] MEDS: Vitamin E 400 UNITS Capsule PO (10:15)
[2017-06-22] MEDS: Tamsulosin HCl 0.4 MG Capsule PO (21:17)
[2017-06-22] MEDS: oxyCODONE 5 MG Tablet PO (21:19)
[2017-06-22] MEDS: Pravastatin 40 MG Tablet PO (21:20)
--- NOTE | 2017-06-22 22:00 | CPS ---
Pt wearing 5L oxygen via NC and wears 3-4L at home. Per Dr. Prakash trend should be ideally ran on room air. At the start of pulse ox trend pt was taken off oxygen and sats dropped to 81% while awake. BIPAP to be worn nightly per Dr. Prakash. Pt placed on BIPAP 12/6 FiO2 50%. Sats recovered into the 90's and pt started to fall asleep. FiO2 decreased to 21% room air and sats dropped again into the low 80's. Pt maintained an SpO2 between 88 and 91% on BIPAP 12/6 and 30% FiO2. Pt was sleeping comfortably until around midnight when pt ripped off the mask and refused to wear it. RN placed pt back on 5L NC and SpO2 at 90%.
[2017-06-23] VITALS (26 sets, daily range): BP systolic 97–146; BP diastolic 53–96; PULSE 58–72; RESP 18–34; TEMP 36.6–36.9; O2SAT 89–95
[2017-06-23 04:52] LABS: Anion Gap 6 (5-15); BUN 32 mg/dL (7-18); BUN/Creat Ratio 30.8 RATIO (10-20); Calcium,Total 8.9 mg/dL (8.5-10.1); Chloride 93 mmol/L (98-107); Creatinine, Serum 1.04 mg/dL (0.70-1.30); EST Glomerular Filtration Rate 73 mL/min (>60); Est Glom Filt Rate - Afr Amer 88 mL/min (>60); Estimated Creatinine Clearance 59.33 ml/min; Glucose 182 mg/dL (74-106); Potassium 4.3 mmol/L (3.5-5.1); Sodium Level 139 mmol/L (136-145)
[2017-06-23] MEDS: Furosemide 40 MG/4 ML Vial IV ×2 (06:02→21:29)
[2017-06-23] MEDS: 0.9% NaCl Peripheral Flush Adult/Peds IV ×4 (06:02→21:30)
[2017-06-23] MEDS: CHLORHEXIDINE GLUC 2% CLOTH 1 EACH TOWELETTE TOPICAL (06:03)
--- NOTE | 2017-06-23 06:25 | PCM.PN.INT ---
Subjective: The patient was seen and examined at the bedside this morning. Events from the last 24 hours have been reviewed. The patient is currently afebrile, hemodynamically stable and maintaining appropriate oxygen saturations on 5 L/min via nasal cannula. The patient was placed on BiPAP overnight, but only tolerated therapy for approximately 2 hours. The patient reports a mild degree of interval improvement in his breathing quality. Objective: The patient's most recent lab work, culture data and imaging studies have all been personally reviewed. CT chest completed on June 22 revealed bilateral patchy airspace disease, increased reticular markings and groundglass opacities, which were diffuse in nature, but appeared more pronounced in the upper lobes. Surface echocardiogram is pending. General: Alert, Oriented x3, Cooperative, No apparent distress HEENT: Atraumatic, PERRLA, Normocephalic Oral: Moist Mucosa, No Gingival or Mucosal Lesions/ Ulcerations Neck: Supple, No Nodes, Trachea Midline Lungs: No rhonchi, No rales, Diminished, - - Faint end expiratory wheeze bilaterally. Cardiovascular: Regular rate, Regular Rhythm, Normal S1, Normal S2, No murmurs Abdomen: Bowel Sounds Present, Soft, Non Tender, Obese Extremities: No clubbing, No cyanosis, - - Trace pedal edema Skin: - - Lower extremity venous stasis dermatitis Musculoskeletal: No Tenderness to Palpation of Joints or Extremities Lymphatic: No Cervical, Supraclavicular, or Inguinal Adenopathy Neurological: Neuro grossly intact Psych/Mental Status: Alert and oriented to time, place, person, mood and affect Vital Signs Temp Pulse Resp BP Pulse Ox 98.5 F 63 32 H 146/65 H 91 06/23/17 03:00 06/23/17 06:00 06/23/17 06:00 06/23/17 06:00 06/23/17 06:00 Oxygen Flow Rate (L/min) 5 Oxygen Delivery Method Nasal Cannula Weight: 257 lb 7.999 oz Body Mass Index (BMI) 36.1 Intake and Output for Last 24 Hours 06/21/17 06/22/17 06/23/17 22:59 23:59 23:59 Intake Total 200 / 200 Output Total 225 / 225 Balance -25 / -25 Labs (Last 48 Hours) 06/21/17 06/22/17 06/22/17 18:15 04:35 04:35 WBC 9.8 RBC 4.80 Hgb 14.2 Hct 43.1 MCV 89.8 MCH 29.6 MCHC 32.9 RDW 13.0 RDW Differential 42.6 Plt Count 417 MPV 8.6 Sodium 139 Potassium 4.3 Chloride 93 L Carbon Dioxide 40.0 H Anion Gap 6 BUN 34 H Creatinine 1.17 Estim Creat Clear Calc 52.74 Est GFR (MDRD) Af Amer 77 Est GFR (MDRD) Non-Af 64 BUN/Creatinine Ratio 29.1 H Glucose 194 H Calcium 9.0 MRSA (PCR) Negative 06/23/17 04:00 WBC RBC Hgb Hct MCV MCH MCHC RDW RDW Differential Plt Count MPV Sodium 139 Potassium 4.3 Chloride 93 L Carbon Dioxide 40.0 H Anion Gap 6 BUN 32 H Creatinine 1.04 Estim Creat Clear Calc 59.33 Est GFR (MDRD) Af Amer 88 Est GFR (MDRD) Non-Af 73 BUN/Creatinine Ratio 30.8 H Glucose 182 H Calcium 8.9 MRSA (PCR) Clinical Impression(s) from Imaging Studies Chest X-Ray 06/21/17 15:[address] 06/22/17 07:07 Assessment/Plan Active and Suspected Problems (Last Updated 06/17/17 @ 12:11 by Trenton Landin DO) Heart failure with preserved ejection fraction (Acute) RECOMMENDATIONS: 1. Surface echocardiogram is pending 2. Send out hypersensitivity pneumonitis panel 3. Encourage empiric BiPAP therapy 12/6 cm of water with naps and nightly 4. Start IV Solu-Medrol 40 mg every 6 hours 5. Although low suspicion, will complete preliminary pulmonary infectious workup 6. Continue Xarelto IMPRESSIONS: 1. Acute on chronic hypoxemic and hypercarbic respiratory failure/baseline restrictive lung disease/pulmonary fibrosis The patient initially presented to the hospital with shortness of breath, for which he was started empirically on BiPAP. The patient has an underlying interstitial lung process along with restrictive ventilatory mechanics and a disproportionate reduction in diffusing capacity, noted on prior PFTs. He has been on amiodarone for quite some time. Would need to consider the possibility of amiodarone related lung toxicity. However, would first need to clarify how long he has been on the medication and if he was previously on a higher dose. At the current time, he is only prescribed 200 mg daily. The patient does appear to have CO2 retention and a climbing serum bicarbonate, with concern for overdiuresis.The patient does not appear to be in an acute exacerbation of his underlying diastolic heart failure. However, will obtain repeat echocardiogram. The patient's recent CT chest revealed bilateral airspace opacities, increased reticular markings and groundglass opacities, which were diffuse in nature, but seemed more pronounced in the upper lobes. This is a very nonspecific pattern and could represent a wide array of diffuse parenchymal lung diseases. Although of low clinical suspicion, a preliminary pulmonary infectious workup will be completed. Given that the patient's CT findings could represent an entity like LAY OUT WORKER or potentially hypersensitivity pneumonitis, he will also be started empirically on IV steroids 40 mg every 6 hours. 2. Heart failure with preserved ejection fraction/paroxysmal atrial fibrillation/coronary artery disease status post CABG and PCI The patient does not appear to be clinically in heart failure. Would recommend continuing baseline diuretic regimen. Concerned that he may develop contraction alkalosis with scheduled IV Lasix every 8 hours. 3. Morbid obesity/hypertension/hyperlipidemia Complicates care, management, recovery and prognosis. Continue home medications as indicated. Weight loss is recommended. Recommend physical therapy evaluation. This note was generated with [employer] dictation software. It may contain incorrect words, spelling, and punctuation that were not noted in checking the note before signing. DISPOSITION: The patient is medically stable for transfer out of the intensive care unit. Code Visit Inpatient E&M: 39295 Subs Hosp L3
--- NOTE | 2017-06-23 09:19 | PN_ITS ---
Patient Problems: Active and Suspected Problems (Last Updated 06/17/17 @ 12:11 by Trenton Landin DO ) Heart failure with preserved ejection fraction (Acute) Subjective: Seen and examined. Patient shortness of breath has improved but is still gets intermittent short of breath. Currently on 5 L of oxygen. Patient was scheduled for palliative care visit at home today. Patient frustrated with frequent hospital admissions for shortness of breath and respiratory failure and agreed for palliative care consult to decide on hospice care. Currently DNR CC arrest Vitals/I&O's: Vital Signs Temp Pulse Resp BP Pulse Ox 98.5 F 64 34 H 119/85 H 93 06/23/17 03:00 06/23/17 07:02 06/23/17 07:00 06/23/17 07:00 06/23/17 07:00 Oxygen Flow Rate (L/min) 5 Oxygen Delivery Method Nasal Cannula Weight: 257 lb 7.999 oz Body Mass Index (BMI) 36.1 Intake and Output for Last 24 Hours 06/21/17 06/22/17 06/23/17 22:59 23:59 23:59 Intake Total 200 / 200 Output Total 225 / 225 Balance -25 / -25 General: Alert, Oriented x3, Cooperative, Lethargic HEENT: Atraumatic, PERRLA, EOMI, Normocephalic Oral: Dry Mucosa Neck: Supple, No JVD, Negative Carotid Bruits Lungs: Diminished, Rhonchi, Short of Breath, Tachypneic, Using Accessory Muscles Cardiovascular: Regular rate, Regular Rhythm, Normal S1, Normal S2, No murmurs Abdomen: Bowel Sounds Present, Soft, Non Tender, Non-Distended Extremities: No edema, Capillary Refill Less than 3 Seconds Skin: No rashes, No breakdown Musculoskeletal: No Tenderness to Palpation of Joints or Extremities, Muscle Wasting Neurological: Cranial nerves II-XII grossly intact Psych/Mental Status: Normal Affect, Appropriate Microbiology Past 72 Hours 06/23/17 07:55 Urine, Random Streptococcus pneumoniae Antigen (M - Final 06/23/17 07:55 Urine, Random Legionella Antigen - Final Laboratory Results 06/23/17 04:00: Sodium 139, Potassium 4.3, Chloride 93 L, Carbon Dioxide 40.0 H , Anion Gap 6, BUN 32 H, Creatinine 1.04, Estim Creat Clear Calc 59.33, Est GFR (MDRD) Af Amer 88, Est GFR (MDRD) Non-Af 73, BUN/Creatinine Ratio 30.8 H, Glucose 182 H, Calcium 8.9 Current Medications Acetaminophen (Tylenol) 650 mg PO Q6H PRN PRN PRN Reason: Mild Pain (scale 0-3)/T>100.7 Amiodarone HCl (Cordarone) 200 mg PO DAILY [facility] Last Admin: 06/22/17 10:04 Dose: 200 mg Ascorbic Acid (Vitamin C) 500 mg PO DAILY@0800 [facility] Last Admin: 06/22/17 08:06 Dose: 500 mg Aspirin (Ecotrin) [facility] Last Admin: 06/22/17 08:04 Dose: 81 mg Calcium Carbonate (Os-Tolu 500) 500 [facility] Last Admin: 06/22/17 08:05 Dose: 500 mg Chlorhexidine Gluconate () 1 each TOPICAL DAILY [facility] Last Admin: 06/23/17 06:03 Dose: 1 each Cholecalciferol (Vitamin D) 1,000 unit PO DAILY [facility] Last Admin: 06/22/17 10:03 Dose: 1,000 unit Clopidogrel Bisulfate (Plavix) 75 mg PO DAILY [facility] Last Admin: 06/22/17 10:02 Dose: 75 mg Finasteride (Proscar) 5 mg PO DAILY [facility] Last Admin: 06/22/17 10:08 Dose: 5 mg Furosemide (Lasix) 40 mg IV Q8 [facility] Last Admin: 06/23/17 06:02 Dose: 40 mg Gabapentin (Neurontin) [facility] Last Admin: 06/22/17 17:35 Dose: 300 mg Losartan Potassium (Cozaar) 25 mg PO DAILY [facility] Last Admin: 06/22/17 10:10 Dose: 25 mg Magnesium Hydroxide (Milk Of Magnesia) 30 ml PO DAILY PRN PRN PRN Reason: Constipation Methylprednisolone (Solu-Medrol) 40 mg IV Q6 [facility] Metoprolol Tartrate (Lopressor (Beta Yelena)) 25 mg PO BID [facility] Last Admin: 06/22/17 21:18 Dose: 25 mg Multivitamins/Minerals (Multivitamin With Minerals) 1 tablet [facility] Last Admin: 06/22/17 08:05 Dose: 1 tablet Nutritional Formula (Lactose Free) (Ensure Enlive) 120 ml PO 4X/DAY [facility] Last Admin: 06/22/17 21:17 Dose: 120 ml Ondansetron HCl (Zofran) 4 mg IV Q8H PRN PRN PRN Reason: Nausea Oxycodone HCl (Oxyir) 5 mg PO Q4H PRN PRN PRN Reason: Moderate Pain (pain scale 4-5) Last Admin: 06/22/17 21:19 Dose: 5 mg Potassium Chloride (K-Dur) 20 meq PO BID [facility] Last Admin: 06/22/17 21:18 Dose: 20 meq Pravastatin Sodium (Pravachol) 40 mg PO QHS [facility] Last Admin: 06/22/17 21:20 Dose: 40 mg Rivaroxaban (Xarelto) 20 mg [facility] Last Admin: 06/22/17 08:06 Dose: 20 mg Sodium Chloride () 5 - 30 ml IV UD PRN PRN Reason: SALINE FLUSH Last Admin: 06/23/17 06:02 Dose: 10 ml Spironolactone (Aldactone) 25 mg PO DAILY [facility] Last Admin: 06/22/17 10:07 Dose: 25 mg Tamsulosin HCl (Flomax) 0.4 mg PO QHS [facility] Last Admin: 06/22/17 21:17 Dose: 0.4 mg Vitamin E (Vitamin E) 400 units PO DAILY [facility] Last Admin: 06/22/17 10:15 Dose: 400 units Assessment/Plan Active and Suspected Problems (Last Updated 06/17/17 @ 12:11 by Trenton Landin DO ) Heart failure with preserved ejection fraction (Acute) 81-year-old white male who was discharged on the eighth with respiratory failure and CHF presents again within 48 hours with hypoxia at home and worsening respiratory distress. Chest x-ray that showed chronic changes but also CHF but was actually improved from June 14 but overall worse from June 10. Patient was put on BiPAP which is subsequent been removed. Patient is continuing with IV Lasix for his heart failure. 1. Acute on chronic hypoxic and hypercarbic resp failure * secondary to CHF + OSH, interstitial lung disease/pulmonary fibrosis with baseline restrictive lung disease * On IV Solu-Medrol. CT chest showed bilateral airspace opacities. increased reticular markings and groundglass opacities, diffuse but predominantly in bilateral upper lobes. * BiPAP, wean as tolerated * D/W Dr. Prakash. Needs palliative care follow-up and further decision on hospice care, if patient and family agrees. Transfer to PCU. 2. Acute HFpEF * EF 55% from echo on 03/28/17 * IV lasix 40 TID * start losartan 25 daily, known allergy to BRANDI-inhibitor * weight down to 117 kg * repeat echo on 06/23/2017 shows preserved EF 60% with no evidence of diastolic dysfunction. No regional wall motion abnormalities. Normal RV size and systolic function. Normal right and left atria. Mild to moderate TR, PA SP 45 images suggestive of mild pulmonary hypertension. 3. pAfib * currently NSR * on metop tartrate, amiodarone * on xarelto 4. CAD stable 5. DVT proph: anticoagulated 6. Advanced Care Planning: * Discussed with the patient's and son. Asked pt is he wanted CPR in event of CPA, intubation for worsening resp failure, and PEG tube if he couldn' t swallow properly * Pt stated he did not want any of that, therefore, pt is DNRCCA, no intubation , no PEG tube. * agreed for palliative care consult to decide on hospice care. This note was generated with [employer] dictation software. Every effort was made to ensure accuracy, however computerized brush fabrication supervisor mistakes may persist. . Code Visit Inpatient E&M: 91277 Subs Hosp L3
--- NOTE | 2017-06-23 09:52 | CASEMGMT ---
BOY SMITH READMISSION ASSESSMENT: [employer] 3 Initial DX: CHF READMIT DX: Heart Failure with preserved EF; Acute on Chronic Hypoxemic and hypercarbic respiratory Patient was adm 06/14-06/19 for CHF and returned 06/21/17 with continued complaints of severe SOB and hypoxia. The patient lives with his spouse and was discharged with [facility]. Follow-up phone call was completed on 06/20/17, and patient's spouse reported at that time that patient was experiencing SOB and was on 5 liters of oxygen and sating upper 80's low 90's. During follow-up phone call, Viri reported she was having difficulty helping patient bathe due to patient's sob, and BOY SMITH suggested [facility] provide educations re: energy conservation techniques. BOY SMITH also introduced Palliative care services due to patient's chronic medical conditions. Viri was interested in hearing from Palliative. This information, as well, as information re: patient's need for energy conservation techniques were relayed by this mattress spring encaser to [facility] nurse, Melania. BOY SMITH asked about follow-up appnts, and Viri stated she would be unable to get him to a PCP appnt due to the considerable and taxing effort it would be to get the patient to the car, into the car, and out of the car, and into the physician office. Viir did confirm patient does have all of the DME he requires for safe mobility, and has oxygen and enough tanks. This admission, SW referral was made for possible assisted placement due to decreased functional status and Viri's difficulty managing patient at home. Disposition Planning: TBD-SNF vs Home
[2017-06-23] MEDS: Gabapentin 300 MG Capsule PO ×2 (10:09→18:09)
[2017-06-23] MEDS: Multivitamins,Ther W-Minerals Tablet 1 TABLET PO (10:09)
[2017-06-23] MEDS: Aspirin E.C. 81 MG Tablet PO (10:09)
[2017-06-23] MEDS: Calcium (Elemental) 500 MG Tablet PO (10:09)
[2017-06-23] MEDS: Ascorbic Acid 500 MG Tablet PO (10:10)
[2017-06-23] MEDS: Spironolactone 25 MG Tablet PO (10:10)
[2017-06-23] MEDS: Amiodarone 200 MG Tablet PO (10:10)
[2017-06-23] MEDS: Rivaroxaban 20 MG Tablet PO (10:10)
[2017-06-23] MEDS: Vitamin E 400 UNITS Capsule PO (10:11)
[2017-06-23] MEDS: Clopidogrel Bisulfate 75 MG Tablet PO (10:11)
[2017-06-23] MEDS: Metoprolol Tartrate 25 MG Tablet PO ×2 (10:11→21:30)
[2017-06-23] MEDS: Losartan Potassium 25 MG Tablet PO (10:11)
[2017-06-23] MEDS: Finasteride 5 MG Tablet PO (10:11)
--- NOTE | 2017-06-23 10:29 | CASEMGMT ---
Addendum entered by Demetrice Martinez 06/23/17 11:52: Pt and family met w/palliative care, they did agree to palliative care and will be set up w/initial appt for further assessment. JIL Cha, CASHIER CHECKER Original Note: See assessment. SW spoke w/, then and son in waiting room. states they had a meeting w/palliative care at 11am at home, asked if they can meet here at the hospital. SW called, spoke w/Kayy, she states they can do this, Linnea will be here at 11. SW let know. (Order placed and information faxed to [facility]). SW offered support to , she states pt was managing well until they both got the flu in March, and pt has been having a difficult time since then. SW spoke w/ about rehab options, she would like pt to go to TCU. SW called TCU and put pt on the TCU list, however they may not have bed availability until Friday. SW let and son know this, and gave list of other SNF's in the area, asked her to consider some other options in the event [facility] does not have a bed. also asked about the hospice unit, SW reviewed briefly both hospice and palliative care w/family. SW also gave this SW's and the SW on PCU's numbers to call with any questions, SW will continue to follow for long term placement. JIL Cha, CASHIER CHECKER
[2017-06-23 14:23] LABS: Lactic Acid 1.9 mmol/L (0.4-2.0)
[2017-06-23] MEDS: Tamsulosin HCl 0.4 MG Capsule PO (21:30)
[2017-06-23] MEDS: Pravastatin 40 MG Tablet PO (21:30)
[2017-06-24] VITALS (15 sets, daily range): BP systolic 103–114; BP diastolic 54–61; PULSE 60–70; RESP 14–33; TEMP 36.1–36.9; O2SAT 90–95
[2017-06-24] MEDS: 0.9% NaCl Peripheral Flush Adult/Peds IV ×2 (00:56→16:58)
--- NOTE | 2017-06-24 06:46 | CPS ---
pt declines use of cpap
[2017-06-24 06:57] LABS: Anion Gap 6 (5-15); BUN 33 mg/dL (7-18); BUN/Creat Ratio 30.8 RATIO (10-20); Chloride 91 mmol/L (98-107); Creatinine, Serum 1.07 mg/dL (0.70-1.30); EST Glomerular Filtration Rate 70 mL/min (>60); Est Glom Filt Rate - Afr Amer 85 mL/min (>60); Estimated Creatinine Clearance 57.67 ml/min; Glucose 291 mg/dL (74-106); Potassium 4.5 mmol/L (3.5-5.1); Sodium Level 134 mmol/L (136-145)
[2017-06-24] MEDS: Rivaroxaban 20 MG Tablet PO (08:34)
[2017-06-24] MEDS: Spironolactone 25 MG Tablet PO (08:34)
[2017-06-24] MEDS: Aspirin E.C. 81 MG Tablet PO (08:35)
[2017-06-24] MEDS: Gabapentin 300 MG Capsule PO ×2 (08:35→16:56)
[2017-06-24] MEDS: Furosemide 40 MG/4 ML Vial IV ×2 (08:36→21:47)
--- NOTE | 2017-06-24 09:23 | PCM.PROGNOTE ---
Patient Problems: Active and Suspected Problems (Last Updated 06/17/17 @ 12:11 by Trenton Landin DO) Heart failure with preserved ejection fraction (Acute) Subjective: The patient was seen and examined, his is at the bedside. Reports significant dyspnea on exertion and the need for BiPAP when too short of breath. Unable to tolerate more than an hour at a time with BiPAP secondary to claustrophobia. He is willing to keep trying. Patient still requiring 5-6L of oxygen supplementation. He remains afebrile and hemodynamically stable. Discussed use of noninvasive positive pressure therapy and use when going home, as well as the need for sleep study. Objective: Recent lab work and culture data reviewed. Vital signs are stable and patient remains afebrile and hemodynamically stable. Patient is 93% on 6 L of oxygen this morning, was on room air at 0400 and saturating at 95%. Unsure if this was error in recording data. Echocardiogram 06/23/17: Normal LV size. Left ventricular systolic function is normal. The estimated ejection fraction is 60 %. No evidence for diastolic dysfunction. Pulmonary artery systolic pressure is 45 mmHg. Mild pulmonary hypertension. Contrast injection was performed. - Physical Exam General: Alert, Oriented x3, Cooperative, No apparent distress, - - mild conversational dyspnea HEENT: Atraumatic, Normocephalic Oral: Moist Mucosa, No Gingival or Mucosal Lesions/ Ulcerations Neck: Supple, No Nodes, Trachea Midline Lungs: No rhonchi, No wheeze, No rales, Diminished Cardiovascular: Regular rate, Regular Rhythm, Normal S1, Normal S2, Murmur Abdomen: Bowel Sounds Present, Soft, Non Tender, Obese Extremities: No cyanosis, No edema, Capillary Refill Less than 3 Seconds Skin: No rashes, - - ecchymotic Musculoskeletal: No Tenderness to Palpation of Joints or Extremities Lymphatic: No Cervical, Supraclavicular, or Inguinal Adenopathy Neurological: Neuro grossly intact Psych/Mental Status: Alert and oriented to time, place, person, mood and affect Vital Signs Temp Pulse Resp BP Pulse Ox 98.0 F 60 18 103/57 L 93 06/24/17 04:00 06/24/17 07:53 06/24/17 04:00 06/24/17 04:00 06/24/17 08:00 Oxygen Flow Rate (L/min) 6 Oxygen Delivery Method Nasal Cannula Weight: 256 lb 6.362 oz Body Mass Index (BMI) 36.1 Intake and Output for Last 24 Hours 06/22/17 06/23/17 06/24/17 23:59 23:59 23:59 Intake Total 800 / 800 300 / 300 Output Total 890 / 890 730 / 730 Balance -90 / -90 -430 / -430 Microbiology Past 72 Hours 06/23/17 07:50 Respiratory Panel (PCR) - Final Mucosa - Nose 06/23/17 07:55 Streptococcus pneumoniae Antigen (M - Final Urine, Random 06/23/17 07:55 Legionella Antigen - Final Urine, Random Laboratory Tests Past 24 Hrs 06/23/17 06/23/17 06/24/17 13:45 13:45 05:50 Sodium 134 L Potassium 4.5 Chloride 91 L Carbon Dioxide 37.0 H Anion Gap 6 BUN 33 H Creatinine 1.07 Estim Creat Clear Calc 57.67 Est GFR (MDRD) Af Amer 85 Est GFR (MDRD) Non-Af 70 BUN/Creatinine Ratio 30.8 H Glucose 291 H Lactic Acid 1.9 Calcium 9.0 Miscellaneous Test Pending Assessment/Plan Active and Suspected Problems (Last Updated 06/17/17 @ 12:11 by Trenton Landin DO) Heart failure with preserved ejection fraction (Acute) RECOMMENDATIONS: 1. Send out hypersensitivity pneumonitis panel 3. Encourage empiric BiPAP therapy 12/6 cm of water with naps and nightly 4. Continue IV Solu-Medrol 40 mg every 6 hours 5. Although low suspicion, will complete preliminary pulmonary infectious workup 6. Continue Xarelto 7. Wean oxygen supplementation to keep saturations at or above 90% 8. Ambulatory pulse oximetry prior to discharge IMPRESSIONS: 1. Acute on chronic hypoxemic and hypercarbic respiratory failure/baseline restrictive lung disease/pulmonary fibrosis The patient initially presented to the hospital with shortness of breath, for which he was started empirically on BiPAP. The patient has an underlying interstitial lung process along with restrictive ventilatory mechanics and a disproportionate reduction in diffusing capacity, noted on prior PFTs. He has been on amiodarone for quite some time. Would need to consider the possibility of amiodarone related lung toxicity. However, would first need to clarify how long he has been on the medication and if he was previously on a higher dose. At the current time, he is only prescribed 200 mg daily. The patient does appear to have CO2 retention and a climbing serum bicarbonate, with concern for overdiuresis. The patient does not appear to be in an acute exacerbation of his underlying diastolic heart failure. The patient's recent CT chest revealed bilateral airspace opacities, increased reticular markings and groundglass opacities, which were diffuse in nature, but seemed more pronounced in the upper lobes. This is a very nonspecific pattern and could represent a wide array of diffuse parenchymal lung diseases. Although of low clinical suspicion, a preliminary pulmonary infectious workup will be completed. Given that the patient's CT findings could represent an entity like PMO BUSINESS ANALYST or potentially hypersensitivity pneumonitis, he will also be started empirically on IV steroids 40 mg every 6 hours. 2. Heart failure with preserved ejection fraction/paroxysmal atrial fibrillation/coronary artery disease status post CABG and PCI The patient does not appear to be clinically in heart failure. Cumulative fluid balance is -800. Would recommend continuing baseline diuretic regimen. Concern for contraction alkalosis with scheduled IV Lasix, however this was decreased to every 12 hours and labwork was improved. Repeat echocardiogram showed EF of 60%, no evidence of diastolic dysfunction, RVSP estimated at 45 mmHg. 3. Morbid obesity/hypertension/hyperlipidemia Complicates care, management, recovery and prognosis. Continue home medications as indicated. Weight loss is recommended. Continue physical and occupational therapy. Plan for discharge to [facility] for the time being. This note was generated with [employer] software. It may contain incorrect words, spelling, and punctuation that were not noted in checking the note before signing.
--- NOTE | 2017-06-24 09:26 | PN_ITS ---
Patient Problems: Active and Suspected Problems (Last Updated 06/17/17 @ 12:11 by Trenton Landin DO ) Heart failure with preserved ejection fraction (Acute) Subjective: The patient was seen and examined, his is at the bedside. Reports significant dyspnea on exertion and the need for BiPAP when too short of breath. Unable to tolerate more than an hour at a time with BiPAP secondary to claustrophobia. He is willing to keep trying. Patient still requiring 5-6L of oxygen supplementation. He remains afebrile and hemodynamically stable. Discussed use of noninvasive positive pressure therapy and use when going home, as well as the need for sleep study. Objective: Recent lab work and culture data reviewed. Vital signs are stable and patient remains afebrile and hemodynamically stable. Patient is 93% on 6 L of oxygen this morning, was on room air at 0400 and saturating at 95%. Unsure if this was error in recording data. Echocardiogram 06/23/17: Normal LV size. Left ventricular systolic function is normal. The estimated ejection fraction is 60 %. No evidence for diastolic dysfunction. Pulmonary artery systolic pressure is 45 mmHg. Mild pulmonary hypertension. Contrast injection was performed. - Physical Exam General: Alert, Oriented x3, Cooperative, No apparent distress, - - mild conversational dyspnea HEENT: Atraumatic, Normocephalic Oral: Moist Mucosa, No Gingival or Mucosal Lesions/ Ulcerations Neck: Supple, No Nodes, Trachea Midline Lungs: No rhonchi, No wheeze, No rales, Diminished Cardiovascular: Regular rate, Regular Rhythm, Normal S1, Normal S2, Murmur Abdomen: Bowel Sounds Present, Soft, Non Tender, Obese Extremities: No cyanosis, No edema, Capillary Refill Less than 3 Seconds Skin: No rashes, - - ecchymotic Musculoskeletal: No Tenderness to Palpation of Joints or Extremities Lymphatic: No Cervical, Supraclavicular, or Inguinal Adenopathy Neurological: Neuro grossly intact Psych/Mental Status: Alert and oriented to time, place, person, mood and affect Vital Signs Temp Pulse Resp BP Pulse Ox 98.0 F 60 18 103/57 L 93 06/24/17 04:00 06/24/17 07:53 06/24/17 04:00 06/24/17 04:00 06/24/17 08:00 Oxygen Flow Rate (L/min) 6 Oxygen Delivery Method Nasal Cannula Weight: 256 lb 6.362 oz Body Mass Index (BMI) 36.1 Intake and Output for Last 24 Hours 06/22/17 06/23/17 06/24/17 23:59 23:59 23:59 Intake Total 800 / 800 300 / 300 Output Total 890 / 890 730 / 730 Balance -90 / -90 -430 / -430 Microbiology Past 72 Hours 06/23/17 07:50 Respiratory Panel (PCR) - Final Mucosa - Nose 06/23/17 07:55 Streptococcus pneumoniae Antigen (M - Final Urine, Random 06/23/17 07:55 Legionella Antigen - Final Urine, Random Laboratory Tests Past 24 Hrs 06/23/17 06/23/17 06/24/17 13:45 13:45 05:50 Sodium 134 L Potassium 4.5 Chloride 91 L Carbon Dioxide 37.0 H Anion Gap 6 BUN 33 H Creatinine 1.07 Estim Creat Clear Calc 57.67 Est GFR (MDRD) Af Amer 85 Est GFR (MDRD) Non-Af 70 BUN/Creatinine Ratio 30.8 H Glucose 291 H Lactic Acid 1.9 Calcium 9.0 Miscellaneous Test Pending Assessment/Plan Active and Suspected Problems (Last Updated 06/17/17 @ 12:11 by Trenton Landin DO ) Heart failure with preserved ejection fraction (Acute) RECOMMENDATIONS: 1. Send out hypersensitivity pneumonitis panel 3. Encourage empiric BiPAP therapy 12/6 cm of water with naps and nightly 4. Continue IV Solu-Medrol 40 mg every 6 hours 5. Although low suspicion, will complete preliminary pulmonary infectious workup 6. Continue Xarelto 7. Wean oxygen supplementation to keep saturations at or above 90% 8. Ambulatory pulse oximetry prior to discharge IMPRESSIONS: 1. Acute on chronic hypoxemic and hypercarbic respiratory failure/baseline restrictive lung disease/pulmonary fibrosis The patient initially presented to the hospital with shortness of breath, for which he was started empirically on BiPAP. The patient has an underlying interstitial lung process along with restrictive ventilatory mechanics and a disproportionate reduction in diffusing capacity, noted on prior PFTs. He has been on amiodarone for quite some time. Would need to consider the possibility of amiodarone related lung toxicity. However, would first need to clarify how long he has been on the medication and if he was previously on a higher dose. At the current time, he is only prescribed 200 mg daily. The patient does appear to have CO2 retention and a climbing serum bicarbonate, with concern for overdiuresis. The patient does not appear to be in an acute exacerbation of his underlying diastolic heart failure. The patient's recent CT chest revealed bilateral airspace opacities, increased reticular markings and groundglass opacities, which were diffuse in nature, but seemed more pronounced in the upper lobes. This is a very nonspecific pattern and could represent a wide array of diffuse parenchymal lung diseases. Although of low clinical suspicion , a preliminary pulmonary infectious workup will be completed. Given that the patient's CT findings could represent an entity like SOW MANAGER or potentially hypersensitivity pneumonitis, he will also be started empirically on IV steroids 40 mg every 6 hours. 2. Heart failure with preserved ejection fraction/paroxysmal atrial fibrillation/coronary artery disease status post CABG and PCI The patient does not appear to be clinically in heart failure. Cumulative fluid balance is -800. Would recommend continuing baseline diuretic regimen. Concern for contraction alkalosis with scheduled IV Lasix, however this was decreased to every 12 hours and labwork was improved. Repeat echocardiogram showed EF of 60%, no evidence of diastolic dysfunction, RVSP estimated at 45 mmHg. 3. Morbid obesity/hypertension/hyperlipidemia Complicates care, management, recovery and prognosis. Continue home medications as indicated. Weight loss is recommended. Continue physical and occupational therapy. Plan for discharge to care home for the time being. This note was generated with [employer] software. It may contain incorrect words, spelling, and punctuation that were not noted in checking the note before signing.
[2017-06-24] MEDS: Amiodarone 200 MG Tablet PO (10:00)
[2017-06-24] MEDS: Losartan Potassium 25 MG Tablet PO (10:00)
[2017-06-24] MEDS: Metoprolol Tartrate 25 MG Tablet PO ×2 (10:01→21:48)
[2017-06-24] MEDS: Clopidogrel Bisulfate 75 MG Tablet PO (10:02)
[2017-06-24] MEDS: Finasteride 5 MG Tablet PO (10:02)
--- NOTE | 2017-06-24 13:49 | CASEMGMT ---
PRISCILLA spoke with Dr Prakash and it was decided that PRISCILLA will talk with Michelle in TCU. When patient is ready to be d/c from TCU they will coordinate with the sleep lab to have patient go there directly. PRISCILLA did talk with Michelle and they will be able to communicate with sleep lab at d/c. PRISCILLA spoke with patient and his . PRISCILLA told them that there will be a bed for patient possibly or definitely Friday. They were very pleased with this information. Plan: [facility] T[facility] Jaquelin TOVAR MSW
--- NOTE | 2017-06-24 16:09 | PCM.PN.HOSP ---
Patient Problems: Active and Suspected Problems (Last Updated 06/17/17 @ 12:11 by Trenton Landin DO) Heart failure with preserved ejection fraction (Acute) Subjective: Patient is still short of breath on 5 to 6 L of oxygen. Sitting in the chair. Heart rate is controlled. Patient had palliative care meeting. Further hospice patient to be made on future meetings at home Objective: General: Alert, Oriented x3, Cooperative, Lethargic HEENT: Atraumatic, PERRLA, EOMI, Normocephalic Oral: Dry Mucosa Neck: Supple, No JVD, Negative Carotid Bruits Lungs: Diminished, Rhonchi, intermittent gets tachypneic and short of breath on mild exertion even going to bathroom Cardiovascular: Regular rate, Regular Rhythm, Normal S1, Normal S2, No murmurs Abdomen: Bowel Sounds Present, Soft, Non Tender, Non-Distended Extremities: No edema, Capillary Refill Less than 3 Seconds Skin: No rashes, No breakdown Musculoskeletal: No Tenderness to Palpation of Joints or Extremities, Muscle Wasting Neurological: Cranial nerves II-XII grossly intact Psych/Mental Status: Normal Affect, Appropriate Vitals/I&O's: Vital Signs Temp Pulse Resp BP Pulse Ox 96.9 F L 60 16 114/59 L 92 06/24/17 10:00 06/24/17 15:45 06/24/17 10:00 06/24/17 10:01 06/24/17 10:00 Oxygen Flow Rate (L/min) 5 Oxygen Delivery Method Nasal Cannula Weight: 256 lb 6.362 oz Body Mass Index (BMI) 36.1 Intake and Output for Last 24 Hours 06/22/17 06/23/17 06/24/17 23:59 23:59 23:59 Intake Total 800 / 800 640 / 640 Output Total 890 / 890 830 / 830 Balance -90 / -90 -190 / -190 Microbiology Past 72 Hours 06/23/17 07:50 Mucosa - Nose Respiratory Panel (PCR) - Final 06/23/17 07:55 Urine, Random Streptococcus pneumoniae Antigen (M - Final 06/23/17 07:55 Urine, Random Legionella Antigen - Final Laboratory Results 06/24/17 05:50: Sodium 134 L, Potassium 4.5, Chloride 91 L, Carbon Dioxide 37.0 H, Anion Gap 6, BUN 33 H, Creatinine 1.07, Estim Creat Clear Calc 57.67, Est GFR (MDRD) Af Amer 85, Est GFR (MDRD) Non-Af 70, BUN/Creatinine Ratio 30.8 H, Glucose 291 H, Calcium 9.0 Current Medications Acetaminophen (Tylenol) 650 mg PO Q6H PRN PRN PRN Reason: Mild Pain (scale 0-3)/T>100.7 Amiodarone HCl (Cordarone) 200 mg PO DAILY [facility] Last Admin: 06/24/17 10:00 Dose: 200 mg Ascorbic Acid (Vitamin C) 500 mg PO DAILY@0800 [facility] Last Admin: 06/24/17 08:37 Dose: Not Given [facility] Admin: 06/24/17 08:35 Dose: 81 mg Calcium Carbonate (Os-Tolu 500) [facility] Last Admin: 06/24/17 08:37 Dose: Not Given Chlorhexidine Gluconate () 1 each TOPICAL DAILY [facility] Last Admin: 06/24/17 10:00 Dose: Not Given Cholecalciferol (Vitamin D) 1,000 unit PO DAILY [facility] Last Admin: 06/24/17 10:03 Dose: Not Given Clopidogrel Bisulfate (Plavix) 75 mg PO DAILY [facility] Last Admin: 06/24/17 10:02 Dose: 75 mg Finasteride (Proscar) 5 mg PO DAILY [facility] Last Admin: 06/24/17 10:02 Dose: 5 mg Furosemide (Lasix) 40 mg IV Q12 [facility] Last Admin: 06/24/17 08:36 Dose: 40 mg Gabapentin (Neurontin) [facility] Last Admin: 06/24/17 08:35 Dose: 300 mg Losartan Potassium (Cozaar) 25 mg PO DAILY [facility] Last Admin: 06/24/17 10:00 Dose: 25 mg Magnesium Hydroxide (Milk Of Magnesia) 30 ml PO DAILY PRN PRN PRN Reason: Constipation Methylprednisolone (Solu-Medrol) 40 mg IV Q6 [facility] Last Admin: 06/24/17 12:17 Dose: 40 mg Metoprolol Tartrate (Lopressor (Beta Yelena)) 25 mg PO BID [facility] Last Admin: 06/24/17 10:01 Dose: 25 mg Multivitamins/Minerals (Multivitamin With Minerals) [facility] tablet [facility] Last Admin: 06/24/17 08:37 Dose: Not Given Nutritional Formula (Lactose Free) (Ensure Enlive) 60 ml PO 4X/DAY [facility] Last Admin: 06/24/17 15:08 Dose: 60 ml Ondansetron HCl (Zofran) 4 mg IV Q8H PRN PRN PRN Reason: Nausea Oxycodone HCl (Oxyir) 5 mg PO Q4H PRN PRN PRN Reason: Moderate Pain (pain scale 4-5) Last Admin: 06/22/17 21:19 Dose: 5 mg Potassium Chloride (K-Dur) 20 meq PO BID [facility] Last Admin: 06/24/17 08:34 Dose: 20 meq Pravastatin Sodium (Pravachol) 40 mg PO QHS [facility] Last Admin: 06/23/17 21:30 Dose: 40 mg Rivaroxaban (Xarelto) [facility] Last Admin: 06/24/17 08:34 Dose: 20 mg Sodium Chloride () 5 - 30 ml IV UD PRN PRN Reason: SALINE FLUSH Last Admin: 06/24/17 00:56 Dose: 10 ml Spironolactone (Aldactone) 25 mg PO DAILY [facility] Last Admin: 06/24/17 08:34 Dose: 25 mg Tamsulosin HCl (Flomax) 0.4 mg PO QHS [facility] Last Admin: 06/23/17 21:30 Dose: 0.4 mg Vitamin E (Vitamin E) 400 units PO DAILY [facility] Last Admin: 06/24/17 10:03 Dose: Not Given Assessment/Plan Active and Suspected Problems (Last Updated 06/17/17 @ 12:11 by Trenton Landin DO) Heart failure with preserved ejection fraction (Acute) 81-year-old white male who was discharged on the with respiratory failure and CHF presents again within 48 hours with hypoxia at home and worsening respiratory distress. Chest x-ray that showed chronic changes but also CHF but was actually improved from June 14 but overall worse from June 10. Patient was put on BiPAP which is subsequent been removed. Patient is continuing with IV Lasix for his heart failure. 1. Acute on chronic hypoxic and hypercarbic resp failure secondary to CHF + OSH, interstitial lung disease/pulmonary fibrosis with baseline restrictive lung disease On IV Solu-Medrol. CT chest showed bilateral airspace opacities. increased reticular markings and groundglass opacities, diffuse but predominantly in bilateral upper lobes. BiPAP, wean as tolerated D/W Dr. Prakash. Patient had palliative care meeting yesterday. Patient's wants transferred to TCU. The medical case manager made aware of that. Pulmonary follow-up reviewed. Patient had overnight oximetry study which revealed periodic oxygen desaturation and a sawtooth pattern concerning for underlying sleep disorder. Patient agreeable for outpatient sleep study test. 2. Acute HFpEF EF 55% from echo on 03/28/17 IV lasix 40 TID start losartan 25 daily, known allergy to BRANDI-inhibitor weight down to 117 kg repeat echo on 06/23/2017 shows preserved EF 60% with no evidence of diastolic dysfunction. No regional wall motion abnormalities. Normal RV size and systolic function. Normal right and left atria. Mild to moderate TR, PA SP 45 images suggestive of mild pulmonary hypertension. 3. pAfib currently NSR on metop tartrate, amiodarone on xarelto 4. CAD stable 5. DVT proph: anticoagulated 6. Advanced Care Planning: Discussed with the patient's and son. Asked pt is he wanted CPR in event of CPA, intubation for worsening resp failure, and PEG tube if he couldn't swallow properly Pt stated he did not want any of that, therefore, pt is DNRCCA, no intubation, no PEG tube. This note was generated with [employer] dictation software. Every effort was made to ensure accuracy, however computerized securities analyst mistakes may persist. . Code Visit Inpatient E&M: 23429 [facility] L3
--- NOTE | 2017-06-24 16:20 | PN_ITS ---
Patient Problems: Active and Suspected Problems (Last Updated 06/17/17 @ 12:11 by Trenton Landin DO ) Heart failure with preserved ejection fraction (Acute) Subjective: Patient is still short of breath on 5 to 6 L of oxygen. Sitting in the chair. Heart rate is controlled. Patient had palliative care meeting. Further hospice patient to be made on future meetings at home Objective: General: Alert, Oriented x3, Cooperative, Lethargic HEENT: Atraumatic, PERRLA, EOMI, Normocephalic Oral: Dry Mucosa Neck: Supple, No JVD, Negative Carotid Bruits Lungs: Diminished, Rhonchi, intermittent gets tachypneic and short of breath on mild exertion even going to bathroom Cardiovascular: Regular rate, Regular Rhythm, Normal S1, Normal S2, No murmurs Abdomen: Bowel Sounds Present, Soft, Non Tender, Non-Distended Extremities: No edema, Capillary Refill Less than 3 Seconds Skin: No rashes, No breakdown Musculoskeletal: No Tenderness to Palpation of Joints or Extremities, Muscle Wasting Neurological: Cranial nerves II-XII grossly intact Psych/Mental Status: Normal Affect, Appropriate Vitals/I&O's: Vital Signs Temp Pulse Resp BP Pulse Ox 96.9 F L 60 16 114/59 L 92 06/24/17 10:00 06/24/17 15:45 06/24/17 10:00 06/24/17 10:01 06/24/17 10:00 Oxygen Flow Rate (L/min) 5 Oxygen Delivery Method Nasal Cannula Weight: 256 lb 6.362 oz Body Mass Index (BMI) 36.1 Intake and Output for Last 24 Hours 06/22/17 06/23/17 06/24/17 23:59 23:59 23:59 Intake Total 800 / 800 640 / 640 Output Total 890 / 890 830 / 830 Balance -90 / -90 -190 / -190 Microbiology Past 72 Hours 06/23/17 07:50 Mucosa - Nose Respiratory Panel (PCR) - Final 06/23/17 07:55 Urine, Random Streptococcus pneumoniae Antigen (M - Final 06/23/17 07:55 Urine, Random Legionella Antigen - Final Laboratory Results 06/24/17 05:50: Sodium 134 L, Potassium 4.5, Chloride 91 L, Carbon Dioxide 37.0 H, Anion Gap 6, BUN 33 H, Creatinine 1.07, Estim Creat Clear Calc 57.67, Est GFR (MDRD) Af Amer 85, Est GFR (MDRD) Non-Af 70, BUN/Creatinine Ratio 30.8 H, Glucose 291 H, Calcium 9.0 Current Medications Acetaminophen (Tylenol) 650 mg PO Q6H PRN PRN PRN Reason: Mild Pain (scale 0-3)/T>100.7 Amiodarone HCl (Cordarone) 200 mg PO DAILY [facility] Last Admin: 06/24/17 10:00 Dose: 200 mg Ascorbic Acid (Vitamin C) 500 mg PO DAILY@0800 [facility] Last Admin: 06/24/17 08:37 Dose: Not Given Aspirin (Ecot[facility]) [facility] Last Admin: 06/24/17 08:35 Dose: 81 mg Calcium Carbonate (Os-Tolu 500) [facility] Last Admin: 06/24/17 08:37 Dose: Not Given Chlorhexidine Gluconate () 1 each TOPICAL DAILY [facility] Last Admin: 06/24/17 10:00 Dose: Not Given Cholecalciferol (Vitamin D) 1,000 unit PO DAILY [facility] Last Admin: 06/24/17 10:03 Dose: Not Given Clopidogrel Bisulfate (Plavix) 75 mg PO DAILY [facility] Last Admin: 06/24/17 10:02 Dose: 75 mg Finasteride (Proscar) 5 mg PO DAILY [facility] Last Admin: 06/24/17 10:02 Dose: 5 mg Furosemide (Lasix) 40 mg IV Q12 [facility] Last Admin: 06/24/17 08:36 Dose: 40 mg Gabapentin (Neurontin) [facility] Last Admin: 06/24/17 08:35 Dose: 300 mg Losartan Potassium (Cozaar) 25 mg PO DAILY [facility] Last Admin: 06/24/17 10:00 Dose: 25 mg Magnesium Hydroxide (Milk Of Magnesia) 30 ml PO DAILY PRN PRN PRN Reason: Constipation Methylprednisolone (Solu-Medrol) 40 mg IV Q6 [facility] Last Admin: 06/24/17 12:17 Dose: 40 mg Metoprolol Tartrate (Lopressor (Beta Yelena)) 25 mg PO BID [facility] Last Admin: 06/24/17 10:01 Dose: 25 mg Multivitamins/Minerals (Multivitamin With Minerals) [facility] Last Admin: 06/24/17 08:37 Dose: Not Given Nutritional Formula (Lactose Free) (Ensure Enlive) 60 ml PO 4X/DAY [facility] Last Admin: 06/24/17 15:08 Dose: 60 ml Ondansetron HCl (Zofran) 4 mg IV Q8H PRN PRN PRN Reason: Nausea Oxycodone HCl (Oxyir) 5 mg PO Q4H PRN PRN PRN Reason: Moderate Pain (pain scale 4-5) Last Admin: 06/22/17 21:19 Dose: 5 mg Potassium Chloride (K-Dur) 20 meq PO BID [facility] Last Admin: 06/24/17 08:34 Dose: 20 meq Pravastatin Sodium (Pravachol) 40 mg PO QHS [facility] Last Admin: 06/23/17 21:30 Dose: 40 mg Rivaroxaban (Xarelto) [facility] Last Admin: 06/24/17 08:34 Dose: 20 mg Sodium Chloride () 5 - 30 ml IV UD PRN PRN Reason: SALINE FLUSH Last Admin: 06/24/17 00:56 Dose: 10 ml Spironolactone (Aldactone) 25 mg PO DAILY [facility] Last Admin: 06/24/17 08:34 Dose: 25 mg Tamsulosin HCl (Flomax) 0.4 mg PO QHS [facility] Last Admin: 06/23/17 21:30 Dose: 0.4 mg Vitamin E (Vitamin E) 400 units PO DAILY [facility] Last Admin: 06/24/17 10:03 Dose: Not Given Assessment/Plan Active and Suspected Problems (Last Updated 06/17/17 @ 12:11 by Trenton Landin DO ) Heart failure with preserved ejection fraction (Acute) 81-year-old white male who was discharged on the with respiratory failure and CHF presents again within 48 hours with hypoxia at home and worsening respiratory distress. Chest x-ray that showed chronic changes but also CHF but was actually improved from June 14 but overall worse from June 10. Patient was put on BiPAP which is subsequent been removed. Patient is continuing with IV Lasix for his heart failure. 1. Acute on chronic hypoxic and hypercarbic resp failure * secondary to CHF + OSH, interstitial lung disease/pulmonary fibrosis with baseline restrictive lung disease * On IV Solu-Medrol. CT chest showed bilateral airspace opacities. increased reticular markings and groundglass opacities, diffuse but predominantly in bilateral upper lobes. * BiPAP, wean as tolerated * D/W Dr. Prakash. Patient had palliative care meeting yesterday. Patient's wants transferred to TCU. The protective services case worker made aware of that. * Pulmonary follow-up reviewed. Patient had overnight oximetry study which revealed periodic oxygen desaturation and a sawtooth pattern concerning for underlying sleep disorder. Patient agreeable for outpatient sleep study test. 2. Acute HFpEF * EF 55% from echo on 03/28/17 * IV lasix 40 TID * start losartan 25 daily, known allergy to BRANDI-inhibitor * weight down to 117 kg * repeat echo on 06/23/2017 shows preserved EF 60% with no evidence of diastolic dysfunction. No regional wall motion abnormalities. Normal RV size and systolic function. Normal right and left atria. Mild to moderate TR, PA SP 45 images suggestive of mild pulmonary hypertension. 3. pAfib * currently NSR * on metop tartrate, amiodarone * on xarelto 4. CAD stable 5. DVT proph: anticoagulated 6. Advanced Care Planning: * Discussed with the patient's and son. Asked pt is he wanted CPR in event of CPA, intubation for worsening resp failure, and PEG tube if he couldn' t swallow properly * Pt stated he did not want any of that, therefore, pt is DNRCCA, no intubation , no PEG tube. This note was generated with [employer] dictation software. Every effort was made to ensure accuracy, however computerized behavioral health rn mistakes may persist. . Code Visit Inpatient E&M: 75190 Subs Hosp L3
[2017-06-24] MEDS: Tamsulosin HCl 0.4 MG Capsule PO (21:47)
[2017-06-24] MEDS: Pravastatin 40 MG Tablet PO (21:48)
[2017-06-25] VITALS (13 sets, daily range): BP systolic 110–121; BP diastolic 54–69; PULSE 53–65; RESP 16–18; TEMP 36.4–36.9; O2SAT 94–98
[2017-06-25] MEDS: Acetaminophen 325 MG Tablet 650 MG PO (06:55)
[2017-06-25] MEDS: Rivaroxaban 20 MG Tablet PO (08:28)
[2017-06-25] MEDS: Gabapentin 300 MG Capsule PO ×2 (08:28→17:24)
[2017-06-25] MEDS: Aspirin E.C. 81 MG Tablet PO (08:28)
[2017-06-25] MEDS: Furosemide 40 MG/4 ML Vial IV ×2 (10:19→22:16)
[2017-06-25] MEDS: 0.9% NaCl Peripheral Flush Adult/Peds IV ×2 (10:20→13:27)
[2017-06-25] MEDS: Amiodarone 200 MG Tablet PO (10:20)
[2017-06-25] MEDS: Clopidogrel Bisulfate 75 MG Tablet PO (10:20)
[2017-06-25] MEDS: Losartan Potassium 25 MG Tablet PO (10:20)
[2017-06-25] MEDS: Spironolactone 25 MG Tablet PO (10:20)
[2017-06-25] MEDS: Finasteride 5 MG Tablet PO (10:20)
[2017-06-25] MEDS: Metoprolol Tartrate 25 MG Tablet PO (10:20)
--- NOTE | 2017-06-25 11:00 | PN_ITS ---
Patient Problems: Active and Suspected Problems (Last Updated 06/17/17 @ 12:11 by Trenton Landin DO ) Acute on chronic respiratory failure with hypoxia and hypercapnia (Acute) Heart failure with preserved ejection fraction (Acute) Subjective: Patient was seen and examined. He is maintaining appropriate saturations on 5 L of oxygen. He just ambulated to the bathroom and is significantly dyspneic, requesting BiPAP. He denies cough or sputum production. He denies any wheezing. He remained short of breath with minimal activity, however this has slightly improved. Objective: Recent lab work and culture data reviewed. Vital signs are stable and patient remains afebrile and hemodynamically stable. Respiratory panel normal. Urine strep/Legionella was negative. - Physical Exam General: Alert, Oriented x3, Cooperative, - - Tachypneic, conversational dyspnea HEENT: Atraumatic, Normocephalic Oral: Moist Mucosa Neck: Supple, No Nodes, Trachea Midline Lungs: No rhonchi, No wheeze, No rales, Diminished Cardiovascular: Regular rate, Regular Rhythm, Normal S1, Normal S2, Murmur Abdomen: Bowel Sounds Present, Soft, Non Tender, Non-Distended, Obese Extremities: No clubbing, No cyanosis, No edema Skin: No breakdown, - - LE vascular changes Musculoskeletal: No Tenderness to Palpation of Joints or Extremities Lymphatic: - - no significant adenopathy Neurological: Neuro grossly intact Psych/Mental Status: Alert and oriented to time, place, person, mood and affect Vital Signs Temp Pulse Resp BP Pulse Ox 97.6 F L 65 16 113/62 95 06/25/17 09:45 06/25/17 10:20 06/25/17 09:45 06/25/17 10:20 06/25/17 09:45 Oxygen Flow Rate (L/min) 5 Oxygen Delivery Method Nasal Cannula Weight: 255 lb 15.307 oz Body Mass Index (BMI) 36.1 Intake and Output for Last 24 Hours 06/23/17 06/24/17 06/25/17 23:59 23:59 23:59 Intake Total 800 / 800 1605 / 1605 220 / 220 Output Total 890 / 890 1705 / 1705 250 / 250 Balance -90 / -90 -100 / -100 -30 / -30 Microbiology Past 72 Hours 06/23/17 07:50 Respiratory Panel (PCR) - Final Mucosa - Nose 06/23/17 07:55 Streptococcus pneumoniae Antigen (M - Final Urine, Random 06/23/17 07:55 Legionella Antigen - Final Urine, Random Assessment/Plan Active and Suspected Problems (Last Updated 06/17/17 @ 12:11 by Trenton Landin DO ) Acute on chronic respiratory failure with hypoxia and hypercapnia (Acute) Heart failure with preserved ejection fraction (Acute) RECOMMENDATIONS: 1. Send out hypersensitivity pneumonitis panel 3. Encourage empiric BiPAP therapy 12/6 cm of water with naps and nightly 4. Continue IV steroids 5. Although low suspicion, will complete preliminary pulmonary infectious workup 6. Continue Xarelto 7. Wean oxygen supplementation to keep saturations at or above 90% 8. Ambulatory pulse oximetry prior to discharge 9. Initiate auto BiPAP upon discharge until outpatient PSG can be obtained IMPRESSIONS: 1. Acute on chronic hypoxemic and hypercarbic respiratory failure/baseline restrictive lung disease/pulmonary fibrosis The patient initially presented to the hospital with shortness of breath and was started empirically on BiPAP. The patient has an underlying interstitial lung process along with restrictive ventilatory mechanics and a disproportionate reduction in diffusing capacity, noted on prior PFTs. He has been on amiodarone for quite some time. Would need to consider the possibility of amiodarone related lung toxicity. However, would first need to clarify how long he has been on the medication and if he was previously on a higher dose. At the current time, he is only prescribed 200 mg daily. The patient does appear to have CO2 retention and elevated serum bicarbonate, with concern for overdiuresis. The patient does not appear to be in an acute exacerbation of his underlying diastolic heart failure. The patient's recent CT chest revealed bilateral airspace opacities, increased reticular markings and groundglass opacities, which were diffuse in nature, but seemed more pronounced in the upper lobes. This is a very nonspecific pattern and could represent a wide array of diffuse parenchymal lung diseases. Although of low clinical suspicion , a preliminary pulmonary infectious workup will be completed. Given that the patient's CT findings could represent an entity like [employer] or potentially hypersensitivity pneumonitis, he was started empirically on IV steroids 40 mg every 6 hours. 2. Heart failure with preserved ejection fraction/paroxysmal atrial fibrillation/coronary artery disease status post CABG and PCI The patient does not appear to be clinically in heart failure. Cumulative fluid balance is -800. Would recommend continuing baseline diuretic regimen. Concern for contraction alkalosis with scheduled IV Lasix. Repeat echocardiogram showed EF of 60%, no evidence of diastolic dysfunction, RVSP estimated at 45 mmHg. 3. Morbid obesity/hypertension/hyperlipidemia Complicates care, management, recovery and prognosis. Continue home medications as indicated. Weight loss is recommended. Continue physical and occupational therapy. Plan for discharge to longterm for the time being , possibly [facility], which apparently has a bed available on Friday. This note was generated with [employer] dictation software. It may contain incorrect words, spelling, and punctuation that were not noted in checking the note before signing.
--- NOTE | 2017-06-25 18:13 | PCM.PN.HOSP ---
Patient Problems: Active and Suspected Problems (Last Updated 06/25/17 @ 13:53 by Nayana Marsh, [employer] F[employer] TECHNICIAN-C) Heart failure with preserved ejection fraction (Acute) Subjective: No significant change from yesterday. Patient waiting for bed tomorrow. Most probably discharged tomorrow to TCU Objective: General: Alert, Oriented x3, Cooperative, Lethargic HEENT: Atraumatic, PERRLA, EOMI, Normocephalic Oral: Dry Mucosa Neck: Supple, No JVD, Negative Carotid Bruits Lungs: Diminished, Rhonchi, intermittent gets tachypneic and short of breath on mild exertion even going to bathroom Cardiovascular: Regular rate, Regular Rhythm, Normal S1, Normal S2, No murmurs Abdomen: Bowel Sounds Present, Soft, Non Tender, Non-Distended Extremities: No edema, Capillary Refill Less than 3 Seconds Skin: No rashes, No breakdown Musculoskeletal: No Tenderness to Palpation of Joints or Extremities, Muscle Wasting Neurological: Cranial nerves II-XII grossly intact Psych/Mental Status: Normal Affect, Appropriate Vitals/I&O's: Vital Signs Temp Pulse Resp BP Pulse Ox 97.8 F 56 L 18 110/54 L 98 06/25/17 15:11 06/25/17 15:11 06/25/17 15:11 06/25/17 15:11 06/25/17 15:11 Oxygen Flow Rate (L/min) 5 Oxygen Delivery Method Nasal Cannula Weight: 255 lb 15.307 oz Body Mass Index (BMI) 36.1 Intake and Output for Last 24 Hours 06/23/17 06/24/17 06/25/17 23:59 23:59 23:59 Intake Total 800 / 800 1605 / 1605 460 / 460 Output Total 890 / 890 1705 / 1705 490 / 490 Balance -90 / -90 -100 / -100 -30 / -30 Microbiology Past 72 Hours 06/23/17 07:50 Mucosa - Nose Respiratory Panel (PCR) - Final 06/23/17 07:55 Urine, Random Streptococcus pneumoniae Antigen (M - Final 06/23/17 07:55 Urine, Random Legionella Antigen - Final Current Medications Acetaminophen (Tylenol) 650 mg PO Q6H PRN PRN PRN Reason: Mild Pain (scale 0-3)/T>100.7 Last Admin: 06/25/17 06:55 Dose: 650 mg Amiodarone HCl (Cordarone) 200 mg PO DAILY [facility] Last Admin: 06/25/17 10:20 Dose: 200 mg Ascorbic Acid (Vitamin C) 500 mg PO DAILY@0800 [facility] Last Admin: 06/25/17 08:33 Dose: Not Given [facility] Admin: 06/25/17 08:28 Dose: 81 mg Calcium Carbonate (Os-Tolu 500) [facility] Last Admin: 06/25/17 08:33 Dose: Not Given Chlorhexidine Gluconate () 1 each TOPICAL DAILY [facility] Last Admin: 06/25/17 10:21 Dose: Not Given Cholecalciferol (Vitamin D) 1,000 unit PO DAILY [facility] Last Admin: 06/25/17 10:21 Dose: Not Given Clopidogrel Bisulfate (Plavix) 75 mg PO DAILY [facility] Last Admin: 06/25/17 10:20 Dose: 75 mg Finasteride (Proscar) 5 mg PO DAILY [facility] Last Admin: 06/25/17 10:20 Dose: 5 mg Furosemide (Lasix) 40 mg IV Q12 [facility] Last Admin: 06/25/17 10:19 Dose: 40 mg Gabap[facility] ([facility]in) [facility] Last Admin: 06/25/17 17:24 Dose: 300 mg Losartan Potassium (Cozaar) 25 mg PO DAILY [facility] Last Admin: 06/25/17 10:20 Dose: 25 mg Magnesium Hydroxide (Milk Of Magnesia) 30 ml PO DAILY PRN PRN PRN Reason: Constipation Methylprednisolone (Solu-Medrol) 40 mg IV Q6 [facility] Last Admin: 06/25/17 17:24 Dose: 40 mg Metoprolol Tartrate (Lopressor (Beta Yelena)) 25 mg PO BID [facility] Last Admin: 06/25/17 10:20 Dose: 25 mg Multivitamins/Minerals (Multivitamin With Minerals) [facility] Last Admin: 06/25/17 08:33 Dose: Not Given Nutritional Formula (Lactose Free) (Ensure Enlive) 60 ml PO 4X/DAY [facility] Last Admin: 06/25/17 17:24 Dose: Not Given Ondansetron HCl (Zofran) 4 mg IV Q8H PRN PRN PRN Reason: Nausea Oxycodone HCl (Oxyir) 5 mg PO Q4H PRN PRN PRN Reason: Moderate Pain (pain scale 4-5) Last Admin: 06/22/17 21:19 Dose: 5 mg Potassium Chloride (K-Dur) 20 meq PO BID [facility] Last Admin: 06/25/17 10:20 Dose: 20 meq Pravastatin Sodium (Pravachol) 40 mg PO QHS [facility] Last Admin: 06/24/17 21:48 Dose: 40 mg Rivaroxaban (Xarelto) [facility] Last Admin: 06/25/17 08:28 Dose: 20 mg Sodium Chloride () 5 - 30 ml IV UD PRN PRN Reason: SALINE FLUSH Last Admin: 06/25/17 13:27 Dose: 10 ml Spironolactone (Aldactone) 25 mg PO DAILY [facility] Last Admin: 06/25/17 10:20 Dose: 25 mg Tamsulosin HCl (Flomax) 0.4 mg PO QHS [facility] Last Admin: 06/24/17 21:47 Dose: 0.4 mg Vitamin E (Vitamin E) 400 units PO DAILY [facility] Last Admin: 06/25/17 10:21 Dose: Not Given Assessment/Plan Active and Suspected Problems (Last Updated 06/25/17 @ 13:53 by Nayana Marsh, [employer] FARM TECHNICIAN-C) Heart failure with preserved ejection fraction (Acute) 81-year-old white male who was discharged on the with respiratory failure and CHF presents again within 48 hours with hypoxia at home and worsening respiratory distress. Chest x-ray that showed chronic changes but also CHF but was actually improved from June 14 but overall worse from June 10. Patient was put on BiPAP which is subsequent been removed. Patient is continuing with IV Lasix for his heart failure. 1. Acute on chronic hypoxic and hypercarbic resp failure secondary to CHF + OSH, interstitial lung disease/pulmonary fibrosis with baseline restrictive lung disease On IV Solu-Medrol. CT chest showed bilateral airspace opacities. increased reticular markings and groundglass opacities, diffuse but predominantly in bilateral upper lobes. BiPAP, wean as tolerated D/W Dr. Prakash. Patient had palliative care meeting yesterday. Patient's wants transferred to TCU. The patient case coordinator made aware of that. Pulmonary follow-up reviewed. Patient had overnight oximetry study which revealed periodic oxygen desaturation and a sawtooth pattern concerning for underlying sleep disorder. Patient agreeable for outpatient sleep study test. 2. Acute HFpEF EF 55% from echo on 03/28/17 IV lasix 40 3 times daily changed to twice daily. Potassium is slowly increasing as the patient is on spironolactone and KCl . Hold supplemental potassium. start losartan 25 daily, known allergy to BRANDI-inhibitor weight down to 117 kg repeat echo on 06/23/2017 shows preserved EF 60% with no evidence of diastolic dysfunction. No regional wall motion abnormalities. Normal RV size and systolic function. Normal right and left atria. Mild to moderate TR, PA SP 45 images suggestive of mild pulmonary hypertension. 3. pAfib currently NSR on metop tartrate, amiodarone on xarelto 4. CAD stable 5. DVT proph: anticoagulated 6. Advanced Care Planning: Discussed with the patient's and son. Asked pt is he wanted CPR in event of CPA, intubation for worsening resp failure, and PEG tube if he couldn't swallow properly Pt stated he did not want any of that, therefore, pt is DNRCCA, no intubation, no PEG tube. This note was generated with [employer] dictation software. Every effort was made to ensure accuracy, however computerized lock plater mistakes may persist. . Code Visit Inpatient E&M: 86700 Subs Hosp L2
--- NOTE | 2017-06-25 18:17 | PN_ITS ---
Patient Problems: Active and Suspected Problems (Last Updated 06/25/17 @ 13:53 by Nayana Marsh , CUT OFF SAW GRADER-C) Heart failure with preserved ejection fraction (Acute) Subjective: No significant change from yesterday. Patient waiting for bed tomorrow. Most probably discharged tomorrow to TCU Objective: General: Alert, Oriented x3, Cooperative, Lethargic HEENT: Atraumatic, PERRLA, EOMI, Normocephalic Oral: Dry Mucosa Neck: Supple, No JVD, Negative Carotid Bruits Lungs: Diminished, Rhonchi, intermittent gets tachypneic and short of breath on mild exertion even going to bathroom Cardiovascular: Regular rate, Regular Rhythm, Normal S1, Normal S2, No murmurs Abdomen: Bowel Sounds Present, Soft, Non Tender, Non-Distended Extremities: No edema, Capillary Refill Less than 3 Seconds Skin: No rashes, No breakdown Musculoskeletal: No Tenderness to Palpation of Joints or Extremities, Muscle Wasting Neurological: Cranial nerves II-XII grossly intact Psych/Mental Status: Normal Affect, Appropriate Vitals/I&O's: Vital Signs Temp Pulse Resp BP Pulse Ox 97.8 F 56 L 18 110/54 L 98 06/25/17 15:11 06/25/17 15:11 06/25/17 15:11 06/25/17 15:11 06/25/17 15:11 Oxygen Flow Rate (L/min) 5 Oxygen Delivery Method Nasal Cannula Weight: 255 lb 15.307 oz Body Mass Index (BMI) 36.1 Intake and Output for Last 24 Hours 06/23/17 06/24/17 06/25/17 23:59 23:59 23:59 Intake Total 800 / 800 1605 / 1605 460 / 460 Output Total 890 / 890 1705 / 1705 490 / 490 Balance -90 / -90 -100 / -100 -30 / -30 Microbiology Past 72 Hours 06/23/17 07:50 Mucosa - Nose Respiratory Panel (PCR) - Final 06/23/17 07:55 Urine, Random Streptococcus pneumoniae Antigen (M - Final 06/23/17 07:55 Urine, Random Legionella Antigen - Final Current Medications Acetaminophen (Tylenol) 650 mg PO Q6H PRN PRN PRN Reason: Mild Pain (scale 0-3)/T>100.7 Last Admin: 06/25/17 06:55 Dose: 650 mg Amiodarone HCl (Cordarone) 200 mg PO DAILY [facility] Last Admin: 06/25/17 10:20 Dose: 200 mg Ascorbic Acid (Vitamin C) 500 mg PO DAILY@0800 [facility] Last Admin: 06/25/17 08:33 Dose: Not Given [facility] Admin: 06/25/17 08:28 Dose: 81 mg Calcium Carbonate (Os-Tolu 500) [facility] Last Admin: 06/25/17 08:33 Dose: Not Given Chlorhexidine Gluconate () 1 each TOPICAL DAILY [facility] Last Admin: 06/25/17 10:21 Dose: Not Given Cholecalciferol (Vitamin D) 1,000 unit PO DAILY [facility] Last Admin: 06/25/17 10:21 Dose: Not Given Clopidogrel Bisulfate (Plavix) 75 mg PO DAILY [facility] Last Admin: 06/25/17 10:20 Dose: 75 mg Finasteride (Proscar) 5 mg PO DAILY [facility] Last Admin: 06/25/17 10:20 Dose: 5 mg Furosemide (Lasix) 40 mg IV Q12 [facility] Last Admin: 06/25/17 10:19 Dose: 40 mg Gabapentin ([facility]ontin) [facility] Last Admin: 06/25/17 17:24 Dose: 300 mg Losartan Potassium (Cozaar) 25 mg PO DAILY [facility] Last Admin: 06/25/17 10:20 Dose: 25 mg Magnesium Hydroxide (Milk Of Magnesia) 30 ml PO DAILY PRN PRN PRN Reason: Constipation Methylprednisolone (Solu-Medrol) 40 mg IV Q6 [facility] Last Admin: 06/25/17 17:24 Dose: 40 mg Metoprolol Tartrate (Lopressor (Beta Yelena)) 25 mg PO BID [facility] Last Admin: 06/25/17 10:20 Dose: 25 mg Multivitamins/Minerals (Multivitamin With Minerals) [facility] Last Admin: 06/25/17 08:33 Dose: Not Given Nutritional Formula (Lactose Free) (Ensure Enlive) 60 ml PO 4X/DAY [facility] Last Admin: 06/25/17 17:24 Dose: Not Given Ondansetron HCl (Zofran) 4 mg IV Q8H PRN PRN PRN Reason: Nausea Oxycodone HCl (Oxyir) 5 mg PO Q4H PRN PRN PRN Reason: Moderate Pain (pain scale 4-5) Last Admin: 06/22/17 21:19 Dose: 5 mg Potassium Chloride (K-Dur) 20 meq PO BID [facility] Last Admin: 06/25/17 10:20 Dose: 20 meq Pravastatin Sodium (Pravachol) 40 mg PO QHS [facility] Last Admin: 06/24/17 21:48 Dose: 40 mg Rivaroxaban (Xarelto) [facility] Last Admin: 06/25/17 08:28 Dose: 20 mg Sodium Chloride () 5 - 30 ml IV UD PRN PRN Reason: SALINE FLUSH Last Admin: 06/25/17 13:27 Dose: 10 ml Spironolactone (Aldactone) 25 mg PO DAILY [facility] Last Admin: 06/25/17 10:20 Dose: 25 mg Tamsulosin HCl (Flomax) 0.4 mg PO QHS [facility] Last Admin: 06/24/17 21:47 Dose: 0.4 mg Vitamin E (Vitamin E) 400 units PO DAILY [facility] Last Admin: 06/25/17 10:21 Dose: Not Given Assessment/Plan Active and Suspected Problems (Last Updated 06/25/17 @ 13:53 by Nayana Marsh , CUT OFF SAW GRADER-C) Heart failure with preserved ejection fraction (Acute) 81-year-old white male who was discharged on the with respiratory failure and CHF presents again within 48 hours with hypoxia at home and worsening respiratory distress. Chest x-ray that showed chronic changes but also CHF but was actually improved from June 14 but overall worse from June 10. Patient was put on BiPAP which is subsequent been removed. Patient is continuing with IV Lasix for his heart failure. 1. Acute on chronic hypoxic and hypercarbic resp failure * secondary to CHF + OSH, interstitial lung disease/pulmonary fibrosis with baseline restrictive lung disease * On IV Solu-Medrol. CT chest showed bilateral airspace opacities. increased reticular markings and groundglass opacities, diffuse but predominantly in bilateral upper lobes. * BiPAP, wean as tolerated * D/W Dr. Prakash. Patient had palliative care meeting yesterday. Patient's wants transferred to TCU. The case supervisor made aware of that. * Pulmonary follow-up reviewed. Patient had overnight oximetry study which revealed periodic oxygen desaturation and a sawtooth pattern concerning for underlying sleep disorder. Patient agreeable for outpatient sleep study test. 2. Acute HFpEF * EF 55% from echo on 03/28/17 * IV lasix 40 3 times daily changed to twice daily. Potassium is slowly increasing as the patient is on spironolactone and KCl . Hold supplemental potassium. * start losartan 25 daily, known allergy to BRANDI-inhibitor * weight down to 117 kg * repeat echo on 06/23/2017 shows preserved EF 60% with no evidence of diastolic dysfunction. No regional wall motion abnormalities. Normal RV size and systolic function. Normal right and left atria. Mild to moderate TR, PA SP 45 images suggestive of mild pulmonary hypertension. 3. pAfib * currently NSR * on metop tartrate, amiodarone * on xarelto 4. CAD stable 5. DVT proph: anticoagulated 6. Advanced Care Planning: * Discussed with the patient's and son. Asked pt is he wanted CPR in event of CPA, intubation for worsening resp failure, and PEG tube if he couldn' t swallow properly * Pt stated he did not want any of that, therefore, pt is DNRCCA, no intubation , no PEG tube. This note was generated with [employer] dictation software. Every effort was made to ensure accuracy, however computerized livestock slaughterer mistakes may persist. . Code Visit Inpatient E&M: 43275 Subs Hosp L2
--- NOTE | 2017-06-25 18:57 | NURSING ---
This RN assumed patient care at 1730.
[2017-06-25] MEDS: Tamsulosin HCl 0.4 MG Capsule PO (22:15)
[2017-06-25] MEDS: Pravastatin 40 MG Tablet PO (22:17)
[2017-06-26] VITALS (9 sets, daily range): BP systolic 117–135; BP diastolic 54–69; PULSE 59–68; RESP 16–18; TEMP 36.4–36.7; O2SAT 94–97
[2017-06-26] MEDS: 0.9% NaCl Peripheral Flush Adult/Peds IV ×2 (06:50→10:32)
[2017-06-26 08:05] LABS: Anion Gap 6 (5-15); BUN 39 mg/dL (7-18); BUN/Creat Ratio 33.6 RATIO (10-20); Calcium,Total 9.5 mg/dL (8.5-10.1); Chloride 87 mmol/L (98-107); Creatinine, Serum 1.16 mg/dL (0.70-1.30); EST Glomerular Filtration Rate 64 mL/min (>60); Est Glom Filt Rate - Afr Amer 78 mL/min (>60); Estimated Creatinine Clearance 53.19 ml/min; Glucose 475 mg/dL (74-106); Potassium 4.4 mmol/L (3.5-5.1); Sodium Level 131 mmol/L (136-145)
[2017-06-26] MEDS: Rivaroxaban 20 MG Tablet PO (08:34)
[2017-06-26] MEDS: Gabapentin 300 MG Capsule PO ×2 (08:34→17:49)
[2017-06-26] MEDS: Aspirin E.C. 81 MG Tablet PO (08:34)
[2017-06-26] MEDS: Clopidogrel Bisulfate 75 MG Tablet PO (10:32)
[2017-06-26] MEDS: Furosemide 40 MG/4 ML Vial IV (10:32)
[2017-06-26] MEDS: Finasteride 5 MG Tablet PO (10:32)
[2017-06-26] MEDS: Metoprolol Tartrate 25 MG Tablet PO (10:33)
[2017-06-26] MEDS: Spironolactone 25 MG Tablet PO (10:33)
[2017-06-26] MEDS: Amiodarone 200 MG Tablet PO (10:33)
[2017-06-26] MEDS: Losartan Potassium 25 MG Tablet PO (10:35)
--- NOTE | 2017-06-26 11:50 | PCM.TXEXTCAR ---
- Diet 06/21/17 17:23 Diet: Cardiac/Low Cholesterol Food consistency:: Regular Liquid Consistency:: Regular/Thin Diet Comments: 1500 cc fluid/day - Routine Orders/Code Status Suppository Type: Dulcolax 10mg Suppository Frequency: Daily PRN Routine Lab Work: CBC - 06/30/17, BMP - 06/30/17 - Therapies Weight Bearing: Weight bearing as tolerated Physical Therapy: Eval and Treat Occupational Therapy: Eval and Treat - Allergies/Procedures Done in Hospital Allergies/Adverse Reactions: Allergies amoxicillin trihydrate [From Augmentin] Allergy (Verified 06/14/17 15:10) Mucosal lesions lisinopril [From Prinivil] Allergy (Verified 06/14/17 15:10) Unknown meperidine HCl [From Demerol] Allergy (Verified 06/14/17 15:10) Other orlistat [From Xenical] Allergy (Verified 06/14/17 15:10) Unknown Penicillins Allergy (Verified 06/14/17 15:10) Unknown potassium clavulanate [From Augmentin] Allergy (Verified 06/14/17 15:10) Mucosal lesions rofecoxib [From Vioxx] Allergy (Verified 06/14/17 15:10) Unknown adhesive tape Adverse Reaction (Uncoded 06/14/17 15:10) Rash - Type of Care/Length of Stay Estimated LOS: Convalescent Care Less Than 30 days Type of Care Needed: Skilled Rehab Potential: Fair Prognosis: Fair - Additional Orders/Day of Discharge Additional Orders: Follow-up with the palliative care for further discussion regarding hospice care. Patient is DNR CC arrest. Day of Discharge: 06/26/17 - Dietary and Speech Recommendations Dietitian Recommendations/Changes: Suggest Cardiac, Low Sodium diet with fluid restriction as needed. Continue Ensure Enlive on medpass for additional nutrition if consumed. - Follow Up Care Primary Care Physician: Joseph Tran MD [Primary Care Provider] - Please follow up with your Primary Care Physician in: in 1-2 weeks Please Follow Up With: Wyatt Prakash DO When: in 2-3 weeks
[2017-06-26 12:01] LABS: Bedside Glucose 484 mg/dL (70-110)
--- NOTE | 2017-06-26 12:07 | PN_ITS ---
Patient Problems: Active and Suspected Problems (Last Updated 06/25/17 @ 13:53 by Nayana Marsh , LASER MACHINE OPERATOR-C) Heart failure with preserved ejection fraction (Acute) Subjective: The patient was seen and examined. He is lying in bed in no acute distress, however slightly tachypneic. Denies any cough or wheezing. He is maintaining appropriate saturations on 5 L of oxygen. Patient remains afebrile and hemodynamically stable. He appears to be euvolemic. Objective: Recent lab work and culture data reviewed. Glucose this morning was 475 and remains in the 400's. Solu-Medrol was discontinued today. Patient remains on IV Lasix. Respiratory viral panel normal. Urine strep/Legionella negative. - Physical Exam General: Alert, Oriented x3, Cooperative, - - mild tachypnea, no conversational dyspnea HEENT: Atraumatic, Normocephalic Oral: Moist Mucosa, No Gingival or Mucosal Lesions/ Ulcerations Neck: Supple, No Nodes, Trachea Midline Lungs: No rhonchi, No wheeze, No rales, Diminished Cardiovascular: Regular rate, Regular Rhythm, Normal S1, Normal S2, Murmur Abdomen: Bowel Sounds Present, Soft, Non Tender, Non-Distended, Obese Extremities: No clubbing, No cyanosis, No edema Skin: No rashes, - - LE vascular changes Musculoskeletal: No Tenderness to Palpation of Joints or Extremities Neurological: Neuro grossly intact Psych/Mental Status: Alert and oriented to time, place, person, mood and affect Vital Signs Temp Pulse Resp BP Pulse Ox 98 F 68 16 135/69 H 97 06/26/17 09:15 06/26/17 11:07 06/26/17 09:15 06/26/17 10:33 06/26/17 09:15 Oxygen Flow Rate (L/min) 5 Oxygen Delivery Method Nasal Cannula Weight: 256 lb 6.362 oz Body Mass Index (BMI) 36.1 Intake and Output for Last 24 Hours 06/24/17 06/25/17 06/26/17 23:59 23:59 23:59 Intake Total 1605 / 1605 985 / 985 180 / 180 Output Total 1705 / 1705 1190 / 1190 675 / 675 Balance -100 / -100 -205 / -205 -495 / -495 Microbiology Past 72 Hours 06/23/17 07:50 Respiratory Panel (PCR) - Final Mucosa - Nose 06/23/17 07:55 Streptococcus pneumoniae Antigen (M - Final Urine, Random 06/23/17 07:55 Legionella Antigen - Final Urine, Random Laboratory Tests Past 24 Hrs 06/26/17 07:00 Sodium 131 L Potassium 4.4 Chloride 87 L Carbon Dioxide 38.0 H Anion Gap 6 BUN 39 H Creatinine 1.16 Estim Creat Clear Calc 53.19 Est GFR (MDRD) Af Amer 78 Est GFR (MDRD) Non-Af 64 BUN/Creatinine Ratio 33.6 H Glucose 475 H* Calcium 9.5 Assessment/Plan Active and Suspected Problems (Last Updated 06/25/17 @ 13:53 by Nayana Marsh , LASER MACHINE OPERATOR-C) Heart failure with preserved ejection fraction (Acute) RECOMMENDATIONS: 1. Encourage empiric BiPAP therapy 12/6 cm of water with naps and nightly, as well as rescue 2. Transition to home Lasix regimen today 3. Continue Xarelto 4. Wean oxygen supplementation to keep saturations at or above 90% 5. Ambulatory pulse oximetry prior to discharge 6. Initiate auto BiPAP upon discharge to the TCU until outpatient PSG can be obtained 7. Okay to discharge from pulmonary standpoint, follow up in office after discharge from TCU, hopefully patient will have PSG on day he is discharged from TCU. Please try to arrange. IMPRESSIONS: 1. Acute on chronic hypoxemic and hypercarbic respiratory failure/baseline restrictive lung disease/pulmonary fibrosis The patient initially presented to the hospital with shortness of breath and was started empirically on BiPAP. The patient has an underlying interstitial lung process along with restrictive ventilatory mechanics and a disproportionate reduction in diffusing capacity, noted on prior PFTs. He has been on amiodarone for quite some time. Would need to consider the possibility of amiodarone related lung toxicity. However, would first need to clarify how long he has been on the medication and if he was previously on a higher dose. At the current time, he is only prescribed 200 mg daily. The patient does appear to have CO2 retention and elevated serum bicarbonate, with concern for overdiuresis. The patient does not appear to be in an acute exacerbation of his underlying diastolic heart failure. The patient's recent CT chest revealed bilateral airspace opacities, increased reticular markings and groundglass opacities, which were diffuse in nature, but seemed more pronounced in the upper lobes. This is a very nonspecific pattern and could represent a wide array of diffuse parenchymal lung diseases. Although of low clinical suspicion , a preliminary pulmonary infectious workup will be completed. Given that the patient's CT findings could represent an entity like FLORAL CLERK or potentially hypersensitivity pneumonitis, he was started empirically on IV steroids, which has been transitioned to oral. Continue to increase activity as tolerated, patient notes significant improvement in activity tolerance today. Wean oxygen supplementation to keep saturations at or above 90%. Wear BiPAP as needed for rescue and with naps and nightly. Would transition patient to home Lasix regimen today. Follow up in the pulmonary clinic once discharged from TCU and after PSG. 2. Heart failure with preserved ejection fraction/paroxysmal atrial fibrillation/coronary artery disease status post CABG and PCI The patient does not appear to be clinically in heart failure. Would recommend continuing baseline oral diuretic regimen. Concern for contraction alkalosis with scheduled IV Lasix. Repeat echocardiogram showed EF of 60%, no evidence of diastolic dysfunction, RVSP estimated at 45 mmHg. 3. Morbid obesity/hypertension/hyperlipidemia Complicates care, management, recovery and prognosis. Continue home medications as indicated. Weight loss is recommended. Continue physical and occupational therapy. Plan for discharge to TCU possibly today. This note was generated with [employer] dictation software. It may contain incorrect words, spelling, and punctuation that were not noted in checking the note before signing.
--- NOTE | 2017-06-26 14:41 | CASEMGMT ---
Pt is ready for discharge to TCU, SW faxed all instructions to TCU. SW spoke w/pt's in the hallway, let her know pt is discharged to TCU today. asked about pt's ability to rehab, states he is walking better to the bathroom than he was. SW explained the team in TCU will work w/pt and her to determine appropriate time of discharge and what he will need to be able to do in order to leave. states understanding. No further needs, pt to TCU today. JIL Cha, ACCOUNT SOLUTIONS ANALYST
[2017-06-26 15:36] LABS: Bedside Glucose > 500 mg/dL (70-110)
[2017-06-26 17:56] LABS: Bedside Glucose 386 mg/dL (70-110)
--- NOTE | 2017-06-26 18:10 | PCM.DC.SUM ---
Discharge Date and Diagnosis - Problem List Patient Problems: Active and Suspected Problems (Last Updated 06/25/17 @ 13:53 by Nayana Marsh NP-C) Heart failure with preserved ejection fraction (Acute) Date of Admission: 06/21/17 Date of Discharge: 06/26/17 - Primary Discharge Diagnosis Active and Suspected Problems (Last Updated 06/25/17 @ 13:53 by Nayana Marsh NP-C) 1. Acute on chronic hypoxic and hypercarbic resp failure secondary to CHF + OSH, interstitial lung disease/pulmonary fibrosis with baseline restrictive lung disease Severe hyperglycemia secondary to steroids, IV Solu-Medrol: Solu-Medrol discontinued. Patient blood sugar control with NovoLog subcutaneous insulin and Levemir insulin. Acute HFpEF EF 55% from echo on 03/28/17 Paroxysmal A. 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, secondary (Chronic) Paroxysmal atrial flutter (Chronic) Atherosclerotic heart disease of [place] coronary artery without angina pectoris (Chronic) PTCA of the RCA intracoronary stent November 1997; PTCA/TIN to prox Ramus, FFR neg of distal RCA 09/25/2016; CABG TUCKER to LAD; SVG to PDA Obesity (Chronic) Abnormal chest CT (Chronic) Restrictive airway disease (Chronic) Abnormal PFTs (pulmonary function tests) (Chronic) S/P PTCA (percutaneous transluminal coronary angioplasty) (Chronic) PTCA of the RCA inreacoronary stent November 1997; PTCA/TIN to prox Ramus, FFR neg of gistal RCA 09/25/2016 Atrial fibrillation and flutter (Chronic) HLD (hyperlipidemia) (Chronic) S/P CABG x 2 (Chronic) TUCKER to LAD; SVG to PDA CAD (coronary artery disease) (Chronic) Cataract (Chronic) HTN (hypertension) (Chronic) Atrial flutter with rapid ventricular response (Chronic) Hospital Course and Treatment Operations: None Summary of Care Provided: [] 81-year-old white male who was discharged on the eighth with respiratory failure and CHF presents again within 48 hours with hypoxia at home and worsening respiratory distress. Chest x-ray that showed chronic changes but also CHF but was actually improved from June 14 but overall worse from June 10. Patient was put on BiPAP which is subsequent been removed. Patient is continuing with IV Lasix for his heart failure. The patient was seen and examined today. General: Alert, Oriented x3, Cooperative, Lethargic HEENT: Atraumatic, PERRLA, EOMI, Normocephalic Oral: Dry Mucosa Neck: Supple, No JVD, Negative Carotid Bruits Lungs: Diminished, Rhonchi, intermittent gets tachypneic and short of breath on mild exertion even going to bathroom Cardiovascular: Regular rate, Regular Rhythm, Normal S1, Normal S2, No murmurs Abdomen: Bowel Sounds Present, Soft, Non Tender, Non-Distended Extremities: No edema, Capillary Refill Less than 3 Seconds Skin: No rashes, No breakdown Musculoskeletal: No Tenderness to Palpation of Joints or Extremities, Muscle Wasting Neurological: Cranial nerves II-XII grossly intact Psych/Mental Status: Normal Affect, Appropriate 1. Acute on chronic hypoxic and hypercarbic resp failure secondary to CHF + OSH, interstitial lung disease/pulmonary fibrosis with baseline restrictive lung disease On IV Solu-Medrol. CT chest showed bilateral airspace opacities. increased reticular markings and groundglass opacities, diffuse but predominantly in bilateral upper lobes. BiPAP, wean as tolerated, still on intermittent BiPAP at night. D/W Dr. Prakash. Patient had palliative care meeting on 06/24/2017. Pulmonary follow-up reviewed. Patient had overnight oximetry study which revealed periodic oxygen desaturation and a sawtooth pattern concerning for underlying sleep disorder. Patient agreeable for outpatient sleep study test. Discussed with Dr. Prakash and started on prednisone 40 mg daily. Severe hyperglycemia secondary to steroids, IV Solu-Medrol: Solu-Medrol discontinued. Patient blood sugar control with NovoLog subcutaneous insulin and Levemir insulin. 2. Acute HFpEF EF 55% from echo on 03/28/17 IV lasix 40 3 times daily changed to twice daily. Potassium is slowly increasing as the patient is on spironolactone and KCl . Hold supplemental potassium. start losartan 25 daily, known allergy to BRANDI-inhibitor weight down to 117 kg repeat echo on 06/23/2017 shows preserved EF 60% with no evidence of diastolic dysfunction. No regional wall motion abnormalities. Normal RV size and systolic function. Normal right and left atria. Mild to moderate TR, PA SP 45 images suggestive of mild pulmonary hypertension. 3. pAfib currently NSR on metop tartrate, amiodarone on xarelto 4. CAD stable 5. DVT proph: anticoagulated 6. Advanced Care Planning: Discussed with the patient's and son. Asked pt is he wanted CPR in event of CPA, intubation for worsening resp failure, and PEG tube if he couldn't swallow properly Pt stated he did not want any of that, therefore, pt is DNRCCA, no intubation, no PEG tube. Discharge medication reconciliation done. Discharge follow-up instructions completed. Accu-Chek before meals and at bedtime and cover with NovoLog sliding scale. Total time spent, exact 32 minutes on discharge meds reconciliation, examination, review of imaging and blood test and discussion with the patient on follow-up instructions. This note was generated with [employer] dictation software. Every effort was made to ensure accuracy, however computerized weed science research technician mistakes may persist. . Home Medications: Medications to take at Discharge Finasteride [Proscar] 5 mg PO DAILY 01/21/13 Gabapentin [Neurontin] 300 mg PO BID 01/21/13 Multivitamins,Ther W-Minerals [Multivitamin With Minerals] 1 tab PO DAILY 01/21/13 Ascorbic Acid [Vitamin C] 500 mg PO DAILY@0800 05/29/15 Vitamin E 400 units PO DAILY 05/29/15 Calcium Carbonate [Calcium] 600 mg PO DAILY 09/02/16 Metoprolol Tartrate [Lopressor (beta stefani)] 25 mg PO BID 09/02/16 Tamsulosin HCl [Flomax] 0.4 mg PO QHS 09/02/16 Aspirin [Adult Low Dose Aspirin EC] 81 mg PO DAILY 09/24/16 Clopidogrel Bisulfate [Plavix] 75 mg PO DAILY 09/24/16 Amiodarone HCl [Cordarone] 200 mg PO DAILY 12/13/16 pravastatin 40 mg tablet 40 mg PO QHS #90 tab 05/14/17 rivaroxaban 20 mg tablet 20 mg PO QDAY #90 tab 05/19/17 Spironolactone [Aldactone] 25 mg PO DAILY 06/14/17 Cholecalciferol (VIT D3) [Vitamin D3] 2,000 unit PO DAILY #0 06/26/17 Furosemide 40 mg PO BID #0 06/26/17 Pantoprazole Sodium [Protonix] 40 mg PO DAILY #30 tab 06/26/17 Prednisone [Deltasone] 40 mg PO DAILY #30 tab 06/26/17 Following Prescrptions Were Given to Patient: Pantoprazole Sodium [Protonix] 40 mg PO DAILY #30 tab Prednisone [Deltasone] 40 mg PO DAILY #30 tab Primary Care Physician: Joseph Tran MD [Primary Care Provider] - Please follow up with your Primary Care Physician in: in 1-2 weeks Please Follow Up With: Wyatt Prakash, When: in 2-3 weeks Meaningful Use Info Meaningful Use Diagnoses (Choose all that apply): None applicable Code Visit Inpatient E&M: 17713 Disch Hosp
--- NOTE | 2017-06-26 18:14 | DS.PCM_ITS ---
Discharge Date and Diagnosis - Problem List Patient Problems: Active and Suspected Problems (Last Updated 06/25/17 @ 13:53 by Nayana Marsh NP-C) Heart failure with preserved ejection fraction (Acute) Date of Admission: 06/21/17 Date of Discharge: 06/26/17 - Primary Discharge Diagnosis Active and Suspected Problems (Last Updated 06/25/17 @ 13:53 by Nayana Marsh NP-C) 1. Acute on chronic hypoxic and hypercarbic resp failure * secondary to CHF + OSH, interstitial lung disease/pulmonary fibrosis with baseline restrictive lung disease Severe hyperglycemia secondary to steroids, IV Solu-Medrol: Solu-Medrol discontinued. Patient blood sugar control with NovoLog subcutaneous insulin and Levemir insulin. Acute HFpEF * EF 55% from echo on 03/28/17 Paroxysmal A. 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, secondary (Chronic) Paroxysmal atrial flutter (Chronic) Atherosclerotic heart disease of [place] coronary artery without angina pectoris (Chronic) PTCA of the RCA intracoronary stent November 1997; PTCA/TIN to prox Ramus, FFR neg of distal RCA 09/25/2016; CABG TUCKER to LAD; SVG to PDA Obesity (Chronic) Abnormal chest CT (Chronic) Restrictive airway disease (Chronic) Abnormal PFTs (pulmonary function tests) (Chronic) S/P PTCA (percutaneous transluminal coronary angioplasty) (Chronic) PTCA of the RCA inreacoronary stent November 1997; PTCA/TIN to prox Ramus, FFR neg of gistal RCA 09/25/2016 Atrial fibrillation and flutter (Chronic) HLD (hyperlipidemia) (Chronic) S/P CABG x 2 (Chronic) TUCKER to LAD; SVG to PDA CAD (coronary artery disease) (Chronic) Cataract (Chronic) HTN (hypertension) (Chronic) Atrial flutter with rapid ventricular response (Chronic) Hospital Course and Treatment Operations: None Summary of Care Provided: [] 81-year-old white male who was discharged on the eighth with respiratory failure and CHF presents again within 48 hours with hypoxia at home and worsening respiratory distress. Chest x-ray that showed chronic changes but also CHF but was actually improved from June 14 but overall worse from June 10. Patient was put on BiPAP which is subsequent been removed. Patient is continuing with IV Lasix for his heart failure. The patient was seen and examined today. General: Alert, Oriented x3, Cooperative, Lethargic HEENT: Atraumatic, PERRLA, EOMI, Normocephalic Oral: Dry Mucosa Neck: Supple, No JVD, Negative Carotid Bruits Lungs: Diminished, Rhonchi, intermittent gets tachypneic and short of breath on mild exertion even going to bathroom Cardiovascular: Regular rate, Regular Rhythm, Normal S1, Normal S2, No murmurs Abdomen: Bowel Sounds Present, Soft, Non Tender, Non-Distended Extremities: No edema, Capillary Refill Less than 3 Seconds Skin: No rashes, No breakdown Musculoskeletal: No Tenderness to Palpation of Joints or Extremities, Muscle Wasting Neurological: Cranial nerves II-XII grossly intact Psych/Mental Status: Normal Affect, Appropriate 1. Acute on chronic hypoxic and hypercarbic resp failure * secondary to CHF + OSH, interstitial lung disease/pulmonary fibrosis with baseline restrictive lung disease * On IV Solu-Medrol. CT chest showed bilateral airspace opacities. increased reticular markings and groundglass opacities, diffuse but predominantly in bilateral upper lobes. * BiPAP, wean as tolerated, still on intermittent BiPAP at night. * D/W Dr. Prakash. Patient had palliative care meeting on 06/24/2017. * Pulmonary follow-up reviewed. Patient had overnight oximetry study which revealed periodic oxygen desaturation and a sawtooth pattern concerning for underlying sleep disorder. Patient agreeable for outpatient sleep study test. * Discussed with Dr. Prakash and started on prednisone 40 mg daily. Severe hyperglycemia secondary to steroids, IV Solu-Medrol: Solu-Medrol discontinued. Patient blood sugar control with NovoLog subcutaneous insulin and Levemir insulin. 2. Acute HFpEF * EF 55% from echo on 03/28/17 * IV lasix 40 3 times daily changed to twice daily. Potassium is slowly increasing as the patient is on spironolactone and KCl . Hold supplemental potassium. * start losartan 25 daily, known allergy to BRANDI-inhibitor * weight down to 117 kg * repeat echo on 06/23/2017 shows preserved EF 60% with no evidence of diastolic dysfunction. No regional wall motion abnormalities. Normal RV size and systolic function. Normal right and left atria. Mild to moderate TR, PA SP 45 images suggestive of mild pulmonary hypertension. 3. pAfib * currently NSR * on metop tartrate, amiodarone * on xarelto 4. CAD stable 5. DVT proph: anticoagulated 6. Advanced Care Planning: * Discussed with the patient's and son. Asked pt is he wanted CPR in event of CPA, intubation for worsening resp failure, and PEG tube if he couldn' t swallow properly * Pt stated he did not want any of that, therefore, pt is DNRCCA, no intubation , no PEG tube. Discharge medication reconciliation done. Discharge follow-up instructions completed. Accu-Chek before meals and at bedtime and cover with NovoLog sliding scale. Total time spent, exact 32 minutes on discharge meds reconciliation, examination , review of imaging and blood test and discussion with the patient on follow-up instructions. This note was generated with [employer] dictation software. Every effort was made to ensure accuracy, however computerized electronic commerce specialist mistakes may persist. . Home Medications: Medications to take at Discharge Finasteride [Proscar] 5 mg PO DAILY 01/21/13 Gabapentin [Neurontin] 300 mg PO BID 01/21/13 Multivitamins,Ther W-Minerals [Multivitamin With Minerals] 1 tab PO DAILY Ascorbic Acid [Vitamin C] 500 mg PO DAILY@0800 05/29/15 Vitamin E 400 units PO DAILY 05/29/15 Calcium Carbonate [Calcium] 600 mg PO DAILY 09/02/16 Metoprolol Tartrate [Lopressor (beta stefani)] 25 mg PO BID 09/02/16 Tamsulosin HCl [Flomax] 0.4 mg PO QHS 09/02/16 Aspirin [Adult Low Dose Aspirin EC] 81 mg PO DAILY 09/24/16 Clopidogrel Bisulfate [Plavix] 75 mg PO DAILY 09/24/16 Amiodarone HCl [Cordarone] 200 mg PO DAILY 12/13/16 pravastatin 40 mg tablet 40 mg PO QHS #90 tab 05/14/17 rivaroxaban 20 mg tablet 20 mg PO QDAY #90 tab 05/19/17 Spironolactone [Aldactone] 25 mg PO DAILY 06/14/17 Cholecalciferol (VIT D3) [Vitamin D3] 2,000 unit PO DAILY #0 06/26/17 Furosemide 40 mg PO BID #0 06/26/17 Pantoprazole Sodium [Protonix] 40 mg PO DAILY #30 tab 06/26/17 Prednisone [Deltasone] 40 mg PO DAILY #30 tab 06/26/17 Following Prescrptions Were Given to Patient: Pantoprazole Sodium [Protonix] 40 mg PO DAILY #30 tab Prednisone [Deltasone] 40 mg PO DAILY #30 tab Primary Care Physician: Joseph Tran MD [Primary Care Provider] - Please follow up with your Primary Care Physician in: in 1-2 weeks Please Follow Up With: Wyatt Prakash, DO When: in 2-3 weeks Meaningful Use Info Meaningful Use Diagnoses (Choose all that apply): None applicable Code Visit Inpatient E&M: 62697 Disch Hosp
--- NOTE | 2017-06-26 18:32 | NURSING ---
Called report to [facility]afar on TCU at this time.
== END 2017-06-26 18:40 | disposition skilled nursing facility (03) | DRG 291 ==
LOC: ED 15:16 → ICU 17:43 → PCU 06-23 15:24
PROVIDERS: Internal Medicine Critical Care Medicine; Emergency Provider Emergency Medicine; Family Provider Family Medicine; PCP Family Medicine; Visit Provider Internal Medicine
DX: I50.31 Acute diastolic (congestive) heart failure (principal); J96.21 Acute and chronic respiratory failure with hypoxia; J84.9 Interstitial pulmonary disease, unspecified; J96.22 Acute and chronic respiratory failure with hypercapnia; I42.9 Cardiomyopathy, unspecified; I11.0 Hypertensive heart disease with heart failure; I48.0 Paroxysmal atrial fibrillation; Z95.1 Presence of aortocoronary bypass graft; I25.10 Atherosclerotic heart disease of native coronary artery without angina pectoris; Z66 Do not resuscitate; Z95.5 Presence of coronary angioplasty implant and graft; E78.5 Hyperlipidemia, unspecified; Z79.899 Other long term (current) drug therapy; J84.10 Pulmonary fibrosis, unspecified; Z87.891 Personal history of nicotine dependence
CPT/HCPCS: 36415; 36600; 71045; 71250; 80048; 82803; 82962; 83605; 83880; 84484; 85025; 85027; 85610; 87449; 87633; 87641; 93005; 93306; 94002; 94003; 94640; 94762; 97110; 97116; 97163; 97166; 97530; 97802; 99285; Q9957; A4216; C8929; J1940

== ENCOUNTER 2017-06-26 19:10 | Inpatient (IN) | payer MEDICARE, OTHER, SELFPAY ==
[2016-09-25 13:26] VITALS: BMI 40.1
[2017-06-26 20:00] VITALS: BP 104/50; PULSE 60; PULSE 65; RESP 24; TEMP 36.5; O2SAT 93; O2SAT 97; BMI 37.2
--- NOTE | 2017-06-26 21:45 | NURSING ---
Pt arrived at 1909 from [facility]
[2017-06-26 22:53] VITALS: BP 118/59; PULSE 61
[2017-06-26] MEDS: Metoprolol Tartrate 25 MG Tablet PO (22:53)
[2017-06-26] MEDS: Pravastatin 40 MG Tablet PO (22:53)
[2017-06-26] MEDS: Glucerna Shake 120 ML LIQUID PO (22:53)
[2017-06-26] MEDS: Tamsulosin HCl 0.4 MG Capsule PO (22:53)
[2017-06-26 23:17] VITALS: PULSE 61; RESP 14; RESP 32; O2SAT 93
--- NOTE | 2017-06-26 23:20 | PCM.HP.STD ---
Problem List (1) Shortness of breath Status: Acute (2) Acute respiratory failure Status: Acute (3) Interstitial lung disease Status: Acute (4) Atrial fibrillation Status: Chronic (5) Coronary artery disease Status: Chronic (6) BPH (benign prostatic hyperplasia) Status: Chronic (7) Neuropathic pain Status: Chronic (8) Hypokalemia Status: Chronic (9) Heart failure with preserved ejection fraction Status: Acute (10) Obesity Status: Chronic (11) HLD (hyperlipidemia) Status: Chronic Qualifiers: (12) Cataract Status: Chronic (13) HTN (hypertension) Status: Chronic Qualifiers: History of Present Illness Date of Admission: 06/26/17 Chief Complaint: Here for rehabilitation, strengthening, prior to discharge home with spouse. The patient is a 81 year old Male with below past medical history presented to [facility] Emergency Department 06/21/2017 with shortness of breath. 06/21/2017 Chest X-ray showed left lower lobe patchy atelectasis/infiltrate. 06/21/2017 EKG normal sinus rhythm, ST&T wave abnormality, consider anterior ischemia. Shortness of breath, recent discharge from hospital for same. Pulsox low 80's with oxygen. Chronic cough. pH 7.5, PCO2 53.7, PO2 75. CBC okay, Glucose 171, BUN 33, INR 2.6, Troponin negative, BNP 41.5. Lasix IV given. 06/21/2017 Admit to Hospital. Improved after IV Lasix. BiPAP, IV Lasix 40MG TID. Losartan 25MG daily. 06/22/2017 Dr[address] P[address] recommended chest CT, Echo, continue BiPAP, overnight pulsoximetry. 06/22/2017 CT chest showed bilateral patchy reticular markings upper lobe. 06/23/2017 Echo Normal LV size. Left ventricular systolic function normal. EF 60%. Pulmonary artery systolic pressure 45mm HG. Solu-Medrol, then prednisone for interstitial lung disease. IV Lasix for HFpEF. 06/26/2017 Admit to TCU for rehabilitation, strengthening, prior to discharge home with spouse. 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, secondary (Chronic) Paroxysmal atrial flutter (Chronic) Atherosclerotic heart disease of [place] coronary artery without angina pectoris (Chronic) PTCA of the RCA intracoronary stent November 1997; PTCA/TIN to prox Ramus, FFR neg of distal RCA 09/25/2016; CABG TUCKER to LAD; SVG to PDA Obesity (Chronic) Abnormal chest CT (Chronic) Restrictive airway disease (Chronic) Abnormal PFTs (pulmonary function tests) (Chronic) S/P PTCA (percutaneous transluminal coronary angioplasty) (Chronic) PTCA of the RCA inreacoronary stent November 1997; PTCA/TIN to prox Ramus, FFR neg of gistal RCA 09/25/2016 Atrial fibrillation and flutter (Chronic) HLD (hyperlipidemia) (Chronic) S/P CABG x 2 (Chronic) TUCKER to LAD; SVG to PDA CAD (coronary artery disease) (Chronic) Cataract (Chronic) HTN (hypertension) (Chronic) Atrial flutter with rapid ventricular response (Chronic) Allergies amoxicillin trihydrate [From Augmentin] Allergy (Verified 06/14/17 15:10) Mucosal lesions lisinopril [From Prinivil] Allergy (Verified 06/14/17 15:10) Unknown meperidine HCl [From Demerol] Allergy (Verified 06/14/17 15:10) Other orlistat [From Xenical] Allergy (Verified 06/14/17 15:10) Unknown Penicillins Allergy (Verified 06/14/17 15:10) Unknown potassium clavulanate [From Augmentin] Allergy (Verified 06/14/17 15:10) Mucosal lesions rofecoxib [From Vioxx] Allergy (Verified 06/14/17 15:10) Unknown adhesive tape Adverse Reaction (Uncoded 06/14/17 15:10) Rash Home Medications: Ambulatory Orders Medication Instructions Recorded Finasteride [Proscar] 5 mg PO DAILY 01/21/13 Gabapentin [Neurontin] 300 mg PO BID 01/21/13 Multivitamins,Ther W-Minerals 1 tab PO DAILY@0800 01/21/13 [Multivitamin With Minerals] Ascorbic Acid [Vitamin C] 500 mg PO DAILY@0800 05/29/15 Vitamin E 400 units PO DAILY@0800 05/29/15 Calcium Carbonate [Calcium] 600 mg PO DAILY@0800 09/02/16 Metoprolol Tartrate [Lopressor 25 mg PO BID 09/02/16 (beta stefani)] Tamsulosin HCl [Flomax] 0.4 mg PO QHS 09/02/16 Aspirin [Adult Low Dose Aspirin EC] 81 mg PO DAILY@0800 09/24/16 Clopidogrel Bisulfate [Plavix] 75 mg PO DAILY 09/24/16 Amiodarone HCl [Cordarone] 200 mg PO DAILY 12/13/16 pravastatin 40 mg tablet 40 mg PO QHS #90 tab 05/14/17 Spironolactone [Aldactone] 25 mg PO DAILY 06/14/17 Cholecalciferol (VIT D3) [Vitamin 2,000 unit PO DAILY #0 06/26/17 D3] Furosemide 40 mg PO BID #0 06/26/17 Pantoprazole Sodium [Protonix] 40 mg PO DAILY 06/26/17 Prednisone [Deltasone] 40 mg PO DAILY@0800 06/26/17 Rivaroxaban [Xarelto] 20 mg PO DAILY 06/26/17 Surgical History: angioplasty, coronary bypass surgery Psychiatric History: Depression Lives: Spouse/ Significant Other Smoking Status: Former smoker Tobacco Use: Non-smoker Alcohol: None Drugs: None - *Family History Maternal History Items: - - no pulmonary fibrosis. Review of Systems Constitutional: Denies: Chills, Fever, Weight Change HEENT: Denies: Head Aches, Sinus Congestion, Sinus Drainage Cardiovascular: Denies: Chest Pain, Palpitations Respiratory: Denies: Cough, Shortness of breath at rest, Sputum production Gastrointestinal: Denies: Abdominal Pain, Nausea, Vomiting Genitourinary: Denies: Dysuria Musculoskeletal: Denies: Joint Pain, Joint Tenderness Skin: Denies: Rash, Wounds Neurological: Denies: Numbness, Tingling, Focal weakness Psychiatric: Denies: Anxiety, Depression, Homicidal Ideations, Suicidal Ideations Hematologic/ Lymphatic: Denies: Easy Bruising, Easy Bleeding VTE Information - Inpt Only VTE Present on Admission: No VTE Mechan Device Prophylaxis: Knee High KWESI Hose VTE Pharm Prophylaxis ordered?: No Reason prophylaxis not ordered:: Treatment Not Indicated Patient Problems: Active and Suspected Problems (Last Updated 06/25/17 @ 13:53 by Nayana Marsh KNUCKLER-C) Shortness of breath (Acute) Acute respiratory failure (Acute) Interstitial lung disease (Acute) - Physical Exam General: Alert, Oriented x3, Cooperative HEENT: Atraumatic, PERRLA, EOMI, Normocephalic Neck: Supple, No JVD, Negative Carotid Bruits Lungs: Short of Breath, Wheezes Cardiovascular: Regular rate, No murmurs Abdomen: Bowel Sounds Present, Soft, Non Tender Extremities: No edema, Capillary Refill Less than 3 Seconds Skin: No rashes, No breakdown Musculoskeletal: No Tenderness to Palpation of Joints or Extremities Neurological: Cranial nerves II-XII grossly intact Psych/Mental Status: Normal Affect, Appropriate Vital Signs Temp Pulse Resp BP Pulse Ox 97.7 F L 61 32 H 118/59 L 93 06/26/17 20:00 06/26/17 23:17 06/26/17 23:17 06/26/17 22:53 06/26/17 23:17 Oxygen Flow Rate (L/min) 5 Oxygen Delivery Method Nasal Cannula Weight: 121 kg Body Mass Index (BMI) 37.2 Intake and Output for Last 24 Hours 06/24/17 06/25/17 06/26/17 23:59 23:59 23:59 Intake Total 222 / 222 Balance 222 / 222 Assessment/Plan Active and Suspected Problems (Last Updated 06/25/17 @ 13:53 by Nayana Marsh, KNUCKLER-C) Shortness of breath (Acute) Acute respiratory failure (Acute) Interstitial lung disease (Acute) 81 year old male with below past medical history hospitalized for acute respiratory failure requiring BiPAP, secondary to heart failure with preserved ejection fraction, interstitial lung disease, admitted to TCU for debility, rehabilitation, strengthening, prior to discharge home with spouse. Debility - PT/OT. Pain - Tylenol 1000MG Q8H PRN mild pain. Bowel - Miralax 17GM daily, Senna/colace 1 tablet BID, Dulcolax 10MG IN daily PRN. Pneumonia vaccination - Administer Prevnar 13 and/or Pneumovax 23 as necessary. DVT prophylaxis - Not necessary, already on Xarelto. Atrial Fibrillation - Metoprolol 25MG BID, Amiodarone 200MG daily, Xarelto 20MG daily Vitamin C deficiency - Vitamin C 500MG daily. Coronary Artery Disease - Metoprolol 25MG BID, Plavix 75MG daily, Aspirin 81MG daily. Calcium deficiency - Os-Tolu 500MG daily. Vitamin D deficiency - D3 2000IU daily. BPH - Finasteride 5MG daily, Tamsulosin 0.4MG daily. Heart failure with preserved ejection fraction - Metoprolol 25MG BID, Aldactone 25MG daily, Lasix 40MG BID. Neuropathic pain - Gabapentin 300MG BID. Nutrition - Glucerna 120ML 4x/day, MVI daily. Tinea Corporis - Nystatin powder BID groin abdominal folds. GERD - Pantoprazole 40MG daily. Hyperlipidemia - Pravastatin 40MG QHS. Interstitial Lung Disease - Prednisone 40MG daily. Vitamin E deficiency - Vitamin E 400IU daily.
--- NOTE | 2017-06-26 23:27 | HP.PCM_ITS ---
Problem List (1) Shortness of breath Status: Acute (2) Acute respiratory failure Status: Acute (3) Interstitial lung disease Status: Acute (4) Atrial fibrillation Status: Chronic (5) Coronary artery disease Status: Chronic (6) BPH (benign prostatic hyperplasia) Status: Chronic (7) Neuropathic pain Status: Chronic (8) Hypokalemia Status: Chronic (9) Heart failure with preserved ejection fraction Status: Acute (10) Obesity Status: Chronic (11) HLD (hyperlipidemia) Status: Chronic Qualifiers: (12) Cataract Status: Chronic (13) HTN (hypertension) Status: Chronic Qualifiers: History of Present Illness Date of Admission: 06/26/17 Chief Complaint: Here for rehabilitation, strengthening, prior to discharge home with spouse. The patient is a 81 year old Male with below past medical history presented to [facility] Emergency Department 06/21/2017 with shortness of breath. 06/21/2017 Chest X-ray showed left lower lobe patchy atelectasis/infiltrate. 06/21/2017 EKG normal sinus rhythm, ST&T wave abnormality, consider anterior ischemia. Shortness of breath, recent discharge from hospital for same. Pulsox low 80's with oxygen. Chronic cough. pH 7.5, PCO2 53.7, PO2 75. CBC okay, Glucose 171, BUN 33, INR 2.6, Troponin negative, BNP 41.5. Lasix IV given. 06/21/2017 Admit to Hospital. Improved after IV Lasix. BiPAP, IV Lasix 40MG TID. Losartan 25MG daily. 06/22/2017 Dr. Prakash recommended chest CT, Echo, continue BiPAP, overnight pulsoximetry. 06/22/2017 CT chest showed bilateral patchy reticular markings upper lobe. 06/23/2017 Echo Normal LV size. Left ventricular systolic function normal. EF 60%. Pulmonary artery systolic pressure 45mm HG. Solu-Medrol, then prednisone for interstitial lung disease. IV Lasix for HFpEF. 06/26/2017 Admit to TCU for rehabilitation, strengthening, prior to discharge home with spouse. 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, secondary (Chronic) Paroxysmal atrial flutter (Chronic) Atherosclerotic heart disease of [place] coronary artery without angina pectoris (Chronic) PTCA of the RCA intracoronary stent November 1997; PTCA/TIN to prox Ramus, FFR neg of distal RCA 09/25/2016; CABG TUCKER to LAD; SVG to PDA Obesity (Chronic) Abnormal chest CT (Chronic) Restrictive airway disease (Chronic) Abnormal PFTs (pulmonary function tests) (Chronic) S/P PTCA (percutaneous transluminal coronary angioplasty) (Chronic) PTCA of the RCA inreacoronary stent November 1997; PTCA/TIN to prox Ramus, FFR neg of gistal RCA 09/25/2016 Atrial fibrillation and flutter (Chronic) HLD (hyperlipidemia) (Chronic) S/P CABG x 2 (Chronic) TUCKER to LAD; SVG to PDA CAD (coronary artery disease) (Chronic) Cataract (Chronic) HTN (hypertension) (Chronic) Atrial flutter with rapid ventricular response (Chronic) Allergies amoxicillin trihydrate [From Augmentin] Allergy (Verified 06/14/17 15:10) Mucosal lesions lisinopril [From Prinivil] Allergy (Verified 06/14/17 15:10) Unknown meperidine HCl [From Demerol] Allergy (Verified 06/14/17 15:10) Other orlistat [From Xenical] Allergy (Verified 06/14/17 15:10) Unknown Penicillins Allergy (Verified 06/14/17 15:10) Unknown potassium clavulanate [From Augmentin] Allergy (Verified 06/14/17 15:10) Mucosal lesions rofecoxib [From Vioxx] Allergy (Verified 06/14/17 15:10) Unknown adhesive tape Adverse Reaction (Uncoded 06/14/17 15:10) Rash Home Medications: Ambulatory Orders Medication Instructions Recorded Finasteride [Proscar] 5 mg PO DAILY 01/21/13 Gabapentin [Neurontin] 300 mg PO BID 01/21/13 Multivitamins,Ther W-Minerals 1 tab PO DAILY@0800 01/21/13 [Multivitamin With Minerals] Ascorbic Acid [Vitamin C] 500 mg PO DAILY@0800 05/29/15 Vitamin E 400 units PO DAILY@0800 05/29/15 Calcium Carbonate [Calcium] 600 mg PO DAILY@0800 09/02/16 Metoprolol Tartrate [Lopressor 25 mg PO BID 09/02/16 (beta stefani)] Tamsulosin HCl [Flomax] 0.4 mg PO QHS 09/02/16 Aspirin [Adult Low Dose Aspirin EC] 81 mg PO DAILY@0800 09/24/16 Clopidogrel Bisulfate [Plavix] 75 mg PO DAILY 09/24/16 Amiodarone HCl [Cordarone] 200 mg PO DAILY 12/13/16 pravastatin 40 mg tablet 40 mg PO QHS #90 tab 05/14/17 Spironolactone [Aldactone] 25 mg PO DAILY 06/14/17 Cholecalciferol (VIT D3) [Vitamin 2,000 unit PO DAILY #0 06/26/17 D3] Furosemide 40 mg PO BID #0 06/26/17 Pantoprazole Sodium [Protonix] 40 mg PO DAILY 06/26/17 Prednisone [Deltasone] 40 mg PO DAILY@0800 06/26/17 Rivaroxaban [Xarelto] 20 mg PO DAILY 06/26/17 Surgical History: angioplasty, coronary bypass surgery Psychiatric History: Depression Lives: Spouse/ Significant Other Smoking Status: Former smoker Tobacco Use: Non-smoker Alcohol: None Drugs: None - *Family History Maternal History Items: - - no pulmonary fibrosis. Review of Systems Constitutional: Denies: Chills, Fever, Weight Change HEENT: Denies: Head Aches, Sinus Congestion, Sinus Drainage Cardiovascular: Denies: Chest Pain, Palpitations Respiratory: Denies: Cough, Shortness of breath at rest, Sputum production Gastrointestinal: Denies: Abdominal Pain, Nausea, Vomiting Genitourinary: Denies: Dysuria Musculoskeletal: Denies: Joint Pain, Joint Tenderness Skin: Denies: Rash, Wounds Neurological: Denies: Numbness, Tingling, Focal weakness Psychiatric: Denies: Anxiety, Depression, Homicidal Ideations, Suicidal Ideations Hematologic/ Lymphatic: Denies: Easy Bruising, Easy Bleeding VTE Information - Inpt Only VTE Present on Admission: No VTE Mechan Device Prophylaxis: Knee High KWESI Hose VTE Pharm Prophylaxis ordered?: No Reason prophylaxis not ordered:: Treatment Not Indicated Patient Problems: Active and Suspected Problems (Last Updated 06/25/17 @ 13:53 by Nayana Marsh SHELL REPRINT OPERATOR-C) Shortness of breath (Acute) Acute respiratory failure (Acute) Interstitial lung disease (Acute) - Physical Exam General: Alert, Oriented x3, Cooperative HEENT: Atraumatic, PERRLA, EOMI, Normocephalic Neck: Supple, No JVD, Negative Carotid Bruits Lungs: Short of Breath, Wheezes Cardiovascular: Regular rate, No murmurs Abdomen: Bowel Sounds Present, Soft, Non Tender Extremities: No edema, Capillary Refill Less than 3 Seconds Skin: No rashes, No breakdown Musculoskeletal: No Tenderness to Palpation of Joints or Extremities Neurological: Cranial nerves II-XII grossly intact Psych/Mental Status: Normal Affect, Appropriate Vital Signs Temp Pulse Resp BP Pulse Ox 97.7 F L 61 32 H 118/59 L 93 06/26/17 20:00 06/26/17 23:17 06/26/17 23:17 06/26/17 22:53 06/26/17 23:17 Oxygen Flow Rate (L/min) 5 Oxygen Delivery Method Nasal Cannula Weight: 121 kg Body Mass Index (BMI) 37.2 Intake and Output for Last 24 Hours 06/24/17 06/25/17 06/26/17 23:59 23:59 23:59 Intake Total 222 / 222 Balance 222 / 222 Assessment/Plan Active and Suspected Problems (Last Updated 06/25/17 @ 13:53 by Nayana Marsh , SHELL REPRINT OPERATOR-C) Shortness of breath (Acute) Acute respiratory failure (Acute) Interstitial lung disease (Acute) 81 year old male with below past medical history hospitalized for acute respiratory failure requiring BiPAP, secondary to heart failure with preserved ejection fraction, interstitial lung disease, admitted to TCU for debility, rehabilitation, strengthening, prior to discharge home with spouse. * Debility - PT/OT. * Pain - Tylenol 1000MG Q8H PRN mild pain. * Bowel - Miralax 17GM daily, Senna/colace 1 tablet BID, Dulcolax 10MG MO daily PRN. * Pneumonia vaccination - Administer Prevnar 13 and/or Pneumovax 23 as necessary. * DVT prophylaxis - Not necessary, already on Xarelto. * Atrial Fibrillation - Metoprolol 25MG BID, Amiodarone 200MG daily, Xarelto 20MG daily * Vitamin C deficiency - Vitamin C 500MG daily. * Coronary Artery Disease - Metoprolol 25MG BID, Plavix 75MG daily, Aspirin 81MG daily. * Calcium deficiency - Os-Tolu 500MG daily. * Vitamin D deficiency - D3 2000IU daily. * BPH - Finasteride 5MG daily, Tamsulosin 0.4MG daily. * Heart failure with preserved ejection fraction - Metoprolol 25MG BID, Aldactone 25MG daily, Lasix 40MG BID. * Neuropathic pain - Gabapentin 300MG BID. * Nutrition - Glucerna 120ML 4x/day, MVI daily. * Tinea Corporis - Nystatin powder BID groin abdominal folds. * GERD - Pantoprazole 40MG daily. * Hyperlipidemia - Pravastatin 40MG QHS. * Interstitial Lung Disease - Prednisone 40MG daily. * Vitamin E deficiency - Vitamin E 400IU daily.
[2017-06-27 03:20] VITALS: PULSE 60; RESP 14; RESP 19; O2SAT 94
[2017-06-27] MEDS: Polyethylene Glycol 3350 17 GM PACKET PO (04:08)
[2017-06-27] MEDS: Finasteride 5 MG Tablet PO (04:08)
[2017-06-27] MEDS: Furosemide 40 MG Tablet PO ×2 (04:08→17:22)
[2017-06-27] MEDS: Clopidogrel Bisulfate 75 MG Tablet PO (04:08)
[2017-06-27] MEDS: Amiodarone 200 MG Tablet PO (04:08)
[2017-06-27] MEDS: Pantoprazole Sodium 40 MG Tablet PO (04:08)
[2017-06-27] MEDS: Spironolactone 25 MG Tablet PO (04:08)
[2017-06-27] MEDS: Senna/Docusate Sodium 1 Tablet PO ×2 (04:08→17:22)
[2017-06-27 04:09] VITALS: BP 129/65; PULSE 62
[2017-06-27] MEDS: Rivaroxaban 20 MG Tablet PO (04:09)
[2017-06-27] MEDS: Metoprolol Tartrate 25 MG Tablet PO ×2 (04:09→17:22)
[2017-06-27] MEDS: Nystatin Powder 15gm Bottle 1 APPLIC TOPICAL (04:21)
--- NOTE | 2017-06-27 04:27 | NURSING ---
Code status discussed with pt. Pt wishes to be a DNRCC.
[2017-06-27] MEDS: Glucerna Shake 120 ML LIQUID PO ×3 (04:28→21:14)
[2017-06-27 06:16] LABS: Bedside Glucose 275 mg/dL (70-110)
[2017-06-27 06:31] LABS: Absolute Lymphocyte Count 0.49 X10^3/ul (0.83-4.51); Absolute Neutrophil Count 14.3 X10^3/uL (2.0-7.7); Basophil# 0.01 X10^3/uL; Basophil% 0.1 % (0-1); Differential Indicated SCAN CRITERIA MET; Hematocrit 41.5 % (40-54); Hemoglobin 13.7 g/dl (13.0-16.5); Lymphocyte # 0.49 X10^3/ul (4.0); Lymphocyte % 3.1 % (19-41); Mean Corpuscular Hgb 29.1 pg (27.0-32.0); Mean Corpuscular Volume 88.3 fL (80-94); Mean Platelet Vol. 9.3 fl (6.2-12.0); Monocyte# 1.08 X10^3/uL; Monocyte% 6.8 % (0-10); Neutrophil # 14.27 X10^3/uL (2.7-7.7); Neutrophil % 89.5 % (47-70); POSITIVE COUNT NO; POSITIVE DIFFERENTIAL YES; POSITIVE MORPHOLOGY NO; Platelet Count 317 K/mm3 (150-450); RBC Distribution Width CV 12.9 % (11.6-14.6); RBC Distribution Width SD 41.5 fl (35.1-43.9); White Blood Count 15.9 K/mm3 (4.4-11.0)
[2017-06-27 06:51] LABS: Differential Comment SCANNED
[2017-06-27 07:02] LABS: Anion Gap 5 (5-15); BUN 40 mg/dL (7-18); BUN/Creat Ratio 38.1 RATIO (10-20); Calcium,Total 9.3 mg/dL (8.5-10.1); Chloride 88 mmol/L (98-107); Creatinine, Serum 1.05 mg/dL (0.70-1.30); EST Glomerular Filtration Rate 72 mL/min (>60); Est Glom Filt Rate - Afr Amer 87 mL/min (>60); Estimated Creatinine Clearance 58.77 ml/min; Glucose 244 mg/dL (74-106); Potassium 4.2 mmol/L (3.5-5.1); Sodium Level 131 mmol/L (136-145)
[2017-06-27] MEDS: Aspirin E.C. 81 MG Tablet PO (08:26)
[2017-06-27] MEDS: Gabapentin 300 MG Capsule PO ×2 (08:26→17:22)
--- NOTE | 2017-06-27 09:14 | NURSING ---
Pt refusing all his scheduled vitamins, Pt stated I only have 4 weeks left these medications are useless. Pt als refusing TB at this time. Charisma BRUNSON aware.
[2017-06-27 10:00] VITALS: PULSE 57; RESP 20; O2SAT 92
[2017-06-27 11:45] LABS: Bedside Glucose 370 mg/dL (70-110)
[2017-06-27 15:39] VITALS: BP 102/54; PULSE 57; RESP 20; TEMP 36.9; O2SAT 92
--- NOTE | 2017-06-27 15:59 | CASEMGMT ---
Social Work Spoke with resident in room. Resident is requesting for a referral to be made to [facility] and wanting to set up a meeting on Friday. Resident spouse present and aware of referral. Resident spouse is supportive. Telephone call to [facility], referral made, clinical information faxed. Hospice to meet with resident on 06/30/17 @ 10:30am Will continue to follow. Malissa RASHID, EELER
[2017-06-27 17:10] LABS: Bedside Glucose 303 mg/dL (70-110)
[2017-06-27 17:22] VITALS: PULSE 60
[2017-06-27 20:51] LABS: Bedside Glucose 435 mg/dL (70-110)
[2017-06-27] MEDS: Tamsulosin HCl 0.4 MG Capsule PO (21:14)
[2017-06-27] MEDS: Pravastatin 40 MG Tablet PO (21:14)
--- NOTE | 2017-06-27 22:36 | CPS ---
patient refused bipap at time of visit. nursing informed.
[2017-06-28] MEDS: Amiodarone 200 MG Tablet PO (05:50)
[2017-06-28] MEDS: Spironolactone 25 MG Tablet PO (05:50)
[2017-06-28] MEDS: Polyethylene Glycol 3350 17 GM PACKET PO (05:51)
[2017-06-28] MEDS: Furosemide 40 MG Tablet PO ×2 (05:51→18:02)
[2017-06-28 05:56] VITALS: BP 130/61; PULSE 52
[2017-06-28] MEDS: Clopidogrel Bisulfate 75 MG Tablet PO (05:56)
[2017-06-28] MEDS: Metoprolol Tartrate 25 MG Tablet PO ×2 (05:56→18:03)
[2017-06-28] MEDS: Nystatin Powder 15gm Bottle 1 APPLIC TOPICAL ×2 (05:56→21:23)
[2017-06-28] MEDS: Rivaroxaban 20 MG Tablet PO (05:57)
[2017-06-28] MEDS: Finasteride 5 MG Tablet PO (05:57)
[2017-06-28] MEDS: Senna/Docusate Sodium 1 Tablet PO ×2 (05:57→18:02)
[2017-06-28] MEDS: Pantoprazole Sodium 40 MG Tablet PO (05:57)
[2017-06-28 06:45] LABS: Bedside Glucose 191 mg/dL (70-110)
[2017-06-28] MEDS: Aspirin E.C. 81 MG Tablet PO (08:11)
[2017-06-28] MEDS: Gabapentin 300 MG Capsule PO ×2 (08:12→18:03)
--- NOTE | 2017-06-28 10:11 | NURSING ---
Addendum entered by Seema Marie 06/28/17 10:47: Dr. Monreal updated, N.O. to put Xarelto on hold. Pt and updated, cont to monitor. Original Note: AID CALLED THIS NURSE TO PT ROOM STATED PT WAS BLEEDING AND HAD BLOOD ON SHEETS. THIS NURSE SAW PT HAD SMALL ABRASION TO SCROTUM BUT WAS NOT BLEEDING. PT HAD TISSUE FULL WITH BLOOD. CLEANED PT OFF AND FOUND PT PENIS WAS BLEEDING WITH A BLOOD CLOT. CHECKED PT URINAL AND URINE WAS SUZETTE AID IN COLOR. GOT PT UP IN CHAIR AND PENIS CONTINUE TO BLEED. GOT BOY SENIOR. BLADDER SCAN DONE.
[2017-06-28 11:40] LABS: Bedside Glucose 212 mg/dL (70-110)
[2017-06-28] MEDS: Glucerna Shake 120 ML LIQUID PO (11:55)
--- NOTE | 2017-06-28 13:20 | NURSING ---
PT HAS SORE BEHIND RIGHT EAR FROM O2 TUBING. APPLIED EAR PROTECTERS. PT ALSO HAS BLOODY NOSE AGAIN,CLEANED UP AND ANOTHER BLOOD CLOT FROM PT PENIS. REPORTED TO BOY SENIOR
--- NOTE | 2017-06-28 13:48 | PCM.PN.RX ---
<Severo Yang D - Last Filed: 06/28/17 13:48> Progress Note - Pharmacy Subjective: [facility] Admission Objective: Allergies amoxicillin trihydrate [From Augmentin] Allergy (Verified 06/14/17 15:10) Mucosal lesions lisinopril [From Prinivil] Allergy (Verified 06/14/17 15:10) Unknown meperidine HCl [From Demerol] Allergy (Verified 06/14/17 15:10) Other orlistat [From Xenical] Allergy (Verified 06/14/17 15:10) Unknown Penicillins Allergy (Verified 06/14/17 15:10) Unknown potassium clavulanate [From Augmentin] Allergy (Verified 06/14/17 15:10) Mucosal lesions rofecoxib [From Vioxx] Allergy (Verified 06/14/17 15:10) Unknown adhesive tape Adverse Reaction (Uncoded 06/14/17 15:10) Rash Home Medications Medication Instructions Recorded Finasteride [Proscar] 5 mg PO DAILY 01/21/13 Gabapentin [Neurontin] 300 mg PO BID 01/21/13 Multivitamins,Ther W-Minerals 1 tab PO DAILY@0800 01/21/13 [Multivitamin With Minerals] Ascorbic Acid [Vitamin C] 500 mg PO DAILY@0800 05/29/15 Vitamin E 400 units PO DAILY@0800 05/29/15 Calcium Carbonate [Calcium] 600 mg PO DAILY@0800 09/02/16 Metoprolol Tartrate [Lopressor 25 mg PO BID 09/02/16 (beta yelena)] Tamsulosin HCl [Flomax] 0.4 mg PO QHS 09/02/16 Aspirin [Adult Low Dose Aspirin EC] 81 mg PO DAILY@0800 09/24/16 Clopidogrel Bisulfate [Plavix] 75 mg PO DAILY 09/24/16 Amiodarone HCl [Cordarone] 200 mg PO DAILY 12/13/16 pravastatin 40 mg tablet 40 mg PO QHS #90 tab 05/14/17 Spironolactone [Aldactone] 25 mg PO DAILY 06/14/17 Cholecalciferol (VIT D3) [Vitamin 2,000 unit PO DAILY #0 06/26/17 D3] Furosemide 40 mg PO BID #0 06/26/17 Pantoprazole Sodium [Protonix] 40 mg PO DAILY 06/26/17 Prednisone [Deltasone] 40 mg PO DAILY@0800 06/26/17 Rivaroxaban [Xarelto] 20 mg PO DAILY 06/26/17 Current Medications Generic Name Dose Route Start Last Admin Trade Name Freq PRN Reason Stop Dose Admin Acetaminophen 1,000 mg 06/26/17 23:38 Tylenol PO Q8H PRN PRN MILD PAIN (1-3/10) Amiodarone HCl 200 mg 06/27/17 06:00 06/28/17 05:50 Cordarone PO 200 mg DAILY [facility] Administration Ascorbic Acid 500 mg 06/27/17 08:00 06/28/17 08:14 Vitamin C PO Not Given DAILY@0800 [facility] Aspirin 81 mg 06/27/17 08:00 06/28/17 08:11 Ecotrin PO 81 mg DAILY@0800 [facility] Administration Bisacodyl 10 mg 06/26/17 20:12 Dulcolax RECTAL DAILY PRN Constipation Calcium Carbonate 500 mg 06/27/17 08:00 06/28/17 08:14 [facility] Cholecalciferol 2,000 unit 06/27/17 06:00 06/28/17 05:57 Vitamin D PO 2,000 unit DAILY [facility] Administration Clopidogrel Bisulfate 75 mg 06/27/17 06:00 06/28/17 05:56 Plavix PO 75 mg DAILY [facility] Administration Dextrose 0 gm 06/27/17 12:00 D50w Syringe IV X1 PRN Hypoglycemia Protocol Finasteride 5 mg 06/27/17 06:00 06/28/17 05:57 Proscar PO 5 mg DAILY [facility] Administration Furosemide 40 mg 06/27/17 06:00 06/28/17 05:51 Lasix PO 40 mg BID [facility] Administration Gabapentin 300 mg 06/27/17 08:00 06/28/17 08:12 [facility] Glucagon 1 mg 06/27/17 12:00 IM .X1 PRN Hypoglycemia Insulin Aspart 7 units 06/28/17 06:45 06/28/17 11:56 Novolog Flexpen ([facility]) SC 7 u TIDAC [facility] Administration Insulin Detemir 10 units 06/27/17 18:00 06/28/17 06:50 Levemir ([facility]) SC 10 units BID [facility] Administration Metoprolol Tartrate 25 mg 06/26/17 22:00 06/28/17 05:56 Lopressor (Beta Yelena) PO 25 mg BID [facility] Administration Multivitamins/Minerals 1 tablet 06/27/17 08:00 06/28/17 08:13 Multivitamin With Minerals PO [facility] Nutritional Formula (Lactose Free) 120 ml 06/26/17 22:00 06/28/17 11:55 Glucerna Shake PO 120 ml 4X/DAY [facility] Administration Nystatin 1 applic 06/27/17 06:00 06/28/17 05:56 Mycostatin Powder TOPICAL 1 applicatio BID [facility] Administration Protocol Pantoprazole Sodium 40 mg 06/27/17 06:00 06/28/17 05:57 Protonix PO 40 mg DAILY [facility] Administration Polyethylene Glycol 17 gm 06/27/17 06:00 06/28/17 05:51 Miralax PO 17 gm DAILY [facility] Administration Pravastatin Sodium 40 mg 06/26/17 22:00 06/27/17 21:14 Pravachol PO 40 mg QHS [facility] Administration Prednisone 40 mg 06/27/17 08:00 06/28/17 08:11 Prednisone PO 40 mg DAILY@0800 [facility] Administration Rivaroxaban 20 mg 06/27/17 06:00 06/28/17 05:57 Xarelto PO 20 mg DAILY [facility] Administration Senna/Docusate Sodium 1 tablet 06/27/17 06:00 06/28/17 05:57 Senokot-S, Ny-Colace PO 1 tablet BID [facility] Administration Spironolactone 25 mg 06/27/17 06:00 06/28/17 05:50 Aldactone PO 25 mg DAILY [facility] Administration Tamsulosin HCl 0.4 mg 06/26/17 22:00 06/27/17 21:14 Flomax PO 0.4 mg QHS [facility] Administration Tuberculin PPD 5 tu 07/04/17 10:00 Tubersol, Aplisol, Ppd ID 07/04/17 10:01 X1 ONE Vitamin E 400 units 06/27/17 08:00 06/28/17 08:14 Vitamin E PO Not Given DAILY@0800 [facility] Problem List (Last Updated 06/25/17 @ 13:53 by Nayana Marsh, CORE MACHINE OPERATOR-C) Shortness of breath (Acute) Acute respiratory failure (Acute) Interstitial lung disease (Acute) Atrial fibrillation (Chronic) Coronary artery disease (Chronic) BPH (benign prostatic hyperplasia) (Chronic) Neuropathic pain (Chronic) Hypokalemia (Chronic) Vital Signs Temp Pulse Resp BP Pulse Ox 98.4 F 52 L 20 H 130/61 H 92 06/27/17 15:39 06/28/17 05:56 06/27/17 15:39 06/28/17 05:56 06/27/17 15:39 Oxygen Flow Rate (L/min) 5 Oxygen Delivery Method Nasal Cannula Weight: 121 kg Body Mass Index (BMI) 37.2 Sodium 131 mmol/L (136-145) L 06/27/17 05:58 Potassium 4.2 mmol/L (3.5-5.1) 06/27/17 05:58 Chloride 88 mmol/L (98-107) L 06/27/17 05:58 Carbon Dioxide 38.0 mmol/L (21.0-32.0) H 06/27/17 05:58 Anion Gap 5 (5-15) 06/27/17 05:58 BUN 40 mg/dL (7-18) H 06/27/17 05:58 Creatinine 1.05 mg/dL (0.70-1.30) 06/27/17 05:58 Est GFR (MDRD) Af Amer 87 mL/min (>60) 06/27/17 05:58 Est GFR (MDRD) Non-Af 72 mL/min (>60) 06/27/17 05:58 BUN/Creatinine Ratio 38.1 RATIO (10-20) H 06/27/17 05:58 Glucose 244 mg/dL (74-106) H 06/27/17 05:58 Assessment/Plan: 1) Pain APAP for mild pain, gabapentin. Continue to monitor prn medication use, daily pain scores. 2) AFib/CAD/CHF Amiodarone, ASA, clopidogrel, metoprolol, rivaroxaban, spironolactone, furosemide. BP/HR within goal ranges, K wnl, BUN/SCr at baseline, Hgb/Hct at baseline. Continue to monitor BP/HR, renal function, electrolytes, s/s chest pain, s/s bleeding. 3) DM2 Insulin detemir twice daily, insulin aspart coverage. Avg BGT > 200 mg/dL. Continue to monitor BGT, s/s hyper/hypoglycemia. 4) Pulm Prednisone daily for interstitial lung disease. Continue to monitor for shortness of breath. 5) Nutrition C, D, Ca, Glucerna, E, multivitamin. Continue to monitor clinically. 6) BPH Finasteride, tamsulosin. Continue to monitor for urinary symptoms. 7) Derm Nystatin topically. Continue to monitor clinically. 8) GI Pantoprazole daily. Continue to monitor s/s GI distress. Psychotropic Medications: None Unnecessary Medications: None Bowel Regimen: 9) Senna/s, PEG, prn bisacodyl. Continue to monitor prn medication use, for constipation/diarrhea. Date of Note:: 06/28/17 - Provider Comments Provider responsibility: Provider responsible to enter orders to implement recommendations <Chaitanya Monreal Chi - Last Filed: 06/28/17 14:17> Progress Note - Pharmacy Subjective: [] Objective: Allergies amoxicillin trihydrate [From Augmentin] Allergy (Verified 06/14/17 15:10) Mucosal lesions lisinopril [From Prinivil] Allergy (Verified 06/14/17 15:10) Unknown meperidine HCl [From Demerol] Allergy (Verified 06/14/17 15:10) Other orlistat [From Xenical] Allergy (Verified 06/14/17 15:10) Unknown Penicillins Allergy (Verified 06/14/17 15:10) Unknown potassium clavulanate [From Augmentin] Allergy (Verified 06/14/17 15:10) Mucosal lesions rofecoxib [From Vioxx] Allergy (Verified 06/14/17 15:10) Unknown adhesive tape Adverse Reaction (Uncoded 06/14/17 15:10) Rash Home Medications Medication Instructions Recorded Finasteride [Proscar] 5 mg PO DAILY 01/21/13 Gabapentin [Neurontin] 300 mg PO BID 01/21/13 Multivitamins,Ther W-Minerals 1 tab PO DAILY@0800 01/21/13 [Multivitamin With Minerals] Ascorbic Acid [Vitamin C] 500 mg PO DAILY@79905/29/15 Vitamin E 400 units PO DAILY@0805/29/15 Calcium Carbonate [Calcium] 600 mg PO DAILY@0809/02/16 Metoprolol Tartrate [Lopressor 25 mg PO BID 09/02/16 (beta yelena)] Tamsulosin HCl [Flomax] 0.4 mg PO QHS 09/02/16 Aspirin [Adult Low Dose Aspirin EC] 81 mg PO DAILY@0800 09/24/16 Clopidogrel Bisulfate [Plavix] 75 mg PO DAILY 09/24/16 Amiodarone HCl [Cordarone] 200 mg PO DAILY 12/13/16 pravastatin 40 mg tablet 40 mg PO QHS #90 tab 05/14/17 Spironolactone [Aldactone] 25 mg PO DAILY 06/14/17 Cholecalciferol (VIT D3) [Vitamin 2,000 unit PO DAILY #0 06/26/17 D3] Furosemide 40 mg PO BID #0 06/26/17 Pantoprazole Sodium [Protonix] 40 mg PO DAILY 06/26/17 Prednisone [Deltasone] 40 mg PO DAILY@0800 06/26/17 Rivaroxaban [Xarelto] 20 mg PO DAILY 06/26/17 Current Medications Generic Name Dose Route Start Last Admin Trade Name Freq PRN Reason Stop Dose Admin Acetaminophen 1,000 mg 06/26/17 23:38 Tylenol PO Q8H PRN PRN MILD PAIN (1-3/10) Amiodarone HCl 200 mg 06/27/17 06:00 06/28/17 05:50 Cordarone PO 200 mg DAILY [facility] Administration Ascorbic Acid 500 mg 06/27/17 08:00 06/28/17 08:14 Vitamin C PO Not Given DAILY@0800 [facility] Aspirin 81 mg 06/27/17 08:00 06/28/17 08:11 Ecotrin PO 81 mg DAILY@0800 [facility] Administration Bisacodyl 10 mg 06/26/17 20:12 Dulcolax RECTAL DAILY PRN Constipation Calcium Carbonate 500 mg 06/27/17 08:00 06/28/17 08:14 Os-Tolu 500 [facility] Cholecalciferol 2,000 unit 06/27/17 06:00 06/28/17 05:57 Vitamin D PO 2,000 unit DAILY [facility] Administration Clopidogrel Bisulfate 75 mg 06/27/17 06:00 06/28/17 05:56 Plavix PO 75 mg DAILY [facility] Administration Dextrose 0 gm 06/27/17 12:00 D50w Syringe IV X1 PRN Hypoglycemia Protocol Finasteride 5 mg 06/27/17 06:00 06/28/17 05:57 Proscar PO 5 mg DAILY [facility] Administration Furosemide 40 mg 06/27/17 06:00 06/28/17 05:51 Lasix PO 40 mg BID [facility] Administration Gabapentin 300 mg 06/27/17 08:00 06/28/17 08:12 [facility] Administration Glucagon 1 mg 06/27/17 12:00 IM .X1 PRN Hypoglycemia Insulin Aspart 7 units 06/28/17 06:45 06/28/17 11:56 Novolog Flexpen ([facility]) SC 7 u TIDAC [facility] Administration Insulin Detemir 10 units 06/27/17 18:00 06/28/17 06:50 Levemir ([facility]) SC 10 units BID [facility] Administration Metoprolol Tartrate 25 mg 06/26/17 22:00 06/28/17 05:56 Lopressor (Beta Yelena) PO 25 mg BID [facility] Administration Multivitamins/Minerals 1 tablet 06/27/17 08:00 06/28/17 08:13 Multivitamin With Minerals PO Not [facility] Nutritional Formula (Lactose Free) 120 ml 06/26/17 22:00 06/28/17 11:55 Glucerna Shake PO 120 ml 4X/DAY [facility] Administration Nystatin 1 applic 06/27/17 06:00 06/28/17 05:56 Mycostatin Powder TOPICAL 1 applicatio BID [facility] Administration Protocol Pantoprazole Sodium 40 mg 06/27/17 06:00 06/28/17 05:57 Protonix PO 40 mg DAILY [facility] Administration Polyethylene Glycol 17 gm 06/27/17 06:00 06/28/17 05:51 Miralax PO 17 gm DAILY [facility] Administration Pravastatin Sodium 40 mg 06/26/17 22:00 06/27/17 21:14 Pravachol PO 40 mg QHS [facility] Administration Prednisone 40 mg 06/27/17 08:00 06/28/17 08:11 Prednisone PO 40 mg DAILY@0800 [facility] Administration Rivaroxaban 20 mg 06/27/17 06:00 06/28/17 05:57 Xarelto PO 20 mg DAILY [facility] Administration Senna/Docusate Sodium 1 tablet 06/27/17 06:00 06/28/17 05:57 Senokot-S, Ny-Colace PO 1 tablet BID [facility] Administration Spironolactone 25 mg 06/27/17 06:00 06/28/17 05:50 Aldactone PO 25 mg DAILY [facility] Administration Tamsulosin HCl 0.4 mg 06/26/17 22:00 06/27/17 21:14 Flomax PO 0.4 mg QHS [facility] Administration Tuberculin PPD 5 tu 07/04/17 10:00 Tubersol, Aplisol, Ppd ID 07/04/17 10:01 X1 ONE Vitamin E 400 units 06/27/17 08:00 06/28/17 08:14 Vitamin E PO Not Given DAILY@0800 [facility] Problem List (Last Updated 06/25/17 @ 13:53 by Nayana Marsh, CORE MACHINE OPERATOR-C) Shortness of breath (Acute) Acute respiratory failure (Acute) Interstitial lung disease (Acute) Atrial fibrillation (Chronic) Coronary artery disease (Chronic) BPH (benign prostatic hyperplasia) (Chronic) Neuropathic pain (Chronic) Hypokalemia (Chronic) Vital Signs Temp Pulse Resp BP Pulse Ox 98.4 F 52 L 20 H 130/61 H 92 06/27/17 15:39 06/28/17 05:56 06/27/17 15:39 06/28/17 05:56 06/27/17 15:39 Oxygen Flow Rate (L/min) 5 Oxygen Delivery Method Nasal Cannula Weight: 121 kg Body Mass Index (BMI) 37.2 Sodium 131 mmol/L (136-145) L 06/27/17 05:58 Potassium 4.2 mmol/L (3.5-5.1) 06/27/17 05:58 Chloride 88 mmol/L (98-107) L 06/27/17 05:58 Carbon Dioxide 38.0 mmol/L (21.0-32.0) H 06/27/17 05:58 Anion Gap 5 (5-15) 06/27/17 05:58 BUN 40 mg/dL (7-18) H 06/27/17 05:58 Creatinine 1.05 mg/dL (0.70-1.30) 06/27/17 05:58 Est GFR (MDRD) Af Amer 87 mL/min (>60) 06/27/17 05:58 Est GFR (MDRD) Non-Af 72 mL/min (>60) 06/27/17 05:58 BUN/Creatinine Ratio 38.1 RATIO (10-20) H 06/27/17 05:58 Glucose 244 mg/dL (74-106) H 06/27/17 05:58 Assessment/Plan: Psychotropic Medications: Unnecessary Medications: Bowel Regimen: - Provider Comments Provider responsibility: Provider responsible to enter orders to implement recommendations Provider Comments to Recommendations by Pharmacy: Agree
--- NOTE | 2017-06-28 13:58 | PHA.CONS_ITS ---
<Severo Yang D - Last Filed: 06/28/17 13:48> Progress Note - Pharmacy Subjective: TCU Admission Objective: Allergies amoxicillin trihydrate [From Augmentin] Allergy (Verified 06/14/17 15:10) Mucosal lesions lisinopril [From Prinivil] Allergy (Verified 06/14/17 15:10) Unknown meperidine HCl [From Demerol] Allergy (Verified 06/14/17 15:10) Other orlistat [From Xenical] Allergy (Verified 06/14/17 15:10) Unknown Penicillins Allergy (Verified 06/14/17 15:10) Unknown potassium clavulanate [From Augmentin] Allergy (Verified 06/14/17 15:10) Mucosal lesions rofecoxib [From Vioxx] Allergy (Verified 06/14/17 15:10) Unknown adhesive tape Adverse Reaction (Uncoded 06/14/17 15:10) Rash Home Medications Medication Instructions Recorded Finasteride [Proscar] 5 mg PO DAILY 01/21/13 Gabapentin [Neurontin] 300 mg PO BID 01/21/13 Multivitamins,Ther W-Minerals 1 tab PO DAILY@0800 01/21/13 [Multivitamin With Minerals] Ascorbic Acid [Vitamin C] 500 mg PO DAILY@0800 05/29/15 Vitamin E 400 units PO DAILY@0800 05/29/15 Calcium Carbonate [Calcium] 600 mg PO DAILY@0800 09/02/16 Metoprolol Tartrate [Lopressor 25 mg PO BID 09/02/16 (beta yelena)] Tamsulosin HCl [Flomax] 0.4 mg PO QHS 09/02/16 Aspirin [Adult Low Dose Aspirin EC] 81 mg PO DAILY@0800 09/24/16 Clopidogrel Bisulfate [Plavix] 75 mg PO DAILY 09/24/16 Amiodarone HCl [Cordarone] 200 mg PO DAILY 12/13/16 pravastatin 40 mg tablet 40 mg PO QHS #90 tab 05/14/17 Spironolactone [Aldactone] 25 mg PO DAILY 06/14/17 Cholecalciferol (VIT D3) [Vitamin 2,000 unit PO DAILY #0 06/26/17 D3] Furosemide 40 mg PO BID #0 06/26/17 Pantoprazole Sodium [Protonix] 40 mg PO DAILY 06/26/17 Prednisone [Deltasone] 40 mg PO DAILY@0800 06/26/17 Rivaroxaban [Xarelto] 20 mg PO DAILY 06/26/17 Current Medications Generic Name Dose Route Start Last Admin Trade Name Freq PRN Reason Stop Dose Admin Acetaminophen 1,000 mg 06/26/17 23:38 Tylenol PO Q8H PRN PRN MILD PAIN (1-3/10) Amiodarone HCl 200 mg 06/27/17 06:00 06/28/17 05:50 Cordarone PO 200 mg DAILY [facility] Administration Ascorbic Acid 500 mg 06/27/17 08:00 06/28/17 08:14 Vitamin C PO Not Given DAILY@0800 [facility] Aspirin 81 mg 06/27/17 08:00 06/28/17 08:11 Ecotrin PO 81 mg DAILY@0800 [facility] Administration Bisacodyl 10 mg 06/26/17 20:12 Dulcolax RECTAL DAILY PRN Constipation Calcium Carbonate 500 mg 06/27/17 08:00 06/28/17 08:14 [facility] Cholecalciferol 2,000 unit 06/27/17 06:00 06/28/17 05:57 Vitamin D PO 2,000 unit DAILY [facility] Administration Clopidogrel Bisulfate 75 mg 06/27/17 06:00 06/28/17 05:56 Plavix PO 75 mg DAILY [facility] Administration Dextrose 0 gm 06/27/17 12:00 D50w Syringe IV X1 PRN Hypoglycemia Protocol Finasteride 5 mg 06/27/17 06:00 06/28/17 05:57 Proscar PO 5 mg DAILY [facility] Administration Furosemide 40 mg 06/27/17 06:00 06/28/17 05:51 Lasix PO 40 mg BID [facility] Administration Gabapentin 300 mg 06/27/17 08:00 06/28/17 08:12 [facility] Glucagon 1 mg 06/27/17 12:00 IM .X1 PRN Hypoglycemia Insulin Aspart 7 units 06/28/17 06:45 06/28/17 11:56 Novolog Flexpen ([facility]) SC 7 u TIDAC [facility] Administration Insulin Detemir 10 units 06/27/17 18:00 06/28/17 06:50 Levemir ([facility]) SC 10 units BID [facility] Administration Metoprolol Tartrate 25 mg 06/26/17 22:00 06/28/17 05:56 Lopressor (Beta Yelena) PO 25 mg BID [facility] Administration Multivitamins/Minerals 1 tablet 06/27/17 08:00 06/28/17 08:13 Multivitamin With Minerals PO [facility] Nutritional Formula (Lactose Free) 120 ml 06/26/17 22:00 06/28/17 11:55 Glucerna Shake PO 120 ml 4X/DAY [facility] Administration Nystatin 1 applic 06/27/17 06:00 06/28/17 05:56 Mycostatin Powder TOPICAL 1 applicatio BID [facility] Administration Protocol Pantoprazole Sodium 40 mg 06/27/17 06:00 06/28/17 05:57 Protonix PO 40 mg DAILY [facility] Administration Polyethylene Glycol 17 gm 06/27/17 06:00 06/28/17 05:51 Miralax PO 17 gm DAILY [facility] Administration Pravastatin Sodium 40 mg 06/26/17 22:00 06/27/17 21:14 Pravachol PO 40 mg QHS [facility] Administration Prednisone 40 mg 06/27/17 08:00 06/28/17 08:11 Prednisone PO 40 mg DAILY@0800 [facility] Administration Rivaroxaban 20 mg 06/27/17 06:00 06/28/17 05:57 Xarelto PO 20 mg DAILY [facility] Administration Senna/Docusate Sodium 1 tablet 06/27/17 06:00 06/28/17 05:57 Senokot-S, Ny-Colace PO 1 tablet BID [facility] Administration Spironolactone 25 mg 06/27/17 06:00 06/28/17 05:50 Aldactone PO 25 mg DAILY [facility] Administration Tamsulosin HCl 0.4 mg 06/26/17 22:00 06/27/17 21:14 Flomax PO 0.4 mg QHS [facility] Administration Tuberculin PPD 5 tu 07/04/17 10:00 Tubersol, Aplisol, Ppd ID 07/04/17 10:01 X1 ONE Vitamin E 400 units 06/27/17 08:00 06/28/17 08:14 Vitamin E PO Not Given DAILY@0800 [facility] Problem List (Last Updated 06/25/17 @ 13:53 by Nayana Marsh, ELECTRONICS MECHANIC-C) Shortness of breath (Acute) Acute respiratory failure (Acute) Interstitial lung disease (Acute) Atrial fibrillation (Chronic) Coronary artery disease (Chronic) BPH (benign prostatic hyperplasia) (Chronic) Neuropathic pain (Chronic) Hypokalemia (Chronic) Vital Signs Temp Pulse Resp BP Pulse Ox 98.4 F 52 L 20 H 130/61 H 92 06/27/17 15:39 06/28/17 05:56 06/27/17 15:39 06/28/17 05:56 06/27/17 15:39 Oxygen Flow Rate (L/min) 5 Oxygen Delivery Method Nasal Cannula Weight: 121 kg Body Mass Index (BMI) 37.2 Sodium 131 mmol/L (136-145) L 06/27/17 05:58 Potassium 4.2 mmol/L (3.5-5.1) 06/27/17 05:58 Chloride 88 mmol/L (98-107) L 06/27/17 05:58 Carbon Dioxide 38.0 mmol/L (21.0-32.0) H 06/27/17 05:58 Anion Gap 5 (5-15) 06/27/17 05:58 BUN 40 mg/dL (7-18) H 06/27/17 05:58 Creatinine 1.05 mg/dL (0.70-1.30) 06/27/17 05:58 Est GFR (MDRD) Af Amer 87 mL/min (>60) 06/27/17 05:58 Est GFR (MDRD) Non-Af 72 mL/min (>60) 06/27/17 05:58 BUN/Creatinine Ratio 38.1 RATIO (10-20) H 06/27/17 05:58 Glucose 244 mg/dL (74-106) H 06/27/17 05:58 Assessment/Plan: 1) Pain APAP for mild pain, gabapentin. Continue to monitor prn medication use, daily pain scores. 2) AFib/CAD/CHF Amiodarone, ASA, clopidogrel, metoprolol, rivaroxaban, spironolactone, furosemide. BP/HR within goal ranges, K wnl, BUN/SCr at baseline, Hgb/Hct at baseline. Continue to monitor BP/HR, renal function, electrolytes, s/s chest pain, s/s bleeding. 3) DM2 Insulin detemir twice daily, insulin aspart coverage. Avg BGT > 200 mg/dL. Continue to monitor BGT, s/s hyper/hypoglycemia. 4) Pulm Prednisone daily for interstitial lung disease. Continue to monitor for shortness of breath. 5) Nutrition C, D, Ca, Glucerna, E, multivitamin. Continue to monitor clinically. 6) BPH Finasteride, tamsulosin. Continue to monitor for urinary symptoms. 7) Derm Nystatin topically. Continue to monitor clinically. 8) GI Pantoprazole daily. Continue to monitor s/s GI distress. Psychotropic Medications: None Unnecessary Medications: None Bowel Regimen: 9) Senna/s, PEG, prn bisacodyl. Continue to monitor prn medication use, for constipation/diarrhea. Date of Note:: 06/28/17 - Provider Comments Provider responsibility: Provider responsible to enter orders to implement recommendations <Chaitanya Monreal Chi - Last Filed: 06/28/17 14:17> Progress Note - Pharmacy Subjective: [] Objective: Allergies amoxicillin trihydrate [From Augmentin] Allergy (Verified 06/14/17 15:10) Mucosal lesions lisinopril [From Prinivil] Allergy (Verified 06/14/17 15:10) Unknown meperidine HCl [From Demerol] Allergy (Verified 06/14/17 15:10) Other orlistat [From Xenical] Allergy (Verified 06/14/17 15:10) Unknown Penicillins Allergy (Verified 06/14/17 15:10) Unknown potassium clavulanate [From Augmentin] Allergy (Verified 06/14/17 15:10) Mucosal lesions rofecoxib [From Vioxx] Allergy (Verified 06/14/17 15:10) Unknown adhesive tape Adverse Reaction (Uncoded 06/14/17 15:10) Rash Home Medications Medication Instructions Recorded Finasteride [Proscar] 5 mg PO DAILY 01/21/13 Gabapentin [Neurontin] 300 mg PO BID 01/21/13 Multivitamins,Ther W-Minerals 1 tab PO DAILY@0800 01/21/13 [Multivitamin With Minerals] Ascorbic Acid [Vitamin C] 500 mg PO DAILY@79905/29/15 Vitamin E 400 units PO DAILY@0805/29/15 Calcium Carbonate [Calcium] 600 mg PO DAILY@0809/02/16 Metoprolol Tartrate [Lopressor 25 mg PO BID 09/02/16 (beta yelena)] Tamsulosin HCl [Flomax] 0.4 mg PO QHS 09/02/16 Aspirin [Adult Low Dose Aspirin EC] 81 mg PO DAILY@0800 09/24/16 Clopidogrel Bisulfate [Plavix] 75 mg PO DAILY 09/24/16 Amiodarone HCl [Cordarone] 200 mg PO DAILY 12/13/16 pravastatin 40 mg tablet 40 mg PO QHS #90 tab 05/14/17 Spironolactone [Aldactone] 25 mg PO DAILY 06/14/17 Cholecalciferol (VIT D3) [Vitamin 2,000 unit PO DAILY #0 06/26/17 D3] Furosemide 40 mg PO BID #0 06/26/17 Pantoprazole Sodium [Protonix] 40 mg PO DAILY 06/26/17 Prednisone [Deltasone] 40 mg PO DAILY@0800 06/26/17 Rivaroxaban [Xarelto] 20 mg PO DAILY 06/26/17 Current Medications Generic Name Dose Route Start Last Admin Trade Name Freq PRN Reason Stop Dose Admin Acetaminophen 1,000 mg 06/26/17 23:38 Tylenol PO Q8H PRN PRN MILD PAIN (1-3/10) Amiodarone HCl 200 mg 06/27/17 06:00 06/28/17 05:50 Cordarone PO 200 mg DAILY [facility] Administration Ascorbic Acid 500 mg 06/27/17 08:00 06/28/17 08:14 Vitamin C PO Not Given DAILY@0800 [facility] Aspirin 81 mg 06/27/17 08:00 06/28/17 08:11 Ecotrin PO 81 mg DAILY@0800 [facility] Administration Bisacodyl 10 mg 06/26/17 20:12 Dulcolax RECTAL DAILY PRN Constipation Calcium Carbonate 500 mg 06/27/17 08:00 06/28/17 08:14 Os-Tolu 500 [facility] Cholecalciferol 2,000 unit 06/27/17 06:00 06/28/17 05:57 Vitamin D PO 2,000 unit DAILY [facility] Administration Clopidogrel Bisulfate 75 mg 06/27/17 06:00 06/28/17 05:56 Plavix PO 75 mg DAILY [facility] Administration Dextrose 0 gm 06/27/17 12:00 D50w Syringe IV X1 PRN Hypoglycemia Protocol Finasteride 5 mg 06/27/17 06:00 06/28/17 05:57 Proscar PO 5 mg DAILY [facility] Administration Furosemide 40 mg 06/27/17 06:00 06/28/17 05:51 Lasix PO 40 mg BID [facility] Administration Gabapentin 300 mg 06/27/17 08:00 06/28/17 08:12 [facility] Glucagon 1 mg 06/27/17 12:00 IM .X1 PRN Hypoglycemia Insulin Aspart 7 units 06/28/17 06:45 06/28/17 11:56 Novolog Flexpen ([facility]) SC 7 u TIDAC [facility] Administration Insulin Detemir 10 units 06/27/17 18:00 06/28/17 06:50 Levemir ([facility]) SC 10 units BID [facility] Administration Metoprolol Tartrate 25 mg 06/26/17 22:00 06/28/17 05:56 Lopressor (Beta Yelena) PO 25 mg BID [facility] Administration Multivitamins/Minerals 1 tablet 06/27/17 08:00 06/28/17 08:13 Multivitamin With Minerals PO Not [facility] Nutritional Formula (Lactose Free) 120 ml 06/26/17 22:00 06/28/17 11:55 Glucerna Shake PO 120 ml 4X/DAY [facility] Administration Nystatin 1 applic 06/27/17 06:00 06/28/17 05:56 Mycostatin Powder TOPICAL 1 applicatio BID [facility] Administration Protocol Pantoprazole Sodium 40 mg 06/27/17 06:00 06/28/17 05:57 Protonix PO 40 mg DAILY [facility] Administration Polyethylene Glycol 17 gm 06/27/17 06:00 06/28/17 05:51 Miralax PO 17 gm DAILY [facility] Administration Pravastatin Sodium 40 mg 06/26/17 22:00 06/27/17 21:14 Pravachol PO 40 mg QHS [facility] Administration Prednisone 40 mg 06/27/17 08:00 06/28/17 08:11 Prednisone PO 40 mg DAILY@0800 [facility] Administration Rivaroxaban 20 mg 06/27/17 06:00 06/28/17 05:57 Xarelto PO 20 mg DAILY [facility] Administration Senna/Docusate Sodium 1 tablet 06/27/17 06:00 06/28/17 05:57 Senokot-S, Ny-Colace PO 1 tablet BID [facility] Administration Spironolactone 25 mg 06/27/17 06:00 06/28/17 05:50 Aldactone PO 25 mg DAILY [facility] Administration Tamsulosin HCl 0.4 mg 06/26/17 22:00 06/27/17 21:14 Flomax PO 0.4 mg QHS [facility] Administration Tuberculin PPD 5 tu 07/04/17 10:00 Tubersol, Aplisol, Ppd ID 07/04/17 10:01 X1 ONE Vitamin E 400 units 06/27/17 08:00 06/28/17 08:14 Vitamin E PO Not Given DAILY@0800 [facility] Problem List (Last Updated 06/25/17 @ 13:53 by Nayana Marsh, ELECTRON[employer] MECHANIC-C) Shortness of breath (Acute) Acute respiratory failure (Acute) Interstitial lung disease (Acute) Atrial fibrillation (Chronic) Coronary artery disease (Chronic) BPH (benign prostatic hyperplasia) (Chronic) Neuropathic pain (Chronic) Hypokalemia (Chronic) Vital Signs Temp Pulse Resp BP Pulse Ox 98.4 F 52 L 20 H 130/61 H 92 06/27/17 15:39 06/28/17 05:56 06/27/17 15:39 06/28/17 05:56 06/27/17 15:39 Oxygen Flow Rate (L/min) 5 Oxygen Delivery Method Nasal Cannula Weight: 121 kg Body Mass Index (BMI) 37.2 Sodium 131 mmol/L (136-145) L 06/27/17 05:58 Potassium 4.2 mmol/L (3.5-5.1) 06/27/17 05:58 Chloride 88 mmol/L (98-107) L 06/27/17 05:58 Carbon Dioxide 38.0 mmol/L (21.0-32.0) H 06/27/17 05:58 Anion Gap 5 (5-15) 06/27/17 05:58 BUN 40 mg/dL (7-18) H 06/27/17 05:58 Creatinine 1.05 mg/dL (0.70-1.30) 06/27/17 05:58 Est GFR (MDRD) Af Amer 87 mL/min (>60) 06/27/17 05:58 Est GFR (MDRD) Non-Af 72 mL/min (>60) 06/27/17 05:58 BUN/Creatinine Ratio 38.1 RATIO (10-20) H 06/27/17 05:58 Glucose 244 mg/dL (74-106) H 06/27/17 05:58 Assessment/Plan: Psychotropic Medications: Unnecessary Medications: Bowel Regimen: - Provider Comments Provider responsibility: Provider responsible to enter orders to implement recommendations Provider Comments to Recommendations by Pharmacy: Agree
[2017-06-28 15:46] VITALS: BP 110/59; PULSE 55; RESP 18; TEMP 36.6; O2SAT 90
[2017-06-28 17:11] LABS: Bedside Glucose 292 mg/dL (70-110)
[2017-06-28 18:03] VITALS: BP 110/59; PULSE 60
[2017-06-28 18:05] VITALS: PULSE 60
[2017-06-28] MEDS: Menthol/Lanolin/Calamine/Znox 113 GM Tube 1 APPLIC TOPICAL (21:23)
[2017-06-28] MEDS: Tamsulosin HCl 0.4 MG Capsule PO (21:25)
[2017-06-28] MEDS: Pravastatin 40 MG Tablet PO (21:25)
[2017-06-28 21:30] LABS: Bedside Glucose 244 mg/dL (70-110)
[2017-06-29] MEDS: Amiodarone 200 MG Tablet PO (04:55)
[2017-06-29] MEDS: Spironolactone 25 MG Tablet PO (04:55)
[2017-06-29] MEDS: Pantoprazole Sodium 40 MG Tablet PO (04:55)
[2017-06-29] MEDS: Furosemide 40 MG Tablet PO ×2 (04:56→17:09)
[2017-06-29] MEDS: Senna/Docusate Sodium 1 Tablet PO ×2 (04:56→17:09)
[2017-06-29] MEDS: Finasteride 5 MG Tablet PO (04:57)
[2017-06-29] MEDS: Nystatin Powder 15gm Bottle 1 APPLIC TOPICAL ×2 (04:59→17:16)
[2017-06-29] MEDS: Menthol/Lanolin/Calamine/Znox 113 GM Tube 1 APPLIC TOPICAL ×3 (05:00→21:23)
[2017-06-29] MEDS: Polyethylene Glycol 3350 17 GM PACKET PO (05:04)
[2017-06-29 05:05] VITALS: BP 132/62; PULSE 50
[2017-06-29] MEDS: Clopidogrel Bisulfate 75 MG Tablet PO (05:09)
[2017-06-29] MEDS: Glucerna Shake 120 ML LIQUID PO ×3 (05:14→17:07)
[2017-06-29 05:43] VITALS: BP 132/62; PULSE 50; RESP 20; TEMP 36.2; O2SAT 91
[2017-06-29 07:06] LABS: Bedside Glucose 164 mg/dL (70-110)
[2017-06-29] MEDS: Gabapentin 300 MG Capsule PO ×2 (08:21→17:10)
[2017-06-29] MEDS: Aspirin E.C. 81 MG Tablet PO (08:21)
[2017-06-29 10:00] VITALS: PULSE 56; RESP 24; O2SAT 91
[2017-06-29 11:35] LABS: Bedside Glucose 232 mg/dL (70-110)
[2017-06-29] MEDS: Bisacodyl 10 MG Suppository RECTAL (13:31)
--- NOTE | 2017-06-29 13:56 | NURSING ---
DULCOLAX GIVEN AT 1330. BOY SENIOR AWARE
[2017-06-29 16:00] VITALS: BP 140/87; PULSE 83; RESP 20; TEMP 36.4; O2SAT 91
[2017-06-29 16:50] LABS: Bedside Glucose 303 mg/dL (70-110)
[2017-06-29 17:09] VITALS: BP 140/87; PULSE 83
[2017-06-29] MEDS: Metoprolol Tartrate 25 MG Tablet PO (17:09)
[2017-06-29 21:16] LABS: Bedside Glucose 268 mg/dL (70-110)
[2017-06-29] MEDS: Pravastatin 40 MG Tablet PO (21:25)
[2017-06-29] MEDS: Tamsulosin HCl 0.4 MG Capsule PO (21:28)
[2017-06-30] MEDS: Menthol/Lanolin/Calamine/Znox 113 GM Tube 1 APPLIC TOPICAL ×3 (06:26→20:45)
[2017-06-30] MEDS: Spironolactone 25 MG Tablet PO (06:26)
[2017-06-30 06:27] VITALS: BP 120/65; PULSE 60
[2017-06-30] MEDS: Clopidogrel Bisulfate 75 MG Tablet PO (06:27)
[2017-06-30] MEDS: Metoprolol Tartrate 25 MG Tablet PO (06:27)
[2017-06-30] MEDS: Finasteride 5 MG Tablet PO (06:27)
[2017-06-30] MEDS: Senna/Docusate Sodium 1 Tablet PO (06:27)
[2017-06-30] MEDS: Furosemide 40 MG Tablet PO ×2 (06:27→17:15)
[2017-06-30] MEDS: Pantoprazole Sodium 40 MG Tablet PO (06:27)
[2017-06-30] MEDS: Amiodarone 200 MG Tablet PO (06:27)
[2017-06-30] MEDS: Polyethylene Glycol 3350 17 GM PACKET PO (06:28)
[2017-06-30] MEDS: Nystatin Powder 15gm Bottle 1 APPLIC TOPICAL ×2 (06:28→17:24)
[2017-06-30 06:30] VITALS: PULSE 60; RESP 20; O2SAT 93
[2017-06-30] MEDS: Glucerna Shake 120 ML LIQUID PO ×2 (06:31→20:33)
[2017-06-30 06:51] LABS: Bedside Glucose 116 mg/dL (70-110)
[2017-06-30 07:04] VITALS: O2SAT 92
[2017-06-30] MEDS: Gabapentin 300 MG Capsule PO ×2 (07:59→17:14)
[2017-06-30] MEDS: Aspirin E.C. 81 MG Tablet PO (07:59)
[2017-06-30 11:36] LABS: Bedside Glucose 285 mg/dL (70-110)
[2017-06-30 16:00] VITALS: BP 138/66; PULSE 55; RESP 18; TEMP 36.2; O2SAT 94
--- NOTE | 2017-06-30 16:37 | CASEMGMT ---
Social Work Resident and resident family meeting with hospice and deciding against hospice at this time. Resident planning to continue with further care and treatment on the Transitional Care Unit. Support given. Will continue to follow. Malissa RASHID, FRAME STRIPPER
[2017-06-30 17:00] LABS: Bedside Glucose 221 mg/dL (70-110)
[2017-06-30] MEDS: Senna/Docusate Sodium 1 Tablet 2 TABLET PO (17:12)
--- NOTE | 2017-06-30 18:32 | NURSING ---
Pt pulse 47 metoprolol held Pineda BRUNSON aware.
[2017-06-30] MEDS: Tamsulosin HCl 0.4 MG Capsule PO (20:35)
[2017-06-30] MEDS: Pravastatin 40 MG Tablet PO (20:36)
[2017-06-30 21:11] LABS: Bedside Glucose 218 mg/dL (70-110)
[2017-07-01] MEDS: Glucerna Shake 120 ML LIQUID PO ×4 (05:55→20:48)
[2017-07-01 05:57] VITALS: BP 122/62; PULSE 54
[2017-07-01] MEDS: Amiodarone 200 MG Tablet PO (05:57)
[2017-07-01] MEDS: Finasteride 5 MG Tablet PO (05:57)
[2017-07-01] MEDS: Clopidogrel Bisulfate 75 MG Tablet PO (05:57)
[2017-07-01] MEDS: Spironolactone 25 MG Tablet PO (05:57)
[2017-07-01] MEDS: Metoprolol Tartrate 25 MG Tablet PO (05:57)
[2017-07-01] MEDS: Pantoprazole Sodium 40 MG Tablet PO (05:57)
[2017-07-01] MEDS: Polyethylene Glycol 3350 17 GM PACKET PO (05:57)
[2017-07-01] MEDS: Furosemide 40 MG Tablet PO ×2 (05:57→17:47)
[2017-07-01] MEDS: Senna/Docusate Sodium 1 Tablet 2 TABLET PO ×2 (05:58→17:47)
[2017-07-01] MEDS: Nystatin Powder 15gm Bottle 1 APPLIC TOPICAL ×2 (06:01→17:54)
[2017-07-01] MEDS: Menthol/Lanolin/Calamine/Znox 113 GM Tube 1 APPLIC TOPICAL ×3 (06:01→20:47)
[2017-07-01 07:01] LABS: Bedside Glucose 120 mg/dL (70-110)
[2017-07-01] MEDS: Gabapentin 300 MG Capsule PO ×2 (08:02→17:47)
[2017-07-01] MEDS: Aspirin E.C. 81 MG Tablet PO (08:02)
[2017-07-01 10:00] VITALS: PULSE 54; RESP 18; O2SAT 92
[2017-07-01 11:21] LABS: Bedside Glucose 241 mg/dL (70-110)
[2017-07-01 16:00] VITALS: BP 103/59; PULSE 54; RESP 18; TEMP 35.7; O2SAT 95
[2017-07-01 17:01] LABS: Bedside Glucose 191 mg/dL (70-110)
[2017-07-01 17:53] VITALS: BP 122/66; PULSE 55
[2017-07-01 18:00] VITALS: BP 122/66; PULSE 55
[2017-07-01] MEDS: Pravastatin 40 MG Tablet PO (20:47)
[2017-07-01] MEDS: Tamsulosin HCl 0.4 MG Capsule PO (20:47)
[2017-07-01 21:01] LABS: Bedside Glucose 266 mg/dL (70-110)
[2017-07-02 06:31] LABS: Bedside Glucose 107 mg/dL (70-110)
[2017-07-02] MEDS: Glucerna Shake 120 ML LIQUID PO (06:39)
[2017-07-02] MEDS: Polyethylene Glycol 3350 17 GM PACKET PO (06:42)
[2017-07-02 06:43] VITALS: BP 131/71; PULSE 52
[2017-07-02] MEDS: Metoprolol Tartrate 25 MG Tablet PO ×2 (06:43→17:24)
[2017-07-02] MEDS: Finasteride 5 MG Tablet PO (06:43)
[2017-07-02] MEDS: Senna/Docusate Sodium 1 Tablet 2 TABLET PO ×2 (06:43→17:24)
[2017-07-02] MEDS: Spironolactone 25 MG Tablet PO (06:43)
[2017-07-02] MEDS: Menthol/Lanolin/Calamine/Znox 113 GM Tube 1 APPLIC TOPICAL ×3 (06:43→21:39)
[2017-07-02] MEDS: Amiodarone 200 MG Tablet PO (06:44)
[2017-07-02] MEDS: Nystatin Powder 15gm Bottle 1 APPLIC TOPICAL ×2 (06:44→17:49)
[2017-07-02] MEDS: Clopidogrel Bisulfate 75 MG Tablet PO (06:44)
[2017-07-02] MEDS: Pantoprazole Sodium 40 MG Tablet PO (06:44)
[2017-07-02] MEDS: Furosemide 40 MG Tablet PO ×2 (06:44→17:25)
[2017-07-02] MEDS: Gabapentin 300 MG Capsule PO ×2 (08:12→17:25)
[2017-07-02] MEDS: Aspirin E.C. 81 MG Tablet PO (08:12)
[2017-07-02] MEDS: Bisacodyl 10 MG Suppository RECTAL (10:04)
--- NOTE | 2017-07-02 10:07 | CASEMGMT ---
Plan of care meeting held. Resident declining to attend. Resident spouse present. Resident plans to discharge home with spouse at time of discharge. Resident has no discharge date set at this time, resident to continue with further care and treatment on the Transitional Care Unit. Support given. Will continue to follow. Malissa RASHID, BLOCK AND CASE MAKER
[2017-07-02 11:15] LABS: Bedside Glucose 243 mg/dL (70-110)
[2017-07-02 15:39] VITALS: BP 107/57; PULSE 53; RESP 18; TEMP 36.5; O2SAT 97
--- NOTE | 2017-07-02 15:46 | CASEMGMT ---
Brief interview for mental status (BIMS) and resident mood interview (PHQ-9) completed on this day. BIMS score 15. PHQ-9 score 05/10
[2017-07-02 17:10] LABS: Bedside Glucose 288 mg/dL (70-110)
[2017-07-02 17:24] VITALS: PULSE 53
[2017-07-02 20:26] LABS: Bedside Glucose 253 mg/dL (70-110)
[2017-07-02 21:05] VITALS: PULSE 88; RESP 20; O2SAT 94
[2017-07-02] MEDS: Tamsulosin HCl 0.4 MG Capsule PO (21:40)
[2017-07-02] MEDS: Pravastatin 40 MG Tablet PO (21:40)
[2017-07-03] MEDS: Menthol/Lanolin/Calamine/Znox 113 GM Tube 1 APPLIC TOPICAL ×3 (05:24→20:27)
[2017-07-03] MEDS: Pantoprazole Sodium 40 MG Tablet PO (05:26)
[2017-07-03] MEDS: Spironolactone 25 MG Tablet PO (05:26)
[2017-07-03] MEDS: Amiodarone 200 MG Tablet PO (05:27)
[2017-07-03] MEDS: Furosemide 40 MG Tablet PO ×2 (05:27→17:51)
[2017-07-03 05:28] VITALS: BP 131/67; PULSE 48
[2017-07-03] MEDS: Nystatin Powder 15gm Bottle 1 APPLIC TOPICAL ×2 (05:28→20:26)
[2017-07-03] MEDS: Polyethylene Glycol 3350 17 GM PACKET PO (05:28)
[2017-07-03] MEDS: Clopidogrel Bisulfate 75 MG Tablet PO (05:28)
[2017-07-03] MEDS: Finasteride 5 MG Tablet PO (05:29)
[2017-07-03] MEDS: Senna/Docusate Sodium 1 Tablet 2 TABLET PO ×2 (05:29→17:52)
[2017-07-03 06:51] LABS: Bedside Glucose 121 mg/dL (70-110)
[2017-07-03] MEDS: Gabapentin 300 MG Capsule PO ×2 (08:34→17:52)
[2017-07-03] MEDS: Aspirin E.C. 81 MG Tablet PO (08:35)
[2017-07-03 11:26] LABS: Bedside Glucose 227 mg/dL (70-110)
--- NOTE | 2017-07-03 12:52 | NURSING ---
PT COMPLAINED OF SORENESS UNDER NOSE FROM O2 TUBING. THIS NURSE APPLIED DUODERM TO AREA. PT STATED FELT BETTER. PLEASE KEEP EYE OUT INCASE PT BRAKES OUT IN RASH. BOY SALINAS AWARE
[2017-07-03 15:14] VITALS: BP 120/55; PULSE 52; RESP 16; TEMP 35.7; O2SAT 97
[2017-07-03 17:00] LABS: Bedside Glucose 151 mg/dL (70-110)
[2017-07-03 17:52] VITALS: BP 120/55; PULSE 52
[2017-07-03] MEDS: Metoprolol Tartrate 25 MG Tablet PO (17:52)
[2017-07-03] MEDS: Tamsulosin HCl 0.4 MG Capsule PO (20:27)
[2017-07-03] MEDS: Pravastatin 40 MG Tablet PO (20:27)
[2017-07-03 20:55] LABS: Bedside Glucose 310 mg/dL (70-110)
[2017-07-04] MEDS: Senna/Docusate Sodium 1 Tablet 2 TABLET PO ×2 (05:13→17:14)
[2017-07-04] MEDS: Polyethylene Glycol 3350 17 GM PACKET PO (05:13)
[2017-07-04] MEDS: Clopidogrel Bisulfate 75 MG Tablet PO (05:13)
[2017-07-04] MEDS: Pantoprazole Sodium 40 MG Tablet PO (05:14)
[2017-07-04] MEDS: Furosemide 40 MG Tablet PO ×2 (05:14→17:14)
[2017-07-04] MEDS: Spironolactone 25 MG Tablet PO (05:14)
[2017-07-04] MEDS: Finasteride 5 MG Tablet PO (05:14)
[2017-07-04 05:15] VITALS: BP 110/64; PULSE 48
[2017-07-04] MEDS: Menthol/Lanolin/Calamine/Znox 113 GM Tube 1 APPLIC TOPICAL ×3 (05:19→20:47)
[2017-07-04] MEDS: Nystatin Powder 15gm Bottle 1 APPLIC TOPICAL ×2 (05:20→17:23)
[2017-07-04 06:19] LABS: Anion Gap 3 (5-15); BUN 27 mg/dL (7-18); BUN/Creat Ratio 29.2 RATIO (10-20); Calcium,Total 8.4 mg/dL (8.5-10.1); Chloride 92 mmol/L (98-107); Creatinine, Serum 0.92 mg/dL (0.70-1.30); EST Glomerular Filtration Rate 83 mL/min (>60); Est Glom Filt Rate - Afr Amer 101 mL/min (>60); Estimated Creatinine Clearance 67.07 ml/min; Glucose 89 mg/dL (74-106); Potassium 3.7 mmol/L (3.5-5.1); Sodium Level 138 mmol/L (136-145)
[2017-07-04 06:29] LABS: Absolute Lymphocyte Count 0.86 X10^3/ul (0.83-4.51); Absolute Neutrophil Count 12.4 X10^3/uL (2.0-7.7); Basophil# 0.02 X10^3/uL; Basophil% 0.1 % (0-1); Eosinophil# 0.04 X10^3/uL; Eosinophils% 0.3 % (0-5); Hematocrit 41.6 % (40-54); Hemoglobin 13.7 g/dl (13.0-16.5); Lymphocyte # 0.86 X10^3/ul (4.0); Mean Corp Hgb Conc 32.9 g/gl (32-36); Mean Corpuscular Hgb 29.3 pg (27.0-32.0); Mean Corpuscular Volume 88.9 fL (80-94); Mean Platelet Vol. 9.7 fl (6.2-12.0); Monocyte# 0.79 X10^3/uL; Monocyte% 5.5 % (0-10); Neutrophil # 12.41 X10^3/uL (2.7-7.7); Neutrophil % 86.1 % (47-70); Platelet Count 225 K/mm3 (150-450); RBC Distribution Width CV 13.2 % (11.6-14.6); RBC Distribution Width SD 42.3 fl (35.1-43.9); Red Blood Count 4.68 M/mm3 (4.6-6.2); White Blood Count 14.4 K/mm3 (4.4-11.0)
[2017-07-04 06:31] LABS: Bedside Glucose 90 mg/dL (70-110)
[2017-07-04 06:34] LABS: POSITIVE COUNT YES; POSITIVE DIFFERENTIAL NO; POSITIVE MORPHOLOGY YES
[2017-07-04] MEDS: Aspirin E.C. 81 MG Tablet PO (08:05)
[2017-07-04] MEDS: Gabapentin 300 MG Capsule PO ×2 (08:06→17:14)
[2017-07-04] MEDS: Acetaminophen 500 MG Tablet 1000 MG PO (09:27)
[2017-07-04 09:54] VITALS: PULSE 55; RESP 20; O2SAT 96
[2017-07-04 12:01] LABS: Bedside Glucose 253 mg/dL (70-110)
--- NOTE | 2017-07-04 13:36 | NURSING ---
Dr. Monreal reviewed labs, NNO
[2017-07-04 15:11] VITALS: O2SAT 97
[2017-07-04 15:16] VITALS: BP 99/63; PULSE 52; RESP 20; TEMP 36.7; O2SAT 97
[2017-07-04 16:51] LABS: Bedside Glucose 212 mg/dL (70-110)
[2017-07-04 17:22] VITALS: PULSE 44
[2017-07-04 19:20] VITALS: O2SAT 95; O2SAT 96
[2017-07-04] MEDS: Pravastatin 40 MG Tablet PO (20:47)
[2017-07-04] MEDS: Tamsulosin HCl 0.4 MG Capsule PO (20:47)
[2017-07-04 21:36] LABS: Bedside Glucose 233 mg/dL (70-110)
[2017-07-05] MEDS: Polyethylene Glycol 3350 17 GM PACKET PO (05:21)
[2017-07-05 05:22] VITALS: BP 123/67; PULSE 53
[2017-07-05] MEDS: Amiodarone 200 MG Tablet PO (05:22)
[2017-07-05] MEDS: Pantoprazole Sodium 40 MG Tablet PO (05:22)
[2017-07-05] MEDS: Metoprolol Tartrate 25 MG Tablet PO ×2 (05:22→17:47)
[2017-07-05] MEDS: Vitamin E 400 UNITS Capsule PO (05:22)
[2017-07-05] MEDS: Clopidogrel Bisulfate 75 MG Tablet PO (05:22)
[2017-07-05] MEDS: Spironolactone 25 MG Tablet PO (05:22)
[2017-07-05] MEDS: Finasteride 5 MG Tablet PO (05:22)
[2017-07-05] MEDS: Senna/Docusate Sodium 1 Tablet 2 TABLET PO ×2 (05:23→17:47)
[2017-07-05] MEDS: Furosemide 40 MG Tablet PO ×2 (05:23→17:47)
[2017-07-05] MEDS: Menthol/Lanolin/Calamine/Znox 113 GM Tube 1 APPLIC TOPICAL ×3 (05:23→21:07)
[2017-07-05] MEDS: Nystatin Powder 15gm Bottle 1 APPLIC TOPICAL ×2 (05:23→18:06)
[2017-07-05 06:50] LABS: Bedside Glucose 107 mg/dL (70-110)
[2017-07-05 07:38] VITALS: O2SAT 96
[2017-07-05] MEDS: Gabapentin 300 MG Capsule PO ×2 (08:07→17:47)
[2017-07-05] MEDS: Aspirin E.C. 81 MG Tablet PO (08:07)
[2017-07-05] MEDS: Multivitamins,Ther W-Minerals Tablet 1 TABLET PO (08:08)
[2017-07-05] MEDS: Calcium (Elemental) 500 MG Tablet PO (08:08)
[2017-07-05 10:00] VITALS: PULSE 55; RESP 21; O2SAT 98
[2017-07-05 11:20] LABS: Bedside Glucose 141 mg/dL (70-110)
--- NOTE | 2017-07-05 11:49 | NURSING ---
pt's out at nursing desk and reporting that pt c/o indigestion. vs stable. pt thinks is gas from not moving bowels in [address] talk [address] arcos regarding order as pt reporting that dulcolax not effective last time.
[2017-07-05 12:00] VITALS: BP 105/53; PULSE 57; RESP 18; TEMP 36.6; O2SAT 97
--- NOTE | 2017-07-05 14:00 | NURSING ---
SSE administered per Dr. Ortiz. Was effective with a large soft brown bowel movement. Patient reports feeling better with relief of the pressure he felt. Procedure well tolerated.
[2017-07-05 15:36] VITALS: BP 100/59; PULSE 61; RESP 22; TEMP 36.6; O2SAT 97
[2017-07-05 16:51] LABS: Bedside Glucose 189 mg/dL (70-110)
[2017-07-05 17:47] VITALS: BP 100/59; PULSE 61
[2017-07-05] MEDS: Tamsulosin HCl 0.4 MG Capsule PO (21:07)
[2017-07-05] MEDS: Pravastatin 40 MG Tablet PO (21:07)
[2017-07-05 21:11] LABS: Bedside Glucose 296 mg/dL (70-110)
[2017-07-06] MEDS: Menthol/Lanolin/Calamine/Znox 113 GM Tube 1 APPLIC TOPICAL ×3 (06:09→19:41)
[2017-07-06] MEDS: Furosemide 40 MG Tablet PO ×2 (06:10→17:52)
[2017-07-06] MEDS: Amiodarone 200 MG Tablet PO (06:10)
[2017-07-06] MEDS: Nystatin Powder 15gm Bottle 1 APPLIC TOPICAL ×2 (06:11→18:03)
[2017-07-06] MEDS: Polyethylene Glycol 3350 17 GM PACKET PO (06:11)
[2017-07-06] MEDS: Clopidogrel Bisulfate 75 MG Tablet PO (06:11)
[2017-07-06 06:15] VITALS: BP 137/61; PULSE 49
[2017-07-06] MEDS: Pantoprazole Sodium 40 MG Tablet PO (06:16)
[2017-07-06] MEDS: Spironolactone 25 MG Tablet PO (06:16)
[2017-07-06] MEDS: Finasteride 5 MG Tablet PO (06:16)
[2017-07-06] MEDS: Senna/Docusate Sodium 1 Tablet 2 TABLET PO ×2 (06:17→18:01)
[2017-07-06 06:45] VITALS: O2SAT 98
[2017-07-06 07:11] LABS: Bedside Glucose 82 mg/dL (70-110)
[2017-07-06] MEDS: Gabapentin 300 MG Capsule PO ×2 (08:06→17:52)
[2017-07-06] MEDS: Multivitamins,Ther W-Minerals Tablet 1 TABLET PO (08:06)
[2017-07-06] MEDS: Aspirin E.C. 81 MG Tablet PO (08:06)
[2017-07-06 10:00] VITALS: PULSE 52; RESP 20; O2SAT 98
[2017-07-06 11:21] LABS: Bedside Glucose 220 mg/dL (70-110)
[2017-07-06] MEDS: Sodium Chloride 0.65% 1 SPRAY SPRAY.BTL NASAL (14:16)
[2017-07-06 15:17] VITALS: BP 140/77; PULSE 61; RESP 18; TEMP 36.5; O2SAT 97
[2017-07-06 17:20] LABS: Bedside Glucose 215 mg/dL (70-110)
[2017-07-06 17:52] VITALS: BP 140/77; PULSE 61
[2017-07-06] MEDS: Metoprolol Tartrate 25 MG Tablet PO (17:52)
[2017-07-06] MEDS: Pravastatin 40 MG Tablet PO (19:41)
[2017-07-06] MEDS: Tamsulosin HCl 0.4 MG Capsule PO (19:41)
[2017-07-06 21:01] LABS: Bedside Glucose 244 mg/dL (70-110)
[2017-07-07] MEDS: Menthol/Lanolin/Calamine/Znox 113 GM Tube 1 APPLIC TOPICAL ×3 (06:02→20:27)
[2017-07-07] MEDS: Clopidogrel Bisulfate 75 MG Tablet PO (06:06)
[2017-07-07] MEDS: Spironolactone 25 MG Tablet PO (06:07)
[2017-07-07] MEDS: Pantoprazole Sodium 40 MG Tablet PO (06:08)
[2017-07-07] MEDS: Amiodarone 200 MG Tablet PO (06:09)
[2017-07-07] MEDS: Furosemide 40 MG Tablet PO ×2 (06:09→17:44)
[2017-07-07 06:10] VITALS: BP 127/61; PULSE 48
[2017-07-07] MEDS: Nystatin Powder 15gm Bottle 1 APPLIC TOPICAL ×2 (06:11→20:18)
[2017-07-07] MEDS: Polyethylene Glycol 3350 17 GM PACKET PO (06:11)
[2017-07-07] MEDS: Senna/Docusate Sodium 1 Tablet 2 TABLET PO ×2 (06:14→17:44)
[2017-07-07] MEDS: Finasteride 5 MG Tablet PO (06:15)
[2017-07-07 06:25] LABS: Bedside Glucose 82 mg/dL (70-110)
[2017-07-07 06:48] VITALS: O2SAT 91
[2017-07-07] MEDS: Multivitamins,Ther W-Minerals Tablet 1 TABLET PO (08:19)
[2017-07-07] MEDS: Aspirin E.C. 81 MG Tablet PO (08:19)
[2017-07-07] MEDS: Gabapentin 300 MG Capsule PO ×2 (08:19→17:44)
[2017-07-07 10:00] VITALS: PULSE 95; RESP 18; O2SAT 96
[2017-07-07 11:20] LABS: Bedside Glucose 141 mg/dL (70-110)
[2017-07-07 13:41] LABS: Pathologist Review Reviewed
--- NOTE | 2017-07-07 13:51 | CASEMGMT ---
Social Work Spoke with resident and resident spouse in room. Resident requesting for discharge date to be set for 07/10/17. Resident with an outstanding sleep study order and wanting to have sleep study done on 07/10/17 and discharge to home on 07/11/17. Spoke with staff/therapy, 07/10/17 is an agreeable discharge date at this time. Resident planning to discharge home with spouse and [facility] after sleep study on 07/10/17. Resident also wanting to continue with physical therapy within the home. This social media assistant educating resident that physical therapy may not be approved under resident insurance as resident is planning to discharge home with hospice. Resident voicing understanding and planning to private pay for physical therapy in the event that it is not covered. Resident requesting for home health services to be set up through [facility] ([facility] Resident voicing to have needed equipment already set up within the home. Resident spouse planning to transport resident home. Support given[facility] This social media assistant making referral for physical therapy. Order to be completed. Melania aware that hospice is involved and that resident is open to private pay if physical therapy is not covered by insurance. Telephone call to [facility], Intake. [facility] already aware of resident and planning to have start of care begin on 07/11/17. Will fax orders when obtained. Proposed discharge date: 07/10/17 PLAN: Resident planning to discharge to sleep lab on 07/10/28 for an overnight sleep study and then transition to home home with hospice on 07/11/17. Malissa RASHID, TIP MENDER
--- NOTE | 2017-07-07 15:00 | MDS.RN ---
Information for the mds was obtained from review of the clinical record, interview of resident, staff, and direct observation of resident's care.
[2017-07-07 15:13] VITALS: BP 102/53; PULSE 58; RESP 20; TEMP 36.6; O2SAT 96
[2017-07-07 16:56] LABS: Bedside Glucose 124 mg/dL (70-110)
[2017-07-07 17:44] VITALS: BP 102/53; PULSE 58
[2017-07-07] MEDS: Metoprolol Tartrate 25 MG Tablet PO (17:44)
[2017-07-07] MEDS: Pravastatin 40 MG Tablet PO (20:18)
[2017-07-07] MEDS: Tamsulosin HCl 0.4 MG Capsule PO (20:18)
[2017-07-07] MEDS: Acetaminophen 500 MG Tablet 1000 MG PO (20:22)
[2017-07-07 21:01] LABS: Bedside Glucose 258 mg/dL (70-110)
--- NOTE | 2017-07-07 21:50 | PCM.DC ---
- Discharge Diagnoses Current Active Problems: Current Active and Chronic Problems (Last Updated 06/25/17 @ 13:53 by Nayana Marsh NP-C) Shortness of breath (Acute) Acute respiratory failure (Acute) Interstitial lung disease (Acute) Atrial fibrillation (Chronic) Coronary artery disease (Chronic) BPH (benign prostatic hyperplasia) (Chronic) Neuropathic pain (Chronic) Hypokalemia (Chronic) You will use the following diet at home:: No restrictions, Regular Your food should be the consistency of: Regular Your liquids should be the consistency of: Regular/Thin Discharge Activity: Return to Normal Activity, May Shower, Use Walker Weight Bearing Status: Weight bearing as tolerated Call your doctor if you observe: Fever of 101 or Higher, Inability to urinate, Inability to have a bowel movement, Shortness of breath, Chest pain, Uncontrolled pain Allergies/Adverse Reactions: Allergies amoxicillin trihydrate [From Augmentin] Allergy (Verified 06/14/17 15:10) Mucosal lesions lisinopril [From Prinivil] Allergy (Verified 06/14/17 15:10) Unknown meperidine HCl [From Demerol] Allergy (Verified 06/14/17 15:10) Other orlistat [From Xenical] Allergy (Verified 06/14/17 15:10) Unknown Penicillins Allergy (Verified 06/14/17 15:10) Unknown potassium clavulanate [From Augmentin] Allergy (Verified 06/14/17 15:10) Mucosal lesions rofecoxib [From Vioxx] Allergy (Verified 06/14/17 15:10) Unknown adhesive tape Adverse Reaction (Uncoded 06/14/17 15:10) Rash Medications to take at Discharge Finasteride [Proscar] 5 mg PO DAILY 01/21/13 Gabapentin [Neurontin] 300 mg PO BID 01/21/13 Multivitamins,Ther W-Minerals [Multivitamin With Minerals] 1 tab PO DAILY@0800 01/21/13 Ascorbic Acid [Vitamin C] 500 mg PO DAILY@0805/29/15 Vitamin E 400 units PO DAILY@0800 05/29/15 Metoprolol Tartrate [Lopressor (beta stefani)] 25 mg PO BID 09/02/16 Tamsulosin HCl [Flomax] 0.4 mg PO QHS 09/02/16 Aspirin [Adult Low Dose Aspirin EC] 81 mg PO DAILY@0800 09/24/16 Clopidogrel Bisulfate [Plavix] 75 mg PO DAILY 09/24/16 Amiodarone HCl [Cordarone] 200 mg PO DAILY 12/13/16 pravastatin 40 mg tablet 40 mg PO QHS #90 tab 05/14/17 Spironolactone [Aldactone] 25 mg PO DAILY 06/14/17 Furosemide 40 mg PO BID #0 06/26/17 Pantoprazole Sodium [Protonix] 40 mg PO DAILY 06/26/17 Acetaminophen [Tylenol] 1,000 mg PO Q8H PRN PRN tablet 07/07/17 Insulin Aspart [Novolog Flexpen] 7 units SC TIDAC #1 flexpen 07/07/17 Insulin Detemir [Levemir FlexPen] 10 units SC BID #1 insuln.pen 07/07/17 Menthol/Lanolin/Calamine/Znox [Calmoseptine Ointment] 1 applic TOPICAL TID tube 07/07/17 Nystatin Powder [Mycostatin Powder] 1 applic TOPICAL BID bottle 07/07/17 Pantoprazole Sodium [Protonix] 40 mg PO DAILY #30 tab 07/07/17 Polyethylene Glycol 3350 [Miralax] 17 gm PO DAILY #30 packet 07/07/17 Prednisone [Deltasone] 40 mg PO DAILY@0800 #60 tab 07/07/17 Sodium Chloride 0.65% [[place] Nasal [place]] 1 spray NASAL BID PRN PRN spray.btl 07/07/17 The following prescriptions were given: Insulin Aspart [Novolog Flexpen] 7 units SC TIDAC #1 flexpen Pantoprazole Sodium [Protonix] 40 mg PO DAILY #30 tab Polyethylene Glycol 3350 [Miralax] 17 gm PO DAILY #30 packet Prednisone [Deltasone] 40 mg PO DAILY@0800 #60 tab Insulin Detemir [Levemir FlexPen] 10 units SC BID #1 insuln.pen Primary Care Physician: Joseph Tran MD [Primary Care Provider] - Please follow up with your Primary Care Physician in: 1 week. Proposed Discharge Date: 07/10/17
--- NOTE | 2017-07-07 21:52 | PCM.DC.SUM ---
Discharge Date and Diagnosis - Problem List Patient Problems: Active and Suspected Problems (Last Updated 06/25/17 @ 13:53 by REGINA MendietaC) Shortness of breath (Acute) Acute respiratory failure (Acute) Interstitial lung disease (Acute) Date of Admission: 06/26/17 Date of Discharge: 07/10/17 - Primary Discharge Diagnosis Active and Suspected Problems (Last Updated 06/25/17 @ 13:53 by REGINA MendietaC) Shortness of breath (Acute) Acute respiratory failure (Acute) Interstitial lung disease (Acute) - Secondary Discharge Diagnosis Chronic Problems (Last Updated 06/25/17 @ 13:53 by REGINA MendietaC) Atrial fibrillation (Chronic) Coronary artery disease (Chronic) BPH (benign prostatic hyperplasia) (Chronic) Neuropathic pain (Chronic) Hypokalemia (Chronic) CHF (congestive heart failure) (Chronic) Echocardiogram from March 2017 showed ejection fraction of 55% Coronary atherosclerosis of [place] coronary vessel (Chronic) Edema (Chronic) 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, secondary (Chronic) Paroxysmal atrial flutter (Chronic) Atherosclerotic heart disease of [place] coronary artery without angina pectoris (Chronic) PTCA of the RCA intracoronary stent November 1997; PTCA/TIN to prox Ramus, FFR neg of distal RCA 09/25/2016; CABG TUCKER to LAD; SVG to PDA Obesity (Chronic) Abnormal chest CT (Chronic) Restrictive airway disease (Chronic) Abnormal PFTs (pulmonary function tests) (Chronic) S/P PTCA (percutaneous transluminal coronary angioplasty) (Chronic) PTCA of the RCA inreacoronary stent November 1997; PTCA/TIN to prox Ramus, FFR neg of gistal RCA 09/25/2016 Atrial fibrillation and flutter (Chronic) HLD (hyperlipidemia) (Chronic) S/P CABG x 2 (Chronic) TUCKER to LAD; SVG to PDA CAD (coronary artery disease) (Chronic) Cataract (Chronic) HTN (hypertension) (Chronic) Atrial flutter with rapid ventricular response (Chronic) Hospital Course and Treatment Imaging Results: 06/27/17 13:40 Carb [Diet: Carbohydrate Controlled] Dietary Modifications:: Fluid Restricted Diet Is pt able to select menu?: Yes Diet Comments: FR 1500, Low Sodium, no added salt Labs (Last 48 Hours) 0307/06/17 07/06/17 05:05 06:58 11:14 Diff Path Review Reviewed POC Glucose 82 220 H 07/06/17 07/06/17 07/07/17 17:02 20:48 06:16 Diff Path Review POC Glucose 215 H 244 H 82 07/07/17 07/07/17 07/07/17 11:12 16:50 20:43 Diff Path Review POC Glucose 141 H 124 H 258 H Operations: None Procedures: None Summary of Care Provided: The patient is a 81 year old Male with below past medical history hospitalized for acute respiratory failure requiring BiPAP, secondary to heart failure with preserved ejection fraction, interstitial lung disease, admitted to TCU for debility, rehabilitation, strengthening, prior to discharge home with spouse. [] Discharge to sleep lab 07/10/2017 for overnight sleep study, and then transfer to home with hospice 07/11/2017. Home health for physical therapy. Discharge Diet: No Restrictions Discharge Activity: Return to Normal Activity, May Shower, Use Walker Weight Bearing Status: Weight bearing as tolerated Call your doctor if you observe: Fever of 101 or Higher, Inability to urinate, Inability to have a bowel movement, Shortness of breath, Chest pain, Uncontrolled pain Home Medications: Medications to take at Discharge Finasteride [Proscar] 5 mg PO DAILY 01/21/13 Gabapentin [Neurontin] 300 mg PO BID 01/21/13 Multivitamins,Ther W-Minerals [Multivitamin With Minerals] 1 tab PO DAILY@0800 01/21/13 Ascorbic Acid [Vitamin C] 500 mg PO DAILY@0800 05/29/15 Vitamin E 400 units PO DAILY@0800 05/29/15 Metoprolol Tartrate [Lopressor (beta stefani)] 25 mg PO BID 09/02/16 Tamsulosin HCl [Flomax] 0.4 mg PO QHS 09/02/16 Aspirin [Adult Low Dose Aspirin EC] 81 mg PO DAILY@0800 09/24/16 Clopidogrel Bisulfate [Plavix] 75 mg PO DAILY 09/24/16 Amiodarone HCl [Cordarone] 200 mg PO DAILY 12/13/16 pravastatin 40 mg tablet 40 mg PO QHS #90 tab 05/14/17 Spironolactone [Aldactone] 25 mg PO DAILY 06/14/17 Furosemide 40 mg PO BID #0 06/26/17 Pantoprazole Sodium [Protonix] 40 mg PO DAILY 06/26/17 Acetaminophen [Tylenol] 1,000 mg PO Q8H PRN PRN tablet 07/07/17 Insulin Aspart [Novolog Flexpen] 7 units SC TIDAC #1 flexpen 07/07/17 Insulin Detemir [Levemir FlexPen] 10 units SC BID #1 insuln.pen 07/07/17 Menthol/Lanolin/Calamine/Znox [Calmoseptine Ointment] 1 applic TOPICAL TID tube 07/07/17 Nystatin Powder [Mycostatin Powder] 1 applic TOPICAL BID bottle 07/07/17 Pantoprazole Sodium [Protonix] 40 mg PO DAILY #30 tab 07/07/17 Polyethylene Glycol 3350 [Miralax] 17 gm PO DAILY #30 packet 07/07/17 Prednisone [Deltasone] 40 mg PO DAILY@0800 #60 tab 07/07/17 Sodium Chloride 0.65% [[place] Nasal [place]] 1 spray NASAL BID PRN PRN spray.btl 07/07/17 Following Prescrptions Were Given to Patient: Insulin Aspart [Novolog Flexpen] 7 units SC TIDAC #1 flexpen Pantoprazole Sodium [Protonix] 40 mg PO DAILY #30 tab Polyethylene Glycol 3350 [Miralax] 17 gm PO DAILY #30 packet Prednisone [Deltasone] 40 mg PO DAILY@0800 #60 tab Insulin Detemir [Levemir FlexPen] 10 units SC BID #1 insuln.pen Primary Care Physician: Joseph Tran MD [Primary Care Provider] - Please follow up with your Primary Care Physician in: 1 week. Disposition: Home with Hospice Minutes spent on discharge:: 35 Patient Condition:: Poor Medical Necessity - Tobacco Use Smoking Status: Former smoker Tobacco Use: Non-smoker Meaningful Use Info Meaningful Use Diagnoses (Choose all that apply): None applicable
--- NOTE | 2017-07-07 21:54 | PCM.PN.HH ---
Home Health Note - Plan Overview of reason of hospitalization: 81 year old male with below past medical history hospitalized for acute respiratory failure requiring BiPAP, secondary to heart failure with preserved ejection fraction, interstitial lung disease, admitted to TCU for debility, rehabilitation, strengthening, prior to discharge home with spouse. Discharge to sleep lab 07/10/2017 for overnight sleep study, and then transfer to home with hospice 07/11/2017. Home health for physical therapy. Problems: Patient was seen for (Last Updated 06/25/17 @ 13:53 by Nayana Marsh NP-C) Shortness of breath (Acute) Acute respiratory failure (Acute) Interstitial lung disease (Acute) Atrial fibrillation (Chronic) Coronary artery disease (Chronic) BPH (benign prostatic hyperplasia) (Chronic) Neuropathic pain (Chronic) Hypokalemia (Chronic) Complete List of Medical Problems (Last Updated 06/25/17 @ 13:53 by Nayana Marsh NP-C) Shortness of breath (Acute) Acute respiratory failure (Acute) Interstitial lung disease (Acute) Atrial fibrillation (Chronic) Coronary artery disease (Chronic) BPH (benign prostatic hyperplasia) (Chronic) Neuropathic pain (Chronic) Hypokalemia (Chronic) Acute on chronic respiratory failure with hypoxia and hypercapnia (Acute) Heart failure with preserved ejection fraction (Acute) CHF (congestive heart failure) (Chronic) Coronary atherosclerosis of [place] coronary vessel (Chronic) Edema (Chronic) 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, secondary (Chronic) Paroxysmal atrial flutter (Chronic) Atherosclerotic heart disease of [place] coronary artery without angina pectoris (Chronic) Obesity (Chronic) Abnormal chest CT (Chronic) Restrictive airway disease (Chronic) Abnormal PFTs (pulmonary function tests) (Chronic) Diastolic CHF, acute (Acute) S/P PTCA (percutaneous transluminal coronary angioplasty) (Chronic) Atrial fibrillation and flutter (Chronic) HLD (hyperlipidemia) (Chronic) S/P CABG x 2 (Chronic) CAD (coronary artery disease) (Chronic) Cataract (Chronic) HTN (hypertension) (Chronic) Atrial flutter with rapid ventricular response (Chronic) - Requirements and Reasons Disciplines Needed/Ordered: Physical Therapy Reason for Disciplines: Gait Training, Stair Training, Fall Prevention, Home Safety/Equipment Instruction, Balance and/or Posture Training, Transfer Training Related To: Limited/Poor Endurance, Shortness of Breath with Activity, Physical Impairments, Fall Risk Patient is unable to leave the home: Without Aid of Supportive Devices (crutches, cane, wheelchair, walker), Without the assistance of another person
[2017-07-08 06:34] VITALS: BP 132/67; PULSE 56
[2017-07-08] MEDS: Amiodarone 200 MG Tablet PO (06:34)
[2017-07-08] MEDS: Metoprolol Tartrate 25 MG Tablet PO ×2 (06:34→17:46)
[2017-07-08] MEDS: Clopidogrel Bisulfate 75 MG Tablet PO (06:34)
[2017-07-08] MEDS: Spironolactone 25 MG Tablet PO (06:34)
[2017-07-08] MEDS: Nystatin Powder 15gm Bottle 1 APPLIC TOPICAL ×2 (06:34→21:16)
[2017-07-08] MEDS: Furosemide 40 MG Tablet PO ×2 (06:34→17:46)
[2017-07-08] MEDS: Finasteride 5 MG Tablet PO (06:34)
[2017-07-08] MEDS: Vitamin E 400 UNITS Capsule PO (06:34)
[2017-07-08] MEDS: Polyethylene Glycol 3350 17 GM PACKET PO (06:35)
[2017-07-08] MEDS: Menthol/Lanolin/Calamine/Znox 113 GM Tube 1 APPLIC TOPICAL ×3 (06:35→21:16)
[2017-07-08 06:46] LABS: Bedside Glucose 106 mg/dL (70-110)
[2017-07-08] MEDS: Pantoprazole Sodium 40 MG Tablet PO (06:48)
[2017-07-08] MEDS: Senna/Docusate Sodium 1 Tablet 2 TABLET PO ×2 (06:48→17:45)
[2017-07-08 06:52] VITALS: PULSE 56; RESP 18; O2SAT 96
[2017-07-08 08:05] VITALS: O2SAT 95
[2017-07-08] MEDS: Multivitamins,Ther W-Minerals Tablet 1 TABLET PO (08:16)
[2017-07-08] MEDS: Gabapentin 300 MG Capsule PO ×2 (08:16→17:46)
[2017-07-08] MEDS: Aspirin E.C. 81 MG Tablet PO (08:16)
[2017-07-08 11:21] LABS: Bedside Glucose 159 mg/dL (70-110)
[2017-07-08 15:14] VITALS: BP 105/59; PULSE 51; RESP 18; TEMP 36.5; O2SAT 97
[2017-07-08 16:56] LABS: Bedside Glucose 159 mg/dL (70-110)
[2017-07-08 17:46] VITALS: BP 105/59; PULSE 55
[2017-07-08] MEDS: Pravastatin 40 MG Tablet PO (21:16)
[2017-07-08] MEDS: Tamsulosin HCl 0.4 MG Capsule PO (21:16)
[2017-07-08] MEDS: Acetaminophen 500 MG Tablet 1000 MG PO (21:17)
[2017-07-08 21:21] LABS: Bedside Glucose 235 mg/dL (70-110)
[2017-07-09] MEDS: Menthol/Lanolin/Calamine/Znox 113 GM Tube 1 APPLIC TOPICAL ×3 (05:34→20:50)
[2017-07-09] MEDS: Spironolactone 25 MG Tablet PO (05:35)
[2017-07-09] MEDS: Clopidogrel Bisulfate 75 MG Tablet PO (05:35)
[2017-07-09] MEDS: Finasteride 5 MG Tablet PO (05:36)
[2017-07-09] MEDS: Senna/Docusate Sodium 1 Tablet 2 TABLET PO ×2 (05:36→17:38)
[2017-07-09] MEDS: Pantoprazole Sodium 40 MG Tablet PO (05:37)
[2017-07-09] MEDS: Polyethylene Glycol 3350 17 GM PACKET PO (05:37)
[2017-07-09] MEDS: Nystatin Powder 15gm Bottle 1 APPLIC TOPICAL ×2 (05:37→17:46)
[2017-07-09 05:38] VITALS: BP 121/61; PULSE 48
[2017-07-09] MEDS: Furosemide 40 MG Tablet PO ×2 (05:38→17:46)
--- NOTE | 2017-07-09 05:48 | NURSING ---
BP MEDS HELD THIS AM DUE TO LOW PULSE CHECKED X 3 HIGHEST READING WAS 48. WILL CONT TO MONITOR. REPORTED TO BOY LEWIS AND BOY LUBIN.
[2017-07-09 06:00] VITALS: PULSE 48; RESP 20; O2SAT 97
[2017-07-09 06:51] VITALS: O2SAT 95
[2017-07-09 06:51] LABS: Bedside Glucose 124 mg/dL (70-110)
[2017-07-09] MEDS: Gabapentin 300 MG Capsule PO ×2 (08:10→17:45)
[2017-07-09] MEDS: Aspirin E.C. 81 MG Tablet PO (08:10)
[2017-07-09 11:51] LABS: Bedside Glucose 244 mg/dL (70-110)
--- NOTE | 2017-07-09 13:37 | CASEMGMT ---
Social Work Discharge information faxed to [facility]. Proposed discharge date: 07/10/17 PLAN: Discharge home with family and Hospice services. Malissa RASHID, ASSOCIATE WEB DEVELOPER
[2017-07-09 15:14] VITALS: BP 115/61; PULSE 51; RESP 18; TEMP 36.4; O2SAT 96
[2017-07-09 17:06] LABS: Bedside Glucose 246 mg/dL (70-110)
[2017-07-09 17:38] VITALS: PULSE 69
[2017-07-09] MEDS: Metoprolol Tartrate 25 MG Tablet PO (17:38)
[2017-07-09 20:51] LABS: Bedside Glucose 248 mg/dL (70-110)
[2017-07-09] MEDS: Tamsulosin HCl 0.4 MG Capsule PO (20:52)
[2017-07-09] MEDS: Pravastatin 40 MG Tablet PO (20:53)
[2017-07-10] MEDS: Pantoprazole Sodium 40 MG Tablet PO (05:06)
[2017-07-10] MEDS: Senna/Docusate Sodium 1 Tablet 2 TABLET PO (05:06)
[2017-07-10] MEDS: Finasteride 5 MG Tablet PO (05:07)
[2017-07-10] MEDS: Menthol/Lanolin/Calamine/Znox 113 GM Tube 1 APPLIC TOPICAL ×3 (05:07→18:17)
[2017-07-10] MEDS: Furosemide 40 MG Tablet PO ×2 (05:07→18:17)
[2017-07-10] MEDS: Spironolactone 25 MG Tablet PO (05:08)
[2017-07-10] MEDS: Clopidogrel Bisulfate 75 MG Tablet PO (05:08)
[2017-07-10] MEDS: Polyethylene Glycol 3350 17 GM PACKET PO (05:08)
[2017-07-10] MEDS: Nystatin Powder 15gm Bottle 1 APPLIC TOPICAL ×2 (05:08→18:22)
[2017-07-10 05:13] VITALS: BP 141/63; PULSE 56
[2017-07-10] MEDS: Metoprolol Tartrate 25 MG Tablet PO (05:13)
[2017-07-10] MEDS: Amiodarone 200 MG Tablet PO (05:13)
--- NOTE | 2017-07-10 05:15 | NURSING ---
Pt very concerned, anxious about sleep study this evening prior to discharge. Stated he called sleep lab to inform them he has a 'bed sore' and needs a special bed or mattress like the one he is currently using. Per pt, he was told they do not have those mattresses, and is not sure if he can be transported over and sleep in current bed. Pt who is usually very friendly and talkative with this nurse seemed irritated and said 'they won't let me but I'm sure they've never had a bed sore! Assured pt we would whatever we could to help and tried to help him calm down and not worry about it at the moment. He did not sleep well through night because of this. When asked about home bed he said d/t being hospice he was having a special bed delivered. RN aware, continuing to monitor.
[2017-07-10 07:00] LABS: Bedside Glucose 105 mg/dL (70-110)
[2017-07-10 07:13] VITALS: O2SAT 97
[2017-07-10] MEDS: Vitamin E 400 UNITS Capsule PO (08:04)
[2017-07-10] MEDS: Aspirin E.C. 81 MG Tablet PO (08:05)
[2017-07-10] MEDS: Gabapentin 300 MG Capsule PO ×2 (08:05→18:20)
[2017-07-10] MEDS: Multivitamins,Ther W-Minerals Tablet 1 TABLET PO (08:05)
[2017-07-10 10:00] VITALS: PULSE 48; RESP 20; O2SAT 95
[2017-07-10 11:15] LABS: Bedside Glucose 313 mg/dL (70-110)
[2017-07-10 15:27] VITALS: BP 100/51; PULSE 50; RESP 18; TEMP 36.6; O2SAT 97
[2017-07-10 17:01] LABS: Bedside Glucose 384 mg/dL (70-110)
[2017-07-10] MEDS: Pravastatin 40 MG Tablet PO (18:19)
[2017-07-10 18:22] VITALS: PULSE 47
[2017-07-10] MEDS: Tamsulosin HCl 0.4 MG Capsule PO (19:57)
--- NOTE | 2017-07-10 19:59 | NURSING ---
Pt DC'd to sleep lab via wheelchair.
== END 2017-07-10 20:02 | disposition hospice, home (50) | DRG 947 ==
PROVIDERS: Admitting Provider Family Medicine Geriatric Medicine; Family Provider Family Medicine; PCP Family Medicine; Visit Provider Family Medicine Geriatric Medicine
DX: R53.81 Other malaise (principal); I50.33 Acute on chronic diastolic (congestive) heart failure; J84.9 Interstitial pulmonary disease, unspecified; I48.0 Paroxysmal atrial fibrillation; B35.4 Tinea corporis; E66.9 Obesity, unspecified; I48.92 Unspecified atrial flutter; I25.10 Atherosclerotic heart disease of native coronary artery without angina pectoris; E78.5 Hyperlipidemia, unspecified; F32.9 Major depressive disorder, single episode, unspecified; K21.9 Gastro-esophageal reflux disease without esophagitis; N40.0 Benign prostatic hyperplasia without lower urinary tract symptoms; I11.0 Hypertensive heart disease with heart failure; Z68.37 Body mass index [BMI] 37.0-37.9, adult; Z71.3 Dietary counseling and surveillance; Z95.1 Presence of aortocoronary bypass graft; Z79.899 Other long term (current) drug therapy; Z79.02 Long term (current) use of antithrombotics/antiplatelets; Z79.01 Long term (current) use of anticoagulants; Z87.891 Personal history of nicotine dependence
CPT/HCPCS: 36415; 80048; 82962; 85025; 94002; 94003; 97110; 97116; 97162; 97165; 97530; 97535; 97802

== ENCOUNTER → 2017-07-10 20:00 | Outpatient (CLI) | payer MEDICARE, OTHER, SELFPAY ==
[2016-09-25 13:26] VITALS: BMI 40.1
[2017-07-10] MEDS: Zolpidem Tartrate 5 MG Tablet PO (21:00)
== END ==
PROVIDERS: Family Provider Family Medicine; PCP Family Medicine; Visit Provider Internal Medicine Critical Care Medicine
DX: G47.10 Hypersomnia, unspecified (principal); G47.33 Obstructive sleep apnea (adult) (pediatric)
CPT/HCPCS: 95811